=== PATIENT | male | born 1955 | race Caucasian/White ===

== ENCOUNTER 2017-03-27 16:26 | Inpatient (IN) | payer OTHER, MEDICARE ==
[~2017-03-27] VITALS: Ht 185.4 cm; Wt 112.0 kg
[~2017-03-27 16:26] MED LIST: NAPROSYN500 M1 PO
[2017-03-27 16:50] LABS: ABSOLUTE BASOPHIL COUNT 0.1 /CUMM (0.0-0.2); ABSOLUTE EOSINOPHIL COUNT 0 /CUMM (0.0-0.7); ABSOLUTE GRANULOCYTE CT 20.2 /CUMM (1.4-6.5); ABSOLUTE LYMPH COUNT 0.7 /CUMM (1.2-3.4); ABSOLUTE MONOCYTE COUNT 0.9 /CUMM (0.10-0.60); BASOPHIL % 0.6 % (0.0-2.0); EOSINOPHIL % 0 % (0-5); HEMATOCRIT 45.5 % (42-52); MEAN CORPUSCULAR HGB CONC 33.2 G/DL (33.0-37.0); MEAN CORPUSCULAR VOLUME 87.3 FL (80.0-94.0); MEAN PLATELET VOLUME 7.3 FL (7.4-10.4); PLATELET COUNT 263 /CUMM (130-400); RBC DISTRIBUTION WIDTH 12.6 % (11.5-14.5); RED BLOOD CELL CT 5.21 /CUMM (4.70-6.10)
[2017-03-27 16:53] LABS: GRANULOCYTE % 91.8 % (42.2-75.2)
--- NOTE | 2017-03-27 18:10 | ED GI/GU/ABDOMINAL COMPLAINT ---
History of Present Illness General Chief Complaint: Abdominal Pain/Flank Pain Stated Complaint: ABD PAIN +N Source: patient Exam Limitations: no limitations Vital Signs & Intake/Output Vital Signs & Intake/Output Vital Signs Date Time Temp Pulse Resp B/P B/P Pulse O2 O2 Flow FiO2 Mean Ox Delivery Rate 03/27 2027 97.0 90 16 161/77 94 Room Air 03/27 1910 100.1 100 18 135/80 95 Room Air 03/27 1852 Room Air 03/27 1635 100.3 80 22 146/87 94 Allergies Coded Allergies: risperidone (UNKNOWN 10/30/15) Triage Note: PER PT RLQ PAIN ALL DAY GETTING WORSE VOMITTED X 1 NO DIARRHEA NO FEVER LAST BM YESTERDAY Triage Nurses Notes Reviewed? yes Onset: Abrupt Duration: day(s): (1), constant, getting worse Timing: recent history Location: right lower quadrant Radiation: no radiation Activities at Onset: none No Modifying Factors: none HPI: 61-year-old male comes into emergency room with complaints of right lower abdominal pain that's been getting progressively worse throughout the day. Some associated nausea vomiting and decreased appetite. History of hernia surgery when he was a child denies any other surgeries. Nothing seems to make the symptoms better. Comes in for further evaluation. (Eliezer Andrea) Reconcile Medications Benztropine Mesylate 0.5 MG TABLET 1 TAB PO BID ANTICHOLINERGIC (Reported) Bupropion HCl (Bupropion HCl Sr) 150 MG TABLET.ER 1 TAB PO BID MOOD (Reported ) Buspirone HCl 30 MG TABLET 1 TAB PO BID ANXIETY (Reported) Gabapentin (Neurontin) 600 MG TABLET 1 TAB PO 4 TIMES/DAY NERVES (Reported) Hydrochlorothiazide 25 MG TABLET 1 TAB PO DAILY HIGH BLOOD PRESSURE (Reported ) Hydroxyzine Pamoate (Vistaril) 50 MG CAPSULE 1 CAP PO TIDPRN ANXIETY ( Reported) Levothyroxine Sodium 50 MCG TABLET 1 TAB PO DAILY THYROID PROBLEMS (Reported) Lisinopril 30 MG TABLET 1 TAB PO DAILY HIGH BLOOD PRESSURE (Reported) Metoprolol Tartrate 100 MG TABLET 1 TAB PO BID HIGH BLOOD PRESSURE (Reported) Morphine Sulfate (Morphine Sulfate ER) 60 MG TABLET.ER 1 TAB PO BID PAIN CONTROL (Reported) Naproxen (Naprosyn) 500 MG TABLET 1 TAB PO BID PRN PAIN AND INFLAMMATION Olanzapine (Zyprexa) 15 MG TABLET 1 TAB PO QPM MOOD STABILITY (Reported) Oxcarbazepine 150 MG TABLET 1 TAB PO BID SEIZURES (Reported) Oxycodone HCl 15 MG TABLET 1 TAB PO 4 TIMES/DAY PAIN CONTROL (Reported) (Amalia PLAZA,Cuco Mckee) Past History Travel History Traveled to [place] past 21 day No Medical History Any Pertinent Medical History? see below for history Neurological: NONE EENT: NONE Cardiovascular: hypertension Respiratory: NONE Gastrointestinal: NONE Hepatic: NONE Renal: NONE Musculoskeletal: NONE Psychiatric: depression Endocrine: THYROID Surgical History Surgical History: hernia Psychosocial History Who do you live with Other (see notes) What is your primary language Turkmen Tobacco Use: Never used Family History Hx Contributory? No (Eliezer Andrea) Review of Systems Review of Systems Constitutional: Reports: no symptoms. EENTM: Reports: no symptoms. Respiratory: Reports: no symptoms. Cardiovascular: Reports: no symptoms. GI: Reports: see HPI. Genitourinary: Reports: no symptoms. Musculoskeletal: Reports: no symptoms. Skin: Reports: no symptoms. Neurological/Psychological: Reports: no symptoms. Hematologic/Endocrine: Reports: no symptoms. Immunologic/Allergic: Reports: no symptoms. All Other Systems: Reviewed and Negative (Eliezer Andrea) Physical Exam Physical Exam General Appearance: well developed/nourished, mild distress Head: atraumatic, normal appearance Eyes: Bilateral: normal appearance. Ears, Nose, Throat, Mouth: hearing grossly normal, moist mucous membrane Neck: normal inspection Respiratory: normal breath sounds, no respiratory distress Cardiovascular: regular rate/rhythm Gastrointestinal: soft, tenderness (rlq) Back: normal inspection Extremities: normal range of motion Neurologic/Psych: awake, alert, oriented x 3, normal gait Core Measures ACS in differential dx? No Sepsis Present: No Sepsis Focused Exam Completed? No (Eliezer Andrea) Progress Differential Diagnosis: appendicitis, biliary colic, bowel obstruction, diverticulitis, gastritis, ischemic bowel, inflamm bowel dis, pancreatitis, perforated viscous, SBO Plan of Care: Orders Procedure Date/time Status TRANSFER ORDERS 03/27 2025 Active Patient Data 03/27 2008 Active Code Status 03/27 2008 Active Add-on Test (ER Only) 03/27 1951 Active EKG 03/27 1951 Active TYPE & SCREEN (NOT X-MATCH) 01/[address] in observation 01/12 1946 Active PARTIAL THROMBOPLASTIN TIME 03/27 1640 Complete PROTHROMBIN TIME 03/27 1640 Complete C-REACTIVE PROTEIN 03/27 1640 Complete URINALYSIS 03/27 1636 Complete LIPASE 03/27 1636 Complete HIGH SENSITIVITY CRP 03/27 1636 Complete COMPREHENSIVE METABOLIC PANEL 03/27 1636 Complete CBC WITHOUT DIFFERENTIAL 03/27 1636 Complete AMYLASE 03/27 1636 Complete Current Medications Sig/Nirmal Start time Last Medication Dose Stop Time Status Admin Olanzapine 15 MG QPM 03/28 2200 UNVr (Zyprexa) Benztropine Mesylate 0.5 MG BID 03/28 1000 UNVr (Cogentin 0.5 MG Tab) Bupropion HCl 150 MG BID 03/28 1000 UNVr (Wellbutrin SR) Buspirone HCl 30 MG BID 03/28 1000 UNVr (Buspar) Gabapentin 600 MG 4 TIMES/DAY 03/28 1000 UNVr (Neurontin) Hydrochlorothiazide 25 MG DAILY 03/28 1000 UNVr (Hydrodiuril) Levothyroxine Sodium 0.05 MG DAILY 03/28 1000 UNVr (Synthroid) Lisinopril 30 MG DAILY 03/28 1000 UNVr (Prinivil) Metoprolol Tartrate 100 MG BID 03/28 1000 UNVr (Lopressor) Oxcarbazepine 150 MG BID 03/28 1000 UNVr (Trileptal 150MG Tab) Laboratory Tests 03/27/17 1700: Urine Color YEL, Urine Clarity CLEAR, Urine pH 6.0, Ur Specific [place] 1.020, Urine Protein NEG, Urine Ketones 15 H, Urine Nitrite NEG, Urine Bilirubin NEG, Urine Urobilinogen 0.2, Ur Leukocyte Esterase NEG, Ur Microscopic EXAM NOT REQUIRED, Urine Hemoglobin NEG, Urine Glucose NEG 03/27/17 1640: Anion Gap 17 H, Estimated GFR > 60, BUN/Creatinine Ratio 22.5, Glucose 149 H, Calcium 9.5, Total Bilirubin 1.2, AST 23, ALT 35, Alkaline Phosphatase 75, C- Reactive Prot, Quant 8.7 H, C-React Prot High Sens > 15.0 H, Total Protein 7.3 , Albumin 4.4, Globulin 2.9, Albumin/Globulin Ratio 1.5, Amylase 52, Lipase 39, PT 12.4, INR 1.18 H, APTT 28, CBC w Diff MAN DIFF ORDERED, RBC 5.21, MCV 87.3, MCH 29.0, RDW 12.6, MPV 7.3 L, Gran % 91.8 H, Lymphocytes % 3.3 L, Monocytes % 4.3, Eosinophils % 0, Basophils % 0.6, Absolute Granulocytes 20.2 H, Segmented Neutrophils 88 H, Band Neutrophils 2, Absolute Lymphocytes 0.7 L, Lymphocytes 2 L, Monocytes 8, Absolute Monocytes 0.9 H, Absolute Eosinophils 0 , Absolute Basophils 0.1, Platelet Estimate ADEQUATE, Poikilocytosis 1+, Stomatocytes 1+, PUBS MCHC 33.2 Diagnostic Imaging: Viewed by Me: CT Scan. Discussed w/RAD: CT Scan. Initial ED EKG: normal sinus rhythm, rate (86) (Eliezer Andrea) Departure Departure Disposition: STILL A PATIENT Condition: Stable Clinical Impression Primary Impression: Acute appendicitis Referrals: Valentino Chun MD (PCP/Family) Departure Forms: Customer Survey General Discharge Information OR/GI Note Spoke With: Tommie Sow DO ED Treatment Decision: KALI THRASHER requires urgent operative management or an emergent procedure that cannot be performed in the Emergency Room setting. Transport To: [facility] (Eliezer Andrea) PA/FARMWORKER BULBS Co-Sign Statement Statement: ED Attending supervision documentation- [X] I saw and evaluated the patient. I have also reviewed all the pertinent lab results and diagnostic results. I agree with the findings and the plan of care as documented in the PA's/FARMWORKER BULBS's documentation. 03/27/17, 20:05... Pt with ruptured appendicitis.... pt to the OR. [] I have reviewed the ED Record and agree with the PA's/FARMWORKER BULBS's documentation. [] Additions or exceptions (if any) to the PAs/FARMWORKER BULBS's note and plan are summarized below: [] (Amalia PLAZA,Cuco Mckee) Critical Care Note Critical Care Note Critical Care Time: 30-74 min (40) (Eliezer Andrea) (Amalia PLAZA,Cuco Mckee) Critical Care Note Critical Care Note Critical Care Time: 30-74 min (40) (Eliezer Andrea)
[2017-03-27] MEDS ORDERED: BUPROPION HCL150 M4 PO (19:15)
[2017-03-27] MEDS ORDERED: BUSPIRONE HCL30 M1 PO (19:15)
[2017-03-27] MEDS ORDERED: BENZTROPINE ME0.5 M1 PO (19:18)
[2017-03-27] MEDS ORDERED: HYDROCHLOROTHIA25 M1 PO (19:19)
[2017-03-27] MEDS ORDERED: LEVOTHYROXINE50 MCG PO (19:20)
[2017-03-27] MEDS ORDERED: VISTARIL50 M1 PO (19:20)
[2017-03-27] MEDS ORDERED: LISINOPRIL30 M1 PO (19:21)
[2017-03-27] MEDS ORDERED: METOPROLOL TAR100 M1 PO (19:22)
[2017-03-27] MEDS ORDERED: MORPHINE SULFAT60 M4 PO (19:23)
[2017-03-27] MEDS ORDERED: NEURONTIN600 M1 PO (19:24)
[2017-03-27] MEDS ORDERED: OXCARBAZEPINE150 M1 PO (19:25)
[2017-03-27] MEDS ORDERED: ZYPREXA15 M1 PO (19:26)
[2017-03-27] MEDS ORDERED: OXYCODONE HCL15 M1 PO (19:26)
--- NOTE | 2017-03-27 19:43 | CT SCAN REPORT ---
EXAMINATION: CT ABDOMEN AND PELVIS WITH CONTRAST CLINICAL INFORMATION: Right lower quadrant abdominal pain. Evaluate for acute appendicitis. COMPARISON: No relevant prior imaging. TECHNIQUE: Multidetector volumetric imaging was performed of the abdomen and pelvis following IV administration of 95 mL of Optiray 320 intravenous contrast. Sagittal and coronal reformatted images were obtained on the technologist's workstation. DLP: 1367.49 mGy-cm FINDINGS: LUNG BASES: There is minimal bibasilar subsegmental atelectasis. No pleural or pericardial effusion. Old healed fractures of the multiple lower right-sided ribs near their costochondral articulation are noted. LIVER, GALLBLADDER, AND BILIARY TREE: The liver is normal in size, shape, and attenuation. No focal hepatic lesion or biliary ductal dilatation is present. The gallbladder is unremarkable with no evidence of radiopaque gallstones, gallbladder wall thickening, or obvious pericholecystic inflammatory changes. PANCREAS: Unremarkable. SPLEEN: Unremarkable. ADRENAL GLANDS: Unremarkable. KIDNEYS AND URETERS: Kidneys demonstrate symmetric nephrographic enhancement. There is no abnormal perinephric inflation or collection. No hydronephrosis. No worrisome mass or calcification is visualized along the expected course of the right or left ureters. BLADDER: Unremarkable. GASTROINTESTINAL TRACT: There is circumferential enhancement associated with a distended and inflamed appendix measuring 1.6 cm and maximal diameter. A few small foci of gas are visualized outside the bowel lumen and there is extensive inflammatory stranding within the adjoining mesenteric fat indicating likelihood of perforation. Mild reactive inflammatory thickening of the terminal ileum and base of the cecum is also noted. ABDOMINAL WALL: Small bilateral fat-containing inguinal hernias and a fat-containing umbilical hernia. LYMPH NODES: No pathologically enlarged mesenteric or retroperitoneal lymph nodes. VASCULAR: A few vascular calcifications are visualized within the abdominal aorta and iliac vessels. The inferior vena cava is unremarkable. PELVIC VISCERA: Unremarkable. OSSEOUS STRUCTURES: There is no acute osseous finding. No worrisome lytic or blastic osseous lesion. IMPRESSION: Findings consistent with a perforated acute appendicitis.
[2017-03-27 20:19] LABS: PT 12.4 SEC (9.4-12.5); PTT 28 SEC (25-37)
--- NOTE | 2017-03-27 20:43 | History & Physical ---
Cuco Domínguez 03/27/172039: General Information and HPI History of Present Illness: This is a 61 y/o M w/ PMHx of TBI?, HTN, Hypothyroidism, hypothyroidism, siezures, left shoulder surgery, inguinal hernia repair that presents to [facility] ED with 1 day hx of abdominal pain and vomiting. Of note, pt is occumpanied by home appliance tech. He reportedly he has a hx of TBI and has 16hr a day assistance at home. Pt states he was in his usual state of good health until early this morning he had a sudden on set of abdominal pain that was followed by vomiting. He denies any alleviating factors to his pain and reports it became constant and worsened throughout the day. He denies having a appetite and was note able to eat much today, last trying to eat around lunch time. Over the last couple of days he has been in his usual state of health and denies any recent fever/chills. Last BM was yesterday. The pain continued and worsened. Therefore he was brought to the ED by home engineering assistant. Currently denies CP, SOB, N/V/D, fever/chills, headaches. Allergies/Medications Allergies: Coded Allergies: risperidone (UNKNOWN 10/30/15) Home Med list Benztropine Mesylate 0.5 MG TABLET 1 TAB PO BID ANTICHOLINERGIC (Reported) Bupropion HCl (Bupropion HCl Sr) 150 MG TABLET.ER 1 TAB PO BID MOOD (Reported ) Buspirone HCl 30 MG TABLET 1 TAB PO BID ANXIETY (Reported) Gabapentin (Neurontin) 600 MG TABLET 1 TAB PO 4 TIMES/DAY NERVES (Reported) Hydrochlorothiazide 25 MG TABLET 1 TAB PO DAILY HIGH BLOOD PRESSURE (Reported ) Hydroxyzine Pamoate (Vistaril) 50 MG CAPSULE 1 CAP PO TIDPRN ANXIETY ( Reported) Levothyroxine Sodium 50 MCG TABLET 1 TAB PO DAILY THYROID PROBLEMS (Reported) Lisinopril 30 MG TABLET 1 TAB PO DAILY HIGH BLOOD PRESSURE (Reported) Metoprolol Tartrate 100 MG TABLET 1 TAB PO BID HIGH BLOOD PRESSURE (Reported) Morphine Sulfate (Morphine Sulfate ER) 60 MG TABLET.ER 1 TAB PO BID PAIN CONTROL (Reported) Naproxen (Naprosyn) 500 MG TABLET 1 TAB PO BID PRN PAIN AND INFLAMMATION Olanzapine (Zyprexa) 15 MG TABLET 1 TAB PO QPM MOOD STABILITY (Reported) Oxcarbazepine 150 MG TABLET 1 TAB PO BID SEIZURES (Reported) Oxycodone HCl 15 MG TABLET 1 TAB PO 4 TIMES/DAY PAIN CONTROL (Reported) Past History Travel History Traveled to [place] past 21 day No Medical History Neurological: TBI EENT: NONE Cardiovascular: hypertension Respiratory: NONE Gastrointestinal: NONE Hepatic: NONE Renal: NONE Musculoskeletal: NONE Psychiatric: depression Endocrine: THYROID Surgical History Surgical History: hernia Review of Systems Review of Systems Constitutional: Reports: see HPI. Exam & Diagnostic Data Last 24 Hrs of Vital Signs/I&O Vital Signs Date Time Temp Pulse Resp B/P B/P Pulse O2 O2 Flow FiO2 Mean Ox Delivery Rate 03/27 2027 97.0 90 16 161/77 94 Room Air 03/27 1910 100.1 100 18 135/80 95 Room Air 03/27 1852 Room Air 03/27 1635 100.3 80 22 146/87 94 Physical Exam General Appearance Alert, Oriented X3, Cooperative, No Acute Distress HEENT Atraumatic Neck Supple Cardiovascular Regular Rate, Normal S1, Normal S2, No Murmurs Lungs Clear to Auscultation Abdomen Obese abdomen, tender to palpation in RLQ, bowel sounds hypoactive, no guarding/ridgitity Neurological Cranial Nerves 3-12 NL Last 24 Hrs of Labs/Fabiano: Laboratory Tests 03/27/17 1700: Urine Color YEL, Urine Clarity CLEAR, Urine pH 6.0, Ur Specific [place] 1.020, Urine Protein NEG, Urine Ketones 15 H, Urine Nitrite NEG, Urine Bilirubin NEG, Urine Urobilinogen 0.2, Ur Leukocyte Esterase NEG, Ur Microscopic EXAM NOT REQUIRED, Urine Hemoglobin NEG, Urine Glucose NEG 03/27/17 1640: Anion Gap 17 H, Estimated GFR > 60, BUN/Creatinine Ratio 22.5, Glucose 149 H, Calcium 9.5, Total Bilirubin 1.2, AST 23, ALT 35, Alkaline Phosphatase 75, C- Reactive Prot, Quant 8.7 H, C-React Prot High Sens > 15.0 H, Total Protein 7.3 , Albumin 4.4, Globulin 2.9, Albumin/Globulin Ratio 1.5, Amylase 52, Lipase 39, PT 12.4, INR 1.18 H, APTT 28, CBC w Diff MAN DIFF ORDERED, RBC 5.21, MCV 87.3, MCH 29.0, RDW 12.6, MPV 7.3 L, Gran % 91.8 H, Lymphocytes % 3.3 L, Monocytes % 4.3, Eosinophils % 0, Basophils % 0.6, Absolute Granulocytes 20.2 H, Segmented Neutrophils 88 H, Band Neutrophils 2, Absolute Lymphocytes 0.7 L, Lymphocytes 2 L, Monocytes 8, Absolute Monocytes 0.9 H, Absolute Eosinophils 0 , Absolute Basophils 0.1, Platelet Estimate ADEQUATE, Poikilocytosis 1+, Stomatocytes 1+, PUBS MCHC 33.2 Assessment/Plan Assessment: This is a 61 y/o M w/ PMHx of TBI?, HTN, Hypothyroidism, hypothyroidism, siezures, left shoulder surgery, inguinal hernia repair that presents to [facility] ED with 1 day hx of abdominal pain and vomiting. CT of abdomen shows acute appendicitis. Plan discussed with Dr. Sow -admit to surgery for observation -OR tonight for Lap Appy -Ceftriaxone + flagyl -Keep NPO overnight -IVFs -Continue PO home meds -Pain regimen As Ranked By This Provider Problem List: 1. Acute appendicitis Core Measures/Misc (11/30) Acute Coronary Syndrome ACS Diagnosis: No Congestive Heart Failure Congestive Heart Failure Diagnosis No Cerebrovascular Accident CVA/TIA Diagnosis: No VTE (View Protocol) VTE Risk Factors Surgery No Mechanical VTE Prophylaxis d/t N/A MechProphylax Ordered No VTE Pharm Prophylaxis d/t NA PharmProphylax ordered Sepsis (View protocol) Sepsis Present: No Juanjose Tommie SHAVER 03/27/17 2300: Attending MD Review Statement Attending Statement Attending MD Statement: examined this patient, discuss w/resident/PA/FISH FARM LABORER, agreed w/resident/PA/FISH FARM LABORER, discussed with family, reviewed images Attending Assessment/Plan: Patient seen and examined, agree with above. As per patient pain only since this morning, +Nausea. Low grade temp in ED VSS. Abd-soft, obese, +RLQ tenderness with guarding. WBC 22. CT scan likely perforated appendicitis. Will admit, NPO/ IVF/IV Abx, plan for Lap Appy tonight. D/W patient and ED staff.
--- NOTE | 2017-03-27 20:54 | RADIOLOGY REPORT ---
EXAMINATION: XR PORTABLE CHEST CLINICAL INFORMATION: Preop. COMPARISON: Chest x-ray 06/27/2008 TECHNIQUE: Portable frontal view of the chest was obtained. 8:09 PM FINDINGS: No significant abnormality is noted involving the heart, lungs, mediastinum, bony thorax or soft tissues. IMPRESSION: Unremarkable examination.
--- NOTE | 2017-03-27 23:14 | Operative Report ---
Operative/Inv Procedure Report Surgery Date: 03/27/17 Name of Procedure: Laparoscopic appendectomy Pre-Operative Diagnosis: Acute appendicitis Post-Operative Diagnosis: Perforated acute appendicitis with feculent peritonitis Estimated Blood Loss: 50ml to 100ml Surgeon/Certified Scrum Master: Tommie Nicholson Anesthesia: general endotracheal tube IV Fluids: 1800 cc Drains: 10 Fr LLQ LENNY Specimens: Appendix Complications: None Condition: Stable Operative Indication: This is a 61-year-old male who presented to the emergency room with a one-day history of abdominal pain. After appropriate workup was completed the patient was diagnosed with acute appendicitis with possible perforation. Given the history of only 1 day pain a laparoscopic possible open appendectomy was discussed in detail. All risks including but not limited to bleeding, infection , and injury to surrounding bowel were discussed in detail. I also explained that given the appearance on the CT scan there is a chance that there be too much inflammatory reaction and in which case I would be unable to perform a safe appendectomy which would lead me to just draining the area and leaving on IV antibiotics without performing an appendectomy. The patient understood everything and decided to proceed. Operative/Procedure Note Note: The patient was brought to the operating room and placed on the table in supine position. Venodyne stockings were placed and adequate general endotracheal anesthesia was obtained. The patient was prepped and draped in standard surgical fashion. Began the procedure by making a 2 cm transverse incision in the infraumbilical crease. Incision was carried down to the fascia. Once the fascia was clearly visualized it was picked up between 2 Diana clamps and divided in the midline. Once we entered the peritoneum 2 stay 0 Vicryl sutures were placed on each side and a 12 mm blunt port was inserted. The abdominal cavity was insufflated to 15 mmHg. And a 10 mm 30 laparoscope was introduced. Upon initial examination no obvious gross pathology was seen, some hyperemia and inflammatory reaction was noted in the right lower quadrant. Accessory trocars were placed, both 5 mm, one in the left lower quadrant and one suprapubic. Ascending colon was identified and traced proximally, terminal ileum was identified, and we did note the appendix coursing into the pelvis under the terminal ileum. The base of the appendix was not identified. Distal appendix was markedly inflamed and thickened and adhered to the sidewall and to the terminal ileum. Using blunt dissection and harmonic scalpel the terminal ileum was carefully dissected away from the appendix. Of note, the dissection took some time due to the very dense adhesions indicating the processes going on for a long time. An asbcess cavity was encountered with purulent and feculent drainage. The appendix was adhered to the side wall and there appeared to be a large perforation right near the base. Extensive dissection was performed using blunt dissection and harmonic scalpel to dissect the appendix away from the surrounding structures. The area of perforation was just distal to the base and appeared to be completely necrotic and falling off. The base was carefully dissected so that we had healthy tissue proximal to the large area of perforation and necrosis. The cecum was noted to be thick as well. Once the base was adequately isolated we switched to a 5 mm laparoscope and a 45 mm purple Endo SHEEBA load was inserted and the base was transected. The appendix was placed in an Endobag and removed through the umbilical trocar site. The abdominal cavity was reinsufflated and we switched back to a 10 mm laparoscope. Staple line was examined and no bleeding was noted, the staple line appeared to be on good tissue with no breakdown. A piece of omentum was then brought down to the right lower quadrant and using a 2-0 Vicryl omentopexy was performed to the base of the cecum. No other abnormalities were noted. The pelvis and the right lower quadrant were copiously irrigated until clear. A 10 [place] LENNY drain was placed through the left lower quadrant incision into the pelvis and coming up the right gutter. All ports were removed under direct visualization, no obvious bleeding was noted. The umbilical trocar site was closed using 0 Vicryl suture. The skin was closed using 4-0 Monocryl. Steri-Strips and dressings were placed. The patient was successfully extubated and transferred to the recovery room in stable condition. The patient tolerated procedure well with no complications. Findings: Perforated appendix just distal to the base, + abscess, + feculent material in RLQ, necrotic appendix CC: Lay PLAZA,Valentino
[2017-03-28 03:11] VITALS: BP 112/60
[2017-03-28 05:05] VITALS: BP 108/60
--- NOTE | 2017-03-28 05:27 | PN- General Surgery ---
See Addendum Subjective Subjective: Pt seen and evaluated for post op check. No acute events since the OR. Patient is resting comfortably in bed. Continues to have moderate RLQ pain with palpation/movement. JOANNE draining sa fluid. Has not eaten or been oob. Denies cp, sob, n/v/d, f/c. Objective Vital Signs and I&Os Vital Signs Date Time Temp Pulse Resp B/P B/P Pulse O2 O2 Flow FiO2 Mean Ox Delivery Rate 03/28 0311 97.8 69 20 112/60 93 Room Air 03/27 2027 97.0 90 16 161/77 94 Room Air 03/27 1910 100.1 100 18 135/80 95 Room Air 03/27 1852 Room Air 03/27 1635 100.3 80 22 146/87 94 Intake & Output 03/28 0800 03/28 0000 03/27 1600 03/27 0800 03/27 0000 03/26 1600 Intake Total 1000 Output Total Balance 1000 Intake, IV 1000 Patient 250 lb Weight Physical Exam: General Appearance sleeping comfortably in bed upon arrival, answering questions without problems, NAD HEENT Atraumatic Neck Supple Cardiovascular Regular Rate, Normal S1, Normal S2, No Murmurs Lungs Clear to Auscultation Abdomen Obese abdomen, tender to palpation in RLQ, dressings c/d/i, joanne in place, bowel sounds hypoactive, no guarding/ridgitity Neurological Cranial Nerves 3-12 NL Current Medications: Current Medications Sig/Nirmal Start time Last Medication Dose Route Stop Time Status Admin Acetaminophen 650 MG Q6PRN PRN 03/28 0015 AC PO Ampicillin Sodium/ 3,000 MG ONCE ONE 03/27 1999 DC 03/27 Sulbactam Sodium IV 03/27 Sodium Chloride 100 ML Ampicillin Sodium/ 0 .STK-MED ONE 03/27 1954 DC Sulbactam Sodium .ROUTE Benztropine Mesylate 0.5 MG BID 03/28 1000 DC PO Benztropine Mesylate 0.5 MG BID 03/28 1000 AC PO Bupropion HCl 150 MG BID 03/28 1000 DC PO Bupropion HCl 150 MG BID 03/28 1000 AC PO Buspirone HCl 30 MG BID 03/28 1000 DC PO Buspirone HCl 30 MG BID 03/28 1000 AC PO Ceftriaxone Sodium 1,000 MG DAILY 03/28 1000 AC IV Dextrose/Sodium 1,000 ML Q10H 03/28 0015 AC 03/28 Chloride IV 0020 Gabapentin 600 MG 4 TIMES/DAY 03/28 1000 DC PO Gabapentin 600 MG 4 TIMES/DAY 03/28 1000 AC PO Hydrochlorothiazide 25 MG DAILY 03/28 1000 DC PO Hydrochlorothiazide 25 MG DAILY 03/28 1000 AC PO Influenza Virus 0.5 ML ONCE ONE 03/28 0415 DC Vaccine IM 03/28 0416 Levothyroxine Sodium 0.05 MG DAILY 03/28 1000 DC PO Levothyroxine Sodium 0.05 MG DAILY 03/28 1000 AC PO Lisinopril 30 MG DAILY 03/28 1000 DC PO Lisinopril 30 MG DAILY 03/28 1000 AC PO Metoprolol Tartrate 100 MG BID 03/28 1000 DC PO Metoprolol Tartrate 100 MG BID 03/28 1000 AC PO Metronidazole 500 MG IQ8 03/28 0800 AC N/A 1 UNIT IV Morphine Sulfate 2 MG Q3P PRN 03/28 0030 AC IV Morphine Sulfate 4 MG Q3P PRN 03/28 0030 AC 03/28 IV 0431 Morphine Sulfate 0 .STK-MED ONE 03/27 1905 DC .ROUTE Morphine Sulfate 4 MG ONCE ONE 03/27 1899 DC 03/27 IV 03/27 Olanzapine 15 MG QPM 03/28 220 DC PO Olanzapine 15 MG QPM 03/28 2200 AC PO Ondansetron HCl 4 MG Q8P PRN 03/28 0015 AC 03/28 IV 0451 Ondansetron HCl 0 .STK-MED ONE 03/27 1904 DC .ROUTE Ondansetron HCl 4 MG ONCE ONE 03/27 1899 DC 03/27 IV 03/27 Oxcarbazepine 150 MG BID 03/28 1000 DC PO Oxcarbazepine 150 MG BID 03/28 1000 AC PO Sodium Chloride 1,000 ML BOLUS ONE 03/27 190 DC 03/27 IV 03/27 Results Last 48 Hours of Labs: Laboratory Tests 03/27 03/27 1700 1640 Chemistry Sodium (137 - 145 mmol/L) 136 L Potassium (3.5 - 5.1 mmol/L) 4.2 Chloride (98 - 107 mmol/L) 88 L Carbon Dioxide (22 - 30 mmol/L) 30 Anion Gap (5 - 16) 17 H BUN (9 - 20 mg/dL) 18 Creatinine (0.7 - 1.2 mg/dL) 0.8 Estimated GFR (>60 ml/min) > 60 BUN/Creatinine Ratio (7 - 25 %) 22.5 Glucose (65 - 99 mg/dL) 149 H Calcium (8.4 - 10.2 mg/dL) 9.5 Total Bilirubin (0.2 - 1.3 mg/dL) 1.2 AST (17 - 59 U/L) 23 ALT (21 - 72 U/L) 35 Alkaline Phosphatase (< 127 U/L) 75 C-Reactive Prot, Quant (<1.0 mg/dL) 8.7 H C-React Prot High Sens (1.0 - 3.0 mg/L) > 15.0 H Total Protein (6.3 - 8.2 g/dL) 7.3 Albumin (3.5 - 5.0 g/dL) 4.4 Globulin (1.9 - 4.2 gm/dL) 2.9 Albumin/Globulin Ratio (1.1 - 2.2 %) 1.5 Amylase (30 - 110 U/L) 52 Lipase (23 - 300 U/L) 39 Coagulation PT (9.4 - 12.5 SEC) 12.4 INR (0.90 - 1.17) 1.18 H APTT (25 - 37 SEC) 28 Hematology CBC w Diff MAN DIFF ORDERED WBC (4.8 - 10.8 /CUMM) 22.0 H RBC (4.70 - 6.10 /CUMM) 5.21 Hgb (14.0 - 18.0 G/DL) 15.1 Hct (42 - 52 %) 45.5 MCV (80.0 - 94.0 FL) 87.3 MCH (27.0 - 31.0 PG) 29.0 RDW (11.5 - 14.5 %) 12.6 Plt Count (130 - 400 /CUMM) 263 MPV (7.4 - 10.4 FL) 7.3 L Gran % (42.2 - 75.2 %) 91.8 H Lymphocytes % (20.5 - 51.1 %) 3.3 L Monocytes % (1.7 - 9.3 %) 4.3 Eosinophils % (0 - 5 %) 0 Basophils % (0.0 - 2.0 %) 0.6 Absolute Granulocytes (1.4 - 6.5 /CUMM) 20.2 H Segmented Neutrophils (42.2 - 75.2 %) 88 H Band Neutrophils (0.0 - 5.0 %) 2 Absolute Lymphocytes (1.2 - 3.4 /CUMM) 0.7 L Lymphocytes (20.5 - 51.1 %) 2 L Monocytes (1.7 - 9.3 %) 8 Absolute Monocytes (0.10 - 0.60 /CUMM) 0.9 H Absolute Eosinophils (0.0 - 0.7 /CUMM) 0 Absolute Basophils (0.0 - 0.2 /CUMM) 0.1 Platelet Estimate (ADEQUATE) ADEQUATE Poikilocytosis 1+ Stomatocytes 1+ PUBS MCHC (33.0 - 37.0 G/DL) 33.2 Urines Urine Color (YEL,AMB,STR) YEL Urine Clarity (CLEAR) CLEAR Urine pH (5.0 - 8.0) 6.0 Ur Specific [place] (1.001 - 1.035) 1.020 Urine Protein (NEG,<30 MG/DL) NEG Urine Ketones (NEG) 15 H Urine Nitrite (NEG) NEG Urine Bilirubin (NEG) NEG Urine Urobilinogen (0.1 - 1.0 EU/dl) 0.2 Ur Leukocyte Esterase (NEG) NEG Ur Microscopic EXAM NOT REQUIRED Urine Hemoglobin (NEG) NEG Urine Glucose (N MG/DL) NEG Assessment/Plan Assessment/Plan This is a 61 y/o M w/ PMHx of TBI?, HTN, Hypothyroidism, hypothyroidism, siezures, left shoulder surgery, inguinal hernia repair that presents to [place] ED with 1 day hx of abdominal pain and vomiting found to have acute appendicitis. Now POD#1 s/p Laparoscopic appendectomy. Remains HD stable, pain controlled, NPO. -Ceftriaxone + flagyl for perforated appendix -Keep NPO today, possible advancement tonight per Dr. oSw -IVFs -continue PO home psych meds and htn meds -continue current pain regimen -f/u morning labs -monitor JOANNE output Core Measures Venous Thromboembolism VTE Risk Factors Surgery No Mechanical VTE Prophylaxis d/t N/A MechProphylax Ordered No VTE Pharm Prophylaxis d/t NA PharmProphylax ordered
[2017-03-28 09:54] LABS: ABSOLUTE BASOPHIL COUNT 0 /CUMM (0.0-0.2); ABSOLUTE EOSINOPHIL COUNT 0 /CUMM (0.0-0.7); ABSOLUTE GRANULOCYTE CT 19.5 /CUMM (1.4-6.5); ABSOLUTE LYMPH COUNT 0.7 /CUMM (1.2-3.4); ABSOLUTE MONOCYTE COUNT 0.8 /CUMM (0.10-0.60); BASOPHIL % 0 % (0.0-2.0); EOSINOPHIL % 0 % (0-5); GRANULOCYTE % 92.9 % (42.2-75.2); MEAN CORPUSCULAR HGB 29.7 PG (27.0-31.0); MEAN CORPUSCULAR HGB CONC 33.7 G/DL (33.0-37.0); MEAN CORPUSCULAR VOLUME 87.9 FL (80.0-94.0); MEAN PLATELET VOLUME 7.9 FL (7.4-10.4); PLATELET COUNT 195 /CUMM (130-400); RBC DISTRIBUTION WIDTH 12.8 % (11.5-14.5); RED BLOOD CELL CT 4.43 /CUMM (4.70-6.10)
[2017-03-28 14:47] VITALS: BP 100/60
[2017-03-28 22:39] VITALS: BP 110/60
[2017-03-29 06:49] VITALS: BP 146/90
[2017-03-29 09:33] LABS: ABSOLUTE BASOPHIL COUNT 0 /CUMM (0.0-0.2); ABSOLUTE EOSINOPHIL COUNT 0 /CUMM (0.0-0.7); ABSOLUTE GRANULOCYTE CT 16.4 /CUMM (1.4-6.5); ABSOLUTE LYMPH COUNT 1.1 /CUMM (1.2-3.4); ABSOLUTE MONOCYTE COUNT 1.4 /CUMM (0.10-0.60); BASOPHIL % 0 % (0.0-2.0); EOSINOPHIL % 0 % (0-5); GRANULOCYTE % 86.9 % (42.2-75.2); HEMATOCRIT 35.9 % (42-52); MEAN CORPUSCULAR HGB 29.8 PG (27.0-31.0); MEAN CORPUSCULAR HGB CONC 34.5 G/DL (33.0-37.0); MEAN CORPUSCULAR VOLUME 86.3 FL (80.0-94.0); PLATELET COUNT 195 /CUMM (130-400); RBC DISTRIBUTION WIDTH 12.6 % (11.5-14.5); RED BLOOD CELL CT 4.16 /CUMM (4.70-6.10)
[2017-03-29 10:15] LABS: WHITE BLOOD CELL COUNT 18.9 /CUMM (4.8-10.8)
--- NOTE | 2017-03-29 11:23 | PN- General Surgery ---
Subjective Subjective: No acute overnight events reported. Still c/o deep abdominal pain. Has some nausea, no emesis. Denies chest pain, shortness of breath and difficulty breathing. Has been voiding. Has passed flatus, no bm. Objective Vital Signs and I&Os Vital Signs Date Time Temp Pulse Resp B/P B/P Pulse O2 O2 Flow FiO2 Mean Ox Delivery Rate 03/29 0948 72 146/90 03/29 0948 72 146/90 03/29 0649 98.9 72 20 146/90 93 Room Air 03/29 0000 91 Room Air 03/28 2239 98.4 71 20 110/60 91 Room Air 03/28 2100 98.4 71 20 110/60 03/28 1447 98.8 69 20 100/60 93 Intake & Output 03/29 1600 03/29 0800 03/29 0000 03/28 1600 03/28 0800 03/28 0000 Intake Total 800 546 781 2906 Output Total 520 700 420 Balance 280 60 800 -420 1000 Intake, IV 800 155 098 1279 Intake, Oral 0 60 Number 0 Bowel Movements Output, 20 20 Drainage Output, Urine 500 700 400 Patient 250 lb 250 lb Weight Physical Exam: General: Alert and oriented x3, no acute distress Cardiac: RRR, s1s2 Pulm: C T A bialterally Abd: Softly distended, diffulsely mildly tender to palpation, more tender RLQ. LENNY drain holding suction, serosanguinous output. Extremities: Moves all extremities, distal sensation intact. Skin warm and well perfused. DP pulses palpable bialterally. Bilateral calves soft and non- tender. Assessment/Plan Assessment/Plan This is a 61 year old male, POD 1, s/p laparoscopic appendectomy. Admitted for IV abx and monitoring due to perforation and continued leukocytosis. PMH significant for htn, hypothyroid, tbi and psych. -Continue IV fluids, will d/c 1/2 NS and change to NS with 40 mEQ K due to Na of 133 and K of 3.5 -Add offirmev for pain as option other than morphine due to nausea -Continue prn anti-emetics -Continue IV abx -Continue LENNY drain to self suction, monitor output -Will advance diet pending resolution of nausea, monitoring for postop ileus -OOB encouraged -Incentive spriometry encouraged -Continue sub q heparin for dvt ppx Will d/w Dr. Sow Core Measures Venous Thromboembolism VTE Risk Factors Surgery No Mechanical VTE Prophylaxis d/t N/A MechProphylax Ordered No VTE Pharm Prophylaxis d/t NA PharmProphylax ordered
[2017-03-29 15:51] VITALS: BP 140/70
--- NOTE | 2017-03-29 20:45 | Patient Discharge Instructions ---
Discharge Instructions General Discharge Information You were seen/treated for: Acute appendicitis and perforated gastroduodenal ulcer You had these procedures: Laparoscopic appendectomy 03/27/17 Laparoscopic repair of gastroduodenal ulcer with omental patch 04/03/17 Paracentesis 04/09/17 Watch for these problems: Increasing pain despite the use of pain medications Increasing redness, warmth or discharge around incisions Increasing nasuea and vomitting. Inability to urinate, pass gas, or move bowels Relentless nausea and vomitting Fever greater than 101 Do not soak the wound: Yes No bath, but you may shower: Yes Other wound care: Pack umbilical wound daily with iodiform and cover with clean, dry dressing. Keep wounds clean and dry Special Instructions: Advance diet slowly as tolerated Avoid heavy lifting Do not drive while under the influence of narcotic pain medication Diet Continue normal diet: Yes Recommended Diet: Heart Healthy Additional DIET Information: Advance as tolerated Activity Full Activity/No Limits: No Activity Self Limited: Yes Pounds, do NOT lift more than: 10 Acute Coronary Syndrome Inclusion Criteria At DC or during hospital stay patient has or had the following: ACS DIAGNOSIS No Discharge Core Measures Meds if any: Prescribed or Continued at Discharge Meds if any: NOT Prescribed or Continued at Discharge Congestive Heart Failure Inclusion Criteria At DC or during hospital stay patient has or had the following: CHF DIAGNOSIS No Discharge Core Measures Meds if any: Prescribed or Continued at Discharge Meds if any: NOT Prescribed or Continued at Discharge Cerebrovascular accident Inclusion Criteria At DC or during hospital stay patient has or had the following: CVA/TIA Diagnosis No Discharge Core Measures Meds if any: Prescribed or Continued at Discharge Meds if any: NOT Prescribed or Continued at Discharge Venous thromboembolism Inclusion Criteria VTE Diagnosis No VTE Type NONE VTE Confirmed by (Test) NONE Discharge Core Measures - Per Current guidelines, there needs to be overlap - treatment for the first 5 days of Warfarin therapy. - If discharged on Warfarin prior to 5 days of - overlap therapy, the patient will need to be - assessed for post discharge needs including - *Post discharge parental anticoagulation - *Warfarin and/or parental anticoagulation education - *Follow up date to check INR post discharge At least 5 days overlap therapy as Inpatient No Meds if any: Prescribed or Continued at Discharge Note: Overlap Therapy is Warfarin and Anticoagulant Meds if any: NOT Prescribed or Continued at Discharge
--- NOTE | 2017-03-29 20:50 | Surgical Discharge Summary ---
Visit Information Visit Dates Admission Date: 03/29/17 Discharge Date: 04/17/2017 History of Present Illness Chief Complaint: Abdominal pain related to acute appendicitis Medical History Blood Transfusion Hx: No Neurological: TBI EENT: NONE Cardiovascular: hypertension Respiratory: NONE Gastrointestinal: NONE Hepatic: NONE Renal: NONE Musculoskeletal: NONE Psychiatric: depression Endocrine: THYROID Cancer(s): NONE STUDIO DIRECTOR/Reproductive: NONE History of MRSA: No History of VRE: No History of CDIFF: No Isolation History: Standard Influenza Vaccine: 11/29/15 Surgical History Pertinent Surgical History: hernia Psychosocial History Who Do You Live With? Other (see notes) What is Your Primary Language? Surinamese Review of Systems: See H&P Hospital Course Course Attending Physician: Tommie Sow DO Primary Care Physician: Lay PLAZA,[facility] Course: Patient was admitted to the hospital with acute appendicitis on 03/27/2017. He underwent a laparoscopic appendectomy. His post op course was significant for nausea and vomitting. His diet was slowly advanced. On 04/01/17 due to persistent leukocytosis along with nausea, a CT of his abdomen was ordered. No collections were seen, no evidence of perforation appreciated, and under the instructions of Dr. Sow, the joanne drain was discontinued without incident. Approximately 24 hours post joanne drain pull, the patient began to complain of worsening abdominal pain. His WBC count was increasing and on clinical exam, his abdomen appeared acute. Imaging was obtained in the form of a multiview abdominal xray as well as a dry abdominal ct scan which showed evidence of free intra-abdominal air, a change from one day prior. He was emergently taken to the operating room by Dr. Sow and underwent an exploratory laparotomy with repair of duodenal ulcer via ted patch on 04/03/2017. He was admitted to the intensive care unit for postoperative monitoring and critical care. He was evaluated by medical service as well as cardiology, pulmonology and infectious disease. Patient was monitored in the intensive care unit for several days , picc line was placed and TPN was provided for several days, he improved and then downgraded to the floor. He had a persistently elevated white count postoperatively repeat CT scan does not show anything acute with his surgical sites or repair although he did have a small amount of peritoneal fluid and a paracentesis was performed which showed fungal growth and he was placed on Diflucan and his antibiotics were stopped. His white count subsequently improved in the next coming days and his clinical status improved. He had 3 drains placed at the time of his second surgery and the drains were subsequently removed as his clinical symptoms improved. His diet was advanced and currently tolerating a regular diet for 2 days, he has had slow return of bowel function but had bowel movements intermittently throughout his stay here. His pain is controlled on oral medication. His charissa were removed at his umbilicus which revealed a small amount of purulent discharge and the wound was packed with a little from gauze and change daily, this is improving without any signs of worsening infection or need for further antibiotics. Patient was deemed appropriate to be discharged to short term rehab having normalizing labs tolerating diet and pain adequately controlled. Complications: See above Allergies: Coded Allergies: risperidone (UNKNOWN 10/30/15) Disposition Summary Disposition Principal Diagnosis: Acute appendicitis, perforated Gross bacterial peritonitis Additional Diagnosis: Perforated gastro-duodenal ulcer status post left, appendectomy with subsequent laparoscopic repair and gram patch, placement of PICC line for antibiotics and TPN. Septic shock Fungal peritonitis Discharge Disposition: home or self care Discharge Instructions General Discharge Information Code Status: Full Code Patient's Diet: Heart healthy, advance as tolerated Patient's Activity: As tolerated, no heavy lifting, no driving while under the influence of narcotic pain medication Follow-Up Instructions/Appts: Follow up with Dr. Sow in two weeks from date of surgery Medications at Discharge Discharge Medications: Stop taking the following medications: Naproxen (Naprosyn) 500 MG TABLET ORAL TWICE DAILY as needed for PAIN AND INFLAMMATION Qty = 20 Morphine Sulfate (Morphine Sulfate ER) 60 MG TABLET.ER ORAL TWICE DAILY Oxycodone HCl (Oxycodone HCl) 15 MG TABLET ORAL 4 TIMES A DAY Continue taking these medications: Bupropion HCl (Bupropion HCl Sr) 150 MG TABLET.ER 1 Tablet ORAL TWICE DAILY Comments: Last Taken: 04/17/17 Time: 0900 Buspirone HCl (Buspirone HCl) 30 MG TABLET 1 Tablet ORAL TWICE DAILY Comments: Last Taken: 04/17/17 Time: 0900 Benztropine Mesylate (Benztropine Mesylate) 0.5 MG TABLET 1 Tablet ORAL TWICE DAILY Comments: Last Taken: 04/17/17 Time: 0900 Hydrochlorothiazide (Hydrochlorothiazide) 25 MG TABLET 1 Tablet ORAL DAILY Comments: Last Taken: 04/17/17 Time: 0900 Hydroxyzine Pamoate (Vistaril) 50 MG CAPSULE 1 Capsule ORAL THREE TIMES A DAY NEEDED Comments: NOT GIVEN Levothyroxine Sodium (Levothyroxine Sodium) 50 MCG TABLET 1 Tablet ORAL DAILY Comments: Last Taken: 04/17/17 Time: 0600 Lisinopril (Lisinopril) 30 MG TABLET 1 Tablet ORAL DAILY Comments: Last Taken: 04/17/17 Time: 0900 Metoprolol Tartrate (Metoprolol Tartrate) 100 MG TABLET 1 Tablet ORAL TWICE DAILY Comments: Last Taken: 04/17/17 Time: 0900 Gabapentin (Neurontin) 600 MG TABLET 1 Tablet ORAL 4 TIMES A DAY Comments: NOT GIVEN Oxcarbazepine (Oxcarbazepine) 150 MG TABLET 1 Tablet ORAL TWICE DAILY Comments: Last Taken: 04/17/17 Time: 0900 Olanzapine (Zyprexa) 15 MG TABLET 1 Tablet ORAL Every night Comments: Last Taken: 04/16/17 Time: 2200 Start taking the following new medications: Oxycodone HCl (Oxycodone HCl) 5 MG TABLET 1-2 Tablet ORAL Q4-6H as needed for PAIN Qty = 36 No Refills Omeprazole Magnesium (Prilosec Otc) 20 MG TABLET.DR 1 Tablet ORAL TWICE DAILY Qty = 60 No Refills Fluconazole (Diflucan) 200 MG TABLET 600 Milligram ORAL DAILY Qty = 14 No Refills
[2017-03-29 22:46] VITALS: BP 160/94
--- NOTE | 2017-03-29 22:52 | RADIOLOGY REPORT ---
EXAMINATION: XR PORTABLE ABDOMEN CLINICAL INFORMATION: Persistent nausea and vomiting status post appendectomy COMPARISON: CT abdomen and pelvis 03/27/2017 TECHNIQUE: AP view of the abdomen, 2 images. FINDINGS: Central lucency projecting over the upper mid abdomen could represent intradermal free air in the setting of recent surgery. A small amount of free air is also noted along the right lateral inferior aspect of liver. The abdomen is relatively gasless. A surgical drain terminates in the right lower quadrant. Dense stool is noted throughout the colon. Gas is noted within the rectum. Scattered phleboliths are within the pelvis. The visualized osseous structures appear grossly unremarkable. IMPRESSION: Postoperative changes including intra-abdominal free air. Relatively nonspecific bowel gas pattern. Dense stool throughout the colon.
[2017-03-30 06:30] VITALS: BP 140/80
--- NOTE | 2017-03-30 07:40 | PN- General Surgery ---
See Addendum Subjective Subjective: still nauseous, last emesis this am. +flatus, no bm. +oob yesterday. +voids. denies cp/sob. pain well controlled Objective Vital Signs and I&Os Vital Signs Date Time Temp Pulse Resp B/P B/P Pulse O2 O2 Flow FiO2 Mean Ox Delivery Rate 03/30 0630 99.4 64 18 140/80 95 Room Air 03/29 2246 99.1 74 20 160/94 94 Room Air 03/29 2224 74 160/94 03/29 1551 98.4 70 20 140/70 94 03/29 0948 72 146/90 03/29 0948 72 146/90 Intake & Output 03/30 0800 03/30 0000 03/29 1600 03/29 0803/29 0000 03/28 1600 Intake Total 1380 700 800 760 800 Output Total 800 715 520 520 700 Balance -800 665 180 280 60 800 Intake, IV 900 700 800 700 800 Intake, Oral 480 0 60 Number 0 Bowel Movements Output, 15 20 20 Drainage Output, Urine 800 700 500 500 700 Patient 250 lb Weight Physical Exam: gen- nad card- s1s2 rrr pulm- ctab abd- ttp, distended, incisions cdi, joanne w minimal serosang in bulb, quiet bs throughout ext- calves soft nt bl Current Medications: Current Medications Sig/Nirmal Start time Last Medication Dose Route Stop Time Status Admin Acetaminophen 1,000 MG Q6P PRN 03/29 1030 AC 03/29 N/A 1 UNIT IV 2100 Acetaminophen 650 MG Q6PRN PRN 03/28 0015 DC PO Benztropine Mesylate 0.5 MG BID 03/28 1000 AC 03/29 PO 0948 Bupropion HCl 150 MG BID 03/28 1000 AC 03/29 PO 0947 Buspirone HCl 30 MG BID 03/28 1000 AC 03/29 PO 0949 Ceftriaxone Sodium 1,000 MG DAILY 03/28 1000 AC 03/29 IV 0949 Dextrose/Sodium 1,000 ML Q10H 03/28 0015 DC 03/28 Chloride IV 2321 Gabapentin 600 MG 4 TIMES/DAY 03/28 1000 AC 03/29 PO 1749 Heparin Sodium 5,000 UNIT Q8 03/28 1400 AC 03/30 (Porcine) SC 0644 Hydrochlorothiazide 25 MG DAILY 03/28 1000 AC 03/29 PO 0948 Levothyroxine Sodium 0.05 MG DAILY 03/28 1000 AC 03/29 PO 0600 Lisinopril 30 MG DAILY 03/28 1000 AC 03/29 PO 0948 Magnesium Sulfate 1 GM ONCE ONE 03/29 2200 DC 03/29 Dextrose/Water 100 ML IV 03/30 0159 2230 Metoclopramide HCl 5 MG Q6 03/29 2359 CAN IV Metoprolol Tartrate 100 MG BID 03/28 1000 AC 03/29 PO 2224 Metronidazole 500 MG IQ8 03/28 0800 AC 03/30 N/A 1 UNIT IV 0027 Morphine Sulfate 2 MG Q3P PRN 03/28 0030 AC 03/30 IV 0436 Morphine Sulfate 4 MG Q3P PRN 03/28 0030 AC 03/30 IV 0200 Olanzapine 15 MG QPM 03/28 2200 AC 03/28 PO 205 Ondansetron HCl 4 MG .STK-MED ONE 03/29 0851 DC IM 03/29 0852 Ondansetron HCl 4 MG Q8P PRN 03/28 0015 AC 03/30 IV 0425 Oxcarbazepine 150 MG BID 03/28 1000 AC 03/29 PO 0947 Potassium Chloride 40 MEQ Q10H 03/29 1130 AC 03/29 Sodium Chloride 1,000 ML IV 1251 Prochlorperazine 10 MG Q6-PRN PRN 03/29 1945 AC 03/30 IV 0202 Promethazine HCl 12.5 MG Q4P PRN 03/29 1600 DC 03/29 IV 04/05 1559 1659 Results Last 48 Hours of Labs: Laboratory Tests 03/29 0815 Chemistry Sodium (137 - 145 mmol/L) 133 L Potassium (3.5 - 5.1 mmol/L) 3.5 Chloride (98 - 107 mmol/L) 91 L Carbon Dioxide (22 - 30 mmol/L) 29 Anion Gap (5 - 16) 12 BUN (9 - 20 mg/dL) 12 Creatinine (0.7 - 1.2 mg/dL) 0.7 Estimated GFR (>60 ml/min) > 60 BUN/Creatinine Ratio (7 - 25 %) 17.1 Magnesium (1.6 - 2.3 mg/dL) 1.7 Hematology CBC w Diff NO MAN DIFF REQ WBC (4.8 - 10.8 /CUMM) 18.9 H RBC (4.70 - 6.10 /CUMM) 4.16 L Hgb (14.0 - 18.0 G/DL) 12.4 L Hct (42 - 52 %) 35.9 L MCV (80.0 - 94.0 FL) 86.3 MCH (27.0 - 31.0 PG) 29.8 RDW (11.5 - 14.5 %) 12.6 Plt Count (130 - 400 /CUMM) 195 MPV (7.4 - 10.4 FL) 8.0 Gran % (42.2 - 75.2 %) 86.9 H Lymphocytes % (20.5 - 51.1 %) 5.8 L Monocytes % (1.7 - 9.3 %) 7.3 Eosinophils % (0 - 5 %) 0 Basophils % (0.0 - 2.0 %) 0 Absolute Granulocytes (1.4 - 6.5 /CUMM) 16.4 H Absolute Lymphocytes (1.2 - 3.4 /CUMM) 1.1 L Absolute Monocytes (0.10 - 0.60 /CUMM) 1.4 H Absolute Eosinophils (0.0 - 0.7 /CUMM) 0 Absolute Basophils (0.0 - 0.2 /CUMM) 0 PUBS MCHC (33.0 - 37.0 G/DL) 34.5 Assessment/Plan Assessment/Plan A- POD3 sp lap appy for perf'ed appendicitis, w continued postop n/v likely due to postop ileus, awating return of bowel fxn P- NPO, sips water/ice chips for comfort, advance if feeling better later today IVF@100 I&Os labs pending abx- continue prn antiemetics prn pain meds home meds OOB, ambulate will dw attending Core Measures Venous Thromboembolism VTE Risk Factors Surgery No Mechanical VTE Prophylaxis d/t N/A MechProphylax Ordered No VTE Pharm Prophylaxis d/t NA PharmProphylax ordered
[2017-03-30 09:17] LABS: ABSOLUTE BASOPHIL COUNT 0 /CUMM (0.0-0.2); ABSOLUTE EOSINOPHIL COUNT 0 /CUMM (0.0-0.7); ABSOLUTE MONOCYTE COUNT 0.9 /CUMM (0.10-0.60); BASOPHIL % 0 % (0.0-2.0); EOSINOPHIL % 0 % (0-5); GRANULOCYTE % 87.8 % (42.2-75.2); MEAN CORPUSCULAR HGB 29.6 PG (27.0-31.0); MEAN CORPUSCULAR VOLUME 86.9 FL (80.0-94.0); MEAN PLATELET VOLUME 7.8 FL (7.4-10.4); PLATELET COUNT 224 /CUMM (130-400); RBC DISTRIBUTION WIDTH 12.3 % (11.5-14.5); RED BLOOD CELL CT 4.36 /CUMM (4.70-6.10); WHITE BLOOD CELL COUNT 15.9 /CUMM (4.8-10.8)
[2017-03-30 14:04] VITALS: BP 142/60
--- NOTE | 2017-03-30 19:02 | RADIOLOGY REPORT ---
EXAMINATION: ABDOMEN 2 VIEWS CLINICAL INFORMATION: Ileus. Follow-up. COMPARISON: 03/29/2017. TECHNIQUE: Supine and upright views of the abdomen are provided. FINDINGS: There are no dilated loops of small bowel. There are no air-fluid levels. Contrast material is present within the stomach and small bowel. There is streaky opacification in the retrocardiac region. The osseous structures are unremarkable. IMPRESSION: No dilated loops of bowel present. Contrast material is present within nondilated small bowel. Likely retrocardiac atelectasis.
[2017-03-31 06:14] VITALS: BP 150/94
[2017-03-31 08:31] LABS: ABSOLUTE BASOPHIL COUNT 0 /CUMM (0.0-0.2); ABSOLUTE EOSINOPHIL COUNT 0 /CUMM (0.0-0.7); ABSOLUTE GRANULOCYTE CT 15.4 /CUMM (1.4-6.5); ABSOLUTE LYMPH COUNT 0.9 /CUMM (1.2-3.4); ABSOLUTE MONOCYTE COUNT 1.1 /CUMM (0.10-0.60); BASOPHIL % 0 % (0.0-2.0); EOSINOPHIL % 0 % (0-5); HEMATOCRIT 38.6 % (42-52); MEAN CORPUSCULAR HGB 29.9 PG (27.0-31.0); MEAN CORPUSCULAR VOLUME 87.7 FL (80.0-94.0); MEAN PLATELET VOLUME 7.7 FL (7.4-10.4); PLATELET COUNT 252 /CUMM (130-400); RBC DISTRIBUTION WIDTH 12.4 % (11.5-14.5); RED BLOOD CELL CT 4.41 /CUMM (4.70-6.10); WHITE BLOOD CELL COUNT 17.3 /CUMM (4.8-10.8)
--- NOTE | 2017-03-31 08:34 | PN- General Surgery ---
See Addendum Surgical Brief Attending Note Brief Attending Note: Still C/O nausea and vomiting, pain improving, + BM. AVSS UO ok LENNY serosanguinous. Abd-soft, decreased tenderness. Labs pending. AXR - contrast in small bowel/colon. Will start clear liquid diet, OOB/ambulate, F/U Labs, possible LENNY D/C today, nausea could be related to Flagyl (will reeval).
[2017-03-31 08:55] LABS: GRANULOCYTE % 88.8 % (42.2-75.2)
[2017-03-31 13:59] VITALS: BP 150/80
[2017-03-31 22:29] VITALS: BP 126/60
[2017-04-01 06:26] VITALS: BP 140/78
--- NOTE | 2017-04-01 07:48 | PN- General Surgery ---
See Addendum Subjective Subjective: Continues to c/o nausea and vomitting. Symptoms improve with compazine. Had loose bm this am. Has been voiding. Denies chest pain, shortness of breath and difficulty breathing. Had pain overnight, responded to iv toradol. Objective Vital Signs and I&Os Vital Signs Date Time Temp Pulse Resp B/P B/P Pulse O2 O2 Flow FiO2 Mean Ox Delivery Rate 04/01 0626 99.3 62 20 140/78 96 Room Air 03/31 2229 99.2 63 18 126/60 95 Room Air 03/31 2138 63 126/60 03/31 1359 99.9 58 20 150/80 97 Room Air Intake & Output 04/01 0800 04/01 0000 03/31 1600 03/31 0800 03/31 0000 03/30 1600 Intake Total 600 1260 920 640 920 Output Total 800 200 11 700 Balance 600 460 720 629 220 Intake, IV 400 800 800 400 800 Intake, Oral 200 460 120 240 120 Number 1 2 Bowel Movements Output, 10 Drainage Output, Stool 1 Output, Urine 800 200 700 Physical Exam: General: Alert and oriented x3, no acute distress Cardiac: RRR, s1s2 Pulm: CTA bilaterally ABD: Obese, softly distended. LENNY holding suction, minimal amounts of serosanguinous output. +BS Extremities: Moves all extremities, distal sensation intact. Skin warm and well perfused. DP pulses palpable bilaterally. Bilateral calves soft and non- tender. Assessment/Plan Assessment/Plan This is a 61 year old male, POD 5, s/p lap appy with perf. Has had prolonged hospital stay due to persistent nausea and vomitting as well as leukocytosis -Continue anti-emetics (no reglan) and iv fluids, continue clear liquid diet as tolerated -Follow up cbc this am, if leukocytosis continues, will consider ct scan of abdomen -Continue current abx regimen of rocephin/flagyl -Continue current pain regimen -Continue sub q hep/alps for dvt ppx Will d/w Dr. Sow Core Measures Venous Thromboembolism VTE Risk Factors Surgery No Mechanical VTE Prophylaxis d/t N/A MechProphylax Ordered No VTE Pharm Prophylaxis d/t NA PharmProphylax ordered
[2017-04-01 08:49] LABS: ABSOLUTE BASOPHIL COUNT 0 /CUMM (0.0-0.2); ABSOLUTE EOSINOPHIL COUNT 0 /CUMM (0.0-0.7); ABSOLUTE GRANULOCYTE CT 14.1 /CUMM (1.4-6.5); ABSOLUTE LYMPH COUNT 1.5 /CUMM (1.2-3.4); ABSOLUTE MONOCYTE COUNT 1.2 /CUMM (0.10-0.60); BASOPHIL % 0.1 % (0.0-2.0); EOSINOPHIL % 0.3 % (0-5); MEAN CORPUSCULAR HGB 29.6 PG (27.0-31.0); MEAN CORPUSCULAR HGB CONC 33.9 G/DL (33.0-37.0); MEAN CORPUSCULAR VOLUME 87.5 FL (80.0-94.0); MEAN PLATELET VOLUME 7.6 FL (7.4-10.4); PLATELET COUNT 257 /CUMM (130-400); RBC DISTRIBUTION WIDTH 12.4 % (11.5-14.5); RED BLOOD CELL CT 4.46 /CUMM (4.70-6.10); WHITE BLOOD CELL COUNT 16.9 /CUMM (4.8-10.8)
[2017-04-01 10:07] LABS: GRANULOCYTE % 83.6 % (42.2-75.2)
--- NOTE | 2017-04-01 14:31 | CT SCAN REPORT ---
EXAMINATION: CT ABDOMEN AND PELVIS WITH CONTRAST CLINICAL INFORMATION: Nausea and vomiting. Leukocytosis status post laparoscopic appendectomy following perforation. COMPARISON: 03/27/2017. TECHNIQUE: Contiguous axial thin section helical images of the abdomen and pelvis were performed following the administration of oral and 95 mL of intravenous Optiray 320. The data set was reformatted in the coronal and sagittal planes and reviewed on an independent workstation. DLP: 1097 mGy-cm. FINDINGS: There is mild atelectasis at the right lung base. The visualized lung bases are otherwise clear. The visualized portions of the heart are unremarkable. The liver is of normal size and attenuation without focal lesions nor intrahepatic biliary ductal dilation. A normal gallbladder is identified. There is no wall thickening or discernible pericholecystic fluid. The spleen, pancreas, adrenal glands are unremarkable. Both kidneys are of normal size and attenuation without hydronephrosis or nephrolithiasis. Following the administration of IV contrast, prompt symmetric nephrograms are displayed. There is no abdominal free fluid. There is neither mesenteric nor retroperitoneal lymphadenopathy. A drain is present within the right lower quadrant. There is no surrounding free fluid identified. There is mild mesenteric fat stranding. Otherwise, unremarkable opacified loops of small and large bowel are identified. There is no pelvic free fluid. The urinary bladder is unremarkable. There is neither pelvic nor inguinal lymphadenopathy. There are bilateral fat-containing inguinal hernias. Bone windows: Neither sclerotic nor lytic bone lesions are identified. IMPRESSION: Drain present within the right lower quadrant with mild adjacent mesenteric fat stranding. No residual fluid collections demonstrable.
[2017-04-01 15:23] VITALS: BP 170/100
[2017-04-01 21:30] VITALS: BP 174/100
[2017-04-01 22:45] VITALS: BP 170/92
[2017-04-02 01:54] VITALS: BP 174/102
[2017-04-02 03:10] VITALS: BP 172/108
--- NOTE | 2017-04-02 04:48 | RADIOLOGY REPORT ---
EXAMINATION: XR PORTABLE ABDOMEN CLINICAL INFORMATION: Rule out free air. Perforated appendicitis. COMPARISON: CT 04/01/2017. TECHNIQUE: 1 view, 2 portable images of the abdomen. FINDINGS: Contrast noted in the colon. Gas within the stomach. No gross evidence of free intraperitoneal air on this supine view. Nonobstructive bowel gas pattern. Contrast noted in the bladder. Mild degenerative changes of the spine. IMPRESSION: No gross evidence of free air on this supine view. Nonobstructive bowel gas pattern.
[2017-04-02 06:20] VITALS: BP 152/98
--- NOTE | 2017-04-02 07:36 | PN- General Surgery ---
See Addendum Subjective Subjective: Worsening pain overnight, required IV Dilaudid and is requesting more. Mild intermittent nausea, no vomiting, does not feel like eating or drinking much. When asked if he's got out of bed he states "a little bit". Objective Vital Signs and I&Os Vital Signs Date Time Temp Pulse Resp B/P B/P Pulse O2 O2 Flow FiO2 Mean Ox Delivery Rate 04/02 0620 98.1 63 18 152/98 98 Room Air 04/02 0310 98.1 72 18 172/108 98 Room Air 04/02 0154 98.3 68 20 174/102 96 Room Air 04/01 2245 65 170/92 04/01 2130 98.3 60 20 174/100 96 Room Air 04/01 2110 60 174/100 04/01 1523 98.4 61 18 170/100 97 04/01 0946 62 140/78 04/01 0945 62 140/78 Intake & Output 04/02 0800 04/02 0000 04/01 1600 04/01 0800 04/01 0000 03/31 1600 Intake Total 500 1200 127 527 5233 Output Total 400 1000 555 800 Balance -400 -500 1200 -255 600 460 Intake, IV 400 400 800 Intake, Oral 100 1200 300 200 460 Number 1 Bowel Movements Output, 5 Drainage Output, Urine 400 1000 550 800 Physical Exam: Well-developed well-nourished Appears uncomfortable, lying flat in bed, holding abdomen HEENT: Atraumatic, extraocular motion intact Neck: Supple, no lymphadenopathy Respiratory: No respiratory distress Abdomen: Mild distention, generalized lower abdominal tenderness, mostly right lower quadrant. Left lower quadrant drain site is clean dry and intact. No bowel sounds. Abdomen is not tympanic Extremities: No edema, no calf pain Neuro: Alert and oriented x3 Psych: Mood affect normal, normal memory normal judgment. Skin: Warm and dry, no rash on exposed skin Results Last 48 Hours of Labs: Laboratory Tests 04/01 03/31 0800 0736 Chemistry Sodium (137 - 145 mmol/L) 135 L 137 Potassium (3.5 - 5.1 mmol/L) 3.3 L 3.4 L Chloride (98 - 107 mmol/L) 99 100 Carbon Dioxide (22 - 30 mmol/L) 24 24 Anion Gap (5 - 16) 11 14 BUN (9 - 20 mg/dL) 11 16 Creatinine (0.7 - 1.2 mg/dL) 0.7 0.6 L Estimated GFR (>60 ml/min) > 60 > 60 BUN/Creatinine Ratio (7 - 25 %) 15.7 26.7 H Magnesium (1.6 - 2.3 mg/dL) 1.6 1.8 Hematology CBC w Diff NO MAN DIFF REQ NO MAN DIFF REQ WBC (4.8 - 10.8 /CUMM) 16.9 H 17.3 H RBC (4.70 - 6.10 /CUMM) 4.46 L 4.41 L Hgb (14.0 - 18.0 G/DL) 13.2 L 13.1 L Hct (42 - 52 %) 39.0 L 38.6 L MCV (80.0 - 94.0 FL) 87.5 87.7 MCH (27.0 - 31.0 PG) 29.6 29.9 RDW (11.5 - 14.5 %) 12.4 12.4 Plt Count (130 - 400 /CUMM) 257 252 MPV (7.4 - 10.4 FL) 7.6 7.7 Gran % (42.2 - 75.2 %) 83.6 H 88.8 H Lymphocytes % (20.5 - 51.1 %) 8.7 L 5.1 L Monocytes % (1.7 - 9.3 %) 7.3 6.1 Eosinophils % (0 - 5 %) 0.3 0 Basophils % (0.0 - 2.0 %) 0.1 0 Absolute Granulocytes (1.4 - 6.5 /CUMM) 14.1 H 15.4 H Absolute Lymphocytes (1.2 - 3.4 /CUMM) 1.5 0.9 L Absolute Monocytes (0.10 - 0.60 /CUMM) 1.2 H 1.1 H Absolute Eosinophils (0.0 - 0.7 /CUMM) 0 0 Absolute Basophils (0.0 - 0.2 /CUMM) 0 0 PUBS MCHC (33.0 - 37.0 G/DL) 33.9 34.0 Assessment/Plan Assessment/Plan This is a 61 year old male, POD 6, s/p lap appy with perf. Has had prolonged hospital stay due to persistent nausea and vomitting as well as leukocytosis -CT yesterday and x-ray overnight is unremarkable however patient is clinically showing signs of ileus -Continue anti-emetics (no reglan) and iv fluids, continue clear liquid diet as tolerated -Follow up cbc this am, if persistently elevated, will consult infectious disease -Continue current abx regimen of rocephin/flagyl -Try to avoid narcotics, 0.6 of Dilaudid IV for breakthrough pain only, IV Tylenol ordered, scheduled Toradol IV every 6 hours and Dilaudid by mouth for severe pain -PT consult for deconditioning and to get pt OOB, discussed with patient that getting out of bed is imperative to help resolve symptoms -Continue sub q hep/alps for dvt ppx Will d/w Dr. Sow Core Measures Venous Thromboembolism VTE Risk Factors Surgery No Mechanical VTE Prophylaxis d/t N/A MechProphylax Ordered No VTE Pharm Prophylaxis d/t NA PharmProphylax ordered
[2017-04-02 08:49] LABS: ABSOLUTE BASOPHIL COUNT 0 /CUMM (0.0-0.2); ABSOLUTE EOSINOPHIL COUNT 0 /CUMM (0.0-0.7); ABSOLUTE GRANULOCYTE CT 18.9 /CUMM (1.4-6.5); ABSOLUTE LYMPH COUNT 0.5 /CUMM (1.2-3.4); BASOPHIL % 0.1 % (0.0-2.0); EOSINOPHIL % 0 % (0-5); GRANULOCYTE % 92.6 % (42.2-75.2); MEAN CORPUSCULAR HGB 29.4 PG (27.0-31.0); MEAN CORPUSCULAR HGB CONC 33.5 G/DL (33.0-37.0); MEAN CORPUSCULAR VOLUME 87.8 FL (80.0-94.0); MEAN PLATELET VOLUME 7.8 FL (7.4-10.4); PLATELET COUNT 314 /CUMM (130-400); RBC DISTRIBUTION WIDTH 12.9 % (11.5-14.5); RED BLOOD CELL CT 5.51 /CUMM (4.70-6.10); WHITE BLOOD CELL COUNT 20.4 /CUMM (4.8-10.8)
[2017-04-02 09:44] LABS: HEMATOCRIT 48.3 % (42-52)
[2017-04-02 13:53] VITALS: BP 112/60
--- NOTE | 2017-04-02 16:22 | Cons- Infect Disease ---
General Information and HPI Consulting Request Date of Consult: 04/02/17 Requested By: Tommie Sow DO Reason for Consult: Persistent leukocytosis Source of Information: patient History of Present Illness: This is a 61-year-old man, status post TBI, hypothyroidism and seizures admitted on March 27 with the acute onset of vomiting and right lower quadrant pain. On admission he was febrile to 100.3. Laboratory data revealed a white blood cell count of 22,000, BUN/creatinine 18 and 0.8, with normal liver enzymes. Urinalysis negative. CT of the abdomen and pelvis revealed findings consistent with a perforated acute appendicitis. Chest x-ray was negative. He was given a dose of Unasyn and then taken to the OR for a laparoscopic appendectomy for a perforated appendix. Postop he was placed on Ceftriaxone and Flagyl. His postop course has been notable for persistent nausea, occasional vomiting and abdominal pain. He has remained afebrile but his white blood cell count has remained elevated. A CT of the abdomen and pelvis on April 01 revealed mild mesenteric fat stranding in the right lower quadrant but was negative for any fluid collection, and his LENNY drain was subsequently removed. He has had several bowel movements, described as soft. He continues to complain of nausea and abdominal discomfort. He also complains of bilateral shoulder pain. He denies any chest pain, shortness of breath or cough and he has no urinary symptoms. Allergies/Medications Allergies: Coded Allergies: risperidone (UNKNOWN 10/30/15) Home Med List: Benztropine Mesylate 0.5 MG TABLET 1 TAB PO BID ANTICHOLINERGIC (Reported) Bupropion HCl (Bupropion HCl Sr) 150 MG TABLET.ER 1 TAB PO BID MOOD (Reported ) Buspirone HCl 30 MG TABLET 1 TAB PO BID ANXIETY (Reported) Gabapentin (Neurontin) 600 MG TABLET 1 TAB PO 4 TIMES/DAY NERVES (Reported) Hydrochlorothiazide 25 MG TABLET 1 TAB PO DAILY HIGH BLOOD PRESSURE (Reported ) Hydroxyzine Pamoate (Vistaril) 50 MG CAPSULE 1 CAP PO TIDPRN ANXIETY ( Reported) Levothyroxine Sodium 50 MCG TABLET 1 TAB PO DAILY THYROID PROBLEMS (Reported) Lisinopril 30 MG TABLET 1 TAB PO DAILY HIGH BLOOD PRESSURE (Reported) Metoprolol Tartrate 100 MG TABLET 1 TAB PO BID HIGH BLOOD PRESSURE (Reported) Morphine Sulfate (Morphine Sulfate ER) 60 MG TABLET.ER 1 TAB PO BID PAIN CONTROL (Reported) Naproxen (Naprosyn) 500 MG TABLET 1 TAB PO BID PRN PAIN AND INFLAMMATION Olanzapine (Zyprexa) 15 MG TABLET 1 TAB PO QPM MOOD STABILITY (Reported) Oxcarbazepine 150 MG TABLET 1 TAB PO BID SEIZURES (Reported) Oxycodone HCl 15 MG TABLET 1 TAB PO 4 TIMES/DAY PAIN CONTROL (Reported) Past History Travel History Traveled to [place] past 21 day No Medical History Blood Transfusion Hx: No Neurological: seizure, TBI EENT: NONE Cardiovascular: hypertension Respiratory: NONE Gastrointestinal: NONE Hepatic: NONE Renal: NONE Musculoskeletal: osteoarthritis Psychiatric: depression Endocrine: THYROID Cancer(s): NONE DIRECTOR OF CODING/Reproductive: NONE History of MRSA: No History of VRE: No History of CDIFF: No Isolation History: Standard Surgical History Surgical History: hernia repair-inguinal, left shoulder surgery Psychosocial History Where Do You Live? Home Services at Home: Home Health Aide, Nursing Smoking Status: Never Smoked Review of Systems Review of Systems All Other Systems: Reviewed and Negative Exam & Diagnostic Data Last 24 Hrs of Vital Signs/I&O Vital Signs Date Time Temp Pulse Resp B/P B/P Pulse O2 O2 Flow FiO2 Mean Ox Delivery Rate 04/02 1353 97.4 60 18 112/60 96 Room Air 04/02 0921 160/100 04/02 0919 160/100 04/02 0620 98.1 63 18 152/98 98 Room Air 04/02 0310 98.1 72 18 172/108 98 Room Air 04/02 0154 98.3 68 20 174/102 96 Room Air 04/01 2245 65 170/92 04/01 2130 98.3 60 20 174/100 96 Room Air 04/01 2110 60 174/100 Intake & Output 04/02 1600 04/02 0800 04/02 0000 Intake Total 1100 900 500 Output Total 624 942 9066 Balance 700 500 -500 Intake, IV 800 800 400 Intake, Oral 300 100 100 Output, Urine 371 360 2670 Physical Exam Other Physical Findings: Afebrile. He is awake and alert in mild distress. Skin reveals no rash. HEENT negative. Neck is supple with no adenopathy. Lungs decreased breath sounds at both bases. Heart regular rhythm with no murmur. Abdomen is distended, tender on palpation diffusely, with no guarding or rebound; left abdominal incision clean with no surrounding inflammation, with positive bowel sounds. Back no CVA tenderness. Extremities trace bilateral lower extremity edema. Neuro is without focality. Last 24 Hours of Lab Results: Laboratory Tests 04/02 0755 Chemistry Sodium (137 - 145 mmol/L) 133 L Potassium (3.5 - 5.1 mmol/L) 4.4 Chloride (98 - 107 mmol/L) 100 Carbon Dioxide (22 - 30 mmol/L) 20 L Anion Gap (5 - 16) 13 BUN (9 - 20 mg/dL) 11 Creatinine (0.7 - 1.2 mg/dL) 0.6 L Estimated GFR (>60 ml/min) > 60 BUN/Creatinine Ratio (7 - 25 %) 18.3 Magnesium (1.6 - 2.3 mg/dL) 1.3 L Hematology CBC w Diff MAN DIFF ORDERED WBC (4.8 - 10.8 /CUMM) 20.4 H RBC (4.70 - 6.10 /CUMM) 5.51 Hgb (14.0 - 18.0 G/DL) 16.2 Hct (42 - 52 %) 48.3 MCV (80.0 - 94.0 FL) 87.8 MCH (27.0 - 31.0 PG) 29.4 RDW (11.5 - 14.5 %) 12.9 Plt Count (130 - 400 /CUMM) 314 MPV (7.4 - 10.4 FL) 7.8 Gran % (42.2 - 75.2 %) 92.6 H Lymphocytes % (20.5 - 51.1 %) 2.5 L Monocytes % (1.7 - 9.3 %) 4.8 Eosinophils % (0 - 5 %) 0 Basophils % (0.0 - 2.0 %) 0.1 Absolute Granulocytes (1.4 - 6.5 /CUMM) 18.9 H Segmented Neutrophils (42.2 - 75.2 %) 85 H Band Neutrophils (0.0 - 5.0 %) 6 H Absolute Lymphocytes (1.2 - 3.4 /CUMM) 0.5 L Lymphocytes (20.5 - 51.1 %) 5 L Monocytes (1.7 - 9.3 %) 4 Absolute Monocytes (0.10 - 0.60 /CUMM) 1.0 H Absolute Eosinophils (0.0 - 0.7 /CUMM) 0 Absolute Basophils (0.0 - 0.2 /CUMM) 0 Platelet Estimate (ADEQUATE) VERIFIED BY SMEAR Normocytic RBCs VERIFIED Normochromic RBCs VERIFIED PUBS MCHC (33.0 - 37.0 G/DL) 33.5 Last 24 Hours of Fabiano Results: No cultures Diagnostic Data Recent Imaging Findings: Abdominal x-ray April 02 no evidence of free air, with a nonobstructive bowel gas pattern CT of the abdomen and pelvis with IV contrast April 01 reveals mild mesenteric fat stranding in the right lower quadrant, with no residual fluid collections Chest x-ray March 27 negative Assessment/Plan Assessment/Plan Impression: This is a 61-year-old man, status post TBI, hypothyroidism and seizures admitted on March 27 with the acute onset of vomiting and right lower quadrant pain, found to be febrile with a leukocytosis and with a CT of the abdomen and pelvis revealing findings consistent with a perforated acute appendicitis, taken to the OR on the evening of admission for laparoscopic appendectomy, with persistent nausea, abdominal pain and leukocytosis despite antibiotics. The primary concern is of a residual infection within the abdomen, but the recent CT scan was negative for any collections and his abdominal x-ray does not suggest an ileus. The CBC from today reveals a markedly elevated H&H, suggesting a spurious draw and this should be repeated; nevertheless his white count was still elevated yesterday, suggesting an ongoing inflammatory or infectious process. His shoulder pain might suggest diaphragmatic irritation, perhaps from a biliary process, or pulmonary emboli, though he is not hypoxic and he has no respiratory complaints. Suggestion: 1. Repeat CBC today 2. Add liver enzymes, amylase and lipase to this morning's labs 3. Stool for C. difficile if he has diarrhea 4. Blood cultures 2 5. UA and urine culture 6. Repeat chest x-ray 7. Check a d-dimer and ABG 8. Consider Dopplers of both lower extremities 9. Continue Ceftriaxone and Flagyl pending above Consult Acknowledgment - Thank you for your consult request.
[2017-04-02 18:55] LABS: ABSOLUTE BASOPHIL COUNT 0 /CUMM (0.0-0.2); ABSOLUTE EOSINOPHIL COUNT 0 /CUMM (0.0-0.7); ABSOLUTE GRANULOCYTE CT 20.8 /CUMM (1.4-6.5); ABSOLUTE LYMPH COUNT 1.6 /CUMM (1.2-3.4); ABSOLUTE MONOCYTE COUNT 0.7 /CUMM (0.10-0.60); BASOPHIL % 0 % (0.0-2.0); EOSINOPHIL % 0.1 % (0-5); MEAN CORPUSCULAR HGB CONC 32.9 G/DL (33.0-37.0); MEAN CORPUSCULAR VOLUME 88.1 FL (80.0-94.0); MEAN PLATELET VOLUME 8.6 FL (7.4-10.4); PLATELET COUNT 217 /CUMM (130-400); RBC DISTRIBUTION WIDTH 13.1 % (11.5-14.5); RED BLOOD CELL CT 6.63 /CUMM (4.70-6.10)
[2017-04-02 19:04] LABS: GRANULOCYTE % 90.1 % (42.2-75.2)
[2017-04-02 19:05] LABS: HEMATOCRIT 58.4 % (42-52)
--- NOTE | 2017-04-02 20:01 | ULTRASOUND REPORT ---
EXAMINATION: US TRIPLEX OF LOWER EXTREMITIES, BILATERAL CLINICAL INFORMATION: Edema. Swelling. COMPARISON: None TECHNIQUE: Color-flow triplex imaging with spectral analysis and compression Doppler were performed on the lower extremities. FINDINGS: Exam limited by body habitus. Respiratory variation, normal compression and augmented flow are noted throughout the lower extremities. The visualized common femoral vein, superficial femoral vein, profunda femoral vein, popliteal vein and midcalf peroneal and posterior tibial venous segments show no evidence of deep venous thrombosis. There is a popliteal cyst in the right knee measuring 2 x 0.8 x 0.8 cm. IMPRESSION: Normal triplex scan without evidence of deep venous thrombosis involving the lower extremities.
--- NOTE | 2017-04-02 20:43 | RADIOLOGY REPORT ---
EXAMINATION: 1. Abdomen. 2. Chest. CLINICAL INDICATION: Status post laparoscopic appendectomy. COMPARISON: Abdomen 03/30/2017., 04/02/2017, 4:[address] scan abdomen pelvis 04/01/2017. Chest. June 27 2008 TECHNIQUE: Abdomen. 2 views of the abdomen. 7:58 PM Chest. 2 views. 7:58 PM FINDINGS: ABDOMEN: Radiolucency over the right upper quadrant under the right diaphragm from free air. Oral contrast remains in the large bowel. The previously seen opacified bladder from the IV contrast from the CAT scan appears to have cleared. No dilated bowel loops. Nonobstructive bowel pattern. CHEST: There is free air under the right diaphragm. Lung volume low with linear atelectasis at both lung bases. No pulmonary vascular congestion or focal consolidation. No large pleural effusion. IMPRESSION: 1.ABDOMEN: Free air 2. Chest: No acute abnormality. This critical result was discussed with Dr. Ingram on 04/02/2017, 8:38 PM and it was ascertained that the content and urgency of the report was understood at the time of direct communication.
--- NOTE | 2017-04-02 21:04 | Event Note ---
See Addendum Event Note Event Note: Patient reevaluated this evening with worsening abdominal pain, distention and diffuse tenderness all examination. Afebrile, VSS. Evening labs reviewed revealing an increased wbc from 20 to 23. Due to abdominal findings, stat mv AXR ordered, which revealed free air over the right upper quadrant under the right diaphragm. Dr. Sow updated and patient informed of x-ray findings. LR fluid bolus and stat dry CT scan A/P was ordered. OR notified. Patient will proceed to OR tonight for diagnostic laparoscopy possible laparotomy.
--- NOTE | 2017-04-02 21:46 | CT SCAN REPORT ---
EXAMINATION: CT ABDOMEN AND PELVIS WITHOUT CONTRAST CLINICAL INFORMATION: Follow-up abnormal exam. Concern for pneumoperitoneum. COMPARISON: 04/01/2016. TECHNIQUE: Contiguous axial thin section helical images of the abdomen and pelvis were performed without oral or IV contrast. The data set was reformatted in the coronal and sagittal planes and reviewed on an independent workstation. DLP: 1548 mGy-cm. FINDINGS: There are small bilateral pleural effusions with associated bibasilar airspace disease. The visualized portions of the heart are unremarkable. The liver is of normal size and attenuation without focal lesions nor intrahepatic biliary ductal dilation. A normal gallbladder is identified. There is no wall thickening or discernible pericholecystic fluid. The spleen, pancreas, adrenal glands are unremarkable. Both kidneys are of normal size and attenuation without hydronephrosis or nephrolithiasis. Residual contrast material is present within the collecting system of each kidney. Their is a moderate to large amount of pneumoperitoneum, new from the prior exam. There is a moderate to large amount of free fluid within the upper abdomen. There is residual contrast material present within the bowel. Otherwise, unremarkable loops of partially opacified small and large bowel are identified. There is a small amount of pelvic free fluid. Residual contrast material is present within the urinary bladder which is partially filled. There is neither pelvic nor inguinal lymphadenopathy. There are bilateral fat-containing inguinal hernias. Bone windows: Neither sclerotic nor lytic bone lesions are identified. IMPRESSION: Moderate to large amount of pneumoperitoneum along with a moderate to large amount of free fluid within the upper abdomen, new from prior exam. While the patient is postop status post laparoscopic appendectomy, the appearance is field representative of recent perforation since the prior CT exam. Small bilateral pleural effusions with associated airspace disease.
--- NOTE | 2017-04-03 00:47 | Operative Report ---
Operative/Inv Procedure Report Surgery Date: 04/03/17 Name of Procedure: Diagnostic Laparoscopy, Abdominal washout, Laparoscopic repair of a perforated gastroduodenal ulcer with omental patch. Pre-Operative Diagnosis: Perforated viscous Post-Operative Diagnosis: Large perforated ulcer at the gastroduodenal junction, biliary peritonitis Estimated Blood Loss: less than 50ml Surgeon/Tool Engine Lathe Set Up Operator: Tommie Sow DO Anesthesia: general endotracheal tube IV Fluids: 3500 cc IVF, 100 cc 25% albumin Drains: 10 Fr LENNY x 3: Pelvis, LUQ, RUQ. Specimens: None Complications: None Condition: Critical Operative Indication: This is a 61-year-old male who is 6 days status post laparoscopic appendectomy for perforated appendicitis. Patient started complaining of worsening abdominal pain overnight that progressed through the day. Patient's white blood cell count continued to rise. On exam patient had diffuse tenderness and a lot of tympany. Abdominal x-ray and a CT scan were performed that showed free intraperitoneal air. Given the above findings a diagnostic laparoscopy possible laparotomy was discussed with the patient in detail. All risks including but not limited to bleeding, infection, injury to surrounding bowel, potential need for further surgery, and the need to stay intubated in the intensive care unit were all discussed in detail. The patient understood everything and decided to proceed. Operative/Procedure Note Note: The patient was brought to the operating room and placed on the table in supine position. Venodyne stockings were placed and adequate general tracheal anesthesia was obtained. An arterial line was placed by anesthesia. The patient was prepped and draped in standard surgical fashion. I began the procedure with making a 2 cm midline incision just above the umbilicus. Incision was carried through the subcutaneous tissue to the fascia. Once the fascia was clearly visualized was picked up between 2 Diana clamps and divided in the midline. Once the peritoneum was entered right away we noted a gush of air and bile spillage. Copious amount of bile was suctioned out. A 12 mm blunt port was inserted and the abdominal cavity was insufflated to 15 mmHg. Prior to putting in the port, 2 stay 0 Vicryl sutures were placed on each side. A 10 mm 30 laparoscope was introduced and right away we noted copious amount of bilious fluid throughout the abdomen. Approximately 3 L of bile were suctioned out after putting in a 5 mm port in the right upper quadrant. Another 5 mm port was placed in left upper quadrant. Bile was suctioned out of all 4 quadrants. Area of appendectomy was inspected and no abnormality was noted. At that point the stomach was evaluated and upon examination of the stomach were noted bubbles and bile leaking from the gastroduodenal junction. It was hard to tell whether or not this was prepyloric or postpyloric. The perforation was identified and appeared quite large greater than 1 cm in size. At that point the large perforation was closed using 2-0 Vicryl suture in a running fashion double layer. Following this an omental pedicle was isolated and secured over the repair using 2-0 Vicryl sutures as well. At the completion we examined our repair and no obvious bile leak was noted. At that point the abdominal cavity was irrigated with approximately 5 L of normal saline. No other abnormalities were noted. 3 x 10 [place] LENNY drains were placed, one in the right upper quadrant above the liver, second under the liver going up towards the spleen, and the third in the pelvis. Once again examined the area of dissection no obvious bile leak was noted, no obvious bleeding was noted. At that point the abdomen was desufflated. The periumbilical port was closed using 0 Vicryl suture. Skin was closed using charissa. Sterile dressings were placed. A central line was placed by anesthesia at the completion. The patient was transferred to the intensive care unit in critical condition on pressor support. Findings: Large perforated ulcer at the gastroduodenal junction, ~3000 cc of bile suctioned upon entry, no evidence of leak at the appendiceal stump. CC: Lay PLAZA,Valentino
--- NOTE | 2017-04-03 01:10 | Cons- CRCU ---
Mykel PLAZA,[facility] 04/03/17 0110: General Information and HPI Consulting Request Date of Consult: 04/03/17 Requested By: Dr. Sow Reason for Consult: Medical management of critically ill pt Source of Information: old records Exam Limitations: unable to give history History of Present Illness: This is a 61-year-old gentleman with past medical history significant for TBI, hypertension, hypothyroidism, depression, seizure disorder, who initially came in on March 27 for a 1 day history of nausea vomiting and abdominal pain. He was found to have acute perforated appendicitis with feculent peritonitis and was taken to OR for laparoscopic appendectomy with one drain placed. Postoperatively he continued to have nausea and abdominal pain. He was gradually advanced to clear liquids and his drain removed. Notably, pt got unasyn on and then switched to Ceftriaxone and Flagyll starting the . Though he remained afebrile his white count which initially trended down to a brian of 15.9 on 03/30/2017, started climbing back up to 23 on 04/02/2017. Patient continued to complain of worsening nausea and abdominal pain. His CAT scan on April 01 was negative for any new acute intra-abdominal process but on the an abd xry showed free air and a repeat CAT scan showed moderate to large amount of pneumoperitoneum along with moderate to large amount of free fluid in the upper abdomen. Patient was taken back to the OR on 04/03/2017 for a diagnostic laparoscopy, abdominal washout, and placement of Niko patch for a 1 cm perforated gastroduodenal ulcer at the GEJ. Intra-operatively after induction, patient's blood pressure was noted to drop into the 60s systolic and he was given phenylephrine and ephedrine. Estimated blood loss was around 50 mL; however, about 3 L of bile was suctioned out due to perforation. Subsequently, 3 drains were placed and post-op a right IJ TLC was placed under ultrasound guidance. Given hypotension, decision was made to leave patient intubated overnight. He was continued on phenylephrine for pressure support. A medicine consult was placed for ICU management of this critically ill patient. Pt is currently intubated so no history is obtained from him. No ROS. Allergies/Medications Allergies: Coded Allergies: risperidone (UNKNOWN 10/30/15) Home Med List: Benztropine Mesylate 0.5 MG TABLET 1 TAB PO BID ANTICHOLINERGIC (Reported) Bupropion HCl (Bupropion HCl Sr) 150 MG TABLET.ER 1 TAB PO BID MOOD (Reported ) Buspirone HCl 30 MG TABLET 1 TAB PO BID ANXIETY (Reported) Gabapentin (Neurontin) 600 MG TABLET 1 TAB PO 4 TIMES/DAY NERVES (Reported) Hydrochlorothiazide 25 MG TABLET 1 TAB PO DAILY HIGH BLOOD PRESSURE (Reported ) Hydroxyzine Pamoate (Vistaril) 50 MG CAPSULE 1 CAP PO TIDPRN ANXIETY ( Reported) Levothyroxine Sodium 50 MCG TABLET 1 TAB PO DAILY THYROID PROBLEMS (Reported) Lisinopril 30 MG TABLET 1 TAB PO DAILY HIGH BLOOD PRESSURE (Reported) Metoprolol Tartrate 100 MG TABLET 1 TAB PO BID HIGH BLOOD PRESSURE (Reported) Morphine Sulfate (Morphine Sulfate ER) 60 MG TABLET.ER 1 TAB PO BID PAIN CONTROL (Reported) Naproxen (Naprosyn) 500 MG TABLET 1 TAB PO BID PRN PAIN AND INFLAMMATION Olanzapine (Zyprexa) 15 MG TABLET 1 TAB PO QPM MOOD STABILITY (Reported) Oxcarbazepine 150 MG TABLET 1 TAB PO BID SEIZURES (Reported) Oxycodone HCl 15 MG TABLET 1 TAB PO 4 TIMES/DAY PAIN CONTROL (Reported) Review of Systems Review of Systems Constitutional: Reports: see HPI. Past History Travel History Traveled to [place] past 21 day No Medical History Blood Transfusion Hx: No Neurological: seizure, TBI EENT: NONE Cardiovascular: hypertension Respiratory: NONE Gastrointestinal: NONE Hepatic: NONE Renal: NONE Musculoskeletal: osteoarthritis Psychiatric: depression Endocrine: THYROID Cancer(s): NONE STEEPLE JACK/Reproductive: NONE Surgical History Surgical History: hernia repair-inguinal, left shoulder surgery Psychosocial History Where Do You Live? Home Services at Home: Home Health Aide, Nursing Smoking Status: Never Smoked Exam & Diagnostic Data Last 24 Hrs of Vital Signs/I&O Vital Signs Date Time Temp Pulse Resp B/P B/P Pulse O2 O2 Flow FiO2 Mean Ox Delivery Rate 04/03 0233 70 04/03 0227 100 04/03 0124 100 04/02 1353 97.4 60 18 112/60 96 Room Air 04/02 0921 160/100 04/02 0919 160/100 04/02 0620 98.1 63 18 152/98 98 Room Air 04/02 0310 98.1 72 18 172/108 98 Room Air Intake & Output 04/03 0800 04/03 0000 01/18 1600 Intake Total 1100 Output Total 400 Balance 700 Intake, IV 800 Intake, Oral 300 Output, Urine 400 Physical Exam General Appearance: well developed/nourished, no apparent distress, intubated Head: atraumatic Eyes: Bilateral: normal appearance. Neck: RIJ in place; bandage clean. L. EJ in place. Respiratory: quiet respiration, crackles Cardiovascular: regular rate/rhythm Gastrointestinal: has three drains in place. BS neg. abd not rigid. Back: normal inspection Extremities: normal inspection, no edema, HAS ART LINE IN PLACE Last 48 Hrs of Labs/Fabiano: Laboratory Tests 04/03/17 0215: pH 7.37, pCO2 31 L, pO2 169 H, HCO3 18 L, ABG O2 Sat (Measured) 98.0, P-50 ( Temp Corrected) Y, Carboxyhemoglobin 0.7 L, O2 Concentration % 100%, Temperature 97.1, Respiration Rate 12, O2 Delivery Method ESPRIT, Vent Mode AC, Expiratory Pressure 5, Tidal Volume 600, Phlebotomy Draw Site [id number] 04/03/17 0145: Anion Gap 13, Estimated GFR 36 L, Glucose 80, Lactic Acid 2.9 H, Calcium 7.7 L, Phosphorus 4.5, Magnesium 1.1 L, Total Bilirubin 0.6, AST 79 H, ALT 89 H, Troponin I Pending, Albumin 2.0 L, CBC w Diff MAN DIFF ORDERED, RBC 5.10, MCV 87.9, MCH 29.4, RDW 13.1, MPV 7.9, Gran % 90.8 H, Lymphocytes % 5.5 L, Monocytes % 3.5, Eosinophils % 0.1, Basophils % 0.1, Absolute Granulocytes 21.6 H, Segmented Neutrophils 74, Band Neutrophils 13 H, Absolute Lymphocytes 1.3, Lymphocytes 10 L, Monocytes 3, Absolute Monocytes 0.8 H, Absolute Eosinophils 0, Absolute Basophils 0, Platelet Estimate ADEQUATE, Polychromasia 1+, Poikilocytosis 2+, Ovalocytes 1+, Stomatocytes FEW, Blayne Cells 1+, PUBS MCHC 33.5, Fld Total RBCs Counted 100 04/02/17 1810: Total Bilirubin 0.9, Direct Bilirubin 0.5 H, AST 86 H, ALT 108 H, Alkaline Phosphatase 53, Total Protein 5.5 L, Albumin 3.0 L, CBC w Diff NO MAN DIFF REQ , RBC 6.63 H, MCV 88.1, MCH 29.0, RDW 13.1, MPV 8.6, Gran % 90.1 H, Lymphocytes % 6.9 L, Monocytes % 2.9, Eosinophils % 0.1, Basophils % 0, Absolute Granulocytes 20.8 H, Absolute Lymphocytes 1.6, Absolute Monocytes 0.7 H, Absolute Eosinophils 0, Absolute Basophils 0, PUBS MCHC 32.9 L 04/02/17 0755: Anion Gap 13, Estimated GFR > 60, BUN/Creatinine Ratio 18.3, Magnesium 1.3 L, CBC w Diff MAN DIFF ORDERED, RBC 5.51, MCV 87.8, MCH 29.4, RDW 12.9, MPV 7.8, Gran % 92.6 H, Lymphocytes % 2.5 L, Monocytes % 4.8, Eosinophils % 0, Basophils % 0.1, Absolute Granulocytes 18.9 H, Segmented Neutrophils 85 H, Band Neutrophils 6 H, Absolute Lymphocytes 0.5 L, Lymphocytes 5 L, Monocytes 4, Absolute Monocytes 1.0 H, Absolute Eosinophils 0, Absolute Basophils 0, Platelet Estimate VERIFIED BY SMEAR, Normocytic RBCs VERIFIED, Normochromic RBCs VERIFIED, PUBS MCHC 33.5 04/01/17 0800: Anion Gap 11, Estimated GFR > 60, BUN/Creatinine Ratio 15.7, Magnesium 1.6, CBC w Diff NO MAN DIFF REQ, RBC 4.46 L, MCV 87.5, MCH 29.6, RDW 12.4, MPV 7.6, Gran % 83.6 H, Lymphocytes % 8.7 L, Monocytes % 7.3, Eosinophils % 0.3, Basophils % 0.1, Absolute Granulocytes 14.1 H, Absolute Lymphocytes 1.5, Absolute Monocytes 1.2 H, Absolute Eosinophils 0, Absolute Basophils 0, PUBS MCHC 33.9 Assessment/Plan Impression/Plan: ASSESSMENT:This is a 61-year-old gentleman with past medical history significant for hypertension, hypothyroidism, seizure disorder, TBI, who comes in for chief complaint of nausea vomiting, abdominal pain on March 27 and found to have perforated appendicitis. His postop course was complicated by worsening nausea, vomiting and leukocytosis, he was found to have free air again on x-ray but this time in upper abdomen. On April 03 he was taken back to the OR for an exploratory laparoscopy and found to have a perforated gastroduodenal ulcer which was then laparoscopically repaired with a Niko patch. His intraoperative course was complicated by hypotension likely secondary to septic shock and peritonitis. As such he has remained intubated and on pressors subsequently transferred to ICU with an ICU medicine consult for additional medical management. PLAN: Respiratory: * Inutbated: Mode AC with Rate 12, TV 600, PEEP 5, 02 100%. - Obtain ABG and re-assess vent settings. Will plan to decrease FiO2 as pt tolerates. - If he hemodynamically stable and no further OR interventions planned will plan to trial him in AM. ID * Perforated Appendix and gastro-duodenal ulcer: Post-op lekocytosis noted at 23.8 and 13 bands. Pt was given one dose of Unasy on . Subsequently started on Ceftraixone and Flagyll since 03/28/2016. - ID on board - BCX, UCX drawn on 04/02 NGTD - C. diff not sent. If pt has diarrhea will send stool sample - Con't abx Cardio * Elevated Troponin: Post-op labs show troponin of .22. First troponin elevation noted during admission. EKG showing low voltage, NSR rate 76 and QTc 455. Additionally note that pt has PRIYA which may contribute to lack of clearance of troponin. - Repeat Trop and EKG at 8 am - Consider cardiology consult * Hypotension: Pt came up on Neosynephrine from OR. Will plan to gradually wean him off pressure support. However, if continues to be necessary will transition him to Levophed. - Monitor BP - Pt has art line in place - IJ cleared for access w/ CXR Heme-onc * Leukocytosis of 23.8 with 13 bands. see ID Metabolic * Hypo-ma.1 post op. - Repleted - Con't monitor * Lactic acidosis: Post op LA 2.9. No previous measurements available. Likely 2/ 2 to septic shock from peritonitis in combination with anesthesia. - Con't trend - IVF 150cc/hr - Pt weaned off phenylephrine about an hour after he came up from PACU. - Monitor BP * Hypothyroid: Pt on Levothyroxine at home - Con't IV levothyroxine in hospital Alimentary * Transamanitis: Noted to be trending down. Now AST 79 and ALT 89. - Con't monitor in AM * S/P perforated appendix and duodenal ulcer perforation: - [address] (managed by surgical service) - NPO - Nutritional Consult in AM - Plan to start TPN - IV protonix 40mg BID - NGT in place to wall suction Nephro * PRIYA: Baseline .7, after surgery went up to 1.9. Pt was hypotensive in OR so concern for pre-renal etiology with possible ATN. - UA - FeNa - If no improvement consider US - Garza in place - Strict I/O Neuro: * Hx of seizures: Pt is on Trileptal BID for mgmt of seizures. At this time no further info available re seizures. There is no IV equivalent. He got last dose on 18th AM. There is no IV equivalent of medication. - Neuro consult in AM - If evidence of seizure activity will administer ativan * Hx Anxiety and Depression: Home meds include Benztropine, Bupropion, Neurontin , Vistaril, and Olanzapine. - ALL meds on hold at this time - Re-evaluate in AM - Consider psych input DVT- SQ Heparin per surgery Recommendations: SEE ABOVE Problem List: 1. Acute appendicitis Consult Acknowledgment - Thank you for your consult request. Nico PLAZA, [facility] 04/03/17 0158: Assessment/Plan Consult Acknowledgment - Thank you for your consult request. Attending Review Statement Attending Statement Attending MD Statement: examined this patient, discuss w/resident/PA/ASSIGNER, agreed w/resident/PA/ASSIGNER, reviewed images, amended to note Attending Assessment/Plan: 61 yo M with h/o hypothyroidism, TBI, seizures, HTN, OA, depression, was admitted on Mar 27 for abdominal pain due to perforated appendicitis for which he underwent laparoscopic appendectomy. His post-op course was complicated by persistent nausea, vomiting and abdominal pain, with clinical signs of peritonitis, repeat CT showed pneumoperitoneum with free fluid within upper abdomen. He was taken to the OR this evening for diagnostic laparoscopy, was found to have a perforated gastroduodenal ulcer which was repaired with an omental patch. While in the OR, soon after induction, patient became hypotensive to SBP 50-60's, he was given fluid bolus, ephedrine and started on neosynephrine drip. Post laparoscopy, a right IJ line was placed. Patient was then transferred to the ICU intubated and on pressor support. Vitals as above. Exam: Intubated, sedated. NG tube in place, Right IJ, left EJ in place. Arterial line+, 3 LENNY drains and a garza in place. Oral mucosa dry, Chest b/l clear anteriorly with basilar rhonchi+, Heart S1S2 regular, Abd: soft, distended, drains noted, LE: no edema. Labs done prior to surgery showed WBC 23, H/H 19.2/58.4, bicarb 20, Mag 1.3 and transaminitis. EKG (admission): SR with PVC's. Assessment and plan: 1. Septic shock requiring pressor support 2. Perforated gastroduodenal ulcer s/p repair 3. Respiratory failure, remains intubated 4. Recent perforated appendicities s/p appendectomy 5. h/o TBI and seizures 6. h/o hypothyroidism - Monitor in ICU - Strict I/O's, garza placement - Monitor output from LENNY drain - Serial abdominal exams - Repeat stat labs CBC, ICU bundle, lactic acid, troponin, PT/INR. - Replete electrolytes to keep K > 4.0 and Mag > 2.0 - Obtain CXR to assess placement of right IJ - Obtain EKG and ABG. Adjust vent settings based on ABG. Discuss with Dr. Hyatt. - Current vent settings: AC, TV 600, PEEP 5, RR 12, FiO2 100%. - Maintenance fluids at 150/hour - Slowly taper off neosynephrine, maintain a MAP of ~ 65 mmHG - If needed, can initiate levophed for pressor support - Propofol for sedation - NPO, NG tube to low wall suction - IV pantoprazole BID - Continue ceftriaxone and flagyl - Follow ID recs in AM - Resume levothyroxine IV - Hold off oral meds. - Consider switching oxcarbazepine to ?keppra discuss with Neuro? DVT ppx Hep SC. Full code. Please inform Dr. Chun in AM he is the PCP for this patient. Labs reveal PRIYA, persistent leukocytosis with bandemia, elevated lactic acid and troponin of 0.22. This is likely Type 2 CT. - Trend troponin and repeat EKG. - Obtain Echo and Cardio consult. - Continue maintenance fluids and antibiotics, monitor I/Os, repeat labs in AM. TTS > 55 mins
[2017-04-03 02:07] LABS: ABSOLUTE BASOPHIL COUNT 0 /CUMM (0.0-0.2); ABSOLUTE EOSINOPHIL COUNT 0 /CUMM (0.0-0.7); ABSOLUTE GRANULOCYTE CT 21.6 /CUMM (1.4-6.5); ABSOLUTE LYMPH COUNT 1.3 /CUMM (1.2-3.4); ABSOLUTE MONOCYTE COUNT 0.8 /CUMM (0.10-0.60); BASOPHIL % 0.1 % (0.0-2.0); EOSINOPHIL % 0.1 % (0-5); GRANULOCYTE % 90.8 % (42.2-75.2); MEAN CORPUSCULAR HGB 29.4 PG (27.0-31.0); MEAN CORPUSCULAR HGB CONC 33.5 G/DL (33.0-37.0); MEAN CORPUSCULAR VOLUME 87.9 FL (80.0-94.0); MEAN PLATELET VOLUME 7.9 FL (7.4-10.4); PLATELET COUNT 234 /CUMM (130-400); RBC DISTRIBUTION WIDTH 13.1 % (11.5-14.5); WHITE BLOOD CELL COUNT 23.8 /CUMM (4.8-10.8)
--- NOTE | 2017-04-03 02:10 | RADIOLOGY REPORT ---
EXAMINATION: XR PORTABLE CHEST CLINICAL INFORMATION: Triple lumen catheter placement COMPARISON: 04/02/2017 TECHNIQUE: Portable frontal view of the chest was obtained. FINDINGS: The endotracheal tube terminates 6 cm above the shaina. Enteric tube in place. Right internal jugular central venous catheter terminates near the cavoatrial junction. Cardiac leads overlie the chest. Low lung volumes. Small bilateral pleural effusions with airspace opacity. No pneumothorax. The cardiac mediastinal silhouette is unchanged. Chronic changes at the left shoulder. IMPRESSION: 1. Endotracheal tube terminating 6 cm above the shaina. 2. Right internal jugular central venous catheter terminating near the cavoatrial junction. No pneumothorax. 3. Small bilateral pleural effusions with airspace opacity.
[2017-04-03 02:11] LABS: HEMATOCRIT 44.8 % (42-52)
[2017-04-03 02:45] VITALS: BP 93/58
--- NOTE | 2017-04-03 05:47 | PN- General Surgery ---
See Addendum Subjective Subjective: POSTOP CHECK Patient intubated in ICU, responsive to verbal stimuli, indicates he is ok with a hand gesture. Denies chest pain, nausea, vomiting or passing flatus. Per medicine, he has been weaned off pressors and will be undergoing a breathing trial this morning Objective Vital Signs and I&Os Vital Signs Date Time Temp Pulse Resp B/P B/P Pulse O2 O2 Flow FiO2 Mean Ox Delivery Rate 04/03 0445 40 04/03 0344 60 04/03 0342 70 04/03 0233 70 04/03 0227 100 04/03 0124 100 04/02 1353 97.4 60 18 112/60 96 Room Air 04/02 0921 160/100 04/02 0919 160/100 04/02 0620 98.1 63 18 152/98 98 Room Air Intake & Output 04/03 0800 04/03 0000 04/02 1600 04/02 0800 04/02 0000 04/01 1600 Intake Total 1100 673 945 4964 Output Total 774 478 6609 Balance 700 500 -500 1200 Intake, IV 800 800 400 Intake, Oral 300 686 125 6095 Number 1 Bowel Movements Output, Urine 721 049 2990 Physical Exam: Gen - Intubated in icu resting comfortably awake an responsive to verbal stimuli in NAD Skin - R IJ TLC in place HEENT: NGT in place, draining bilious material Cardiac - S1S2 noted, RRR Lungs - CTAB anteriorly Abd - Obese and nondistended with small midline dressing with JOANNE x3 in RUQ, LUQ and suprapubic region draining serous drainage without any purulent/bilious material noted, absent bowel sounds, appropriately tender in RUQ and LLQ without rebound or guarding noted - Garza in place draining concentrated urine Ext - Alps in place, no edema or calf tenderness B/L Current Medications: Current Medications Sig/Nirmal Start time Last Medication Dose Route Stop Time Status Admin Acetaminophen 1,000 MG Q6P PRN 04/02 0730 AC 04/03 N/A 1 UNIT IV 0430 Acetaminophen 1,000 MG Q6P PRN 03/29 1030 DC 04/02 N/A 1 UNIT IV 0131 Benztropine Mesylate 0.5 MG BID 03/28 1000 DC 04/02 PO 917 Bupropion HCl 150 MG BID 03/28 1000 DC 04/02 PO 917 Buspirone HCl 30 MG BID 03/28 1000 DC 04/02 PO 0922 Ceftriaxone Sodium 1,000 MG DAILY 04/02 1000 AC 04/02 IV 0919 Fentanyl Citrate 250 MCG .STK-MED ONE 04/02 2117 DC IM 04/02 2118 Gabapentin 600 MG 4 TIMES/DAY 03/28 1000 DC 04/02 PO 1813 Heparin Sodium 5,000 UNIT Q8 03/28 1400 AC 04/02 (Porcine) SC 1540 Hydrochlorothiazide 25 MG DAILY 03/28 1000 DC 04/02 PO 0921 Hydromorphone HCl 0.6 MG Q3 PRN 04/03 0042 DC IV Hydromorphone HCl 0.6 MG Q4P PRN 04/02 0730 DC 04/02 IV 1042 Hydromorphone HCl 2 MG Q4P PRN 04/02 0730 DC 04/02 PO 1546 Ketorolac 30 MG Q6 04/02 0725 DC 04/02 Tromethamine IV 1814 Lactated Ringer's 500 ML 04/02 2100 CAN IV Lactated Ringer's 1,000 ML ONCE ONE 04/02 2100 DC 04/02 IV 04/02 2159 2100 Levothyroxine Sodium 25 MCG DAILY 04/03 1000 AC IV Levothyroxine Sodium 0.05 MG DAILY 03/28 1000 DC 04/02 PO 0918 Lisinopril 30 MG DAILY 03/28 1000 DC 04/02 PO 0919 Magnesium Oxide 400 MG BID 04/02 1645 DC PO Magnesium Sulfate 1 GM ONCE ONE 04/03 0330 AC 04/03 Dextrose/Water 100 ML IV 04/03 0729 0400 Metoprolol Tartrate 100 MG BID 03/28 1000 DC 04/02 PO 0921 Metronidazole 500 MG Q8H 04/02 0200 AC 04/03 N/A 1 UNIT IV 0259 Midazolam HCl 2 MG .STK-MED ONE 04/02 2118 DC IM 04/02 212 Morphine Sulfate 2 MG Q3P PRN 03/28 0030 DC 03/30 IV 0436 Morphine Sulfate 4 MG Q3P PRN 03/28 0030 DC 04/02 IV 0613 Olanzapine 15 MG QPM 03/28 2200 DC 04/01 PO 2102 Ondansetron HCl 4 MG .STK-MED ONE 04/02 0708 DC IM 04/02 0709 Ondansetron HCl 4 MG Q6-PRN PRN 03/30 0800 AC 04/02 IV 0710 Oxcarbazepine 150 MG BID 03/28 1000 DC 04/02 PO 0922 Pantoprazole Sodium 40 MG BID 04/03 1000 AC IV Phenylephrine HCl 40 MG Q24H 04/03 0200 DC Sodium Chloride 250 ML IV Potassium Chloride 40 MEQ Q10H 04/03 0215 DC Dextrose/Sodium 1,000 ML IV Chloride Potassium Chloride 20 MEQ BID 03/31 1045 DC 04/02 PO 0921 Potassium Chloride 40 MEQ Q10H 03/29 1130 DC 04/02 Sodium Chloride 1,000 ML IV 0912 Prochlorperazine 10 MG Q6-PRN PRN 03/29 1945 AC 04/01 IV 2256 Sodium Chloride 1,000 ML Q6H 04/03 0130 AC 04/03 IV 0414 Results Last 48 Hours of Labs: Laboratory Tests 04/03 04/03 04/03 0500 0215 0145 Blood Gas pH (7.35 - 7.45 PH) 7.37 pCO2 (35 - 45 TORR) 31 L pO2 (80 - 100 TORR) 169 H HCO3 (21 - 28 MEQ/L) 18 L ABG O2 Sat (Measured) (>96.0 %) 98.0 P-50 (Temp Corrected) Y Carboxyhemoglobin (1.5 - 5.0 %) 0.7 L O2 Concentration % 100% Temperature (97.0 - 100.0 FARH) 97.1 Respiration Rate (BPM) 12 O2 Delivery Method ESPRIT Vent Mode AC Expiratory Pressure (CMH2O/P) 5 Tidal Volume (CC) 600 Chemistry Sodium (137 - 145 mmol/L) 136 L Potassium (3.5 - 5.1 mmol/L) 4.5 Chloride (98 - 107 mmol/L) 103 Carbon Dioxide (22 - 30 mmol/L) 20 L Anion Gap (5 - 16) 13 BUN (9 - 20 mg/dL) 20 Creatinine (0.7 - 1.2 mg/dL) 1.9 H Estimated GFR (>60 ml/min) 36 L Glucose (65 - 99 mg/dL) 80 Lactic Acid (0.7 - 2.1 mmol/L) Pending 2.9 H Calcium (8.4 - 10.2 mg/dL) 7.7 L Phosphorus (2.5 - 4.5 mg/dL) 4.5 Magnesium (1.6 - 2.3 mg/dL) 1.1 L Total Bilirubin (0.2 - 1.3 mg/dL) 0.6 AST (17 - 59 U/L) 79 H ALT (21 - 72 U/L) 89 H Troponin I (<0.11 ng/ml) 0.22 *H Albumin (3.5 - 5.0 g/dL) 2.0 L Hematology CBC w Diff Pending MAN DIFF ORDERED WBC (4.8 - 10.8 /CUMM) Pending 23.8 H RBC (4.70 - 6.10 /CUMM) Pending 5.10 Hgb (14.0 - 18.0 G/DL) Pending 15.0 Hct (42 - 52 %) Pending 44.8 MCV (80.0 - 94.0 FL) Pending 87.9 MCH (27.0 - 31.0 PG) Pending 29.4 RDW (11.5 - 14.5 %) Pending 13.1 Plt Count (130 - 400 /CUMM) Pending 234 MPV (7.4 - 10.4 FL) Pending 7.9 Gran % (42.2 - 75.2 %) 90.8 H Lymphocytes % (20.5 - 51.1 %) 5.5 L Monocytes % (1.7 - 9.3 %) 3.5 Eosinophils % (0 - 5 %) 0.1 Basophils % (0.0 - 2.0 %) 0.1 Absolute Granulocytes (1.4 - 6.5 /CUMM) 21.6 H Segmented Neutrophils (42.2 - 75.2 %) 74 Band Neutrophils (0.0 - 5.0 %) 13 H Absolute Lymphocytes (1.2 - 3.4 /CUMM) 1.3 Lymphocytes (20.5 - 51.1 %) 10 L Monocytes (1.7 - 9.3 %) 3 Absolute Monocytes (0.10 - 0.60 /CUMM) 0.8 H Absolute Eosinophils (0.0 - 0.7 /CUMM) 0 Absolute Basophils (0.0 - 0.2 /CUMM) 0 Platelet Estimate (ADEQUATE) ADEQUATE Polychromasia 1+ Poikilocytosis 2+ Ovalocytes 1+ Stomatocytes FEW [place] Cells 1+ PUBS MCHC (33.0 - 37.0 G/DL) Pending 33.5 Miscellaneous Phlebotomy Draw Site [facility] Other Body Source Fld Total RBCs Counted (%) 100 04/02 04/02 1810 4475 Chemistry Sodium (137 - 145 mmol/L) 133 L Potassium (3.5 - 5.1 mmol/L) 4.4 Chloride (98 - 107 mmol/L) 100 Carbon Dioxide (22 - 30 mmol/L) 20 L Anion Gap (5 - 16) 13 BUN (9 - 20 mg/dL) 11 Creatinine (0.7 - 1.2 mg/dL) 0.6 L Estimated GFR (>60 ml/min) > 60 BUN/Creatinine Ratio (7 - 25 %) 18.3 Magnesium (1.6 - 2.3 mg/dL) 1.3 L Total Bilirubin (0.2 - 1.3 mg/dL) 0.9 Direct Bilirubin (< 0.4 mg/dL) 0.5 H AST (17 - 59 U/L) 86 H ALT (21 - 72 U/L) 108 H Alkaline Phosphatase (< 127 U/L) 53 Total Protein (6.3 - 8.2 g/dL) 5.5 L Albumin (3.5 - 5.0 g/dL) 3.0 L Hematology CBC w Diff NO MAN DIFF REQ MAN DIFF ORDERED WBC (4.8 - 10.8 /CUMM) 23.0 H 20.4 H RBC (4.70 - 6.10 /CUMM) 6.63 H 5.51 Hgb (14.0 - 18.0 G/DL) 19.2 H 16.2 Hct (42 - 52 %) 58.4 H 48.3 MCV (80.0 - 94.0 FL) 88.1 87.8 MCH (27.0 - 31.0 PG) 29.0 29.4 RDW (11.5 - 14.5 %) 13.1 12.9 Plt Count (130 - 400 /CUMM) 217 314 MPV (7.4 - 10.4 FL) 8.6 7.8 Gran % (42.2 - 75.2 %) 90.1 H 92.6 H Lymphocytes % (20.5 - 51.1 %) 6.9 L 2.5 L Monocytes % (1.7 - 9.3 %) 2.9 4.8 Eosinophils % (0 - 5 %) 0.1 0 Basophils % (0.0 - 2.0 %) 0 0.1 Absolute Granulocytes (1.4 - 6.5 /CUMM) 20.8 H 18.9 H Segmented Neutrophils (42.2 - 75.2 %) 85 H Band Neutrophils (0.0 - 5.0 %) 6 H Absolute Lymphocytes (1.2 - 3.4 /CUMM) 1.6 0.5 L Lymphocytes (20.5 - 51.1 %) 5 L Monocytes (1.7 - 9.3 %) 4 Absolute Monocytes (0.10 - 0.60 /CUMM) 0.7 H 1.0 H Absolute Eosinophils (0.0 - 0.7 /CUMM) 0 0 Absolute Basophils (0.0 - 0.2 /CUMM) 0 0 Platelet Estimate (ADEQUATE) VERIFIED BY SMEAR Normocytic RBCs VERIFIED Normochromic RBCs VERIFIED PUBS MCHC (33.0 - 37.0 G/DL) 32.9 L 33.5 04/01 0800 Chemistry Sodium (137 - 145 mmol/L) 135 L Potassium (3.5 - 5.1 mmol/L) 3.3 L Chloride (98 - 107 mmol/L) 99 Carbon Dioxide (22 - 30 mmol/L) 24 Anion Gap (5 - 16) 11 BUN (9 - 20 mg/dL) 11 Creatinine (0.7 - 1.2 mg/dL) 0.7 Estimated GFR (>60 ml/min) > 60 BUN/Creatinine Ratio (7 - 25 %) 15.7 Magnesium (1.6 - 2.3 mg/dL) 1.6 Hematology CBC w Diff NO MAN DIFF REQ WBC (4.8 - 10.8 /CUMM) 16.9 H RBC (4.70 - 6.10 /CUMM) 4.46 L Hgb (14.0 - 18.0 G/DL) 13.2 L Hct (42 - 52 %) 39.0 L MCV (80.0 - 94.0 FL) 87.5 MCH (27.0 - 31.0 PG) 29.6 RDW (11.5 - 14.5 %) 12.4 Plt Count (130 - 400 /CUMM) 257 MPV (7.4 - 10.4 FL) 7.6 Gran % (42.2 - 75.2 %) 83.6 H Lymphocytes % (20.5 - 51.1 %) 8.7 L Monocytes % (1.7 - 9.3 %) 7.3 Eosinophils % (0 - 5 %) 0.3 Basophils % (0.0 - 2.0 %) 0.1 Absolute Granulocytes (1.4 - 6.5 /CUMM) 14.1 H Absolute Lymphocytes (1.2 - 3.4 /CUMM) 1.5 Absolute Monocytes (0.10 - 0.60 /CUMM) 1.2 H Absolute Eosinophils (0.0 - 0.7 /CUMM) 0 Absolute Basophils (0.0 - 0.2 /CUMM) 0 PUBS MCHC (33.0 - 37.0 G/DL) 33.9 Recent Imaging Studies: SERVICE DATE: 04/03/17 EXAM TYPE: RAD - XRY-PORTABLE CHEST XRAY EXAMINATION: XR PORTABLE CHEST CLINICAL INFORMATION: Triple lumen catheter placement COMPARISON: 04/02/2017 TECHNIQUE: Portable frontal view of the chest was obtained. FINDINGS: The endotracheal tube terminates 6 cm above the shaina. Enteric tube in place. Right internal jugular central venous catheter terminates near the cavoatrial junction. Cardiac leads overlie the chest. Low lung volumes. Small bilateral pleural effusions with airspace opacity. No pneumothorax. The cardiac mediastinal silhouette is unchanged. Chronic changes at the left shoulder. IMPRESSION: 1. Endotracheal tube terminating 6 cm above the shaina. 2. Right internal jugular central venous catheter terminating near the cavoatrial junction. No pneumothorax. 3. Small bilateral pleural effusions with airspace opacity. Assessment/Plan Assessment/Plan This is a 61 year-old male s/p lap appy due to perforated appendicitis one week ago who is now POD 0 s/p diagnostic laparoscopy and repair of a perforated gastroduodenal ulcer with omental patch and abdominal washout with joanne drain x3 due to a large gastroduodenal perforated ulcer and biliary peritonitis. Remained intubated postop for airway protection and on pressors, which have been weaned off. Now with PRIYA and elevated trop likely related to septic shock/dehydration Strict npo on IVF Protonix IV bid Keep NGT to LCWS Cont pain regimen Cont abx - rocephin/flagyl per ID Nutrition c/s for TPN recommendations Start TPN tonight via TLC Monitor with serial abdominal exams Strict I&Os JOANNE x3 to bulb suction Keep garza in place DVT ppx - alps, resume hsq F/u am labs - monitor trops/renal Cardiology consult if trop cont to rise Psych po meds on hold due to strict npo Likely UGI on thursday to assess for leak postop All other medical manamgement per medicine Defer extubation to pulm, hopefully today Appreciate medicine, ID, pulm involvement Will d/w Dr. Sow Core Measures Venous Thromboembolism VTE Risk Factors Surgery No Mechanical VTE Prophylaxis d/t N/A MechProphylax Ordered No VTE Pharm Prophylaxis d/t NA PharmProphylax ordered
[2017-04-03 05:53] LABS: ABSOLUTE BASOPHIL COUNT 0 /CUMM (0.0-0.2); ABSOLUTE EOSINOPHIL COUNT 0 /CUMM (0.0-0.7); ABSOLUTE GRANULOCYTE CT 20.3 /CUMM (1.4-6.5); ABSOLUTE LYMPH COUNT 1.6 /CUMM (1.2-3.4); ABSOLUTE MONOCYTE COUNT 0.3 /CUMM (0.10-0.60); BASOPHIL % 0 % (0.0-2.0); EOSINOPHIL % 0 % (0-5); GRANULOCYTE % 91.4 % (42.2-75.2); MEAN CORPUSCULAR HGB 29.3 PG (27.0-31.0); MEAN CORPUSCULAR HGB CONC 33.4 G/DL (33.0-37.0); MEAN CORPUSCULAR VOLUME 87.7 FL (80.0-94.0); PLATELET COUNT 252 /CUMM (130-400); RBC DISTRIBUTION WIDTH 13.3 % (11.5-14.5); RED BLOOD CELL CT 5.02 /CUMM (4.70-6.10); WHITE BLOOD CELL COUNT 22.2 /CUMM (4.8-10.8)
--- NOTE | 2017-04-03 07:22 | PN- Resident [facility] ---
Objective Current Medications: Current Medications Sig/Nirmal Start time Last Medication Dose Route Stop Time Status Admin Acetaminophen 1,000 MG Q6P PRN 04/02 0730 AC 04/03 N/A 1 UNIT IV 0430 Acetaminophen 1,000 MG Q6P PRN 03/29 1030 DC 04/02 N/A 1 UNIT IV 0131 Benztropine Mesylate 0.5 MG BID 03/28 1000 DC 04/02 PO 0918 Bupropion HCl 150 MG BID 03/28 1000 DC 04/02 PO 0918 Buspirone HCl 30 MG BID 03/28 1000 DC 04/02 PO 0922 Ceftriaxone Sodium 1,000 MG DAILY 04/02 1000 AC 04/02 IV 0919 Fentanyl Citrate 250 MCG .STK-MED ONE 04/02 2117 DC IM 04/02 2118 Gabapentin 600 MG 4 TIMES/DAY 03/28 1000 DC 04/02 PO 1813 Heparin Sodium 5,000 UNIT Q8 03/28 1400 AC 04/03 (Porcine) SC 0714 Hydrochlorothiazide 25 MG DAILY 03/28 1000 DC 04/02 PO 0921 Hydromorphone HCl 0.6 MG Q3 PRN 04/03 0042 DC IV Hydromorphone HCl 0.6 MG Q4P PRN 04/02 0730 DC 04/02 IV 1042 Hydromorphone HCl 2 MG Q4P PRN 04/02 0730 DC 04/02 PO 1546 Ketorolac 30 MG Q6 04/02 0725 DC 04/02 Tromethamine IV 1814 Lactated Ringer's 500 ML 04/02 2100 CAN IV Lactated Ringer's 1,000 ML ONCE ONE 04/02 2100 DC 04/02 IV 04/02 2159 2100 Levothyroxine Sodium 25 MCG DAILY 04/03 1000 AC IV Levothyroxine Sodium 0.05 MG DAILY 03/28 1000 DC 04/02 PO 0918 Lisinopril 30 MG DAILY 03/28 1000 DC 04/02 PO 0919 Magnesium Oxide 400 MG BID 04/02 1645 DC PO Magnesium Sulfate 1 GM ONCE ONE 04/03 0330 AC 04/03 Dextrose/Water 100 ML IV 04/03 0729 0400 Metoprolol Tartrate 100 MG BID 03/28 1000 DC 04/02 PO 0921 Metronidazole 500 MG Q8H 04/02 0200 AC 04/03 N/A 1 UNIT IV 0259 Midazolam HCl 2 MG .STK-MED ONE 04/02 2118 DC IM 04/02 2120 Morphine Sulfate 2 MG Q3P PRN 03/28 0030 DC 03/30 IV 0436 Morphine Sulfate 4 MG Q3P PRN 03/28 0030 DC 04/02 IV 0613 Olanzapine 15 MG QPM 03/28 2200 DC 04/01 PO 2102 Ondansetron HCl 4 MG Q6-PRN PRN 03/30 0800 AC 04/02 IV 0710 Oxcarbazepine 150 MG BID 03/28 1000 DC 04/02 PO 0922 Pantoprazole Sodium 40 MG BID 04/03 1000 AC IV Phenylephrine HCl 40 MG Q24H 04/03 0200 DC Sodium Chloride 250 ML IV Potassium Chloride 40 MEQ Q10H 04/03 0215 DC Dextrose/Sodium 1,000 ML IV Chloride Potassium Chloride 20 MEQ BID 03/31 1045 DC 04/02 PO 0921 Potassium Chloride 40 MEQ Q10H 03/29 1130 DC 04/02 Sodium Chloride 1,000 ML IV 0912 Prochlorperazine 10 MG Q6-PRN PRN 03/29 1945 AC 04/01 IV 2256 Sodium Chloride 1,000 ML Q6H 04/03 0130 AC 04/03 IV 0414 Impression/Plan Plan Code Status: Full Code
[2017-04-03 08:00] VITALS: BP 110/64
--- NOTE | 2017-04-03 08:08 | Cons- CRCU ---
Claire Lu 04/03/17 0724: General Information and HPI Consulting Request Date of Consult: 04/03/17 Requested By: Dr. Sow Reason for Consult: CRCU consult for hypotesnion perioperatively Source of Information: old records Exam Limitations: unable to give history, clinical condition History of Present Illness: 61-year-old gentleman with past medical history significant for TBI, hypertension, hypothyroidism, depression, seizure disorder, who initially came in on March 27 for a 1 day history of nausea vomiting and abdominal pain. He was found to have acute perforated appendicitis with feculent peritonitis and was taken to OR for laparoscopic appendectomy with one drain placed. Postoperatively he continued to have nausea and abdominal pain. He was gradually advanced to clear liquids and his drain removed. Notably, pt got unasyn on and then switched to Ceftriaxone and Flagyll starting the . Though he remained afebrile his white count which initially trended down to a brian of 15.9 on 03/30/2017, started climbing back up to 23 on 04/02/2017. Patient continued to complain of worsening nausea and abdominal pain. His CAT scan on April 01 was negative for any new acute intra-abdominal process but on the an abd xry showed free air and a repeat CAT scan showed moderate to large amount of pneumoperitoneum along with moderate to large amount of free fluid in the upper abdomen. Patient was taken back to the OR on 04/03/2017 for a diagnostic laparoscopy, abdominal washout, and placement of Niko patch for a 1 cm perforated gastroduodenal ulcer at the GEJ. Intra-operatively after induction, patient's blood pressure was noted to drop into the 60s systolic and he was given phenylephrine and ephedrine. Estimated blood loss was around 50 mL; however, about 3 L of bile was suctioned out due to perforation. Subsequently, 3 drains were placed and post-op a right IJ TLC was placed under ultrasound guidance. Given hypotension, decision was made to leave patient intubated overnight. He was continued on phenylephrine for pressure support, and was taken off of it. Currently, the patient remains intubated, is awake and alert. He endorses abdominal discomfort. ROS is limited as patient is intubated Allergies/Medications Allergies: Coded Allergies: risperidone (UNKNOWN 10/30/15) Home Med List: Benztropine Mesylate 0.5 MG TABLET 1 TAB PO BID ANTICHOLINERGIC (Reported) Bupropion HCl (Bupropion HCl Sr) 150 MG TABLET.ER 1 TAB PO BID MOOD (Reported ) Buspirone HCl 30 MG TABLET 1 TAB PO BID ANXIETY (Reported) Gabapentin (Neurontin) 600 MG TABLET 1 TAB PO 4 TIMES/DAY NERVES (Reported) Hydrochlorothiazide 25 MG TABLET 1 TAB PO DAILY HIGH BLOOD PRESSURE (Reported ) Hydroxyzine Pamoate (Vistaril) 50 MG CAPSULE 1 CAP PO TIDPRN ANXIETY ( Reported) Levothyroxine Sodium 50 MCG TABLET 1 TAB PO DAILY THYROID PROBLEMS (Reported) Lisinopril 30 MG TABLET 1 TAB PO DAILY HIGH BLOOD PRESSURE (Reported) Metoprolol Tartrate 100 MG TABLET 1 TAB PO BID HIGH BLOOD PRESSURE (Reported) Morphine Sulfate (Morphine Sulfate ER) 60 MG TABLET.ER 1 TAB PO BID PAIN CONTROL (Reported) Naproxen (Naprosyn) 500 MG TABLET 1 TAB PO BID PRN PAIN AND INFLAMMATION Olanzapine (Zyprexa) 15 MG TABLET 1 TAB PO QPM MOOD STABILITY (Reported) Oxcarbazepine 150 MG TABLET 1 TAB PO BID SEIZURES (Reported) Oxycodone HCl 15 MG TABLET 1 TAB PO 4 TIMES/DAY PAIN CONTROL (Reported) Current Medications: Current Medications Sig/Nirmal Start time Last Medication Dose Route Stop Time Status Admin Acetaminophen 1,000 MG Q6P PRN 04/02 0730 AC 04/03 N/A 1 UNIT IV 0430 Acetaminophen 1,000 MG Q6P PRN 03/29 1030 DC 04/02 N/A 1 UNIT IV 0131 Benztropine Mesylate 0.5 MG BID 03/28 1000 DC 04/02 PO 0918 Bupropion HCl 150 MG BID 03/28 1000 DC 04/02 PO 0918 Buspirone HCl 30 MG BID 03/28 1000 DC 04/02 PO 0922 Ceftriaxone Sodium 1,000 MG DAILY 04/02 1000 AC 04/02 IV 0919 Fentanyl Citrate 250 MCG .STK-MED ONE 04/02 2117 DC IM 04/02 2118 Gabapentin 600 MG 4 TIMES/DAY 03/28 1000 DC 04/02 PO 181 Heparin Sodium 5,000 UNIT Q8 03/28 1400 AC 04/03 (Porcine) SC 0714 Hydrochlorothiazide 25 MG DAILY 03/28 1000 DC 04/02 PO 0921 Hydromorphone HCl 0.6 MG Q3 PRN 04/03 0042 DC IV Hydromorphone HCl 0.6 MG Q4P PRN 04/02 0730 DC 04/02 IV 1042 Hydromorphone HCl 2 MG Q4P PRN 04/02 0730 DC 04/02 PO 1546 Ketorolac 30 MG Q6 04/02 0725 DC 04/02 Tromethamine IV 1814 Lactated Ringer's 500 ML 04/02 2100 CAN IV Lactated Ringer's 1,000 ML ONCE ONE 04/02 2100 DC 04/02 IV 04/02 2159 2100 Levothyroxine Sodium 25 MCG DAILY 04/03 1000 AC IV Levothyroxine Sodium 0.05 MG DAILY 03/28 1000 DC 04/02 PO 0918 Lisinopril 30 MG DAILY 03/28 1000 DC 04/02 PO 0919 Magnesium Oxide 400 MG BID 04/02 1645 DC PO Magnesium Sulfate 1 GM Q2H 04/03 0745 AC Dextrose/Water 100 ML IV 04/03 1144 Magnesium Sulfate 1 GM ONCE ONE 04/03 0330 DC 04/03 Dextrose/Water 100 ML IV 04/03 0729 0400 Metoprolol Tartrate 100 MG BID 03/28 1000 DC 04/02 PO 0921 Metronidazole 500 MG Q8H 04/02 0200 AC 04/03 N/A 1 UNIT IV 0259 Midazolam HCl 2 MG .STK-MED ONE 04/02 2119 DC IM 04/02 2120 Olanzapine 15 MG QPM 03/28 2200 DC 04/01 PO 2102 Ondansetron HCl 4 MG Q6-PRN PRN 03/30 0800 AC 04/02 IV 0710 Oxcarbazepine 150 MG BID 03/28 1000 DC 04/02 PO 0922 Pantoprazole Sodium 40 MG BID 04/03 1000 AC IV Phenylephrine HCl 40 MG Q24H 04/03 0200 DC Sodium Chloride 250 ML IV Potassium Chloride 40 MEQ Q10H 04/03 0215 DC Dextrose/Sodium 1,000 ML IV Chloride Potassium Chloride 20 MEQ BID 03/31 1045 DC 04/02 PO 0921 Potassium Chloride 40 MEQ Q10H 03/29 1130 DC 04/02 Sodium Chloride 1,000 ML IV 0912 Prochlorperazine 10 MG Q6-PRN PRN 03/29 1945 AC 04/01 IV 2256 Sodium Chloride 1,000 ML Q6H 04/03 0130 AC 04/03 IV 0414 Review of Systems Review of Systems Constitutional: Reports: see HPI. Past History Travel History Traveled to [place] past 21 day No Medical History Blood Transfusion Hx: No Neurological: seizure, TBI EENT: NONE Cardiovascular: hypertension Respiratory: NONE Gastrointestinal: NONE Hepatic: NONE Renal: NONE Musculoskeletal: osteoarthritis Psychiatric: depression Endocrine: THYROID Cancer(s): NONE [employer] DIRECTOR/Reproductive: NONE Surgical History Surgical History: hernia repair-inguinal, left shoulder surgery Psychosocial History Where Do You Live? Home Services at Home: Home Health Aide, Nursing Smoking Status: Never Smoked Exam & Diagnostic Data Last 24 Hrs of Vital Signs/I&O Vital Signs Date Time Temp Pulse Resp B/P B/P Pulse O2 O2 Flow FiO2 Mean Ox Delivery Rate 04/03 0630 40 04/03 0445 40 04/03 0344 60 04/03 0342 70 04/03 0233 70 04/03 0227 100 04/03 0124 100 04/02 1353 97.4 60 18 112/60 96 Room Air 04/02 0921 160/100 04/02 0919 160/100 Intake & Output 04/03 0800 04/03 0000 04/02 1600 Intake Total 1100 Output Total 400 Balance 700 Intake, IV 800 Intake, Oral 300 Output, Urine 400 Physical Exam General Appearance: no apparent distress, alert, awake, intubated Head: atraumatic, normal appearance Eyes: Bilateral: normal appearance, PERRL, EOMI. Ears, Nose, Throat: intubated Respiratory: b/l transmitted breath sounds Cardiovascular: regular rate/rhythm Gastrointestinal: soft, hypoactive bowel sounds Extremities: no edema Neurologic/Psych: awake, alert, oriented x 3, intubated; following commands Cranial Nerves: normal hearing, normal speech, PERRL Last 48 Hrs of Labs/Fabiano: Laboratory Tests 04/03/17 0600: Magnesium Cancelled 04/03/17 0525: pH 7.41, pCO2 29 L, pO2 74 L, HCO3 18 L, ABG O2 Sat (Measured) 95.0 L, P-50 (Temp Corrected) Y, Carboxyhemoglobin 0.5 L, O2 Concentration % 40%, Temperature 97.3, Respiration Rate 12, O2 Delivery Method ESPRIT, Vent Mode AC, Expiratory Pressure 5, Tidal Volume 500, Phlebotomy Draw Site LUTTRELL 04/03/17 0500: Lactic Acid 1.6, CBC w Diff MAN DIFF ORDERED, RBC 5.02, MCV 87.7, MCH 29.3, RDW 13.3, MPV 8.0, Gran % 91.4 H, Lymphocytes % 7.1 L, Monocytes % 1.5 L, Eosinophils % 0, Basophils % 0, Absolute Granulocytes 20.3 H, Segmented Neutrophils 67, Band Neutrophils 22 H, Absolute Lymphocytes 1.6, Lymphocytes 9 L, Monocytes 2, Absolute Monocytes 0.3, Absolute Eosinophils 0, Absolute Basophils 0, Platelet Estimate ADEQUATE, Polychromasia 1+, Poikilocytosis 1+, Ovalocytes 1+, [place] Cells FEW, PUBS MCHC 33.4, Fld Total RBCs Counted 100, Urinalysis HEAVY H, Urine Color ORANG H, Urine Clarity CLDY H, Urine pH 5.5, Ur Specific [place] 1.025, Urine Protein 100 H, Urine Ketones NEG, Urine Nitrite NEG, Urine Bilirubin NEG@ICTO, Urine Urobilinogen 0.2, Ur Leukocyte Esterase NEG, Ur Microscopic SEDIMENT EXAMINED, Urine RBC 25-50 H, Urine WBC 5- 10 H, Ur Epithelial Cells MOD H, Urine Bacteria FEW H, Granular Casts 5-10 H , Urine Mucus FEW, Urine Hemoglobin LARGE H, Urine Glucose NEG 04/03/17 0215: pH 7.37, pCO2 31 L, pO2 169 H, HCO3 18 L, ABG O2 Sat (Measured) 98.0, P-50 ( Temp Corrected) Y, Carboxyhemoglobin 0.7 L, O2 Concentration % 100%, Temperature 97.1, Respiration Rate 12, O2 Delivery Method ESPRIT, Vent Mode AC, Expiratory Pressure 5, Tidal Volume 600, Phlebotomy Draw Site LUTTRELL 04/03/17 0145: Anion Gap 13, Estimated GFR 36 L, Glucose 80, Lactic Acid 2.9 H, Calcium 7.7 L, Phosphorus 4.5, Magnesium 1.1 L, Total Bilirubin 0.6, AST 79 H, ALT 89 H, Troponin I 0.22 *H, Albumin 2.0 L, CBC w Diff MAN DIFF ORDERED, RBC 5.10, MCV 87.9, MCH 29.4, RDW 13.1, MPV 7.9, Gran % 90.8 H, Lymphocytes % 5.5 L, Monocytes % 3.5, Eosinophils % 0.1, Basophils % 0.1, Absolute Granulocytes 21.6 H, Segmented Neutrophils 74, Band Neutrophils 13 H, Absolute Lymphocytes 1.3, Lymphocytes 10 L, Monocytes 3, Absolute Monocytes 0.8 H, Absolute Eosinophils 0, Absolute Basophils 0, Platelet Estimate ADEQUATE, Polychromasia 1+, Poikilocytosis 2+, Ovalocytes 1+, Stomatocytes FEW, [place] Cells 1+, [facility] MCHC 33.5, Fld Total RBCs Counted 100 04/02/17 1810: Total Bilirubin 0.9, Direct Bilirubin 0.5 H, AST 86 H, ALT 108 H, Alkaline Phosphatase 53, Total Protein 5.5 L, Albumin 3.0 L, CBC w Diff NO MAN DIFF REQ , RBC 6.63 H, MCV 88.1, MCH 29.0, RDW 13.1, MPV 8.6, Gran % 90.1 H, Lymphocytes % 6.9 L, Monocytes % 2.9, Eosinophils % 0.1, Basophils % 0, Absolute Granulocytes 20.8 H, Absolute Lymphocytes 1.6, Absolute Monocytes 0.7 H, Absolute Eosinophils 0, Absolute Basophils 0, [facility] MCHC 32.9 L 04/02/17 0755: Anion Gap 13, Estimated GFR > 60, BUN/Creatinine Ratio 18.3, Magnesium 1.3 L, CBC w Diff MAN DIFF ORDERED, RBC 5.51, MCV 87.8, MCH 29.4, RDW 12.9, MPV 7.8, Gran % 92.6 H, Lymphocytes % 2.5 L, Monocytes % 4.8, Eosinophils % 0, Basophils % 0.1, Absolute Granulocytes 18.9 H, Segmented Neutrophils 85 H, Band Neutrophils 6 H, Absolute Lymphocytes 0.5 L, Lymphocytes 5 L, Monocytes 4, Absolute Monocytes 1.0 H, Absolute Eosinophils 0, Absolute Basophils 0, Platelet Estimate VERIFIED BY SMEAR, Normocytic RBCs VERIFIED, Normochromic RBCs VERIFIED, [facility] MCHC 33.5 04/01/17 0800: Anion Gap 11, Estimated GFR > 60, BUN/Creatinine Ratio 15.7, Magnesium 1.6, CBC w Diff NO MAN DIFF REQ, RBC 4.46 L, MCV 87.5, MCH 29.6, RDW 12.4, MPV 7.6, Gran % 83.6 H, Lymphocytes % 8.7 L, Monocytes % 7.3, Eosinophils % 0.3, Basophils % 0.1, Absolute Granulocytes 14.1 H, Absolute Lymphocytes 1.5, Absolute Monocytes 1.2 H, Absolute Eosinophils 0, Absolute Basophils 0, PUBS MCHC 33.9 Diagnostic Data EKG Results NSR, low voltage, HR: 60; non-specific ST-T chnages in v2-v3 CXR Results FINDINGS: The endotracheal tube terminates 6 cm above the shaina. Enteric tube in place. Right internal jugular central venous catheter terminates near the cavoatrial junction. Cardiac leads overlie the chest. Low lung volumes. Small bilateral pleural effusions with airspace opacity. No pneumothorax. The cardiac mediastinal silhouette is unchanged. Chronic changes at the left shoulder. IMPRESSION: 1. Endotracheal tube terminating 6 cm above the shaina. 2. Right internal jugular central venous catheter terminating near the cavoatrial junction. No pneumothorax. 3. Small bilateral pleural effusions with airspace opacity. Assessment/Plan Impression/Plan: In summary this is a 61 yo M with h/o hypothyroidism, TBI, seizures, HTN, OA, depression, was admitted on Mar 27 for abdominal pain due to perforated appendicitis for which he underwent laparoscopic appendectomy with post-op course c/b perforated gastroduodenal ulcer which was repaired with an omental patch on 04/03. While in the OR, patient became hypotensive to SBP 50-60's soon after induction,and was resuscitated with IVfs and started on pressors for BP support, which he required trasniently. He was subsequently to the ICU postoperatively and remains intubated for airway maintainece. 1. Septic shock 2/2 peritonitis 2. Perforated gastroduodenal ulcer s/p repair 3. Respiratory failure, on ventilator 4. Recent perforated appendicitis s/p appendectomy 5. h/o TBI and seizures 6. h/o hypothyroidism Plan: - #Acute Respiratory failure - Presently mechanically ventilated for airway protection. Current vent settings : AC, TV 600, PEEP 5, RR 12, FiO2 100%. - he is alert and oriented ans so will plan to extubate him this morning. - Place on supplemental oxygen to maintain O 2 to maitain sats > 92% post- extubation #Hypotension - 2/2 septic shock and anesthesia - Patient has been weaned off pressors. - Will continue hydration with D5-NS for now @ 125mls/hr - Goal MAP >65mmHg - Cosnider levophed for pressor support if needed - Continue to hold all antihypertensive medications # Elevated troponins - Most likely 2/2 sepsis versus Type II ID - Trend EKG and troponin until they peak. - Appreciate Cardio recs. - Echo did not show any RWMA and EF 55% - OP stress test. # Perforated duodenal ulcer s/p repair an perforated appendicitis - NPO, NG tube to low wall suction - IV pantoprazole BID - Continue ceftriaxone and flagyl - F/U BC x2 - Of note no cultures were sent form OR - ID on board. F/U recs - Meanhwile willl initiate TPN as per nutrition recs. - Please place the order in before noon. # Hypothyroidism - Continue levothyroxine IV 0.025mcg daily while he is on TPN #Hypomagnesemia - Repelete and F/U Mag @14:00 #Hx of seizures - Neuro consult placed for management with antiseizure medicatioons/ - Meanwhile will start Keppra 500mg BID IV - DVT ppx - Hep SC. - Code Status - Full code. Consult Acknowledgment - Thank you for your consult request. Arnel Hyatt MD 04/03/17 1330: Assessment/Plan Other Findings/Comments: Arnel Hoffamn M.D. have examined this patient, reviewed available EMR data, personally reviewed images, discussed with resident/PA/TUNNEL KILN FIRER, discussed management plan with housestaff and nursing staff, discussed managment plan all of healthcare providers, discussed management plan with patient and/or family, agreed with resident/PA/TUNNEL KILN FIRER. The past history and parts of the chart have been autopopulated. Impression 61 year old man, s/p laparascopy, peritonitis, acute respiraotry failure post operatively improving Plan -ID/Surgical follow up -abx per ID -SBT/CPAP trial this am with a plan for extubation -once extubated can be downgraded 24 hrs afterwards -incentive spirometry DVT prophylaxis at all times Consult Acknowledgment - Thank you for your consult request.
--- NOTE | 2017-04-03 09:50 | Cons- Cardiology ---
General Information and HPI Consulting Request Date of Consult: 04/03/17 Requested By: Tommie Sow DO Reason for Consult: Elevated troponin isoenzyme, hypotension Source of Information: patient, old records Exam Limitations: pt intubated History of Present Illness: The patient is a 61-year-old gentleman with a past medical history of traumatic brain injury, hypertension, hypothyroidism and seizure disorder. He was initially admitted to our hospital on March 27 following a perforated appendicitis with subsequent peritonitis and had an urgent appendectomy performed. He required a reoperation on April 03 secondary to a perforated gastroduodenal ulcer with subsequent sepsis. Following this procedure, troponin isoenzyme elevations were noted. The patient was noted to have severe abdominal pain and nausea proximally 6 days following his appendectomy. A subsequent CAT scan demonstrated pneumoperitoneum and fluid. He underwent a diagnostic laparoscopy with abdominal washout and a patch for a perforated gastroduodenal ulcer. He was noted to be septic with an elevated white blood cell count, as well as lactic acidosis and hypotension with systolic blood pressures of 60s. He required pressor treatment intraoperatively. Following his second procedure, troponin isoenzyme levels were checked and elevated at 0.22, albeit in a flat, plateau fashion and in the setting of acute kidney injury. Currently, the patient remains intubated in the intensive care unit; however, is awake and alert. He complains of epigastric/abdominal discomfort; however, has no chest pain symptoms. A bedside echocardiogram was performed in the intensive care unit which demonstrated an LVEF of 60% and no focal wall motion abnormalities. Valvular structure and function are normal. Allergies/Medications Allergies: Coded Allergies: risperidone (UNKNOWN 10/30/15) Home Med List: Benztropine Mesylate 0.5 MG TABLET 1 TAB PO BID ANTICHOLINERGIC (Reported) Bupropion HCl (Bupropion HCl Sr) 150 MG TABLET.ER 1 TAB PO BID MOOD (Reported ) Buspirone HCl 30 MG TABLET 1 TAB PO BID ANXIETY (Reported) Gabapentin (Neurontin) 600 MG TABLET 1 TAB PO 4 TIMES/DAY NERVES (Reported) Hydrochlorothiazide 25 MG TABLET 1 TAB PO DAILY HIGH BLOOD PRESSURE (Reported ) Hydroxyzine Pamoate (Vistaril) 50 MG CAPSULE 1 CAP PO TIDPRN ANXIETY ( Reported) Levothyroxine Sodium 50 MCG TABLET 1 TAB PO DAILY THYROID PROBLEMS (Reported) Lisinopril 30 MG TABLET 1 TAB PO DAILY HIGH BLOOD PRESSURE (Reported) Metoprolol Tartrate 100 MG TABLET 1 TAB PO BID HIGH BLOOD PRESSURE (Reported) Morphine Sulfate (Morphine Sulfate ER) 60 MG TABLET.ER 1 TAB PO BID PAIN CONTROL (Reported) Naproxen (Naprosyn) 500 MG TABLET 1 TAB PO BID PRN PAIN AND INFLAMMATION Olanzapine (Zyprexa) 15 MG TABLET 1 TAB PO QPM MOOD STABILITY (Reported) Oxcarbazepine 150 MG TABLET 1 TAB PO BID SEIZURES (Reported) Oxycodone HCl 15 MG TABLET 1 TAB PO 4 TIMES/DAY PAIN CONTROL (Reported) Current Medications: Current Medications Sig/Nirmal Start time Last Medication Dose Route Stop Time Status Admin Acetaminophen 1,000 MG Q6P PRN 04/02 0730 AC 04/03 N/A 1 UNIT IV 0430 Acetaminophen 1,000 MG Q6P PRN 03/29 1030 DC 04/02 N/A 1 UNIT IV 0131 Benztropine Mesylate 0.5 MG BID 03/28 1000 DC 04/02 PO 0918 Bupropion HCl 150 MG BID 03/28 1000 DC 04/02 PO 0918 Buspirone HCl 30 MG BID 03/28 1000 DC 04/02 PO 0922 Ceftriaxone Sodium 1,000 MG DAILY 04/02 1000 AC 04/03 IV 0918 Fentanyl Citrate 250 MCG .STK-MED ONE 04/028 DC IM 04/02 211 Gabapentin 600 MG 4 TIMES/DAY 03/28 1000 DC 04/02 PO 1813 Heparin Sodium 5,000 UNIT Q8 03/28 1400 AC 04/03 (Porcine) SC 0714 Hydrochlorothiazide 25 MG DAILY 03/28 1000 DC 04/02 PO 0921 Hydromorphone HCl 0.6 MG Q3 PRN 04/03 0042 DC IV Hydromorphone HCl 0.6 MG Q4P PRN 04/02 0730 DC 04/02 IV 1042 Hydromorphone HCl 2 MG Q4P PRN 04/02 0730 DC 04/02 PO 1546 Ketorolac 30 MG Q6 04/02 0725 DC 04/02 Tromethamine IV 1814 Lactated Ringer's 500 ML 04/02 2100 CAN IV Lactated Ringer's 1,000 ML ONCE ONE 04/02 2100 DC 04/02 IV 04/02 2159 2100 Levothyroxine Sodium 25 MCG DAILY 04/03 1000 AC IV Levothyroxine Sodium 0.05 MG DAILY 03/28 1000 DC 04/02 PO 0918 Lisinopril 30 MG DAILY 03/28 1000 DC 04/02 PO 0919 Magnesium Oxide 400 MG BID 04/02 1645 DC PO Magnesium Sulfate 1 GM Q2H 04/03 0745 AC 04/03 Dextrose/Water 100 ML IV 04/03 1144 0918 Magnesium Sulfate 1 GM ONCE ONE 04/03 0330 DC 04/03 Dextrose/Water 100 ML IV 04/03 0729 0400 Metoprolol Tartrate 100 MG BID 03/28 1000 DC 04/02 PO 0921 Metronidazole 500 MG Q8H 04/02 0200 AC 04/03 N/A 1 UNIT IV 0259 Midazolam HCl 2 MG .STK-MED ONE 04/02 2119 DC IM 04/02 2120 Olanzapine 15 MG QPM 03/28 2200 DC 04/01 PO 2102 Ondansetron HCl 4 MG Q6-PRN PRN 03/30 0800 AC 04/02 IV 0710 Oxcarbazepine 150 MG BID 03/28 1000 DC 04/02 PO 0922 Pantoprazole Sodium 40 MG BID 04/03 1000 AC 04/03 IV 0918 Phenylephrine HCl 40 MG Q24H 04/03 0200 DC Sodium Chloride 250 ML IV Potassium Chloride 40 MEQ Q10H 04/03 0215 DC Dextrose/Sodium 1,000 ML IV Chloride Potassium Chloride 20 MEQ BID 03/31 1045 DC 04/02 PO 0921 Potassium Chloride 40 MEQ Q10H 03/29 1130 DC 04/02 Sodium Chloride 1,000 ML IV 0912 Prochlorperazine 10 MG Q6-PRN PRN 03/29 1945 AC 04/01 IV 2256 Sodium Chloride 1,000 ML Q6H 04/03 0130 AC 04/03 IV 0414 Review of Systems Review of Systems: A full review of systems was unable to be obtained from the patient due to his intubated state Past History Travel History Traveled to [place] past 21 day No Medical History Blood Transfusion Hx: No Neurological: seizure, TBI EENT: NONE Cardiovascular: hypertension Respiratory: NONE Gastrointestinal: NONE Hepatic: NONE Renal: NONE Musculoskeletal: osteoarthritis Psychiatric: depression Endocrine: THYROID Cancer(s): NONE 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 Home Services at Home: Home Health Aide, Nursing Smoking Status: Never Smoked Exam & Diagnostic Data Vital Signs and I&O Vital Signs Date Time Temp Pulse Resp B/P B/P Pulse O2 O2 Flow FiO2 Mean Ox Delivery Rate 04/03 0906 40 04/03 0630 40 04/03 0445 40 04/03 0400 99 Ventilator 40% 04/03 0344 60 04/03 0342 70 04/03 0245 96.9 74 18 93/58 98 Ventilator 70% 04/03 0233 70 04/03 0227 100 04/03 0124 100 04/02 1353 97.4 60 18 112/60 96 Room Air Intake & Output 04/03 1600 04/03 0800 04/03 0000 04/02 1600 04/02 0800 04/02 0000 Intake Total 820 1100 900 500 Output Total 265 280 756 4392 Balance 555 700 500 -500 Intake, IV 820 800 800 400 Intake, Oral 300 100 100 Number 0 Bowel Movements Output, 115 Drainage Output, Urine 150 431 728 0935 Patient 91 lb 249 lb Weight Physical Exam: General: Nontoxic, no apparent distress, intubated. HEENT: Sclera and conjunctiva within normal limits, without xanthelasmas. Neck: Carotids 2+ without bruits. Respiratory: Scattered rhonchi, air movement is good, without accessory respiratory muscle use. Heart: Regular rate and rhythm, without murmurs, without JVD. Abdomen: Soft, tender, no masses, normoactive bowel sounds. Extremities: Without clubbing, cyanosis, without edema. Neuro: Nonfocal exam, strength, 5 out of 5 Skin: Within normal limits without lesions. Psych: Mood and affect: Normal Labs/Fabiano Results: Laboratory Tests 04/03 04/03 04/03 04/03 0800 0800 0600 0525 Blood Gas pH (7.35 - 7.45 PH) 7.41 pCO2 (35 - 45 TORR) 29 L pO2 (80 - 100 TORR) 74 L HCO3 (21 - 28 MEQ/L) 18 L ABG O2 Sat (Measured) (>96.0 %) 95.0 L P-50 (Temp Corrected) Y Carboxyhemoglobin (1.5 - 5.0 %) 0.5 L O2 Concentration % 40% Temperature (97.0 - 100.0 FARH) 97.3 Respiration Rate (BPM) 12 O2 Delivery Method ESPRIT Vent Mode AC Expiratory Pressure (CMH2O/P) 5 Tidal Volume (CC) 500 Chemistry Sodium (137 - 145 mmol/L) Cancelled 134 L Potassium (3.5 - 5.1 mmol/L) Cancelled 4.3 Chloride (98 - 107 mmol/L) Cancelled 101 Carbon Dioxide (22 - 30 mmol/L) Cancelled 21 L Anion Gap (5 - 16) Cancelled 12 BUN (9 - 20 mg/dL) Cancelled 24 H Creatinine (0.7 - 1.2 mg/dL) Cancelled 2.1 H Estimated GFR (>60 ml/min) 32 L Glucose (65 - 99 mg/dL) Cancelled 89 Calcium (8.4 - 10.2 mg/dL) Cancelled 7.3 L Phosphorus (2.5 - 4.5 mg/dL) Cancelled 4.9 H Magnesium (1.6 - 2.3 mg/dL) Cancelled 1.5 L Cancelled Total Bilirubin (0.2 - 1.3 mg/dL) Cancelled 0.6 AST (17 - 59 U/L) Cancelled 64 H ALT (21 - 72 U/L) Cancelled 76 H Troponin I (<0.11 ng/ml) 0.22 *H Albumin (3.5 - 5.0 g/dL) Cancelled 1.9 L Miscellaneous Phlebotomy Draw Site [place] 04/03 04/03 0500 0215 Blood Gas pH (7.35 - 7.45 PH) 7.37 pCO2 (35 - 45 TORR) 31 L pO2 (80 - 100 TORR) 169 H HCO3 (21 - 28 MEQ/L) 18 L ABG O2 Sat (Measured) (>96.0 %) 98.0 P-50 (Temp Corrected) Y Carboxyhemoglobin (1.5 - 5.0 %) 0.7 L O2 Concentration % 100% Temperature (97.0 - 100.0 FARH) 97.1 Respiration Rate (BPM) 12 O2 Delivery Method ESPRIT Vent Mode AC Expiratory Pressure (CMH2O/P) 5 Tidal Volume (CC) 600 Chemistry Lactic Acid (0.7 - 2.1 mmol/L) 1.6 Hematology CBC w Diff MAN DIFF ORDERED WBC (4.8 - 10.8 /CUMM) 22.2 H RBC (4.70 - 6.10 /CUMM) 5.02 Hgb (14.0 - 18.0 G/DL) 14.7 Hct (42 - 52 %) 44.0 MCV (80.0 - 94.0 FL) 87.7 MCH (27.0 - 31.0 PG) 29.3 RDW (11.5 - 14.5 %) 13.3 Plt Count (130 - 400 /CUMM) 252 MPV (7.4 - 10.4 FL) 8.0 Gran % (42.2 - 75.2 %) 91.4 H Lymphocytes % (20.5 - 51.1 %) 7.1 L Monocytes % (1.7 - 9.3 %) 1.5 L Eosinophils % (0 - 5 %) 0 Basophils % (0.0 - 2.0 %) 0 Absolute Granulocytes (1.4 - 6.5 /CUMM) 20.3 H Segmented Neutrophils (42.2 - 75.2 %) 67 Band Neutrophils (0.0 - 5.0 %) 22 H Absolute Lymphocytes (1.2 - 3.4 /CUMM) 1.6 Lymphocytes (20.5 - 51.1 %) 9 L Monocytes (1.7 - 9.3 %) 2 Absolute Monocytes (0.10 - 0.60 /CUMM) 0.3 Absolute Eosinophils (0.0 - 0.7 /CUMM) 0 Absolute Basophils (0.0 - 0.2 /CUMM) 0 Platelet Estimate (ADEQUATE) ADEQUATE Polychromasia 1+ Poikilocytosis 1+ Ovalocytes 1+ [place] Cells FEW PUBS MCHC (33.0 - 37.0 G/DL) 33.4 Miscellaneous Phlebotomy Draw Site [facility] Other Body Source Fld Total RBCs Counted (%) 100 Urines Urinalysis HEAVY H Urine Color (YEL,AMB,STR) ORANG H Urine Clarity (CLEAR) CLDY H Urine pH (5.0 - 8.0) 5.5 Ur Specific [place] (1.001 - 1.035) 1.025 Urine Protein (NEG,<30 MG/DL) 100 H Urine Ketones (NEG) NEG Urine Nitrite (NEG) NEG Urine Bilirubin (NEG) NEG@ICTO Urine Urobilinogen (0.1 - 1.0 EU/dl) 0.2 Ur Leukocyte Esterase (NEG) NEG Ur Microscopic SEDIMENT EXAMINED Urine RBC (0 - 5 /HPF) 25-50 H Urine WBC (0 - 2 /HPF) 5-10 H Ur Epithelial Cells (NONE,FEW) MOD H Urine Bacteria (NEG/NONE) FEW H Granular Casts (NONE /LPF) 5-10 H Urine Mucus (FEW,NONE) FEW Urine Hemoglobin (NEG) LARGE H Urine Glucose (N MG/DL) NEG 04/03 04/02 0145 1810 Chemistry Sodium (137 - 145 mmol/L) 136 L Potassium (3.5 - 5.1 mmol/L) 4.5 Chloride (98 - 107 mmol/L) 103 Carbon Dioxide (22 - 30 mmol/L) 20 L Anion Gap (5 - 16) 13 BUN (9 - 20 mg/dL) 20 Creatinine (0.7 - 1.2 mg/dL) 1.9 H Estimated GFR (>60 ml/min) 36 L Glucose (65 - 99 mg/dL) 80 Lactic Acid (0.7 - 2.1 mmol/L) 2.9 H Calcium (8.4 - 10.2 mg/dL) 7.7 L Phosphorus (2.5 - 4.5 mg/dL) 4.5 Magnesium (1.6 - 2.3 mg/dL) 1.1 L Total Bilirubin (0.2 - 1.3 mg/dL) 0.6 0.9 Direct Bilirubin (< 0.4 mg/dL) 0.5 H AST (17 - 59 U/L) 79 H 86 H ALT (21 - 72 U/L) 89 H 108 H Alkaline Phosphatase (< 127 U/L) 53 Troponin I (<0.11 ng/ml) 0.22 *H Total Protein (6.3 - 8.2 g/dL) 5.5 L Albumin (3.5 - 5.0 g/dL) 2.0 L 3.0 L Hematology CBC w Diff MAN DIFF ORDERED NO MAN DIFF REQ WBC (4.8 - 10.8 /CUMM) 23.8 H 23.0 H RBC (4.70 - 6.10 /CUMM) 5.10 6.63 H Hgb (14.0 - 18.0 G/DL) 15.0 19.2 H Hct (42 - 52 %) 44.8 58.4 H MCV (80.0 - 94.0 FL) 87.9 88.1 MCH (27.0 - 31.0 PG) 29.4 29.0 RDW (11.5 - 14.5 %) 13.1 13.1 Plt Count (130 - 400 /CUMM) 234 217 MPV (7.4 - 10.4 FL) 7.9 8.6 Gran % (42.2 - 75.2 %) 90.8 H 90.1 H Lymphocytes % (20.5 - 51.1 %) 5.5 L 6.9 L Monocytes % (1.7 - 9.3 %) 3.5 2.9 Eosinophils % (0 - 5 %) 0.1 0.1 Basophils % (0.0 - 2.0 %) 0.1 0 Absolute Granulocytes (1.4 - 6.5 /CUMM) 21.6 H 20.8 H Segmented Neutrophils (42.2 - 75.2 %) 74 Band Neutrophils (0.0 - 5.0 %) 13 H Absolute Lymphocytes (1.2 - 3.4 /CUMM) 1.3 1.6 Lymphocytes (20.5 - 51.1 %) 10 L Monocytes (1.7 - 9.3 %) 3 Absolute Monocytes (0.10 - 0.60 /CUMM) 0.8 H 0.7 H Absolute Eosinophils (0.0 - 0.7 /CUMM) 0 0 Absolute Basophils (0.0 - 0.2 /CUMM) 0 0 Platelet Estimate (ADEQUATE) ADEQUATE Polychromasia 1+ Poikilocytosis 2+ Ovalocytes 1+ Stomatocytes FEW [place] Cells 1+ PUBS MCHC (33.0 - 37.0 G/DL) 33.5 32.9 L Other Body Source Fld Total RBCs Counted (%) 100 04/02 0755 Chemistry Sodium (137 - 145 mmol/L) 133 L Potassium (3.5 - 5.1 mmol/L) 4.4 Chloride (98 - 107 mmol/L) 100 Carbon Dioxide (22 - 30 mmol/L) 20 L Anion Gap (5 - 16) 13 BUN (9 - 20 mg/dL) 11 Creatinine (0.7 - 1.2 mg/dL) 0.6 L Estimated GFR (>60 ml/min) > 60 BUN/Creatinine Ratio (7 - 25 %) 18.3 Magnesium (1.6 - 2.3 mg/dL) 1.3 L Hematology CBC w Diff MAN DIFF ORDERED WBC (4.8 - 10.8 /CUMM) 20.4 H RBC (4.70 - 6.10 /CUMM) 5.51 Hgb (14.0 - 18.0 G/DL) 16.2 Hct (42 - 52 %) 48.3 MCV (80.0 - 94.0 FL) 87.8 MCH (27.0 - 31.0 PG) 29.4 RDW (11.5 - 14.5 %) 12.9 Plt Count (130 - 400 /CUMM) 314 MPV (7.4 - 10.4 FL) 7.8 Gran % (42.2 - 75.2 %) 92.6 H Lymphocytes % (20.5 - 51.1 %) 2.5 L Monocytes % (1.7 - 9.3 %) 4.8 Eosinophils % (0 - 5 %) 0 Basophils % (0.0 - 2.0 %) 0.1 Absolute Granulocytes (1.4 - 6.5 /CUMM) 18.9 H Segmented Neutrophils (42.2 - 75.2 %) 85 H Band Neutrophils (0.0 - 5.0 %) 6 H Absolute Lymphocytes (1.2 - 3.4 /CUMM) 0.5 L Lymphocytes (20.5 - 51.1 %) 5 L Monocytes (1.7 - 9.3 %) 4 Absolute Monocytes (0.10 - 0.60 /CUMM) 1.0 H Absolute Eosinophils (0.0 - 0.7 /CUMM) 0 Absolute Basophils (0.0 - 0.2 /CUMM) 0 Platelet Estimate (ADEQUATE) VERIFIED BY SMEAR Normocytic RBCs VERIFIED Normochromic RBCs VERIFIED PUBS MCHC (33.0 - 37.0 G/DL) 33.5 Assessment/Plan Assessment/Plan 61-year-old gentleman with a past medical history of traumatic brain injury, hypertension, hypothyroidism and seizure disorder. He was initially admitted to our hospital on March 27 following a perforated appendicitis with subsequent peritonitis and had an urgent appendectomy performed. He required a reoperation on April 03 secondary to a perforated gastroduodenal ulcer with subsequent sepsis. Following this procedure, troponin isoenzyme elevations were noted. Troponin isoenzyme elevation: The troponin isoenzyme elevation is mild (0.22 2), and is in a plateau fashion in the setting of sepsis, hypotension and acute kidney injury. This does not represent an acute coronary syndrome, especially as his echocardiogram demonstrates normal LV function. The etiology of the troponin elevation is likely secondary to sepsis (not a type II non-ST segment elevation myocardial infarction). As he remains hypotensive and is immediately postoperative, we will not initiate a regimen of metoprolol nor aspirin. When stable, and possibly as an outpatient , further workup which would include stress testing to exclude an underlying burden of ischemia will be made. Sepsis: Continue treatment as per ICU team. Thank you for allowing us to participate in the care of your patient. Please do not hesitate to contact us further with any questions. Sincerely, Rk Robertson MD [facility] Consult Acknowledgment - Thank you for your consult request.
--- NOTE | 2017-04-03 10:20 | PN- Infect Dx ---
Subjective Subjective: Afebrile. Recent events noted with abdominal x-ray last evening revealing free air, prompting a repeat CT of the abdomen, which revealed a moderate to large amount of pneumoperitoneum, for which he was taken to the OR, where he was found to have a large perforated ulcer at the gastroduodenal junction and biliary peritonitis. He has remained intubated overnight. At present he does not offer any specific complaints. Objective Last 24 Hrs of Vital Signs/I&O Vital Signs Date Time Temp Pulse Resp B/P B/P Pulse O2 O2 Flow FiO2 Mean Ox Delivery Rate 04/03 0906 40 04/03 0800 97.5 75 22 110/64 97 Ventilator 40% 04/03 0800 97 Ventilator 40% 04/03 0630 40 04/03 0445 40 04/03 0400 99 Ventilator 40% 04/03 0344 60 04/03 0342 70 04/03 0245 96.9 74 18 93/58 98 Ventilator 70% 04/03 0233 70 04/03 0227 100 04/03 0124 100 04/02 1353 97.4 60 18 112/60 96 Room Air Intake & Output 04/03 1600 04/03 0800 04/03 0000 Intake Total 820 Output Total 265 Balance 555 Intake, IV 820 Number 0 Bowel Movements Output, 115 Drainage Output, Urine 150 Patient 91 lb 249 lb Weight Physical Exam Other Physical Findings: He appears comfortable on the ventilator in no acute distress Neck right IJ triple-lumen catheter with no inflammation at the site Lungs are clear Heart regular rhythm with no murmur Abdomen is distended, tender on palpation, with no bowel sounds appreciated Extremities no cyanosis, clubbing or edema; left upper extremity A-line in place Aleman catheter is in place Results Last 24 Hours of Lab Results: Laboratory Tests 04/03 04/03 04/03 04/03 0800 0800 0600 0525 Blood Gas pH (7.35 - 7.45 PH) 7.41 pCO2 (35 - 45 TORR) 29 L pO2 (80 - 100 TORR) 74 L HCO3 (21 - 28 MEQ/L) 18 L ABG O2 Sat (Measured) (>96.0 %) 95.0 L P-50 (Temp Corrected) Y Carboxyhemoglobin (1.5 - 5.0 %) 0.5 L O2 Concentration % 40% Temperature (97.0 - 100.0 FARH) 97.3 Respiration Rate (BPM) 12 O2 Delivery Method ESPRIT Vent Mode AC Expiratory Pressure (CMH2O/P) 5 Tidal Volume (CC) 500 Chemistry Sodium (137 - 145 mmol/L) Cancelled 134 L Potassium (3.5 - 5.1 mmol/L) Cancelled 4.3 Chloride (98 - 107 mmol/L) Cancelled 101 Carbon Dioxide (22 - 30 mmol/L) Cancelled 21 L Anion Gap (5 - 16) Cancelled 12 BUN (9 - 20 mg/dL) Cancelled 24 H Creatinine (0.7 - 1.2 mg/dL) Cancelled 2.1 H Estimated GFR (>60 ml/min) 32 L Glucose (65 - 99 mg/dL) Cancelled 89 Calcium (8.4 - 10.2 mg/dL) Cancelled 7.3 L Phosphorus (2.5 - 4.5 mg/dL) Cancelled 4.9 H Magnesium (1.6 - 2.3 mg/dL) Cancelled 1.5 L Cancelled Total Bilirubin (0.2 - 1.3 mg/dL) Cancelled 0.6 AST (17 - 59 U/L) Cancelled 64 H ALT (21 - 72 U/L) Cancelled 76 H Troponin I (<0.11 ng/ml) 0.22 *H Albumin (3.5 - 5.0 g/dL) Cancelled 1.9 L Miscellaneous Phlebotomy Draw Site [facility] 04/03 04/03 0500 0215 Blood Gas pH (7.35 - 7.45 PH) 7.37 pCO2 (35 - 45 TORR) 31 L pO2 (80 - 100 TORR) 169 H HCO3 (21 - 28 MEQ/L) 18 L ABG O2 Sat (Measured) (>96.0 %) 98.0 P-50 (Temp Corrected) Y Carboxyhemoglobin (1.5 - 5.0 %) 0.7 L O2 Concentration % 100% Temperature (97.0 - 100.0 FARH) 97.1 Respiration Rate (BPM) 12 O2 Delivery Method ESPRIT Vent Mode AC Expiratory Pressure (CMH2O/P) 5 Tidal Volume (CC) 600 Chemistry Lactic Acid (0.7 - 2.1 mmol/L) 1.6 Hematology CBC w Diff MAN DIFF ORDERED WBC (4.8 - 10.8 /CUMM) 22.2 H RBC (4.70 - 6.10 /CUMM) 5.02 Hgb (14.0 - 18.0 G/DL) 14.7 Hct (42 - 52 %) 44.0 MCV (80.0 - 94.0 FL) 87.7 MCH (27.0 - 31.0 PG) 29.3 RDW (11.5 - 14.5 %) 13.3 Plt Count (130 - 400 /CUMM) 252 MPV (7.4 - 10.4 FL) 8.0 Gran % (42.2 - 75.2 %) 91.4 H Lymphocytes % (20.5 - 51.1 %) 7.1 L Monocytes % (1.7 - 9.3 %) 1.5 L Eosinophils % (0 - 5 %) 0 Basophils % (0.0 - 2.0 %) 0 Absolute Granulocytes (1.4 - 6.5 /CUMM) 20.3 H Segmented Neutrophils (42.2 - 75.2 %) 67 Band Neutrophils (0.0 - 5.0 %) 22 H Absolute Lymphocytes (1.2 - 3.4 /CUMM) 1.6 Lymphocytes (20.5 - 51.1 %) 9 L Monocytes (1.7 - 9.3 %) 2 Absolute Monocytes (0.10 - 0.60 /CUMM) 0.3 Absolute Eosinophils (0.0 - 0.7 /CUMM) 0 Absolute Basophils (0.0 - 0.2 /CUMM) 0 Platelet Estimate (ADEQUATE) ADEQUATE Polychromasia 1+ Poikilocytosis 1+ Ovalocytes 1+ [place] Cells FEW PUBS MCHC (33.0 - 37.0 G/DL) 33.4 Miscellaneous Phlebotomy Draw Site [facility] Other Body Source Fld Total RBCs Counted (%) 100 Urines Urinalysis HEAVY H Urine Color (YEL,AMB,STR) ORANG H Urine Clarity (CLEAR) CLDY H Urine pH (5.0 - 8.0) 5.5 Ur Specific [place] (1.001 - 1.035) 1.025 Urine Protein (NEG,<30 MG/DL) 100 H Urine Ketones (NEG) NEG Urine Nitrite (NEG) NEG Urine Bilirubin (NEG) NEG@ICTO Urine Urobilinogen (0.1 - 1.0 EU/dl) 0.2 Ur Leukocyte Esterase (NEG) NEG Ur Microscopic SEDIMENT EXAMINED Urine RBC (0 - 5 /HPF) 25-50 H Urine WBC (0 - 2 /HPF) 5-10 H Ur Epithelial Cells (NONE,FEW) MOD H Urine Bacteria (NEG/NONE) FEW H Granular Casts (NONE /LPF) 5-10 H Urine Mucus (FEW,NONE) FEW Urine Hemoglobin (NEG) LARGE H Urine Glucose (N MG/DL) NEG 04/03 04/02 0145 1810 Chemistry Sodium (137 - 145 mmol/L) 136 L Potassium (3.5 - 5.1 mmol/L) 4.5 Chloride (98 - 107 mmol/L) 103 Carbon Dioxide (22 - 30 mmol/L) 20 L Anion Gap (5 - 16) 13 BUN (9 - 20 mg/dL) 20 Creatinine (0.7 - 1.2 mg/dL) 1.9 H Estimated GFR (>60 ml/min) 36 L Glucose (65 - 99 mg/dL) 80 Lactic Acid (0.7 - 2.1 mmol/L) 2.9 H Calcium (8.4 - 10.2 mg/dL) 7.7 L Phosphorus (2.5 - 4.5 mg/dL) 4.5 Magnesium (1.6 - 2.3 mg/dL) 1.1 L Total Bilirubin (0.2 - 1.3 mg/dL) 0.6 0.9 Direct Bilirubin (< 0.4 mg/dL) 0.5 H AST (17 - 59 U/L) 79 H 86 H ALT (21 - 72 U/L) 89 H 108 H Alkaline Phosphatase (< 127 U/L) 53 Troponin I (<0.11 ng/ml) 0.22 *H Total Protein (6.3 - 8.2 g/dL) 5.5 L Albumin (3.5 - 5.0 g/dL) 2.0 L 3.0 L Hematology CBC w Diff MAN DIFF ORDERED NO MAN DIFF REQ WBC (4.8 - 10.8 /CUMM) 23.8 H 23.0 H RBC (4.70 - 6.10 /CUMM) 5.10 6.63 H Hgb (14.0 - 18.0 G/DL) 15.0 19.2 H Hct (42 - 52 %) 44.8 58.4 H MCV (80.0 - 94.0 FL) 87.9 88.1 MCH (27.0 - 31.0 PG) 29.4 29.0 RDW (11.5 - 14.5 %) 13.1 13.1 Plt Count (130 - 400 /CUMM) 234 217 MPV (7.4 - 10.4 FL) 7.9 8.6 Gran % (42.2 - 75.2 %) 90.8 H 90.1 H Lymphocytes % (20.5 - 51.1 %) 5.5 L 6.9 L Monocytes % (1.7 - 9.3 %) 3.5 2.9 Eosinophils % (0 - 5 %) 0.1 0.1 Basophils % (0.0 - 2.0 %) 0.1 0 Absolute Granulocytes (1.4 - 6.5 /CUMM) 21.6 H 20.8 H Segmented Neutrophils (42.2 - 75.2 %) 74 Band Neutrophils (0.0 - 5.0 %) 13 H Absolute Lymphocytes (1.2 - 3.4 /CUMM) 1.3 1.6 Lymphocytes (20.5 - 51.1 %) 10 L Monocytes (1.7 - 9.3 %) 3 Absolute Monocytes (0.10 - 0.60 /CUMM) 0.8 H 0.7 H Absolute Eosinophils (0.0 - 0.7 /CUMM) 0 0 Absolute Basophils (0.0 - 0.2 /CUMM) 0 0 Platelet Estimate (ADEQUATE) ADEQUATE Polychromasia 1+ Poikilocytosis 2+ Ovalocytes 1+ Stomatocytes FEW [place] Cells 1+ PUBS MCHC (33.0 - 37.0 G/DL) 33.5 32.9 L Other Body Source Fld Total RBCs Counted (%) 100 Last 24 Hours of Fabiano Results: Blood cultures 2 April 02 negative Urine culture April 02 pending Recent Imaging Studies: Chest x-ray April 03 reveals small bilateral pleural effusions with bibasilar densities CT of the abdomen and pelvis April 02 reveals a moderate to large amount of pneumoperitoneum with a moderate to large amount of free fluid within the upper abdomen Dopplers of both lower extremities April 02 negative Abdominal x-ray April 02 revealed free air under the right diaphragm Assessment/Plan Impression: Stable, status post return to the OR last evening for a laparoscopic repair of a perforated gastroduodenal ulcer, with an omental patch, with temperatures remaining normal but with a persistent leukocytosis. He remains on Ceftriaxone and Flagyl since his surgery for a perforated appendix 1 week ago and, unfortunately, no OR cultures were sent from either the initial surgery or from his recent surgery. Suggestion: 1. Follow-up recent blood cultures 2. Continue Ceftriaxone and Flagyl
[2017-04-03 12:00] VITALS: BP 90/60
--- NOTE | 2017-04-03 12:18 | ECHOCARDIOGRAM REPORT ---
KALI THRASHER Age: 61 : 1955 Gender: M Exam Date: 04/03/2017 08:27 Exam Location: [facility] Ht (in): 73 Wt (lb): 249 BSA: 2.44 BP: 85 / 44 Ordering Physician: Heaven Hogue MD Referring Physician: Heaven Hogue MD Technologist: Jae Parikh [facility] Room Number: 111 Indications: HYPOTENSION Rhythm: Technical Quality: suboptimal FINDINGS Left Ventricle LV chamber size, with mild concentric LVH. There is normal systolic function. Estimated LVEF is 55%. There are no focal wall motion abnormalities. Right Ventricle Grossly normal appearing right ventricle size and function Right Atrium Grossly normal right atrial size Left Atrium Grossly normal left atrial size Mitral Valve Mildly thickened mitral valve leaflets with normal leaflet opening. There is mild mitral regurgitation. Aortic Valve Obviously thickened and calcified aortic valve leaflets with normal leaflet opening. The valve appears tricuspid. Tricuspid Valve Grossly normal appearing tricuspid valve leaflet structure and function Pulmonic Valve The pulmonic valve is suboptimally visualized Pericardium Normal-appearing pericardium. It is a trace pericardial effusion. An epicardial fat pad is seen. Great Vessels Normal great vessels CONCLUSIONS LV chamber size, with mild concentric LVH. There is normal systolic function. Estimated LVEF is 55%. There are no focal wall motion abnormalities. Mildly thickened mitral valve leaflets with normal leaflet opening. There is mild mitral regurgitation. Normal-appearing pericardium. It is a trace pericardial effusion. An epicardial fat pad is seen. Rk Robertson M.D. (Electronically Signed) Final Date: 03 April 2017 12:17 MEASUREMENTS (Male / Female) Normal Values 2D ECHO LV Diastolic Diameter PLAX 4.3 cm 4.2 - 5.9 / 3.9 - 5.3 cm LV Systolic Diameter PLAX 1.9 cm 2.1 - 4.0 cm LV Fractional Shortening PLAX 55.8 % 25 - 46 % LV Ejection Fraction 2D Teich 86.6 % IVS Diastolic Thickness 1.4 cm LVPW Diastolic Thickness 1.3 cm LV Relative Wall Thickness 0.6 RV Internal Dim ED PLAX 2.9 cm 1.9 - 3.8 cm LVOT Diameter 1.9 cm Aortic Root Diameter 2.9 cm LA Systolic Diameter LX 3.2 cm 3.0 - 4.0 / 2.7 - 3.8 cm Ascending Aorta Diameter 3.4 cm DOPPLER AV Peak Velocity 120.0 cm/s AV Peak Gradient 5.8 mmHg AV Mean Velocity 72.8 cm/s AV Mean Gradient 3.0 mmHg AV Velocity Time Integral 21.9 cm LVOT Peak Velocity 79.0 cm/s LVOT Peak Gradient 2.5 mmHg LVOT Mean Velocity 54.1 cm/s LVOT Mean Gradient 1.0 mmHg LVOT Velocity Time Integral 19.8 cm LVOT Stroke Volume 56.1 cm AV Area Cont Eq vti 2.6 cm AV Area Cont Eq pk 1.9 cm MV Peak Velocity 71.7 cm/s MV Peak Gradient 2.1 mmHg MV Mean Velocity 41.4 cm/s MV Mean Gradient 1.0 mmHg Mitral E Point Velocity 57.3 cm/s Mitral A Point Velocity 66.1 cm/s Mitral E to A Ratio 0.9 MV PHT Velocity 74.7 cm/s MV Deceleration Benzie 353.0 cm/s MV Pressure Half Time 63.5 ms MV Area PHT 3.5 cm MV Deceleration Time 317.0 ms PV Peak Velocity 92.4 cm/s PV Peak Gradient 3.4 mmHg PV Mean Velocity 57.4 cm/s PV Mean Gradient 2.0 mmHg PV Velocity Time Integral 16.5 cm LV E' Lateral Velocity 4.6 cm/s Mitral E to LV E' Lateral Ratio 12.5 LV E' Septal Velocity 6.8 cm/s Mitral E to LV E' Septal Ratio 8.4
--- NOTE | 2017-04-03 15:51 | Cons- Neurology ---
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 13 years later he started suffering seizures and it was presumed the two were relaed. He was placed on a tiny dose of Trileptal and has been seizure free ever since. He is currently in the hospital after suffering a ruptured appendice coming in with significan GI symptoms. He underwent surgery last night, was extubated and is now back to baseline mentation. No seizures reported. He is strictly NPO and so we were called to assess what to do about his Trileptal as there is no IV form. Allergies/Medications Allergies: Coded Allergies: risperidone (UNKNOWN 10/30/15) Home Med List: Benztropine Mesylate 0.5 MG TABLET 1 TAB PO BID ANTICHOLINERGIC (Reported) Bupropion HCl (Bupropion HCl Sr) 150 MG TABLET.ER 1 TAB PO BID MOOD (Reported ) Buspirone HCl 30 MG TABLET 1 TAB PO BID ANXIETY (Reported) Gabapentin (Neurontin) 600 MG TABLET 1 TAB PO 4 TIMES/DAY NERVES (Reported) Hydrochlorothiazide 25 MG TABLET 1 TAB PO DAILY HIGH BLOOD PRESSURE (Reported ) Hydroxyzine Pamoate (Vistaril) 50 MG CAPSULE 1 CAP PO TIDPRN ANXIETY ( Reported) Levothyroxine Sodium 50 MCG TABLET 1 TAB PO DAILY THYROID PROBLEMS (Reported) Lisinopril 30 MG TABLET 1 TAB PO DAILY HIGH BLOOD PRESSURE (Reported) Metoprolol Tartrate 100 MG TABLET 1 TAB PO BID HIGH BLOOD PRESSURE (Reported) Morphine Sulfate (Morphine Sulfate ER) 60 MG TABLET.ER 1 TAB PO BID PAIN CONTROL (Reported) Naproxen (Naprosyn) 500 MG TABLET 1 TAB PO BID PRN PAIN AND INFLAMMATION Olanzapine (Zyprexa) 15 MG TABLET 1 TAB PO QPM MOOD STABILITY (Reported) Oxcarbazepine 150 MG TABLET 1 TAB PO BID SEIZURES (Reported) Oxycodone HCl 15 MG TABLET 1 TAB PO 4 TIMES/DAY PAIN CONTROL (Reported) Current Medications: Current Medications Sig/Nirmal Start time Last Medication Dose Route Stop Time Status Admin Acetaminophen 1,000 MG .STK-MED ONE 04/03 0428 DC IV 04/03 0429 Acetaminophen 1,000 MG Q6P PRN 04/02 0730 AC 04/03 N/A 1 UNIT IV 1232 Acetaminophen 1,000 MG Q6P PRN 03/29 1030 DC 04/02 N/A 1 UNIT IV 0131 Benztropine Mesylate 0.5 MG BID 03/28 1000 DC 04/02 PO 0918 Bupropion HCl 150 MG BID 03/28 1000 DC 04/02 PO 0918 Buspirone HCl 30 MG BID 03/28 1000 DC 04/02 PO 0922 Ceftriaxone Sodium 1,000 MG DAILY 04/02 1000 AC 04/03 IV 0918 Dextrose/Sodium 1,000 ML Q8H 04/03 0945 AC 04/03 Chloride IV 04/04 0824 0958 Fat Emulsion 500 ML Q24H 04/03 1900 AC Intravenous IV 04/04 1859 Fentanyl Citrate 250 MCG .STK-MED ONE 04/02 2118 DC IM 04/02 2119 Gabapentin 600 MG 4 TIMES/DAY 03/28 1000 DC 04/02 PO 1813 Heparin Sodium 5,000 UNIT Q8 03/28 1400 AC 04/03 (Porcine) SC 1457 Hydrochlorothiazide 25 MG DAILY 03/28 1000 DC 04/02 PO 0921 Hydromorphone HCl 0.6 MG Q3 PRN 04/03 0042 DC IV Hydromorphone HCl 0.6 MG Q4P PRN 04/02 0730 DC 04/02 IV 1042 Hydromorphone HCl 2 MG Q4P PRN 04/02 0730 DC 04/02 PO 1546 Ketorolac 30 MG Q6 04/02 0725 DC 04/02 Tromethamine IV 1814 Lactated Ringer's 500 ML 04/02 2100 CAN IV Lactated Ringer's 1,000 ML ONCE ONE 04/02 2100 DC 04/02 IV 04/02 2159 2100 Levetiracetam 500 MG Q12 04/03 2200 CAN N/A 1 UNIT IV Levothyroxine Sodium 25 MCG DAILY 04/03 1000 AC 04/03 IV 1224 Levothyroxine Sodium 0.05 MG DAILY 03/28 1000 DC 04/02 PO 0918 Lisinopril 30 MG DAILY 03/28 1000 DC 04/02 PO 0919 Magnesium Oxide 400 MG BID 01/18 1645 DC PO Magnesium Sulfate 1 GM Q2H 04/03 0745 DC 04/03 Dextrose/Water 100 ML IV 04/03 1144 0918 Magnesium Sulfate 1 GM ONCE ONE 04/03 0330 DC 04/03 Dextrose/Water 100 ML IV 04/03 0729 0400 Metoprolol Tartrate 100 MG BID 03/28 1000 DC 04/02 PO 0921 Metronidazole 500 MG Q8H 04/02 0200 AC 04/03 N/A 1 UNIT IV 1052 Midazolam HCl 2 MG .STK-MED ONE 04/02 2118 DC IM 04/02 2119 Non-Formulary 0 SEE ADMIN CRITERIA 04/03 1545 UNVr Medication ANY Norepinephrine 4 MG Q24H 04/03 1530 AC 04/03 Sodium Chloride 250 ML IV 1531 Olanzapine 15 MG QPM 03/28 2200 DC 04/01 PO 2102 Ondansetron HCl 4 MG Q6-PRN PRN 03/30 0800 AC 04/02 IV 0710 Oxcarbazepine 150 MG BID 03/28 1000 DC 04/02 PO 0922 Pantoprazole Sodium 40 MG BID 04/03 1000 AC 04/03 IV 0918 Phenylephrine HCl 40 MG Q24H 04/03 0200 DC Sodium Chloride 250 ML IV Potassium Chloride 40 MEQ Q10H 04/03 0215 DC Dextrose/Sodium 1,000 ML IV Chloride Potassium Chloride 20 MEQ BID 03/31 1045 DC 04/02 PO 0921 Potassium Chloride 40 MEQ Q10H 03/29 1130 DC 04/02 Sodium Chloride 1,000 ML IV 0912 Prochlorperazine 10 MG Q6-PRN PRN 03/29 1945 AC 04/01 IV 2256 Sodium Chloride 500 ML BOLUS ONE 04/03 1215 DC 04/03 IV 04/03 1314 1224 Sodium Chloride 1,000 ML Q6H 04/03 0130 DC 04/03 IV 0414 Total Parenteral 1 UNIT Q24H 04/03 1900 AC Nutrition IV 04/04 1859 Review of Systems Review of Systems: As per HPI. 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 Home Services at Home: Home Health Aide, Nursing Smoking Status: Never Smoked Exam & Diagnostic Data Vital Signs and I&O Vital Signs Date Time Temp Pulse Resp B/P B/P Pulse O2 O2 Flow FiO2 Mean Ox Delivery Rate 04/03 1531 82 82/47 04/03 1200 Nasal 2.0L Cannula 04/03 1200 97.5 84 18 90/60 95 Nasal 2.0L Cannula 04/03 0906 40 04/03 0800 97.5 75 22 110/64 97 Ventilator 40% 04/03 0800 97 Ventilator 40% 04/03 0630 40 04/03 0445 40 04/03 0400 99 Ventilator 40% 04/03 0344 60 04/03 0342 70 04/03 0245 96.9 74 18 93/58 98 Ventilator 70% 04/03 0233 70 04/03 0227 100 04/03 0124 100 Intake & Output 04/03 1600 04/03 0800 04/03 0000 Intake Total 1672 820 Output Total 750 265 Balance 922 555 Intake, IV 1672 820 Number 0 0 Bowel Movements Output, 100 115 Drainage Output, 350 Gastric Drainage Output, Urine 300 150 Patient 91 lb 249 lb Weight Physical Exam: Alert and oriented x 3. Knows president. Fluent and comprehends everything. S1 and S2 are normal. RRR. EOMI, CHILO, no nystagmus, face symmetric, tongue midline, uvula raises equally in midline. V1-V3 normal sensation. VF intact. Strength is 5/5 throughout though he cannot supinate L arm due to previous arm injury. No sensory findings. FNF normal. Gait not tested. Reflexes symmetric. Last 48 Hours of Lab Results: Laboratory Tests 04/03 04/03 04/03 04/03 04/03 1447 0800 0800 0600 0525 Blood Gas pH (7.35 - 7.45 PH) 7.41 pCO2 (35 - 45 TORR) 29 L pO2 (80 - 100 TORR) 74 L HCO3 (21 - 28 MEQ/L) 18 L ABG O2 Sat (Measured) (>96.0 %) 95.0 L P-50 (Temp Corrected) Y Carboxyhemoglobin (1.5 - 5.0 %) 0.5 L O2 Concentration % 40% Temperature (97.0 - 100.0 FARH) 97.3 Respiration Rate (BPM) 12 O2 Delivery Method ESPRIT Vent Mode AC Expiratory Pressure (CMH2O/P) 5 Tidal Volume (CC) 500 Chemistry Sodium (137 - 145 mmol/L) Pending Cancelled 134 L Potassium (3.5 - 5.1 mmol/L) Pending Cancelled 4.3 Chloride (98 - 107 mmol/L) Pending Cancelled 101 Carbon Dioxide (22 - 30 mmol/L) Pending Cancelled 21 L Anion Gap (5 - 16) Pending Cancelled 12 BUN (9 - 20 mg/dL) Pending Cancelled 24 H Creatinine (0.7 - 1.2 mg/dL) Pending Cancelled 2.1 H Estimated GFR (>60 ml/min) 32 L Glucose (65 - 99 mg/dL) Pending Cancelled 89 Calcium (8.4 - 10.2 mg/dL) Pending Cancelled 7.3 L Phosphorus (2.5 - 4.5 mg/dL) Pending Cancelled 4.9 H Magnesium (1.6 - 2.3 mg/dL) Pending Cancelled 1.5 L Cancelled Total Bilirubin (0.2 - 1.3 mg/dL) Pending Cancelled 0.6 AST (17 - 59 U/L) Pending Cancelled 64 H ALT (21 - 72 U/L) Pending Cancelled 76 H Troponin I (<0.11 ng/ml) Pending 0.22 *H Albumin (3.5 - 5.0 g/dL) Pending Cancelled 1.9 L Miscellaneous Phlebotomy Draw Site [place] 04/03 04/03 0500 0215 Blood Gas pH (7.35 - 7.45 PH) 7.37 pCO2 (35 - 45 TORR) 31 L pO2 (80 - 100 TORR) 169 H HCO3 (21 - 28 MEQ/L) 18 L ABG O2 Sat (Measured) (>96.0 %) 98.0 P-50 (Temp Corrected) Y Carboxyhemoglobin (1.5 - 5.0 %) 0.7 L O2 Concentration % 100% Temperature (97.0 - 100.0 FARH) 97.1 Respiration Rate (BPM) 12 O2 Delivery Method ESPRIT Vent Mode AC Expiratory Pressure (CMH2O/P) 5 Tidal Volume (CC) 600 Chemistry Lactic Acid (0.7 - 2.1 mmol/L) 1.6 Hematology CBC w Diff MAN DIFF ORDERED WBC (4.8 - 10.8 /CUMM) 22.2 H RBC (4.70 - 6.10 /CUMM) 5.02 Hgb (14.0 - 18.0 G/DL) 14.7 Hct (42 - 52 %) 44.0 MCV (80.0 - 94.0 FL) 87.7 MCH (27.0 - 31.0 PG) 29.3 RDW (11.5 - 14.5 %) 13.3 Plt Count (130 - 400 /CUMM) 252 MPV (7.4 - 10.4 FL) 8.0 Gran % (42.2 - 75.2 %) 91.4 H Lymphocytes % (20.5 - 51.1 %) 7.1 L Monocytes % (1.7 - 9.3 %) 1.5 L Eosinophils % (0 - 5 %) 0 Basophils % (0.0 - 2.0 %) 0 Absolute Granulocytes (1.4 - 6.5 /CUMM) 20.3 H Segmented Neutrophils (42.2 - 75.2 %) 67 Band Neutrophils (0.0 - 5.0 %) 22 H Absolute Lymphocytes (1.2 - 3.4 /CUMM) 1.6 Lymphocytes (20.5 - 51.1 %) 9 L Monocytes (1.7 - 9.3 %) 2 Absolute Monocytes (0.10 - 0.60 /CUMM) 0.3 Absolute Eosinophils (0.0 - 0.7 /CUMM) 0 Absolute Basophils (0.0 - 0.2 /CUMM) 0 Platelet Estimate (ADEQUATE) ADEQUATE Polychromasia 1+ Poikilocytosis 1+ Ovalocytes 1+ [place] Cells FEW PUBS MCHC (33.0 - 37.0 G/DL) 33.4 Miscellaneous Phlebotomy Draw Site [facility] Other Body Source Fld Total RBCs Counted (%) 100 Urines Urinalysis HEAVY H Urine Color (YEL,AMB,STR) ORANG H Urine Clarity (CLEAR) CLDY H Urine pH (5.0 - 8.0) 5.5 Ur Specific [place] (1.001 - 1.035) 1.025 Urine Protein (NEG,<30 MG/DL) 100 H Urine Ketones (NEG) NEG Urine Nitrite (NEG) NEG Urine Bilirubin (NEG) NEG@ICTO Urine Urobilinogen (0.1 - 1.0 EU/dl) 0.2 Ur Leukocyte Esterase (NEG) NEG Ur Microscopic SEDIMENT EXAMINED Urine RBC (0 - 5 /HPF) 25-50 H Urine WBC (0 - 2 /HPF) 5-10 H Ur Epithelial Cells (NONE,FEW) MOD H Urine Bacteria (NEG/NONE) FEW H Granular Casts (NONE /LPF) 5-10 H Urine Mucus (FEW,NONE) FEW Urine Hemoglobin (NEG) LARGE H Urine Glucose (N MG/DL) NEG 04/03 04/02 0145 1810 Chemistry Sodium (137 - 145 mmol/L) 136 L Potassium (3.5 - 5.1 mmol/L) 4.5 Chloride (98 - 107 mmol/L) 103 Carbon Dioxide (22 - 30 mmol/L) 20 L Anion Gap (5 - 16) 13 BUN (9 - 20 mg/dL) 20 Creatinine (0.7 - 1.2 mg/dL) 1.9 H Estimated GFR (>60 ml/min) 36 L Glucose (65 - 99 mg/dL) 80 Lactic Acid (0.7 - 2.1 mmol/L) 2.9 H Calcium (8.4 - 10.2 mg/dL) 7.7 L Phosphorus (2.5 - 4.5 mg/dL) 4.5 Magnesium (1.6 - 2.3 mg/dL) 1.1 L Total Bilirubin (0.2 - 1.3 mg/dL) 0.6 0.9 Direct Bilirubin (< 0.4 mg/dL) 0.5 H AST (17 - 59 U/L) 79 H 86 H ALT (21 - 72 U/L) 89 H 108 H Alkaline Phosphatase (< 127 U/L) 53 Troponin I (<0.11 ng/ml) 0.22 *H Total Protein (6.3 - 8.2 g/dL) 5.5 L Albumin (3.5 - 5.0 g/dL) 2.0 L 3.0 L Hematology CBC w Diff MAN DIFF ORDERED NO MAN DIFF REQ WBC (4.8 - 10.8 /CUMM) 23.8 H 23.0 H RBC (4.70 - 6.10 /CUMM) 5.10 6.63 H Hgb (14.0 - 18.0 G/DL) 15.0 19.2 H Hct (42 - 52 %) 44.8 58.4 H MCV (80.0 - 94.0 FL) 87.9 88.1 MCH (27.0 - 31.0 PG) 29.4 29.0 RDW (11.5 - 14.5 %) 13.1 13.1 Plt Count (130 - 400 /CUMM) 234 217 MPV (7.4 - 10.4 FL) 7.9 8.6 Gran % (42.2 - 75.2 %) 90.8 H 90.1 H Lymphocytes % (20.5 - 51.1 %) 5.5 L 6.9 L Monocytes % (1.7 - 9.3 %) 3.5 2.9 Eosinophils % (0 - 5 %) 0.1 0.1 Basophils % (0.0 - 2.0 %) 0.1 0 Absolute Granulocytes (1.4 - 6.5 /CUMM) 21.6 H 20.8 H Segmented Neutrophils (42.2 - 75.2 %) 74 Band Neutrophils (0.0 - 5.0 %) 13 H Absolute Lymphocytes (1.2 - 3.4 /CUMM) 1.3 1.6 Lymphocytes (20.5 - 51.1 %) 10 L Monocytes (1.7 - 9.3 %) 3 Absolute Monocytes (0.10 - 0.60 /CUMM) 0.8 H 0.7 H Absolute Eosinophils (0.0 - 0.7 /CUMM) 0 0 Absolute Basophils (0.0 - 0.2 /CUMM) 0 0 Platelet Estimate (ADEQUATE) ADEQUATE Polychromasia 1+ Poikilocytosis 2+ Ovalocytes 1+ Stomatocytes FEW [place] Cells 1+ PUBS MCHC (33.0 - 37.0 G/DL) 33.5 32.9 L Other Body Source Fld Total RBCs Counted (%) 100 04/02 04/02 1642 0755 Chemistry Sodium (137 - 145 mmol/L) 133 L Potassium (3.5 - 5.1 mmol/L) 4.4 Chloride (98 - 107 mmol/L) 100 Carbon Dioxide (22 - 30 mmol/L) 20 L Anion Gap (5 - 16) 13 BUN (9 - 20 mg/dL) 11 Creatinine (0.7 - 1.2 mg/dL) 0.6 L Estimated GFR (>60 ml/min) > 60 BUN/Creatinine Ratio (7 - 25 %) 18.3 Magnesium (1.6 - 2.3 mg/dL) 1.3 L Hematology CBC w Diff MAN DIFF ORDERED WBC (4.8 - 10.8 /CUMM) 20.4 H RBC (4.70 - 6.10 /CUMM) 5.51 Hgb (14.0 - 18.0 G/DL) 16.2 Hct (42 - 52 %) 48.3 MCV (80.0 - 94.0 FL) 87.8 MCH (27.0 - 31.0 PG) 29.4 RDW (11.5 - 14.5 %) 12.9 Plt Count (130 - 400 /CUMM) 314 MPV (7.4 - 10.4 FL) 7.8 Gran % (42.2 - 75.2 %) 92.6 H Lymphocytes % (20.5 - 51.1 %) 2.5 L Monocytes % (1.7 - 9.3 %) 4.8 Eosinophils % (0 - 5 %) 0 Basophils % (0.0 - 2.0 %) 0.1 Absolute Granulocytes (1.4 - 6.5 /CUMM) 18.9 H Segmented Neutrophils (42.2 - 75.2 %) 85 H Band Neutrophils (0.0 - 5.0 %) 6 H Absolute Lymphocytes (1.2 - 3.4 /CUMM) 0.5 L Lymphocytes (20.5 - 51.1 %) 5 L Monocytes (1.7 - 9.3 %) 4 Absolute Monocytes (0.10 - 0.60 /CUMM) 1.0 H Absolute Eosinophils (0.0 - 0.7 /CUMM) 0 Absolute Basophils (0.0 - 0.2 /CUMM) 0 Platelet Estimate (ADEQUATE) VERIFIED BY SMEAR Normocytic RBCs VERIFIED Normochromic RBCs VERIFIED PUBS MCHC (33.0 - 37.0 G/DL) 33.5 Urines Urine Color Cancelled Urine Clarity Cancelled Urine pH Cancelled Ur Specific [place] Cancelled Urine Protein Cancelled Urine Ketones Cancelled Urine Nitrite Cancelled Urine Bilirubin Cancelled Urine Urobilinogen Cancelled Ur Leukocyte Esterase Cancelled Ur Microscopic Cancelled Urine Hemoglobin Cancelled Urine Glucose Cancelled Assessment/Plan Assessment: 61 year old Epileptic that is seizure free on a "homeopathic dose" of Trileptal now s/p appendix rupture and repair. Doing well. No seizures. Recommendations: 1. Recommend utilizing Vimpat 100mg PO q12h until able to swallow then can place back on Trileptal. 2. Should stop Buproprion indefinitely as it reduces seizure threshold and is not appropriate for this patient. Consult Acknowledgment - Thank you for your consult request.
[2017-04-03 16:00] VITALS: BP 86/46
[2017-04-04] VITALS: BP 100/60
[2017-04-04 05:56] LABS: ABSOLUTE BASOPHIL COUNT 0 /CUMM (0.0-0.2); ABSOLUTE EOSINOPHIL COUNT 0.1 /CUMM (0.0-0.7); ABSOLUTE GRANULOCYTE CT 22.1 /CUMM (1.4-6.5); ABSOLUTE LYMPH COUNT 0.7 /CUMM (1.2-3.4); ABSOLUTE MONOCYTE COUNT 0.8 /CUMM (0.10-0.60); BASOPHIL % 0 % (0.0-2.0); EOSINOPHIL % 0.2 % (0-5); GRANULOCYTE % 93.6 % (42.2-75.2); MEAN CORPUSCULAR HGB 29.8 PG (27.0-31.0); MEAN CORPUSCULAR HGB CONC 33.7 G/DL (33.0-37.0); MEAN CORPUSCULAR VOLUME 88.5 FL (80.0-94.0); MEAN PLATELET VOLUME 7.8 FL (7.4-10.4); PLATELET COUNT 256 /CUMM (130-400); RBC DISTRIBUTION WIDTH 13.2 % (11.5-14.5); RED BLOOD CELL CT 4.13 /CUMM (4.70-6.10); WHITE BLOOD CELL COUNT 23.6 /CUMM (4.8-10.8)
--- NOTE | 2017-04-04 06:00 | PN- General Surgery ---
Subjective Subjective: Extubated yesterday. Still requiring a small amount of levophed this morning, as his blood pressure drops after iv dilaudid for pain. He reports feeling "much better" in general. Denies shortness of breath. No chest pains. No dizziness. Not yet out of bed. Objective Vital Signs and I&Os Vital Signs Date Time Temp Pulse Resp B/P B/P Pulse O2 O2 Flow FiO2 Mean Ox Delivery Rate 04/04 0400 98 Nasal 2.0L Cannula 04/04 0047 97.9 85 20 100/60 04/04 0000 95 Nasal 2.0L Cannula 04/04 0000 97.9 80 20 100/60 95 Nasal 2.0L Cannula 04/03 203 Nasal 2.0L Cannula 04/03 203 96 Nasal 2.0L Cannula 04/03 1600 95 Nasal 2.0L Cannula 04/03 1600 97.8 78 20 86/46 95 Nasal 2.0L Cannula 04/03 1531 82 82/47 04/03 1200 Nasal 2.0L Cannula 04/03 1200 97.5 84 18 90/60 95 Nasal 2.0L Cannula 04/03 0906 40 04/03 0800 97.5 75 22 110/64 97 Ventilator 40% 04/03 0800 97 Ventilator 40% 04/03 0630 40 Intake & Output 04/04 0800 04/04 0000 04/03 1600 04/03 0800 04/03 0000 04/02 1600 Intake Total 2771 9686 926 2387 Output Total 1325 750 265 400 Balance 1446 922 555 700 Intake, IV 2590 1672 820 800 Intake, Oral 300 Intake, Tube 150 Feeding Intake, Tube 31 Irrigant Number 0 0 Bowel Movements Output, 200 100 115 Drainage Output, 350 350 Gastric Drainage Output, Urine 775 300 150 400 Patient 248 lb 91 lb 249 lb Weight Weight Bed scale Measurement Method Physical Exam: General - alert & oriented. comfortable. no acute distress. Lungs - clear bilaterally. decreased breath sound b/l bases. Cardiac - s1s2. reg. Abdomen - soft. dressings c/d/i. 3 JOANNE drains to bulb suction (JOANEN#1 and #2 are serous and clear, 40 mls each, JOANNE#3 is left lower - drained 70 mls slightly cloudy) ng tube in place, drained 250 mls overnight. - garza draining clear, yellow urine (drained 1855 mls overnight) Extremities - warm bilaterally. no c/c/e. calves soft and nontender b/l. athrombics active. Current Medications: Current Medications Sig/Nirmal Start time Last Medication Dose Route Stop Time Status Admin Acetaminophen 1,000 MG .STK-MED ONE 04/03 1214 DC IV 04/03 1215 Acetaminophen 1,000 MG Q6P PRN 04/02 0730 04/03 N/A 1 UNIT IV 1232 Ceftriaxone Sodium 1,000 MG DAILY 04/02 1000 AC 04/03 IV 0918 Dextrose/Sodium 1,000 ML Q8H 04/03 0945 04/04 Chloride IV 04/04 0824 0443 Fat Emulsion 500 ML Q24H 04/03 1900 04/03 Intravenous IV 04/04 1859 2000 Heparin Sodium 5,000 UNIT Q8 03/28 1400 AC 04/03 (Porcine) SC 2105 Hydromorphone HCl 0.6 MG Q4P PRN 04/03 1730 04/04 IV 0500 Lacosamide 100 MG Q12 04/03 2200 DC Sodium Chloride 100 ML IV Lacosamide 100 MG Q12 04/03 1630 DC Sodium Chloride 100 ML IV Lacosamide 100 MG Q12H 04/03 1630 AC 04/04 Sodium Chloride 100 ML IV 0443 Levetiracetam 500 MG Q12 04/03 2200 CAN N/A 1 UNIT IV Levothyroxine Sodium 25 MCG DAILY 04/03 1000 04/03 IV 1224 Magnesium Sulfate 1 GM Q2H 04/03 0745 LA 04/03 Dextrose/Water 100 ML IV 04/03 1144 0918 Magnesium Sulfate 1 GM ONCE ONE 04/03 0330 LA 04/03 Dextrose/Water 100 ML IV 04/03 0729 0400 Metronidazole 500 MG Q8H 04/02 0200 04/04 N/A 1 UNIT IV 0158 Non-Formulary 0 SEE ADMIN CRITERIA 04/03 1545 CAN Medication ANY Norepinephrine 4 MG Q24H 04/03 1530 04/04 Sodium Chloride 250 ML IV 0047 Norepinephrine 4 MG .STK-MED ONE 04/03 1517 DC IV 04/03 1518 Ondansetron HCl 4 MG Q6-PRN PRN 03/30 0800 04/02 IV 0710 Pantoprazole Sodium 40 MG BID 04/03 1000 AC 04/03 IV 2104 Prochlorperazine 10 MG Q6-PRN PRN 03/29 1945 AC 04/01 IV 2256 Sodium Chloride 1,000 ML BOLUS ONE 04/03 1615 DC 04/03 IV 04/03 1714 1643 Sodium Chloride 500 ML BOLUS ONE 04/03 1215 DC 04/03 IV 04/03 1314 1224 Sodium Chloride 1,000 ML Q6H 04/03 0130 DC 04/03 IV 0414 Total Parenteral 1 UNIT Q24H 04/03 1900 AC 04/03 Nutrition IV 04/04 1859 1957 Results Last 48 Hours of Labs: Laboratory Tests 04/04 04/03 04/03 04/03 04/03 0455 1447 0800 0800 0600 Chemistry Sodium (137 - 145 mmol/L) Pending 135 L Cancelled 134 L Potassium (3.5 - 5.1 mmol/L) Pending 4.0 Cancelled 4.3 Chloride (98 - 107 mmol/L) Pending 102 Cancelled 101 Carbon Dioxide (22 - 30 mmol/L) Pending 22 Cancelled 21 L Anion Gap (5 - 16) Pending 12 Cancelled 12 BUN (9 - 20 mg/dL) Pending 26 H Cancelled 24 H Creatinine (0.7 - 1.2 mg/dL) Pending 2.2 H Cancelled 2.1 H Estimated GFR (>60 ml/min) 31 L 32 L Glucose (65 - 99 mg/dL) Pending 116 H Cancelled 89 Calcium (8.4 - 10.2 mg/dL) Pending 7.2 L Cancelled 7.3 L Phosphorus (2.5 - 4.5 mg/dL) Pending 4.5 Cancelled 4.9 H Magnesium (1.6 - 2.3 mg/dL) Pending 2.0 Cancelled 1.5 L Cancelled Total Bilirubin (0.2 - 1.3 mg/dL) Pending 0.2 Cancelled 0.6 AST (17 - 59 U/L) Pending 45 Cancelled 64 H ALT (21 - 72 U/L) Pending 71 Cancelled 76 H Troponin I (<0.11 ng/ml) 0.18 *H 0.22 *H Albumin (3.5 - 5.0 g/dL) Pending 1.8 L Cancelled 1.9 L Prealbumin Pending Triglycerides Pending Hematology CBC w Diff Pending WBC Pending RBC Pending Hgb Pending Hct Pending MCV Pending MCH Pending RDW Pending Plt Count Pending MPV Pending PUBS MCHC Pending 04/03 04/03 04/03 6408 1721 0212 Blood Gas pH (7.35 - 7.45 PH) 7.41 7.37 pCO2 (35 - 45 TORR) 29 L 31 L pO2 (80 - 100 TORR) 74 L 169 H HCO3 (21 - 28 MEQ/L) 18 L 18 L ABG O2 Sat (Measured) (>96.0 %) 95.0 L 98.0 P-50 (Temp Corrected) Y Y Carboxyhemoglobin (1.5 - 5.0 %) 0.5 L 0.7 L O2 Concentration % 40% 100% Temperature (97.0 - 100.0 FARH) 97.3 97.1 Respiration Rate (BPM) 12 12 O2 Delivery Method ESPRIT ESPRIT Vent Mode AC AC Expiratory Pressure (CMH2O/P) 5 5 Tidal Volume (CC) 500 600 Chemistry Lactic Acid (0.7 - 2.1 mmol/L) 1.6 Hematology CBC w Diff MAN DIFF ORDERED WBC (4.8 - 10.8 /CUMM) 22.2 H RBC (4.70 - 6.10 /CUMM) 5.02 Hgb (14.0 - 18.0 G/DL) 14.7 Hct (42 - 52 %) 44.0 MCV (80.0 - 94.0 FL) 87.7 MCH (27.0 - 31.0 PG) 29.3 RDW (11.5 - 14.5 %) 13.3 Plt Count (130 - 400 /CUMM) 252 MPV (7.4 - 10.4 FL) 8.0 Gran % (42.2 - 75.2 %) 91.4 H Lymphocytes % (20.5 - 51.1 %) 7.1 L Monocytes % (1.7 - 9.3 %) 1.5 L Eosinophils % (0 - 5 %) 0 Basophils % (0.0 - 2.0 %) 0 Absolute Granulocytes (1.4 - 6.5 /CUMM) 20.3 H Segmented Neutrophils (42.2 - 75.2 %) 67 Band Neutrophils (0.0 - 5.0 %) 22 H Absolute Lymphocytes (1.2 - 3.4 /CUMM) 1.6 Lymphocytes (20.5 - 51.1 %) 9 L Monocytes (1.7 - 9.3 %) 2 Absolute Monocytes (0.10 - 0.60 /CUMM) 0.3 Absolute Eosinophils (0.0 - 0.7 /CUMM) 0 Absolute Basophils (0.0 - 0.2 /CUMM) 0 Platelet Estimate (ADEQUATE) ADEQUATE Polychromasia 1+ Poikilocytosis 1+ Ovalocytes 1+ [place] Cells FEW PUBS MCHC (33.0 - 37.0 G/DL) 33.4 Miscellaneous Phlebotomy Draw Site [facility] RAWLS Other Body Source Fld Total RBCs Counted (%) 100 Urines Urinalysis HEAVY H Urine Color (YEL,AMB,STR) ORANG H Urine Clarity (CLEAR) CLDY H Urine pH (5.0 - 8.0) 5.5 Ur Specific [place] (1.001 - 1.035) 1.025 Urine Protein (NEG,<30 MG/DL) 100 H Urine Ketones (NEG) NEG Urine Nitrite (NEG) NEG Urine Bilirubin (NEG) NEG@ICTO Urine Urobilinogen (0.1 - 1.0 EU/dl) 0.2 Ur Leukocyte Esterase (NEG) NEG Ur Microscopic SEDIMENT EXAMINED Urine RBC (0 - 5 /HPF) 25-50 H Urine WBC (0 - 2 /HPF) 5-10 H Ur Epithelial Cells (NONE,FEW) MOD H Urine Bacteria (NEG/NONE) FEW H Granular Casts (NONE /LPF) 5-10 H Urine Mucus (FEW,NONE) FEW Urine Hemoglobin (NEG) LARGE H Urine Glucose (N MG/DL) NEG 04/03 04/02 0145 1810 Chemistry Sodium (137 - 145 mmol/L) 136 L Potassium (3.5 - 5.1 mmol/L) 4.5 Chloride (98 - 107 mmol/L) 103 Carbon Dioxide (22 - 30 mmol/L) 20 L Anion Gap (5 - 16) 13 BUN (9 - 20 mg/dL) 20 Creatinine (0.7 - 1.2 mg/dL) 1.9 H Estimated GFR (>60 ml/min) 36 L Glucose (65 - 99 mg/dL) 80 Lactic Acid (0.7 - 2.1 mmol/L) 2.9 H Calcium (8.4 - 10.2 mg/dL) 7.7 L Phosphorus (2.5 - 4.5 mg/dL) 4.5 Magnesium (1.6 - 2.3 mg/dL) 1.1 L Total Bilirubin (0.2 - 1.3 mg/dL) 0.6 0.9 Direct Bilirubin (< 0.4 mg/dL) 0.5 H AST (17 - 59 U/L) 79 H 86 H ALT (21 - 72 U/L) 89 H 108 H Alkaline Phosphatase (< 127 U/L) 53 Troponin I (<0.11 ng/ml) 0.22 *H Total Protein (6.3 - 8.2 g/dL) 5.5 L Albumin (3.5 - 5.0 g/dL) 2.0 L 3.0 L Hematology CBC w Diff MAN DIFF ORDERED NO MAN DIFF REQ WBC (4.8 - 10.8 /CUMM) 23.8 H 23.0 H RBC (4.70 - 6.10 /CUMM) 5.10 6.63 H Hgb (14.0 - 18.0 G/DL) 15.0 19.2 H Hct (42 - 52 %) 44.8 58.4 H MCV (80.0 - 94.0 FL) 87.9 88.1 MCH (27.0 - 31.0 PG) 29.4 29.0 RDW (11.5 - 14.5 %) 13.1 13.1 Plt Count (130 - 400 /CUMM) 234 217 MPV (7.4 - 10.4 FL) 7.9 8.6 Gran % (42.2 - 75.2 %) 90.8 H 90.1 H Lymphocytes % (20.5 - 51.1 %) 5.5 L 6.9 L Monocytes % (1.7 - 9.3 %) 3.5 2.9 Eosinophils % (0 - 5 %) 0.1 0.1 Basophils % (0.0 - 2.0 %) 0.1 0 Absolute Granulocytes (1.4 - 6.5 /CUMM) 21.6 H 20.8 H Segmented Neutrophils (42.2 - 75.2 %) 74 Band Neutrophils (0.0 - 5.0 %) 13 H Absolute Lymphocytes (1.2 - 3.4 /CUMM) 1.3 1.6 Lymphocytes (20.5 - 51.1 %) 10 L Monocytes (1.7 - 9.3 %) 3 Absolute Monocytes (0.10 - 0.60 /CUMM) 0.8 H 0.7 H Absolute Eosinophils (0.0 - 0.7 /CUMM) 0 0 Absolute Basophils (0.0 - 0.2 /CUMM) 0 0 Platelet Estimate (ADEQUATE) ADEQUATE Polychromasia 1+ Poikilocytosis 2+ Ovalocytes 1+ Stomatocytes FEW [place] Cells 1+ PUBS MCHC (33.0 - 37.0 G/DL) 33.5 32.9 L Other Body Source Fld Total RBCs Counted (%) 100 04/02 04/02 1642 0755 Chemistry Sodium (137 - 145 mmol/L) 133 L Potassium (3.5 - 5.1 mmol/L) 4.4 Chloride (98 - 107 mmol/L) 100 Carbon Dioxide (22 - 30 mmol/L) 20 L Anion Gap (5 - 16) 13 BUN (9 - 20 mg/dL) 11 Creatinine (0.7 - 1.2 mg/dL) 0.6 L Estimated GFR (>60 ml/min) > 60 BUN/Creatinine Ratio (7 - 25 %) 18.3 Magnesium (1.6 - 2.3 mg/dL) 1.3 L Hematology CBC w Diff MAN DIFF ORDERED WBC (4.8 - 10.8 /CUMM) 20.4 H RBC (4.70 - 6.10 /CUMM) 5.51 Hgb (14.0 - 18.0 G/DL) 16.2 Hct (42 - 52 %) 48.3 MCV (80.0 - 94.0 FL) 87.8 MCH (27.0 - 31.0 PG) 29.4 RDW (11.5 - 14.5 %) 12.9 Plt Count (130 - 400 /CUMM) 314 MPV (7.4 - 10.4 FL) 7.8 Gran % (42.2 - 75.2 %) 92.6 H Lymphocytes % (20.5 - 51.1 %) 2.5 L Monocytes % (1.7 - 9.3 %) 4.8 Eosinophils % (0 - 5 %) 0 Basophils % (0.0 - 2.0 %) 0.1 Absolute Granulocytes (1.4 - 6.5 /CUMM) 18.9 H Segmented Neutrophils (42.2 - 75.2 %) 85 H Band Neutrophils (0.0 - 5.0 %) 6 H Absolute Lymphocytes (1.2 - 3.4 /CUMM) 0.5 L Lymphocytes (20.5 - 51.1 %) 5 L Monocytes (1.7 - 9.3 %) 4 Absolute Monocytes (0.10 - 0.60 /CUMM) 1.0 H Absolute Eosinophils (0.0 - 0.7 /CUMM) 0 Absolute Basophils (0.0 - 0.2 /CUMM) 0 Platelet Estimate (ADEQUATE) VERIFIED BY SMEAR Normocytic RBCs VERIFIED Normochromic RBCs VERIFIED PUBS MCHC (33.0 - 37.0 G/DL) 33.5 Urines Urine Color Cancelled Urine Clarity Cancelled Urine pH Cancelled Ur Specific [place] Cancelled Urine Protein Cancelled Urine Ketones Cancelled Urine Nitrite Cancelled Urine Bilirubin Cancelled Urine Urobilinogen Cancelled Ur Leukocyte Esterase Cancelled Ur Microscopic Cancelled Urine Hemoglobin Cancelled Urine Glucose Cancelled Assessment/Plan Assessment/Plan This is a 61 year-old male s/p lap appy due to perforated appendicitis one week ago who is now POD#1 s/p diagnostic laparoscopy and repair of a perforated gastroduodenal ulcer with omental patch and abdominal washout with joanne drain x3 due to a large gastroduodenal perforated ulcer and biliary peritonitis, improving PRIYA, extubated yesterday but still requiring small amount of levophed Strict npo / ngt / ivf Protonix IV bid Cont pain regimen wean off levophed as able Cont rocephin/flagyl f/u am labs f/u TPN recommendations for next step garza in place for strict I&Os monitor JOANNE drains (3) DVT ppx - alps, resume hsq f/u cards consult and critical care recommendations psych po meds on hold due to strict npo likely UGI on thursday to assess for leak postop Will d/w Dr. Sow Core Measures Venous Thromboembolism VTE Risk Factors Surgery No Mechanical VTE Prophylaxis d/t N/A MechProphylax Ordered No VTE Pharm Prophylaxis d/t NA PharmProphylax ordered
[2017-04-04 06:33] LABS: HEMATOCRIT 36.5 % (42-52)
[2017-04-04 08:00] VITALS: BP 122/60
--- NOTE | 2017-04-04 08:20 | PN- Resident CRCU ---
See Addendum Subjective HPI/CRCU Issues: acute perforated appendicitis 24 Hour Events: No overnight events. Rested comfortably overnight. States having abdominal pain 7/10 which responds to pain medications. Denies any nausea, vomiting, SOB or chest pain. Objective Vital Signs & I&O Last 8 Hrs of Vitals and I&O: . Exam General Appearance: no apparent distress, alert, awake, comfortable Head: atraumatic, normal appearance Respiratory: normal breath sounds, chest non-tender, lungs clear Cardiovascular: regular rate/rhythm Gastrointestinal: diffuse tenderness more prominent in RLQ Extremities: no edema Cranial Nerves: normal hearing, normal speech Skin: normal color Skin Temp/Moisture Exam: Warm/Dry Sepsis Skin Exam (color): Normal for Ethnicity Weaning Parameters NIF: 30 Minute Volume: 12.7 Resp rate: 579 Vt: 22 Heart Rate: 75 Weaning Schedule Start Time: 0922 Minute Volume: 13.9 Resp Rate: 23 Vt: 606 Heart Rate: 77 End Time: 1006 Minute Volume: 13.7 Resp Rate: 24 Vt: 574 Heart Rate: 78 Current Medications: Current Medications Sig/Nirmal Start time Last Medication Dose Route Stop Time Status Admin Acetaminophen 1,000 MG .STK-MED ONE 04/03 1214 DC IV 04/03 1215 Acetaminophen 1,000 MG Q6P PRN 04/02 0730 04/03 N/A 1 UNIT IV 1232 Ceftriaxone Sodium 1,000 MG DAILY 04/02 1000 AC 04/04 IV 0836 Dextrose/Sodium 1,000 ML Q8H 04/03 0945 DC 04/04 Chloride IV 04/04 0824 0443 Fat Emulsion 300 ML 1900 04/04 1900 AC Intravenous IV 04/05 1859 Fat Emulsion 500 ML Q24H 04/03 1900 AC 04/03 Intravenous IV 04/04 1859 2000 Heparin Sodium 5,000 UNIT Q8 03/28 1400 AC 04/04 (Porcine) SC 0602 Hydromorphone HCl 0.6 MG Q4P PRN 04/03 1730 AC 04/04 IV 0842 Lacosamide 100 MG Q12 04/03 2200 DC Sodium Chloride 100 ML IV Lacosamide 100 MG Q12 04/03 1630 DC Sodium Chloride 100 ML IV Lacosamide 100 MG Q12H 04/03 1630 AC 04/04 Sodium Chloride 100 ML IV 0443 Levetiracetam 500 MG Q12 04/03 2200 CAN N/A 1 UNIT IV Levothyroxine Sodium 25 MCG DAILY 04/03 1000 04/04 IV 0907 Metronidazole 500 MG Q8H 04/02 0200 04/04 N/A 1 UNIT IV 1030 Non-Formulary 0 SEE ADMIN CRITERIA 04/03 1545 CAN Medication ANY Norepinephrine 4 MG Q24H 04/03 1530 04/04 Sodium Chloride 250 ML IV 0047 Norepinephrine 4 MG .STK-MED ONE 04/03 1517 DC IV 04/03 1518 Ondansetron HCl 4 MG Q6-PRN PRN 03/30 0800 04/02 IV 0710 Pantoprazole Sodium 40 MG BID 04/03 1000 04/04 IV 0836 Phenol 2 SPRAY Q2P PRN 04/04 0800 04/04 EXT 0818 Potassium Chloride 20 MEQ Q1H 04/04 0645 DC 04/04 IV 04/04 0746 0836 Prochlorperazine 10 MG Q6-PRN PRN 03/29 1945 04/01 IV 2256 Sodium Chloride 1,000 ML BOLUS ONE 04/03 1615 DC 04/03 IV 04/03 1714 1643 Sodium Chloride 500 ML BOLUS ONE 04/03 1215 DC 04/03 IV 04/03 1314 1224 Total Parenteral 1 UNIT 1900 04/04 1900 Nutrition IV 04/05 1859 Total Parenteral 1 UNIT Q24H 04/03 1900 04/03 Nutrition IV 04/04 1859 1957 Impression/Plan Impression/Problem List Impression: 61 yo M with h/o hypothyroidism, TBI, seizures, HTN, OA, depression, was admitted on Mar 27 for abdominal pain due to perforated appendicitis for which he underwent laparoscopic appendectomy with post-op course c/b perforated gastroduodenal ulcer which was repaired with an omental patch on 04/03. While in the OR, patient became hypotensive to SBP 50-60's soon after induction,and was resuscitated with IVFs and started on pressors for BP support, which he required trasniently. He was subsequently to the ICU postoperatively and remains intubated for airway maintainece. Assessment: 1. Septic shock 2/2 peritonitis 2. Perforated gastroduodenal ulcer s/p repair 3. Respiratory failure, on ventilator 4. Recent perforated appendicitis s/p appendectomy 5. h/o TBI and seizures 6. h/o hypothyroidism Plan: #Acute Respiratory failure: - resolved - Extubated successfully yesterday. On room air now. #Hypotension - likely secondary to septic shock and anesthesia - Patient still requires pressors to maintain blood pressure. - Will wean off as tolerated. - Goal MAP >65mmHg - Continue to hold all antihypertensive medications # Elevated troponins - Most likely Type II TX - Troponins have been trended down. - Appreciate Cardio recs. - Echo did not show any RWMA and EF 55% - OP stress test. # Perforated duodenal ulcer s/p repair an perforated appendicitis - Continue NPO and NG tube to low wall suction. - IV pantoprazole BID - Continue ceftriaxone and flagyl - F/U BC x2 - Of note no cultures were sent form OR - Continue TPN. Today is Day 2. Recs for Day 3 can be found in nutritional notes. # Hypothyroidism - Continue levothyroxine IV 0.025mcg daily while he is on TPN #Hypomagnesemia - Repelete as necessary. #Hx of seizures - Neuro recs appreciated. - Vimpat 100mg PO q12h until able to swallow then can start back on Trileptal. - DVT ppx - Hep SC and ALPS - Code Status - Full code. Problem List: 1. Acute appendicitis Pain Ratin Tomorrow's Labs & Rationales: CBC, ICU bundle, TPN order set Plan DVT/Prophylaxis: mechanical, pharmacological Code Status: Full Code
[2017-04-04 12:00] VITALS: BP 98/50
[2017-04-04 16:00] VITALS: BP 108/50
--- NOTE | 2017-04-04 19:08 | PN- Cardiology ---
Subjective Subjective: Admits to some mild abdominal discomfort. Had 2 BMs earlier. Objective Vital Signs and I&Os Vital Signs Date Time Temp Pulse Resp B/P B/P Pulse O2 O2 Flow FiO2 Mean Ox Delivery Rate 04/04 1600 98.8 104 26 108/50 97 Room Air 04/04 1600 97 Room Air 04/04 1200 98.3 96 20 98/50 95 Room Air 04/04 0800 Nasal 2.0L Cannula 04/04 0800 97.7 95 20 122/60 94 Nasal 2.0L Cannula 04/04 0400 98 Nasal 2.0L Cannula 04/04 0047 97.9 85 20 100/60 04/04 0000 95 Nasal 2.0L Cannula 04/04 0000 97.9 80 20 100/60 95 Nasal 2.0L Cannula 04/03 2033 Nasal 2.0L Cannula 04/03 2032 96 Nasal 2.0L Cannula Intake & Output 04/04 1600 04/04 0800 04/04 0000 04/03 1600 04/03 0800 04/03 0000 Intake Total 1630.0 1691 2771 1672 820 Output Total 1880 2255 1325 750 265 Balance -250.0 -564 1446 922 555 Intake, IV 1147 1691 2590 1672 820 Intake, Lipid 83.0 Intake, 400 TPN/PPN Intake, Tube 150 Feeding Intake, Tube 31 Irrigant Number 0 0 0 Bowel Movements Output, 80 150 200 100 115 Drainage Output, 500 250 350 350 Gastric Drainage Output, Urine 1300 1855 775 300 150 Patient 248 lb 91 lb 249 lb Weight Weight Bed scale Measurement Method Physical Exam: Well developed, obese middle-aged male in no acute distress. Vital signs: See above. Neck: No JVD, no bruits. Lungs: Bilateral rhonchi. Heart: S1, S2 (regular) with no murmur, gallop, or rub. Abdomen: Soft, nontender, positive bowel sounds. Extremities: No cyanosis, clubbing, or edema. Assessment/Plan Assessment/Plan [id number] w/ hx TBI, HTN, hypothyroidism, and seizure disorder admitted 2017 with a perforated appendicitis with subsequent peritonitis requiring an urgent appendectomy followed by a reoperation on 04/03/2017 for a perforated gastroduodenal ulcer with subsequent sepsis and a modest bump in his troponin I felt to be 2/2 sepsis and not an ACS with essentially normal LV function by echocardiography. Hemodynamically improved and progressing well. Continue present regimen. DVT prophylaxis. Continue telemetry? Not applicable (In ICU.)
[2017-04-05] VITALS: BP 134/78
[2017-04-05 05:00] LABS: ABSOLUTE BASOPHIL COUNT 0 /CUMM (0.0-0.2); ABSOLUTE EOSINOPHIL COUNT 0.1 /CUMM (0.0-0.7); ABSOLUTE GRANULOCYTE CT 25.1 /CUMM (1.4-6.5); ABSOLUTE LYMPH COUNT 0.5 /CUMM (1.2-3.4); ABSOLUTE MONOCYTE COUNT 1.1 /CUMM (0.10-0.60); BASOPHIL % 0 % (0.0-2.0); EOSINOPHIL % 0.2 % (0-5); GRANULOCYTE % 93.6 % (42.2-75.2); HEMATOCRIT 33.8 % (42-52); MEAN CORPUSCULAR HGB 29.9 PG (27.0-31.0); MEAN CORPUSCULAR HGB CONC 33.9 G/DL (33.0-37.0); MEAN PLATELET VOLUME 7.4 FL (7.4-10.4); PLATELET COUNT 267 /CUMM (130-400); RBC DISTRIBUTION WIDTH 13.6 % (11.5-14.5); RED BLOOD CELL CT 3.84 /CUMM (4.70-6.10); WHITE BLOOD CELL COUNT 26.8 /CUMM (4.8-10.8)
--- NOTE | 2017-04-05 05:51 | PN- General Surgery ---
Subjective Subjective: some abd pain. "when can I eat again?" off supplemental o2 when awake, denies sob/cp. no oob since or. denies n/v. off pressors, now hypertension Objective Vital Signs and I&Os Vital Signs Date Time Temp Pulse Resp B/P B/P Pulse O2 O2 Flow FiO2 Mean Ox Delivery Rate 04/05 0400 95 Nasal 2.0L Cannula 04/05 0000 Room Air 04/05 0000 99.1 104 27 134/78 93 Room Air 04/04 1600 98.8 104 26 108/50 97 Room Air 04/04 1600 97 Room Air 04/04 1200 98.3 96 20 98/50 95 Room Air 04/04 0800 Nasal 2.0L Cannula 04/04 0800 97.7 95 20 122/60 94 Nasal 2.0L Cannula Intake & Output 04/05 0800 04/05 0000 04/04 1600 04/04 0800 04/04 0000 04/03 1600 Intake Total 1571 1630.0 1691 2771 1672 Output Total 1750 1880 2255 1325 750 Balance -179 -250.0 -564 1446 922 Intake, IV 1571 1147 1691 2590 1672 Intake, Lipid 83.0 Intake, 400 TPN/PPN Intake, Tube 150 Feeding Intake, Tube 31 Irrigant Number 0 0 Bowel Movements Output, 50 80 150 200 100 Drainage Output, 700 500 250 350 350 Gastric Drainage Output, Urine 1000 1300 1855 775 300 Patient 248 lb 91 lb Weight Weight Bed scale Measurement Method Physical Exam: Gen - nad, a&o Pulm- decreased basilar bs bl Card - s1s2 rrr Abd- soft, ttp throughout. dressings cdi, charissa intact. BS JPx3 to self suction, ng tube in place to lcws Ext - calves soft nt bl, alps on last 8hr shifts: JP1: , murky JP2: 12/24/19, serous LENNY: 12/24/19, serous NGT: 700/700/500, green bilious Garza: 1000/1000/1300, clr yellow Current Medications: Current Medications Sig/Nirmal Start time Last Medication Dose Route Stop Time Status Admin Acetaminophen 1,000 MG Q6P PRN 04/02 0730 AC 04/03 N/A 1 UNIT IV 1232 Ceftriaxone Sodium 1,000 MG DAILY 04/02 1000 AC 04/04 IV 0836 Dextrose/Sodium 1,000 ML Q8H 04/04 2330 AC 04/05 Chloride IV 04/05 2329 0127 Dextrose/Sodium 1,000 ML Q8H 04/03 0945 DC 04/04 Chloride IV 04/04 0824 1524 Fat Emulsion 300 ML 1900 04/04 1900 AC 04/04 Intravenous IV 04/05 1859 1805 Fat Emulsion 500 ML Q24H 04/03 1900 DC 04/03 Intravenous IV 04/04 1859 2001 Glycerin 2 SPRAY Q2P PRN 04/04 2315 AC 04/05 PO 0029 Heparin Sodium 5,000 UNIT Q8 03/28 1400 AC 04/05 (Porcine) SC 0530 Hydromorphone HCl 0.6 MG Q4P PRN 04/03 1730 04/05 IV 0430 Lacosamide 100 MG Q12H 04/03 1630 04/05 Sodium Chloride 100 ML IV 0442 Levothyroxine Sodium 25 MCG DAILY 04/03 1000 04/04 IV 0907 Metronidazole 500 MG Q8H 04/02 0200 04/05 N/A 1 UNIT IV 0158 Norepinephrine 4 MG Q24H 04/03 1530 DC 04/04 Sodium Chloride 250 ML IV 0047 Ondansetron HCl 4 MG Q6-PRN PRN 03/30 0800 04/02 IV 0710 Pantoprazole Sodium 40 MG BID 04/03 1000 AC 04/04 IV 2208 Phenol 2 SPRAY Q2P PRN 04/04 0800 AC 04/04 EXT 0818 Potassium Chloride 20 MEQ Q1H 04/04 2330 CAN IV 04/05 0031 Potassium Chloride 20 MEQ Q1H 04/04 0645 DC 04/04 IV 04/04 0746 0836 Prochlorperazine 10 MG Q6-PRN PRN 03/29 1945 AC 04/01 IV 2256 Total Parenteral 1 UNIT 1900 04/04 190 AC 04/04 Nutrition IV 04/05 1859 1805 Total Parenteral 1 UNIT Q24H 04/03 1900 DC 04/03 Nutrition IV 04/04 1851956 Results Last 48 Hours of Labs: Laboratory Tests 04/05 04/04 0430 0455 Chemistry Sodium (137 - 145 mmol/L) Pending 137 Potassium (3.5 - 5.1 mmol/L) Pending 3.1 L Chloride (98 - 107 mmol/L) Pending 104 Carbon Dioxide (22 - 30 mmol/L) Pending 23 Anion Gap (5 - 16) Pending 10 BUN (9 - 20 mg/dL) Pending 22 H Creatinine (0.7 - 1.2 mg/dL) Pending 1.6 H Estimated GFR (>60 ml/min) 44 L Glucose (65 - 99 mg/dL) Pending 132 H Calcium (8.4 - 10.2 mg/dL) Pending 7.1 L Phosphorus (2.5 - 4.5 mg/dL) Pending 2.8 Magnesium (1.6 - 2.3 mg/dL) Pending 1.9 Total Bilirubin (0.2 - 1.3 mg/dL) Pending 0.1 L AST (17 - 59 U/L) Pending 28 ALT (21 - 72 U/L) Pending 61 Alkaline Phosphatase Pending Albumin (3.5 - 5.0 g/dL) Pending 1.8 L Prealbumin (17.6 - 36.0 mg/dL) 7.4 L Triglycerides (<150 mg/dL) 121 Hematology CBC w Diff MAN DIFF ORDERED MAN DIFF ORDERED WBC (4.8 - 10.8 /CUMM) 26.8 H 23.6 H RBC (4.70 - 6.10 /CUMM) 3.84 L 4.13 L Hgb (14.0 - 18.0 G/DL) 11.5 L 12.3 L Hct (42 - 52 %) 33.8 L 36.5 L MCV (80.0 - 94.0 FL) 88.0 88.5 MCH (27.0 - 31.0 PG) 29.9 29.8 RDW (11.5 - 14.5 %) 13.6 13.2 Plt Count (130 - 400 /CUMM) 267 256 MPV (7.4 - 10.4 FL) 7.4 7.8 Gran % (42.2 - 75.2 %) 93.6 H 93.6 H Lymphocytes % (20.5 - 51.1 %) 2.0 L 3.0 L Monocytes % (1.7 - 9.3 %) 4.2 3.2 Eosinophils % (0 - 5 %) 0.2 0.2 Basophils % (0.0 - 2.0 %) 0 0 Absolute Granulocytes (1.4 - 6.5 /CUMM) 25.1 H 22.1 H Segmented Neutrophils (42.2 - 75.2 %) 93 H 84 H Band Neutrophils (0.0 - 5.0 %) 3 10 H Absolute Lymphocytes (1.2 - 3.4 /CUMM) 0.5 L 0.7 L Lymphocytes (20.5 - 51.1 %) 2 L 4 L Monocytes (1.7 - 9.3 %) 1 L 2 Absolute Monocytes (0.10 - 0.60 /CUMM) 1.1 H 0.8 H Absolute Eosinophils (0.0 - 0.7 /CUMM) 0.1 0.1 Absolute Basophils (0.0 - 0.2 /CUMM) 0 0 Metamyelocytes (0.0 - 1.0 %) 1 Platelet Estimate (ADEQUATE) ADEQUATE ADEQUATE Normocytic RBCs VERIFIED VERIFIED Normochromic RBCs VERIFIED VERIFIED PUBS MCHC (33.0 - 37.0 G/DL) 33.9 33.7 Other Body Source Fld Total RBCs Counted (%) 100 100 04/03 04/03 04/03 04/03 1447 0800 0800 0600 Chemistry Sodium (137 - 145 mmol/L) 135 L Cancelled 134 L Potassium (3.5 - 5.1 mmol/L) 4.0 Cancelled 4.3 Chloride (98 - 107 mmol/L) 102 Cancelled 101 Carbon Dioxide (22 - 30 mmol/L) 22 Cancelled 21 L Anion Gap (5 - 16) 12 Cancelled 12 BUN (9 - 20 mg/dL) 26 H Cancelled 24 H Creatinine (0.7 - 1.2 mg/dL) 2.2 H Cancelled 2.1 H Estimated GFR (>60 ml/min) 31 L 32 L Glucose (65 - 99 mg/dL) 116 H Cancelled 89 Calcium (8.4 - 10.2 mg/dL) 7.2 L Cancelled 7.3 L Phosphorus (2.5 - 4.5 mg/dL) 4.5 Cancelled 4.9 H Magnesium (1.6 - 2.3 mg/dL) 2.0 Cancelled 1.5 L Cancelled Total Bilirubin (0.2 - 1.3 mg/dL) 0.2 Cancelled 0.6 AST (17 - 59 U/L) 45 Cancelled 64 H ALT (21 - 72 U/L) 71 Cancelled 76 H Troponin I (<0.11 ng/ml) 0.18 *H 0.22 *H Albumin (3.5 - 5.0 g/dL) 1.8 L Cancelled 1.9 L Assessment/Plan Assessment/Plan A- 61M POD2 sp washout and lap omental patch repair of large perforated gastroduodenal ulcer with gross biliary perotonitis, POD9 sp lap appy for perf' ed appendicitis, remains in ICU, though improving P- NPO, NGT, IVF, IV meds TPN day 3 neuro/psych meds per neuro, nothing po prn pain meds ppi bid iv cont abx labs pdg alps, hep sq, oob keep garza, JPx3 in place- strict I&Os wean o2 probable UGI on thursday will dw Dr. Sow Core Measures Venous Thromboembolism VTE Risk Factors Surgery No Mechanical VTE Prophylaxis d/t N/A MechProphylax Ordered No VTE Pharm Prophylaxis d/t NA PharmProphylax ordered
--- NOTE | 2017-04-05 07:48 | PN- CRCU ---
Subjective HPI/Critical Care Issues: The patient is awake and alert. He has significant OG tube drainage over the past few hours. He has loose stools. He continues to have abdominal pain. He has a right IJ with TPN - will need to be changed to PICC this week. Objective Current Medications: Current Medications Sig/Nirmal Start time Last Medication Dose Route Stop Time Status Admin Acetaminophen 1,000 MG Q6P PRN 04/02 0730 AC 04/03 N/A 1 UNIT IV 1232 Ceftriaxone Sodium 1,000 MG DAILY 04/02 1000 AC 04/04 IV 0836 Dextrose/Sodium 1,000 ML Q8H 04/04 2330 AC 04/05 Chloride IV 04/05 2329 0127 Dextrose/Sodium 1,000 ML Q8H 04/03 0945 DC 04/04 Chloride IV 04/04 0824 1524 Fat Emulsion 300 ML 1900 04/04 1900 AC 04/04 Intravenous IV 04/05 1859 1805 Fat Emulsion 500 ML Q24H 04/03 1900 DC 04/03 Intravenous IV 04/04 1859 2001 Glycerin 2 SPRAY Q2P PRN 04/04 2315 AC 04/05 PO 0029 Heparin Sodium 5,000 UNIT Q8 03/28 1400 AC 04/05 (Porcine) SC 0530 Hydromorphone HCl 0.6 MG Q4P PRN 04/03 1730 AC 04/05 IV 0430 Lacosamide 100 MG Q12H 04/03 1630 AC 04/05 Sodium Chloride 100 ML IV 0442 Levothyroxine Sodium 25 MCG DAILY 04/03 1000 AC 04/04 IV 0907 Metronidazole 500 MG Q8H 04/02 0200 AC 04/05 N/A 1 UNIT IV 0158 Norepinephrine 4 MG Q24H 04/03 1530 DC 04/04 Sodium Chloride 250 ML IV 0047 Ondansetron HCl 4 MG Q6-PRN PRN 03/30 0800 AC 04/02 IV 0710 Pantoprazole Sodium 40 MG BID 04/03 1000 AC 04/04 IV 2208 Phenol 2 SPRAY Q2P PRN 04/04 0800 AC 04/04 EXT 0818 Potassium Chloride 20 MEQ Q1H 04/04 2330 CAN IV 04/05 0031 Prochlorperazine 10 MG Q6-PRN PRN 03/29 1945 AC 04/01 IV 2256 Total Parenteral 1 UNIT 1900 04/04 1900 AC 04/04 Nutrition IV 04/05 1858 180 Total Parenteral 1 UNIT Q24H 04/03 1899 DC 04/03 Nutrition IV 04/04 Vital Signs & I&O Last 24 Hrs of Vitals and I&O: Vital Signs Date Time Temp Pulse Resp B/P B/P Pulse O2 O2 Flow FiO2 Mean Ox Delivery Rate 04/05 0400 95 Nasal 2.0L Cannula 04/05 0000 Room Air 04/05 0000 99.1 104 27 134/78 93 Room Air 04/04 1600 98.8 104 26 108/50 97 Room Air 04/04 1600 97 Room Air 04/04 1200 98.3 96 20 98/50 95 Room Air 04/04 0800 Nasal 2.0L Cannula 04/04 0800 97.7 95 20 122/60 94 Nasal 2.0L Cannula Intake & Output 04/05 0800 04/05 0000 04/04 1600 Intake Total 1381 1571 1630.0 Output Total 1845 1750 1880 Balance -464 -179 -250.0 Intake, IV 1381 1571 1147 Intake, Lipid 83.0 Intake, 400 TPN/PPN Number 5 Bowel Movements Output, 45 50 80 Drainage Output, 700 700 500 Gastric Drainage Output, Urine 1100 1000 1300 Exam General Appearance: no apparent distress, alert, awake Head: atraumatic, normal appearance Neck: supple Respiratory: decreased breath sounds, faint bibasilar crackles Cardiovascular: regular rate/rhythm, S1 and S2 heard Abdomen: soft, dressings and charissa intact, LENNY drains [address] Extremities: no edema, no calf tenderness, Alps in place Skin: intact, normal color, warm/dry Results Last 24 Hrs of Lab Results: Laboratory Tests 04/05/17 0430: Anion Gap 11, Estimated GFR > 60, Glucose 144 H, Calcium 7.3 L, Phosphorus 2.0 L, Magnesium 1.6, Total Bilirubin 0.3, AST 19, ALT 58, Alkaline Phosphatase 60, Albumin 2.0 L, CBC w Diff MAN DIFF ORDERED, RBC 3.84 L, MCV 88.0, MCH 29.9, RDW 13.6, MPV 7.4, Gran % 93.6 H, Lymphocytes % 2.0 L, Monocytes % 4.2, Eosinophils % 0.2, Basophils % 0, Absolute Granulocytes 25.1 H, Segmented Neutrophils 93 H, Band Neutrophils 3, Absolute Lymphocytes 0.5 L, Lymphocytes 2 L, Monocytes 1 L, Absolute Monocytes 1.1 H, Absolute Eosinophils 0.1, Absolute Basophils 0, Metamyelocytes 1, Platelet Estimate ADEQUATE, Normocytic RBCs VERIFIED, Normochromic RBCs VERIFIED, PUBS MCHC 33.9, Fld Total RBCs Counted 100 Impression/Plan Impression/Plan Impression/Plan: 1. Perforated appendicitis, status post laparoscopic appendectomy with postoperative course complicated by perforated gastroduodenal ulcer and omental patch on 119. Surgery was also complicated by hypotension requiring IV fluid resuscitation and pressors for blood pressure support, noting his blood pressure has significantly improved. 2. Septic shock secondary to peritonitis. 3. Increasing leukocytosis, rule out underlying infection. All cultures are negative so far. 4. Respiratory failure, status post extubation with stable respiratory status. 5. History of significant traumatic brain injury with seizures. 6. History of hypothyroidism. 7. Malnutrition, on TPN and lipids. 8. Hypokalemia. Recommendations: * Check a follow up CXR today. * Continue with weaning trials as tolerated. * Continue nebs/TRC. * Will need to follow up general surgery's recommendations as well. * PT consult, out of bed to chair. * Continue ceftriaxone and Flagyl as per id for now. * Please discuss increasing leukocytosis with id this morning. We need to consider possible repeat cultures and abdominal imaging. * Continue TPN and lipids. * Replete electrolytes and continue to monitor closely. * DVT prophylaxis at all times. * Continue to monitor in the critical care unit. Code Status: Full Code
[2017-04-05 08:00] VITALS: BP 148/84
--- NOTE | 2017-04-05 08:52 | PN- Resident CRCU ---
Subjective HPI/CRCU Issues: 1. Perforated appendicitis, status post laparoscopic appendectomy with postoperative course complicated by perforated gastroduodenal ulcer status post omental patch 2. Septic shock secondary to peritonitis 3. Increasing leukocytosis, rule out underlying infection 4. Respiratory failure, status post extubation with stable respiratory status. 5. History of significant traumatic brain injury with seizures. 6. History of hypothyroidism. 7. Malnutrition, on TPN and lipids. 8. Hypokalemia. 24 Hour Events: Patient had multiple loose stools overnight were guaiac positive. He also complains of some abdominal pain but denies nausea or vomiting. He has a cough productive of whitish sputum and also complains of throat pain. Objective Vital Signs & I&O Last 8 Hrs of Vitals and I&O: Vital Signs Date Time Temp Pulse Resp B/P B/P Pulse O2 O2 Flow FiO2 Mean Ox Delivery Rate 04/05 1237 82 170/90 04/05 0800 97.9 94 24 148/84 93 Room Air 04/05 0400 95 Nasal 2.0L Cannula 04/05 0000 Room Air 04/05 0000 99.1 104 27 134/78 93 Room Air 04/04 1600 98.8 104 26 108/50 97 Room Air 04/04 1600 97 Room Air Intake & Output 04/05 1600 04/05 0800 04/05 0000 Intake Total 1381 1571 Output Total 1845 1750 Balance -464 -179 Intake, IV 1381 1571 Number 5 Bowel Movements Output, 45 50 Drainage Output, 700 700 Gastric Drainage Output, Urine 1100 1000 Exam General Appearance: no apparent distress, alert, awake, obese Head: atraumatic, normal appearance Ears, Nose, Throat: normal pharynx, normal ENT inspection Neck: normal inspection, supple Respiratory: normal breath sounds, chest non-tender, no respiratory distress, lungs clear Cardiovascular: regular rate/rhythm, normal peripheral pulses Gastrointestinal: normal bowel sounds, soft, tenderness (generalized), hypoactive bowel sounds Extremities: normal inspection, no edema Cranial Nerves: normal hearing, normal speech, PERRL Skin: intact, normal color, warm/dry Skin Temp/Moisture Exam: Warm/Dry Sepsis Skin Exam (color): Normal for Ethnicity Sepsis Peripheral Pulse Location: Posterior Tibialis Sepsis Peripheral Pulse Exam: Normal Weaning Parameters NIF: 30 Minute Volume: 12.7 Resp rate: 579 Vt: 22 Heart Rate: 75 Weaning Schedule Start Time: 921 Minute Volume: 13.9 Resp Rate: 23 Vt: 606 Heart Rate: 77 End Time: 1006 Minute Volume: 13.7 Resp Rate: 24 Vt: 574 Heart Rate: 78 Current Medications: Current Medications Sig/Nirmal Start time Last Medication Dose Route Stop Time Status Admin Acetaminophen 1,000 MG Q6P PRN 04/02 0730 04/03 N/A 1 UNIT IV 1232 Ceftriaxone Sodium 1,000 MG DAILY 04/02 1000 04/05 IV 1012 Dextrose/Sodium 1,000 ML Q8H 04/04 2330 AC 04/05 Chloride IV 04/05 2329 0825 Fat Emulsion 450 ML 1900 04/05 1900 AC Intravenous IV 04/06 1859 Fat Emulsion 300 ML 1900 04/04 1900 04/04 Intravenous IV 04/05 1859 1805 Fat Emulsion 500 ML Q24H 04/03 1900 WV 04/03 Intravenous IV 04/04 1859 2001 Glycerin 2 SPRAY Q2P PRN 04/04 2315 04/05 PO 0825 Heparin Sodium 5,000 UNIT Q8 03/28 1400 AC 04/05 (Porcine) SC 0530 Hydromorphone HCl 0.6 MG Q4P PRN 04/03 1730 04/05 IV 1237 Lacosamide 100 MG Q12H 04/03 1630 04/05 Sodium Chloride 100 ML IV 0442 Levothyroxine Sodium 25 MCG DAILY 04/03 1000 04/05 IV 1012 Magnesium Sulfate 1 GM Q2H 04/05 1030 04/05 Dextrose/Water 100 ML IV 04/05 1429 1142 Metoprolol Tartrate 2.5 MG Q6 04/05 1200 04/05 IV 1237 Metronidazole 500 MG Q8H 04/02 0200 04/05 N/A 1 UNIT IV 1012 Norepinephrine 4 MG Q24H 04/03 1530 WV 04/04 Sodium Chloride 250 ML IV 0047 Ondansetron HCl 4 MG Q6-PRN PRN 03/30 0800 04/02 IV 0710 Pantoprazole Sodium 40 MG BID 04/03 1000 04/05 IV 1012 Phenol 2 SPRAY Q2P PRN 04/04 0800 04/04 EXT 0818 Potassium Chloride 20 MEQ Q1H 04/05 1045 DC 04/05 IV 04/05 1146 1245 Potassium Chloride 20 MEQ Q1H 04/04 2330 CAN IV 04/05 0031 Potassium Phosphate 15 mMol ONE ONE 04/05 1600 AC Dextrose/Water 250 ML IV 04/05 2004 Potassium Phosphate 15 mMol ONE TIME ONE 04/05 1015 AC Dextrose/Water 250 ML IV 04/05 1419 Prochlorperazine 10 MG Q6-PRN PRN 03/29 194 AC 04/01 IV 2256 Total Parenteral 1 UNIT 1900 04/05 1900 AC Nutrition IV 04/06 185 Total Parenteral 1 UNIT 1900 04/04 1900 AC 04/04 Nutrition IV 04/05 185 1805 Total Parenteral 1 UNIT Q24H 04/03 1900 DC 04/03 Nutrition IV 04/04 Impression/Plan Impression/Problem List Impression: 61 yo M with h/o hypothyroidism, TBI, seizures, HTN, OA, depression, was admitted on Mar 27 for abdominal pain due to perforated appendicitis for which he underwent laparoscopic appendectomy with post-op course c/b perforated gastroduodenal ulcer which was repaired with an omental patch on 04/03. While in the OR, patient became hypotensive to SBP 50-60's soon after induction,and was resuscitated with IVFs and started on pressors for BP support, which he required trasniently. He was subsequently to the ICU postoperatively and remains intubated for airway maintainece. Assessment/Plan: 1. Perforated appendicitis, status post laparoscopic appendectomy with postoperative course complicated by perforated gastroduodenal ulcer status post omental patch * His abdominal LENNY drain output 45 mL in 24 hours * He continues to have vague generalized abdominal pain, hyperactive bowel sounds and has frequent diarrhea * We'll send stool for C. difficile * Continue NPO and NG tube to low wall suction * IV pantoprazole BID * Continue ceftriaxone and flagyl * F/U BC x2 * Of note no cultures were sent form OR * Continue TPN. Today is Day 3. Recs for Day 3 can be found in nutritional notes. 2. Septic shock secondary to peritonitis, resolved * Patient has increasing leukocytosis which is concerning for residual infection underlying infection * He has vague generalized abdominal pain * Will check CT abdomen and pelvis CT of his abdomen and pelvis for any residual infection or ascites 3. Respiratory failure, status post extubation with stable respiratory status * His respiratory status improved and he is currently satting 94% on room air * Complains of some mild cough and whitish sputum * We will do a chest x-ray to assess lung status and interval improvement 4. Hypotension * Currently resolved * He is now actually having elevated blood pressures from his known hypertension to 180/70 mmHg * He is on by mouth Lopressor 100 mg twice a day and by mouth lisinopril 30 mg daily at home * We'll start IV Lopressor 5 mg every 6 hours for elevated blood pressure and Hydralazine 10 mg IV push PRN for systolic blood pressure >160 mmhg 5. History of significant traumatic brain injury with seizures * Continue Vimpat 100mg PO q12h until able to swallow then can start back on Trileptal 6. History of hypothyroidism * Continue levothyroxine IV 0.025mcg daily while he is on TPN 7. Malnutrition on TPN and lipids * Continue TPN. Today is Day 3. Recs for Day 3 can be found in nutritional notes. 8. Hypokalemia * Replete as needed - DVT ppx - Hep SC and ALPS - Code Status - Full code. Problem List: 1. Acute appendicitis Pain Ratin Pain Location: Abdomen Tomorrow's Labs & Rationales: ICU lab bundle, CBC for criticaly ill patient Plan DVT/Prophylaxis: mechanical, pharmacological Code Status: Full Code
--- NOTE | 2017-04-05 09:55 | PN- Infect Dx ---
Subjective Subjective: Afebrile. He complains of a dry mouth and abdominal pain. His blood pressure is stable now off pressors. He had 5 loose, guaiac positive stools reported yesterday. Objective Last 24 Hrs of Vital Signs/I&O Vital Signs Date Time Temp Pulse Resp B/P B/P Pulse O2 O2 Flow FiO2 Mean Ox Delivery Rate 04/05 08 97.9 94 24 148/84 93 Room Air 04/05 0400 95 Nasal 2.0L Cannula 04/05 0000 Room Air 04/05 0000 99.1 104 27 134/78 93 Room Air 04/04 1600 98.8 104 26 108/50 97 Room Air 04/04 1600 97 Room Air 04/04 1200 98.3 96 20 98/50 95 Room Air Intake & Output 04/05 1600 04/05 0800 04/05 0000 Intake Total 1381 1571 Output Total 1845 1750 Balance -464 -179 Intake, IV 1381 1571 Number 5 Bowel Movements Output, 45 50 Drainage Output, 700 700 Gastric Drainage Output, Urine 1100 1000 Physical Exam Other Physical Findings: He is awake and alert in no acute distress HEENT NG tube in place Neck right IJ triple-lumen catheter with no inflammation at the site Lungs are clear Heart regular rhythm with no murmur Abdomen is distended, tender on minimal palpation diffusely, with positive bowel sounds; LENNY drains remain in place Extremities no cyanosis, clubbing or edema Aleman catheter remains in place Results Last 24 Hours of Lab Results: Laboratory Tests 04/05 0430 Chemistry Sodium (137 - 145 mmol/L) 140 Potassium (3.5 - 5.1 mmol/L) 3.0 L Chloride (98 - 107 mmol/L) 105 Carbon Dioxide (22 - 30 mmol/L) 24 Anion Gap (5 - 16) 11 BUN (9 - 20 mg/dL) 13 Creatinine (0.7 - 1.2 mg/dL) 0.8 Estimated GFR (>60 ml/min) > 60 Glucose (65 - 99 mg/dL) 144 H Calcium (8.4 - 10.2 mg/dL) 7.3 L Phosphorus (2.5 - 4.5 mg/dL) 2.0 L Magnesium (1.6 - 2.3 mg/dL) 1.6 Total Bilirubin (0.2 - 1.3 mg/dL) 0.3 AST (17 - 59 U/L) 19 ALT (21 - 72 U/L) 58 Alkaline Phosphatase (< 127 U/L) 60 Albumin (3.5 - 5.0 g/dL) 2.0 L Hematology CBC w Diff MAN DIFF ORDERED WBC (4.8 - 10.8 /CUMM) 26.8 H RBC (4.70 - 6.10 /CUMM) 3.84 L Hgb (14.0 - 18.0 G/DL) 11.5 L Hct (42 - 52 %) 33.8 L MCV (80.0 - 94.0 FL) 88.0 MCH (27.0 - 31.0 PG) 29.9 RDW (11.5 - 14.5 %) 13.6 Plt Count (130 - 400 /CUMM) 267 MPV (7.4 - 10.4 FL) 7.4 Gran % (42.2 - 75.2 %) 93.6 H Lymphocytes % (20.5 - 51.1 %) 2.0 L Monocytes % (1.7 - 9.3 %) 4.2 Eosinophils % (0 - 5 %) 0.2 Basophils % (0.0 - 2.0 %) 0 Absolute Granulocytes (1.4 - 6.5 /CUMM) 25.1 H Segmented Neutrophils (42.2 - 75.2 %) 93 H Band Neutrophils (0.0 - 5.0 %) 3 Absolute Lymphocytes (1.2 - 3.4 /CUMM) 0.5 L Lymphocytes (20.5 - 51.1 %) 2 L Monocytes (1.7 - 9.3 %) 1 L Absolute Monocytes (0.10 - 0.60 /CUMM) 1.1 H Absolute Eosinophils (0.0 - 0.7 /CUMM) 0.1 Absolute Basophils (0.0 - 0.2 /CUMM) 0 Metamyelocytes (0.0 - 1.0 %) 1 Platelet Estimate (ADEQUATE) ADEQUATE Normocytic RBCs VERIFIED Normochromic RBCs VERIFIED PUBS MCHC (33.0 - 37.0 G/DL) 33.9 Other Body Source Fld Total RBCs Counted (%) 100 Last 24 Hours of Fabiano Results: Blood cultures April 02 negative Urine culture April 02 negative Assessment/Plan Impression: Worsening leukocytosis, though temperatures remain normal, now 3 days status post return to the OR for a laparoscopic repair of a perforated gastroduodenal ulcer, with bile peritonitis. The leukocytosis raises concern for ongoing peritonitis, perhaps due to a resistant organism, or the development of an abscess or another intra-abdominal process, such as C. difficile with recent diarrhea. He remains on Ceftriaxone and Flagyl since his surgery for a perforated appendix 9 days ago, with no OR cultures sent from either the initial surgery or from his recent surgery. Suggestion: 1. Stool for C. difficile 2. Repeat CT of the abdomen and pelvis 3. Would pursue a paracentesis if the CT scan reveals ascitic fluid 4. Continue Ceftriaxone and Flagyl pending above
--- NOTE | 2017-04-05 11:51 | CT SCAN REPORT ---
EXAMINATION: CT ABDOMEN AND PELVIS WITHOUT CONTRAST CLINICAL INFORMATION: Status post perforation. Evaluate for ascites or residual intra-abdominal abscess. COMPARISON: None TECHNIQUE: Multidetector volumetric imaging was performed from the superior aspect of the liver through the pubic symphysis. Sagittal and coronal reformatted images were obtained on the technologist's workstation. DLP: 1402 mGy-cm FINDINGS: LUNG BASES: There is bilateral lower lobe airspace consolidation and small pleural effusions. Heart size is normal. LIVER, GALLBLADDER, AND BILIARY TREE: The liver is normal in size, shape, and attenuation. No focal hepatic lesion or biliary ductal dilatation is present. The gallbladder is unremarkable with no evidence of radiopaque gallstones, gallbladder wall thickening, or obvious pericholecystic inflammatory changes. PANCREAS: Unremarkable. SPLEEN: The spleen appears unremarkable. There is left perisplenic fluid collection slightly decreased since the previous study. ADRENAL GLANDS: Unremarkable. KIDNEYS AND URETERS: The 2 mm nonobstructive radiopaque calculi lower pole left kidney, midpole right kidney. No hydronephrosis. Both kidneys are normal size, shape and position except for lobulation along both kidneys. BLADDER: A Aleman's catheter lies within an empty bladder. GASTROINTESTINAL TRACT: There are 3 intra-abdominal catheters seen. A right upper quadrant, a left upper quadrant and a left lower quadrant. There is significant improvement in the retroperitoneum and free fluid. There is an enteric tube with its tip in the body of the stomach. The stomach is nondilated. The small bowel loops are normal caliber. There is oral contrast seen in the descending and sigmoid colon. Rest of colon is unremarkable. Some pericolic haziness is seen throughout the descending colon up to the splenic flexure. The pneumoperitoneum has improved with few residual air bubble seen in the upper and lower abdomen. Cardiac There is nonspecific mild mural thickening of distal sigmoid colon and the rectum. ABDOMINAL WALL: Postsurgical changes are seen along the supraumbilical anterior wall. LYMPH NODES: Normal. VASCULAR: Unremarkable. PELVIC VISCERA: Unremarkable. OSSEOUS STRUCTURES: No free fluid seen. IMPRESSION: There is interval insertion of 3 abdominal catheters or drainage tubes as described above with complete resolution of ascites except for some fluid in the left perisplenic region. Pneumothorax has significantly improved with some remaining or residual air bubble seen in the abdomen. There is nonspecific new mural thickening involving the rectum and distal sigmoid colon. Some pericolic haziness is seen in descending colon.. Nonspecific inflammation or iatrogenic. No bowel obstruction seen. The endotracheal tube lies within the mid stomach. Bilateral lower lobe small consolidations with pleural effusions are unchanged.
[2017-04-05 16:00] VITALS: BP 180/80
--- NOTE | 2017-04-05 18:18 | PN- Cardiology ---
Subjective Subjective: Feels improved, still has some abdominal discomfort. Objective Vital Signs and I&Os Vital Signs Date Time Temp Pulse Resp B/P B/P Pulse O2 O2 Flow FiO2 Mean Ox Delivery Rate 04/05 1702 86 174/82 04/05 1600 98.1 90 22 180/80 93 Room Air 04/05 1534 79 180/90 04/05 1237 82 170/90 04/05 0800 97.9 94 24 148/84 93 Room Air 04/05 0400 95 Nasal 2.0L Cannula 04/05 0000 Room Air 04/05 0000 99.1 104 27 134/78 93 Room Air Intake & Output 04/05 1600 04/05 0800 04/05 0000 04/04 1600 04/04 0800 04/04 0000 Intake Total 1812.0 1381 1571 1630.0 1691 2771 Output Total 1845 1845 1750 1880 2255 1325 Balance -33.0 -464 -179 -250.0 -564 1446 Intake, IV 1155 1381 1571 1147 1691 2590 Intake, Lipid 103.0 83.0 Intake, Oral 0 Intake, 554 400 TPN/PPN Intake, Tube 150 Feeding Intake, Tube 31 Irrigant Number 2 5 0 Bowel Movements Output, 45 45 50 80 150 200 Drainage Output, 700 700 700 500 250 350 Gastric Drainage Output, Urine 1100 1100 1000 1300 1855 775 Patient 248 lb Weight Weight Bed scale Measurement Method Physical Exam: Well developed, obese middle-aged male in no acute distress. Vital signs: See above. Neck: No JVD, no bruits. Lungs: Bilateral rhonchi. Heart: S1, S2 (regular) with no murmur, gallop, or rub. Abdomen: Soft, nontender, positive bowel sounds. Extremities: No cyanosis, clubbing, or edema. Current Medications: Current Medications Sig/Nirmal Start time Last Medication Dose Route Stop Time Status Admin Acetaminophen 1,000 MG Q6P PRN 04/02 0730 AC 04/03 N/A 1 UNIT IV 1232 Ceftriaxone Sodium 1,000 MG DAILY 04/02 1000 AC 04/05 IV 1012 Dextrose/Sodium 1,000 ML Q8H 04/04 2330 AC 04/05 Chloride IV 04/05 2329 1534 Fat Emulsion 450 ML 04/05 1900 AC Intravenous IV 04/06 1859 Fat Emulsion 300 ML 1900 04/04 1900 04/04 Intravenous IV 04/05 1859 1805 Fat Emulsion 500 ML Q24H 04/03 1900 CA 04/03 Intravenous IV 04/04 1859 2001 Glycerin 2 SPRAY Q2P PRN 04/04 2315 AC 04/05 PO 0825 Heparin Sodium 5,000 UNIT Q8 03/28 1400 AC 04/05 (Porcine) SC 1400 Hydralazine HCl 10 MG ONCE ONE 04/05 1530 DC 04/05 IV 04/05 1531 1534 Hydromorphone HCl 0.6 MG Q4P PRN 04/03 1730 04/05 IV 1612 Lacosamide 100 MG Q12H 04/03 1630 04/05 Sodium Chloride 100 ML IV 1612 Levothyroxine Sodium 25 MCG DAILY 04/03 1000 04/05 IV 1012 Magnesium Sulfate 1 GM Q2H 04/05 1030 CA 04/05 Dextrose/Water 100 ML IV 04/05 1429 1400 Metoprolol Tartrate 5 MG Q6 04/05 1800 04/05 IV 1702 Metoprolol Tartrate 2.5 MG Q6 04/05 1200 CA 04/05 IV 1237 Metronidazole 500 MG Q8H 04/02 0200 04/05 N/A 1 UNIT IV 1718 Norepinephrine 4 MG Q24H 04/03 1530 CA 04/04 Sodium Chloride 250 ML IV 0047 Ondansetron HCl 4 MG Q6-PRN PRN 03/30 0800 04/02 IV 0710 Pantoprazole Sodium 40 MG BID 04/03 1000 04/05 IV 1012 Phenol 2 SPRAY Q2P PRN 04/04 0800 04/04 EXT 0818 Potassium Chloride 20 MEQ Q1H 04/05 1045 CA 04/05 IV 04/05 1146 1245 Potassium Chloride 20 MEQ Q1H 04/04 2330 CAN IV 04/05 0031 Potassium Phosphate 15 mMol ONE ONE 04/05 1600 AC 04/05 Dextrose/Water 250 ML IV 04/05 2004 1702 Potassium Phosphate 15 mMol ONE TIME ONE 04/05 1015 CA 04/05 Dextrose/Water 250 ML IV 04/05 1419 1400 Prochlorperazine 10 MG Q6-PRN PRN 03/29 1945 AC 04/01 IV 2256 Total Parenteral 1 UNIT 1900 04/05 1900 AC Nutrition IV 01/22 1859 Total Parenteral 1 UNIT 190 01/20 1900 AC 04/04 Nutrition IV 04/05 1858 180 Total Parenteral 1 UNIT Q24H 04/03 1899 DC 04/03 Nutrition IV 04/04 Results Last 48 Hrs of Labs/Mics: Laboratory Tests 04/05/17 0430: Anion Gap 11, Estimated GFR > 60, Glucose 144 H, Calcium 7.3 L, Phosphorus 2.0 L, Magnesium 1.6, Total Bilirubin 0.3, AST 19, ALT 58, Alkaline Phosphatase 60, Albumin 2.0 L, CBC w Diff MAN DIFF ORDERED, RBC 3.84 L, MCV 88.0, MCH 29.9, RDW 13.6, MPV 7.4, Gran % 93.6 H, Lymphocytes % 2.0 L, Monocytes % 4.2, Eosinophils % 0.2, Basophils % 0, Absolute Granulocytes 25.1 H, Segmented Neutrophils 93 H, Band Neutrophils 3, Absolute Lymphocytes 0.5 L, Lymphocytes 2 L, Monocytes 1 L, Absolute Monocytes 1.1 H, Absolute Eosinophils 0.1, Absolute Basophils 0, Metamyelocytes 1, Platelet Estimate ADEQUATE, Normocytic RBCs VERIFIED, Normochromic RBCs VERIFIED, PUBS MCHC 33.9, Fld Total RBCs Counted 100 04/04/17 0455: Anion Gap 10, Estimated GFR 44 L, Glucose 132 H, Calcium 7.1 L, Phosphorus 2.8, Magnesium 1.9, Total Bilirubin 0.1 L, AST 28, ALT 61, Albumin 1.8 L, Prealbumin 7.4 L, Triglycerides 121, CBC w Diff MAN DIFF ORDERED, RBC 4.13 L, MCV 88.5, MCH 29.8, RDW 13.2, MPV 7.8, Gran % 93.6 H, Lymphocytes % 3.0 L, Monocytes % 3.2, Eosinophils % 0.2, Basophils % 0, Absolute Granulocytes 22.1 H , Segmented Neutrophils 84 H, Band Neutrophils 10 H, Absolute Lymphocytes 0.7 L, Lymphocytes 4 L, Monocytes 2, Absolute Monocytes 0.8 H, Absolute Eosinophils 0.1, Absolute Basophils 0, Platelet Estimate ADEQUATE, Normocytic RBCs VERIFIED, Normochromic RBCs VERIFIED, PUBS MCHC 33.7, Fld Total RBCs Counted 100 Recent Imaging Studies: CT abdomen/pelvis 04/05/2017: There is interval insertion of 3 abdominal catheters or drainage tubes as described above with complete resolution of ascites except for some fluid in the left perisplenic region. Pneumothorax has significantly improved with some remaining or residual air bubble seen in the abdomen. There is nonspecific new mural thickening involving the rectum and distal sigmoid colon. Some pericolic haziness is seen in descending colon. Nonspecific inflammation or iatrogenic. No bowel obstruction seen. The endotracheal tube lies within the mid stomach. Bilateral lower lobe small consolidations with pleural effusions are unchanged. Assessment/Plan Assessment/Plan [id number] w/ hx TBI, HTN, hypothyroidism, and seizure disorder admitted 2017 with a perforated appendicitis with subsequent peritonitis requiring an urgent appendectomy followed by a reoperation on 04/03/2017 for a perforated gastroduodenal ulcer with subsequent sepsis and a modest bump in his troponin I felt to be 2/2 sepsis and not an ACS with essentially normal LV function by echocardiography. Hemodynamically improved and progressing well from CV standpoint. Continue present regimen. DVT prophylaxis. Continue telemetry? Not applicable (In ICU.)
--- NOTE | 2017-04-05 18:41 | RADIOLOGY REPORT ---
EXAMINATION: XR PORTABLE CHEST CLINICAL INFORMATION: Assess for interval change. Respiratory failure status post extubation. COMPARISON: Chest radiograph 04/03/2017. TECHNIQUE: Portable frontal view of the chest was obtained. FINDINGS: Previously noted small bilateral pleural effusions with minimal bibasilar atelectasis appear similar or slightly improved from prior examination. The lungs are otherwise clear. Cardiomediastinal silhouette and pulmonary vasculature are within normal limits. Right IJ central venous catheter remains in stable position in the distal SVC. There is been interval removal of the endotracheal tube. The enteric tube is not well-visualized and this examination but appears to terminate below the diaphragm in the expected region of the stomach. IMPRESSION: Stable appearance of the lungs with tiny basilar pleural effusions and minimal bibasilar atelectasis.
[2017-04-05 23:00] VITALS: BP 212/102
[2017-04-06 05:22] LABS: ABSOLUTE BASOPHIL COUNT 0 /CUMM (0.0-0.2); ABSOLUTE EOSINOPHIL COUNT 0.1 /CUMM (0.0-0.7); ABSOLUTE GRANULOCYTE CT 22.2 /CUMM (1.4-6.5); ABSOLUTE LYMPH COUNT 0.6 /CUMM (1.2-3.4); ABSOLUTE MONOCYTE COUNT 1.8 /CUMM (0.10-0.60); BASOPHIL % 0 % (0.0-2.0); EOSINOPHIL % 0.4 % (0-5); GRANULOCYTE % 89.8 % (42.2-75.2); HEMATOCRIT 35.8 % (42-52); MEAN CORPUSCULAR HGB 29.5 PG (27.0-31.0); MEAN CORPUSCULAR HGB CONC 33.5 G/DL (33.0-37.0); MEAN CORPUSCULAR VOLUME 88.1 FL (80.0-94.0); MEAN PLATELET VOLUME 7.5 FL (7.4-10.4); PLATELET COUNT 303 /CUMM (130-400); RBC DISTRIBUTION WIDTH 13.4 % (11.5-14.5); RED BLOOD CELL CT 4.07 /CUMM (4.70-6.10); WHITE BLOOD CELL COUNT 24.8 /CUMM (4.8-10.8)
[2017-04-06 07:00] VITALS: BP 182/80
--- NOTE | 2017-04-06 07:52 | PN- Resident CRCU ---
Alondra Ibrahim 04/06/17 0752: Subjective HPI/CRCU Issues: 1. Perforated appendicitis, status post laparoscopic appendectomy with postoperative course complicated by perforated gastroduodenal ulcer status post omental patch 2. Septic shock secondary to peritonitis 3. Increasing leukocytosis, rule out underlying infection 4. Respiratory failure, status post extubation with stable respiratory status. 5. History of significant traumatic brain injury with seizures. 6. History of hypothyroidism. 7. Malnutrition, on TPN and lipids. 8. Hypokalemia. 24 Hour Events: HR 76-91 BP 170-189/60-98 NSR Tm 99.8 He was comfortable this morning. Did not have any new complaints. Vitals remained stable overnight. He had 10-11 episodes of diarrhea, but did not have any abdominal pain but reported abdominal discomfort. He reported nausea. Objective Vital Signs & I&O Last 8 Hrs of Vitals and I&O: Intake & Output 04/06 1600 Intake Total 3558.0 Output Total 2190 Balance 1368.0 Intake, IV 807 Intake, Lipid 420.0 Intake, Oral 320 Intake, 2010 TPN/PPN Number 1 Bowel Movements Output, 40 Drainage Output, 600 Gastric Drainage Output, Urine 1550 Exam Other Physical Findings: General Exam: AAOx3, No acute distress, NJ tube in place. Skin: No rashes, HEENT: PERRLA, EOMI Neck: Supple, No JVD No cervical lymphadenopathy CVS: Reg Rate, Normal S1,S2, No MGR Resp: Normal air entry, no ronchi/rales Abdomen: Soft, tenderness +, Normal Bowel Sounds, charissa in place, LENNY drain in place. Neuro: Normal Speech, Strength 5/5 b/l x 4 extremities, Sensation intact, CN III -XII NL, Reflexes 2+ Extremities: No cyanosis, pedal edema. Weaning Parameters NIF: 30 Minute Volume: 12.7 Resp rate: 579 Vt: 22 Heart Rate: 75 Weaning Schedule Start Time: 0922 Minute Volume: 13.9 Resp Rate: 23 Vt: 606 Heart Rate: 77 End Time: 1006 Minute Volume: 13.7 Resp Rate: 24 Vt: 574 Heart Rate: 78 Impression/Plan Impression/Problem List Impression: Mr Cosby is a 61 year old gentleman with a PMHx of hypothyroidism, TBI w/ h/o seizures, HTN, OA, depression, was admitted on 03/27/16 for abdominal pain due to perforated appendicitis for which he underwent laparoscopic appendectomy with post-op course c/b perforated gastroduodenal ulcer; which was repaired with an omental patch on 04/03. While in the OR, patient became hypotensive to SBP 50-60's soon after induction of anesthesia, and was resuscitated with IVFs and required brief pressor support for maintaining the adequate BP. He was subsequently to the ICU postoperatively for closer monitoring of respiratory status, as he was briefly intubated post- op. Assessment/Plan: 1. Perforated appendicitis, status post laparoscopic appendectomy with postoperative course complicated by perforated gastroduodenal ulcer status post omental patch * His abdominal LENNY drain output has been minimal. * He continues to have vague generalized abdominal pain, hyperactive bowel sounds and has 10-11 diarrhea, likely secondary to C diff or has other bacterial enteritis. C diff toxin was negative. * Send c diff PCR to r/o any colitis sec to c diff. * For now, he is continued on ceftriaxone and flagyl. There is however a concern of fungal or other bacterial infections for which he could require broader coverage w/ meropenem. * IV pantoprazole BID * Continue ceftriaxone and flagyl * Unfortunately, no cultures were sent form OR to guide tx. * Continue TPN, pending upper GI series. * If the upper GI series reveals no leak from the ulcer, would discuss w/ the surgery to advance the diet. 2. Septic shock secondary to peritonitis, resolved * Patient has increasing leukocytosis which is concerning for residual infection underlying infection * He has vague generalized abdominal pain * Monitor closely for an acute drop in BP. 3. Respiratory failure, status post extubation with stable respiratory status * Respiratory status improved. * Off ventilator. 4. Hypotension * Currently resolved * Continues to have elevated BP. * Would tx w/ iv lopressor pushes. 5. History of significant traumatic brain injury with seizures * Continue Vimpat 100mg PO q12h until able to swallow then can start back on Trileptal 6. History of hypothyroidism * Continue levothyroxine IV 0.025mcg daily while he is on TPN 7. Malnutrition on TPN and lipids * Continue TPN. Today is Day 4. 8. Hypokalemia * Replete as needed - DVT ppx - Hep SC and ALPS - Code Status - Full code. Problem List: 1. Acute appendicitis 2. Rib fracture Pain Ratin Tomorrow's Labs & Rationales: ICU bundle. CBC Plan DVT/Prophylaxis: mechanical, pharmacological Code Status: Full Code Edmar PLAZA,Arnel 04/06/1759: Objective Exam General Appearance: alert, awake Current Medications: Current Medications Sig/Nirmal Start time Last Medication Dose Route Stop Time Status Admin Acetaminophen 1,000 MG .STK-MED ONE 04/07 0019 DC IV 04/07 0020 Acetaminophen 1,000 MG Q6P PRN 04/02 0730 04/07 N/A 1 UNIT IV 0805 Albuterol Sulfate 3 ML Q4P PRN 04/06 1330 AC 04/06 INH 1340 Ceftriaxone Sodium 1,000 MG DAILY 04/02 1000 DC 04/07 IV 0918 Fat Emulsion 500 ML Q24H 04/07 1900 AC Intravenous IV 04/08 1859 Fat Emulsion 500 ML Q24H 04/06 1900 AC 04/06 Intravenous IV 04/07 1859 1930 Fat Emulsion 450 ML 1900 04/05 1900 DC 04/05 Intravenous IV 04/06 1859 1842 Glycerin 2 SPRAY Q2P PRN 04/04 2315 AC 04/05 PO 0825 Heparin Sodium 5,000 UNIT Q8 03/28 1400 AC 04/07 (Porcine) SC 0556 Hydralazine HCl 5 MG ONCE ONE 04/06 2300 DC 04/06 IV 04/06 2301 2255 Hydrochlorothiazide 25 MG DAILY 04/07 1000 AC 04/07 PO 0918 Hydromorphone HCl 0.4 MG ONCE ONE 04/07 1015 DC 04/07 IV 04/07 1016 1011 Hydromorphone HCl 0.6 MG Q4P PRN 04/03 1730 04/07 IV 0642 Lacosamide 100 MG Q12H 04/03 1630 AC 04/07 Sodium Chloride 100 ML IV 04/07 2300 0557 Levothyroxine Sodium 0.05 MG DAILY AC 04/08 0700 AC PO Levothyroxine Sodium 25 MCG DAILY 04/03 1000 DC 04/07 IV 1107 Lisinopril 30 MG DAILY 04/07 1000 AC 04/07 PO 0918 Magnesium Sulfate 1 GM Q2H 04/07 0800 AC 04/07 Dextrose/Water 100 ML IV 04/07 1159 0917 Magnesium Sulfate 1 GM Q2H 04/06 0900 DC 04/06 Dextrose/Water 100 ML IV 04/06 1259 1432 Metoprolol Tartrate 100 MG BID 04/07 2200 AC PO Metoprolol Tartrate 10 MG Q6 04/05 2359 DC 04/07 IV 0607 Metronidazole 500 MG Q8H 04/02 0200 DC 04/07 N/A 1 UNIT IV 0917 Nystatin 1 AGUEDA BID PRN 04/07 1100 AC TOP Ondansetron HCl 4 MG Q6-PRN PRN 03/30 0800 AC 04/02 IV 0710 Oxcarbazepine 150 MG BID 04/08 1000 AC PO Pantoprazole Sodium 40 MG BID 04/03 1000 AC 04/07 IV 0918 Phenol 2 SPRAY Q2P PRN 04/04 0800 AC 04/04 EXT 0818 Potassium Chloride 40 MEQ 0900 04/07 0900 DC 04/07 PO 04/07 0901 0917 Potassium Chloride 20 MEQ ONCE ONE 04/07 0815 DC 04/07 IV 04/07 0816 0805 Potassium Chloride 40 MEQ ONCE ONE 04/07 0800 DC 04/07 PO 04/07 0801 0804 Potassium Phosphate 15 mMol ONE ONE 04/07 1045 AC Sodium Chloride 250 ML IV 04/07 1449 Prochlorperazine 10 MG Q6-PRN PRN 03/29 1945 AC 04/01 IV 2256 Total Parenteral 1 UNIT Q24H 04/07 1900 AC Nutrition IV 04/08 1859 Total Parenteral 1 UNIT Q24H 04/06 1900 AC 04/06 Nutrition IV 04/07 1859 1930 Total Parenteral 1 UNIT 1900 04/05 1900 DC 04/05 Nutrition IV 04/06 1859 1843 Attending MD Review Statement Attending Sign Off Attending Cosign Statement: I have: examined this patient, reviewed [facility] EMR data, personally reviewd images, discussd w/resident/PA/SOIL EXPERT, discussed mgmt plan w/[place], discussed mgmt plan w/CM, discussed mgmt plan w/pt, agreed w/resident/PA/SOIL EXPERT, amended to note. Other Findings: Impression 61 year old man * s/p lap appy, perforated gastroduodenal ulcer, omental patch * hypotension resolved - now hypertensive * respiratory failure resolved - extubated * malnutrition Plan -surgical plan - alimentary status per surgery -monitor and replete electrolytes as needed -trc -abx per ID -tpn, nutrition follow up -GI plans for endoscopy DVT prophylaxis at all times remain in ICU until procedures are completed TTS 35 min
--- NOTE | 2017-04-06 08:42 | PN- General Surgery ---
See Addendum Subjective Subjective: feeling ok, eagerly awating chance to eat. no oob postop. off all supplemental o2. hypertensive to 200s, denies cp/sob/palps. +bm, +uo via garza. some abd pain, helped w meds Objective Vital Signs and I&Os Vital Signs Date Time Temp Pulse Resp B/P B/P Pulse O2 O2 Flow FiO2 Mean Ox Delivery Rate 04/06 0600 72 187/86 04/05 2322 78 212/102 04/05 2300 97.8 81 22 212/102 94 Room Air 04/05 2000 94 04/05 1849 179/80 04/05 1702 86 174/82 04/05 1600 98.1 90 22 180/80 93 Room Air 04/05 1534 79 180/90 04/05 1237 82 170/90 Intake & Output 04/06 1600 04/06 0800 04/06 0000 04/05 1600 04/05 0800 04/05 0000 Intake Total 1549.6 1908.0 1812.0 1381 1571 Output Total 1780 4330 1845 1845 1750 Balance -230.4 -2422.0 -33.0 -464 -179 Intake, IV 700 1140 1155 1381 1571 Intake, Lipid 149.6 131.0 103.0 Intake, Oral 0 Intake, 700 637 554 TPN/PPN Number 1 4 2 5 Bowel Movements Output, 30 20 45 45 50 Drainage Output, 2165 Emesis Output, 600 600 700 700 700 Gastric Drainage Output, Urine 1150 1545 1100 1100 1000 Physical Exam: gen- nad card- s1s2 rrr pulm- +bs thoughout, decreased at bases abd- soft, distended, no bs, jpx3 to self suction, dressings cdi, ttp thoughout ext- calves soft nt, alps not on jp1: serous,03/01/20 jp2: serous, 07/18/14 jp3: seropurulent, 07/18/09 garza: 1150/1545/1100 NGT: green bilious: 600/600/700 Current Medications: Current Medications Sig/Nirmal Start time Last Medication Dose Route Stop Time Status Admin Acetaminophen 1,000 MG Q6P PRN 04/02 0730 AC 04/03 N/A 1 UNIT IV 1232 Ceftriaxone Sodium 1,000 MG DAILY 04/02 1000 04/05 IV 1012 Dextrose/Sodium 1,000 ML Q8H 04/04 2330 MN 04/05 Chloride IV 04/05 2329 1534 Fat Emulsion 450 ML 1900 04/05 1900 04/05 Intravenous IV 04/06 1859 1842 Fat Emulsion 300 ML 1900 04/04 1900 MN 04/04 Intravenous IV 04/05 1859 1805 Glycerin 2 SPRAY Q2P PRN 04/04 2315 04/05 PO 0825 Heparin Sodium 5,000 UNIT Q8 03/28 1400 AC 04/06 (Porcine) SC 0600 Hydralazine HCl 10 MG ONCE ONE 04/05 1900 MN 04/05 IV 04/05 1901 1849 Hydralazine HCl 10 MG ONCE ONE 04/05 1530 MN 04/05 IV 04/05 1531 1534 Hydromorphone HCl 0.6 MG Q4P PRN 04/03 1730 04/06 IV 0825 Lacosamide 100 MG Q12H 04/03 1630 04/06 Sodium Chloride 100 ML IV 0513 Levothyroxine Sodium 25 MCG DAILY 04/03 1000 04/05 IV 1012 Magnesium Sulfate 1 GM Q2H 04/05 1030 MN 04/05 Dextrose/Water 100 ML IV 04/05 1429 1400 Metoprolol Tartrate 10 MG Q6 04/05 2359 04/06 IV 0600 Metoprolol Tartrate 5 MG Q6 04/05 1800 MN 04/05 IV 1702 Metoprolol Tartrate 2.5 MG Q6 04/05 1200 MN 04/05 IV 1237 Metronidazole 500 MG Q8H 04/02 0200 04/06 N/A 1 UNIT IV 0158 Ondansetron HCl 4 MG Q6-PRN PRN 03/30 0800 04/02 IV 0710 Pantoprazole Sodium 40 MG BID 04/03 1000 04/05 IV 2214 Phenol 2 SPRAY Q2P PRN 04/04 0800 04/04 EXT 0818 Potassium Chloride 20 MEQ Q1H 04/05 1045 MN 04/05 IV 04/05 1146 1245 Potassium Phosphate 15 mMol ONE ONE 04/05 1600 MN 04/05 Dextrose/Water 250 ML IV 04/05 2004 1702 Potassium Phosphate 15 mMol ONE TIME ONE 04/05 1015 MN 04/05 Dextrose/Water 250 ML IV 04/05 1419 1400 Prochlorperazine 10 MG Q6-PRN PRN 03/29 194 AC 04/01 IV 2256 Total Parenteral 1 UNIT 04/05 AC 04/05 Nutrition IV 04/06 185 1843 Total Parenteral 1 UNIT 04/04 DC 04/04 Nutrition IV 04/05 185 1805 Results Last 48 Hours of Labs: Laboratory Tests 04/06 04/05 0445 0430 Chemistry Sodium (137 - 145 mmol/L) 141 140 Potassium (3.5 - 5.1 mmol/L) 3.0 L 3.0 L Chloride (98 - 107 mmol/L) 103 105 Carbon Dioxide (22 - 30 mmol/L) 27 24 Anion Gap (5 - 16) 11 11 BUN (9 - 20 mg/dL) 11 13 Creatinine (0.7 - 1.2 mg/dL) 0.6 L 0.8 Estimated GFR (>60 ml/min) > 60 > 60 Glucose (65 - 99 mg/dL) 135 H 144 H Calcium (8.4 - 10.2 mg/dL) 7.5 L 7.3 L Phosphorus (2.5 - 4.5 mg/dL) 2.7 2.0 L Magnesium (1.6 - 2.3 mg/dL) 1.5 L 1.6 Total Bilirubin (0.2 - 1.3 mg/dL) 0.3 0.3 AST (17 - 59 U/L) 19 19 ALT (21 - 72 U/L) 48 58 Alkaline Phosphatase (< 127 U/L) 60 Albumin (3.5 - 5.0 g/dL) 2.1 L 2.0 L Hematology CBC w Diff MAN DIFF ORDERED MAN DIFF ORDERED WBC (4.8 - 10.8 /CUMM) 24.8 H 26.8 H RBC (4.70 - 6.10 /CUMM) 4.07 L 3.84 L Hgb (14.0 - 18.0 G/DL) 12.0 L 11.5 L Hct (42 - 52 %) 35.8 L 33.8 L MCV (80.0 - 94.0 FL) 88.1 88.0 MCH (27.0 - 31.0 PG) 29.5 29.9 RDW (11.5 - 14.5 %) 13.4 13.6 Plt Count (130 - 400 /CUMM) 303 267 MPV (7.4 - 10.4 FL) 7.5 7.4 Gran % (42.2 - 75.2 %) 89.8 H 93.6 H Lymphocytes % (20.5 - 51.1 %) 2.5 L 2.0 L Monocytes % (1.7 - 9.3 %) 7.3 4.2 Eosinophils % (0 - 5 %) 0.4 0.2 Basophils % (0.0 - 2.0 %) 0 0 Absolute Granulocytes (1.4 - 6.5 /CUMM) 22.2 H 25.1 H Segmented Neutrophils (42.2 - 75.2 %) 85 H 93 H Band Neutrophils (0.0 - 5.0 %) 1 3 Absolute Lymphocytes (1.2 - 3.4 /CUMM) 0.6 L 0.5 L Lymphocytes (20.5 - 51.1 %) 2 L 2 L Monocytes (1.7 - 9.3 %) 6 1 L Absolute Monocytes (0.10 - 0.60 /CUMM) 1.8 H 1.1 H Eosinophils (0 - 5.0 %) 1 Absolute Eosinophils (0.0 - 0.7 /CUMM) 0.1 0.1 Absolute Basophils (0.0 - 0.2 /CUMM) 0 0 Metamyelocytes (0.0 - 1.0 %) 3 H 1 Myelocytes (0 - 0 %) 2 H Platelet Estimate (ADEQUATE) ADEQUATE ADEQUATE Normocytic RBCs VERIFIED VERIFIED Normochromic RBCs VERIFIED VERIFIED PUBS MCHC (33.0 - 37.0 G/DL) 33.5 33.9 Other Body Source Fld Total RBCs Counted (%) 100 Assessment/Plan Assessment/Plan A: POD3 sp lap repair perf gastroduodenal ulcer w omental patch, POD10 sp lap appy for perf'ed appendicitis, currently in ICU though extubated off all o2, with hypertension up to >200/100, on TPN with electrolyte imbalances. P- htn- per icu team, cardiology following. on iv bb now, recently increased dose. cont closely monitor. -needs oob -cont ngt, iv meds, strict npo -?ugi today- will dw Dr. Sow. -keep jpx3 to self suction- ?when to dc -cont abx per id -tpn per icu team- replete acosta grayson attending Core Measures Venous Thromboembolism VTE Risk Factors Surgery No Mechanical VTE Prophylaxis d/t N/A MechProphylax Ordered No VTE Pharm Prophylaxis d/t NA PharmProphylax ordered
--- NOTE | 2017-04-06 11:04 | PN- Infect Dx ---
Subjective Subjective: Afebrile. He complains of significant thirst and abdominal discomfort. He has 11 bowel movements reported yesterday, described as liquid and mucoid, some of which were guaiac positive Objective Last 24 Hrs of Vital Signs/I&O Vital Signs Date Time Temp Pulse Resp B/P B/P Pulse O2 O2 Flow FiO2 Mean Ox Delivery Rate 04/06 0600 72 187/86 04/05 2322 78 212/102 04/05 2300 97.8 81 22 212/102 94 Room Air 04/05 2000 94 04/05 1849 179/80 04/05 1702 86 174/82 04/05 1600 98.1 90 22 180/80 93 Room Air 04/05 1534 79 180/90 04/05 1237 82 170/90 Intake & Output 04/06 1600 04/06 0800 04/06 0000 Intake Total 1549.6 1908.0 Output Total 1780 4330 Balance -230.4 -2422.0 Intake, IV 700 1140 Intake, Lipid 149.6 131.0 Intake, 700 637 TPN/PPN Number 1 4 Bowel Movements Output, 30 20 Drainage Output, 2165 Emesis Output, 600 600 Gastric Drainage Output, Urine 1150 1545 Physical Exam Other Physical Findings: He appears in no acute distress Neck right IJ triple-lumen catheter in place, with dressing displaced Lungs are clear Heart regular rhythm with no murmur Abdomen is distended, with decreased bowel sounds, tender to palpation diffusely ; [address] with decreased output Extremities no cyanosis, clubbing or edema Aleman catheter remains in place Results Last 24 Hours of Lab Results: Laboratory Tests 04/06 0445 Chemistry Sodium (137 - 145 mmol/L) 141 Potassium (3.5 - 5.1 mmol/L) 3.0 L Chloride (98 - 107 mmol/L) 103 Carbon Dioxide (22 - 30 mmol/L) 27 Anion Gap (5 - 16) 11 BUN (9 - 20 mg/dL) 11 Creatinine (0.7 - 1.2 mg/dL) 0.6 L Estimated GFR (>60 ml/min) > 60 Glucose (65 - 99 mg/dL) 135 H Calcium (8.4 - 10.2 mg/dL) 7.5 L Phosphorus (2.5 - 4.5 mg/dL) 2.7 Magnesium (1.6 - 2.3 mg/dL) 1.5 L Total Bilirubin (0.2 - 1.3 mg/dL) 0.3 AST (17 - 59 U/L) 19 ALT (21 - 72 U/L) 48 Albumin (3.5 - 5.0 g/dL) 2.1 L Hematology CBC w Diff MAN DIFF ORDERED WBC (4.8 - 10.8 /CUMM) 24.8 H RBC (4.70 - 6.10 /CUMM) 4.07 L Hgb (14.0 - 18.0 G/DL) 12.0 L Hct (42 - 52 %) 35.8 L MCV (80.0 - 94.0 FL) 88.1 MCH (27.0 - 31.0 PG) 29.5 RDW (11.5 - 14.5 %) 13.4 Plt Count (130 - 400 /CUMM) 303 MPV (7.4 - 10.4 FL) 7.5 Gran % (42.2 - 75.2 %) 89.8 H Lymphocytes % (20.5 - 51.1 %) 2.5 L Monocytes % (1.7 - 9.3 %) 7.3 Eosinophils % (0 - 5 %) 0.4 Basophils % (0.0 - 2.0 %) 0 Absolute Granulocytes (1.4 - 6.5 /CUMM) 22.2 H Segmented Neutrophils (42.2 - 75.2 %) 85 H Band Neutrophils (0.0 - 5.0 %) 1 Absolute Lymphocytes (1.2 - 3.4 /CUMM) 0.6 L Lymphocytes (20.5 - 51.1 %) 2 L Monocytes (1.7 - 9.3 %) 6 Absolute Monocytes (0.10 - 0.60 /CUMM) 1.8 H Eosinophils (0 - 5.0 %) 1 Absolute Eosinophils (0.0 - 0.7 /CUMM) 0.1 Absolute Basophils (0.0 - 0.2 /CUMM) 0 Metamyelocytes (0.0 - 1.0 %) 3 H Myelocytes (0 - 0 %) 2 H Platelet Estimate (ADEQUATE) ADEQUATE Normocytic RBCs VERIFIED Normochromic RBCs VERIFIED PUBS MCHC (33.0 - 37.0 G/DL) 33.5 Last 24 Hours of Fabiano Results: Stool C. difficile April 05 pending Recent Imaging Studies: CT of the abdomen and pelvis without contrast April 05 reveals bilateral lower lobe airspace consolidation and small pleural effusions; significant improvement in the retroperitoneum, with complete resolution of the ascites except for some fluid in the left paraspinal region; nonspecific new mural thickening involving the rectum and distal sigmoid colon, with some pericolic haziness in the descending colon Assessment/Plan Impression: Persistent leukocytosis, though with decreased bands and with temperatures remaining normal, on empiric treatment with Ceftriaxone and Flagyl (which was continued since his perforated appendix 10 days ago, with no OR cultures submitted) now 4 days status post return to the OR for a laparoscopic repair of a perforated gastroduodenal ulcer, with bile peritonitis, with no OR cultures submitted. His CT scan reveals resolution of the ascitic fluid, but, as it was without contrast, was difficult to rule out a leak. He is scheduled for an upper GI today to assess this. The CT scan did reveal some mural thickening involving the rectum and distal sigmoid colon, concerning for colitis, possibly C. difficile given his multiple liquid stools, or ischemic, given his recent hypotension. He does not appear to have any other obvious source of infection. His renal failure has resolved. Suggestion: 1. Follow-up stool for C. difficile 2. Await upper GI study 3. Would pursue placement of a PICC if TPN will need to be continued so that the right IJ can be removed 4. Continue Ceftriaxone and Flagyl pending above
[2017-04-06 12:00] VITALS: BP 160/92
--- NOTE | 2017-04-06 12:44 | RADIOLOGY REPORT ---
EXAMINATION: FLUOROSCOPY UPPER GI WITH GASTROGRAFIN WITH KUB CLINICAL INFORMATION: Postoperative abdominal pain. Patient status post repair of perforated appendicitis diagnosed 04/01/2017. Postoperative course complicated by perforated ulcer at the gastroduodenal junction, treated with omental patching. Evaluate for gastric perforation. COMPARISON: Several prior CT scans of the abdomen and pelvis dated 04/05/2017, 04/02/2017, and 04/01/2017. TECHNIQUE: A limited Gastrografin upper GI study was performed using 290 ml of Gastroview with the patient in the semisupine position. The Gastroview contrast was introduced via the indwelling nasogastric tube. Multiple spot films (15) were acquired. FINDINGS: The preliminary [employer] view of the abdomen demonstrates postsurgical drain in the epigastric region and an enteric tube with tip in the gastric body. Normal bowel gas pattern is seen without abnormal bowel distention noted. No definite free air appreciated on supine imaging. The esophagus was not evaluated. The GE junction is located below the level of the diaphragm and no GE reflux seen. The stomach is normal with no abnormal distention or contrast leak seen. There is prompt emptying of contrast into the duodenum, which is unremarkable in appearance. Evaluation is mildly limited due to motion artifact. FLUOROSCOPY TIME: 2 minutes 56 seconds. IMPRESSION: No evidence of contrast leak or gastric outlet obstruction.
[2017-04-06 16:00] VITALS: BP 102/62; BP 142/82
[2017-04-06 22:00] VITALS: BP 208/106
[2017-04-07 05:29] LABS: ABSOLUTE BASOPHIL COUNT 0.1 /CUMM (0.0-0.2); ABSOLUTE EOSINOPHIL COUNT 0.1 /CUMM (0.0-0.7); ABSOLUTE GRANULOCYTE CT 20.6 /CUMM (1.4-6.5); ABSOLUTE LYMPH COUNT 0.8 /CUMM (1.2-3.4); ABSOLUTE MONOCYTE COUNT 2.8 /CUMM (0.10-0.60); BASOPHIL % 0.3 % (0.0-2.0); EOSINOPHIL % 0.4 % (0-5); GRANULOCYTE % 84.6 % (42.2-75.2); MEAN CORPUSCULAR HGB 29.4 PG (27.0-31.0); MEAN CORPUSCULAR HGB CONC 33.6 G/DL (33.0-37.0); MEAN CORPUSCULAR VOLUME 87.6 FL (80.0-94.0); MEAN PLATELET VOLUME 7.7 FL (7.4-10.4); PLATELET COUNT 330 /CUMM (130-400); RBC DISTRIBUTION WIDTH 13.3 % (11.5-14.5); RED BLOOD CELL CT 4.34 /CUMM (4.70-6.10); WHITE BLOOD CELL COUNT 24.3 /CUMM (4.8-10.8)
--- NOTE | 2017-04-07 05:46 | PN- Resident CRCU ---
Alondra Ibrahim 04/07/17 0545: Subjective HPI/CRCU Issues: Mr Cosby was comfortable this am. No new complaints when I saw him this morning. In the next few hours during the day, he complained of pain in the right epigastrium which was relieved upon receiving dilaudid. EKG did not show any new ST changes. 24 Hour Events: Tm 99.4 HR 66-88 SBP 177-196/89-98 94 RA Objective Vital Signs & I&O Last 8 Hrs of Vitals and I&O: Intake & Output 04/07 1600 Intake Total 2530.0 Output Total 1040 Balance 1490.0 Intake, IV 1000 Intake, Lipid 150.0 Intake, Oral 680 Intake, 700 TPN/PPN Number 1 Bowel Movements Output, 40 Drainage Output, Urine 1000 Patient 269 lb Weight Weight Bed scale Measurement Method Exam General Appearance: well developed/nourished Other Physical Findings: General Exam: AAOx3, No acute distress, NJ tube in place. Skin: No rashes, HEENT: PERRLA, EOMI Neck: Supple, No JVD No cervical lymphadenopathy CVS: Reg Rate, Normal S1,S2, No MGR Resp: Normal air entry, no ronchi/rales Abdomen: Soft, tenderness +, Normal Bowel Sounds, charissa in place, LENNY drain in place. Neuro: Normal Speech, Strength 5/5 b/l x 4 extremities, Sensation intact, CN III -XII NL, Reflexes 2+ Extremities: No cyanosis, pedal edema. Weaning Parameters NIF: 30 Minute Volume: 12.7 Resp rate: 579 Vt: 22 Heart Rate: 75 Weaning Schedule Start Time: 921 Minute Volume: 13.9 Resp Rate: 23 Vt: 606 Heart Rate: 77 End Time: 1006 Minute Volume: 13.7 Resp Rate: 24 Vt: 574 Heart Rate: 78 Current Medications: Current Medications Sig/Nirmal Start time Last Medication Dose Route Stop Time Status Admin Acetaminophen 1,000 MG Q6P PRN 04/02 0730 AC 04/07 N/A 1 UNIT IV 1411 Albuterol Sulfate 3 ML Q4P PRN 04/06 1330 AC 04/08 INH 2037 Benztropine Mesylate 0.5 MG BID 04/08 2199 AC 04/08 PO 232 Bupropion HCl 150 MG BID 04/08 2199 AC 04/08 PO 2323 Buspirone HCl 30 MG BID 04/08 2200 AC 04/08 PO 2325 Fat Emulsion 500 ML Q24H 04/08 1900 AC 04/08 Intravenous IV 04/09 185 195 Fat Emulsion 500 ML Q24H 04/07 1900 DC 04/07 Intravenous IV 04/08 1852019 Furosemide 40 MG ONCE ONE 04/08 2030 DC 04/08 IV 04/08 203 2049 Glycerin 2 SPRAY Q2P PRN 04/04 2315 AC 04/05 PO 0825 Heparin Sodium 0 .STK-MED ONE 04/08 1322 DC (Porcine) IV Heparin Sodium 5,000 UNIT Q8 03/28 1400 AC 04/08 (Porcine) SC 2325 Hydrochlorothiazide 25 MG DAILY 04/07 1000 AC 04/08 PO 0937 Hydromorphone HCl 0.4 MG ONCE ONE 04/08 2100 DC 04/08 IV 04/08 2101 2114 Hydromorphone HCl 0.4 MG Q3P PRN 04/08 1815 04/09 IV 0959 Hydromorphone HCl 0.4 MG ONCE ONE 04/08 1545 DC 04/08 IV 04/08 1546 1551 Hydromorphone HCl 0.6 MG Q4P PRN 04/03 1730 DC 04/08 IV 1224 Levothyroxine Sodium 0.05 MG DAILY AC 04/08 0700 04/09 PO 0545 Lidocaine 1 ML .STK-MED ONE 04/09 1031 DC ID 04/09 1032 Lidocaine 0 .STK-MED ONE 04/08 1322 DC .ROUTE Lisinopril 30 MG DAILY 04/07 1000 AC 04/08 PO 0938 Magnesium Sulfate 1 GM ONCE ONE 04/08 0730 DC 04/08 Dextrose/Water 100 ML IV 04/08 1129 0827 Meropenem 1 GM IQ8 04/08 1700 AC 04/09 IV 1002 Methylprednisolone 40 MG ONCE ONE 04/08 2115 DC 04/08 IV 04/08 211 2118 Metoprolol Tartrate 100 MG BID 04/07 1145 AC 04/08 PO 2325 Nystatin 1 AGUEDA BID PRN 04/07 1100 AC 04/07 TOP 1300 Olanzapine 15 MG QPM 04/08 2200 AC 04/08 PO 2323 Ondansetron HCl 4 MG Q6-PRN PRN 03/30 0800 AC 04/02 IV 0710 Oxcarbazepine 150 MG BID 04/08 1000 AC 04/08 PO 2324 Pantoprazole Sodium 40 MG BID 04/03 1000 AC 04/08 IV 2323 Phenol 2 SPRAY Q2P PRN 04/04 0800 AC 04/04 EXT 0818 Prochlorperazine 10 MG Q6-PRN PRN 03/29 1945 AC 04/01 IV 2256 Total Parenteral 1 UNIT Q24H 04/08 1900 AC 04/08 Nutrition IV 04/09 Total Parenteral 1 UNIT Q24H 04/07 190 DC 04/07 Nutrition IV 04/08 Impression/Plan Impression/Problem List Impression: Mr Cosby is a 61 year old gentleman with a PMHx of hypothyroidism, TBI w/ h/o seizures, HTN, OA, depression, was admitted on 03/27/16 for abdominal pain due to perforated appendicitis for which he underwent laparoscopic appendectomy with post-op course c/b perforated gastroduodenal ulcer; which was repaired with an omental patch on 04/03. While in the OR, patient became hypotensive to SBP 50-60's soon after induction of anesthesia, and was resuscitated with IVFs and required brief pressor support for maintaining the adequate BP. He was subsequently to the ICU postoperatively for closer monitoring of respiratory status, as he was briefly intubated post- op. Assessment/Plan: 1. Perforated appendicitis, status post laparoscopic appendectomy with postoperative course complicated by perforated gastroduodenal ulcer status post omental patch * His abdominal LENNY drain output has been minimal. * He continues to have vague generalized abdominal pain, hyperactive bowel sounds and has 8 episodes of diarrhea, without clear etiology. C diff toxin and PCR negative. * Abx have been dc'ed. * IV pantoprazole BID * Unfortunately, no cultures were sent form OR to guide tx. * Continue TPN, pending advancement in his diet. After the pt is more consistent w/ his diet, TPN could be tapered. * Upper GI series negative for any ulcer. 2. Septic shock secondary to peritonitis, resolved * Patient has increasing leukocytosis which is concerning for residual infection underlying infection * He has vague generalized abdominal pain * Monitor closely for an acute drop in BP. 3. Respiratory failure, status post extubation with stable respiratory status * Respiratory status improved. * Off ventilator. 4. Hypotension * Currently resolved * Continues to have elevated BP. * Would change the iv meds to po. 5. History of significant traumatic brain injury with seizures * Change Vimpat 100mg PO q12h back toTrileptal 6. History of hypothyroidism * Change LT4 50 ug. 7. Malnutrition on TPN and lipids * Continue TPN. Today is Day 5. 8. Hypokalemia * Replete as needed aggressively. - DVT ppx - Hep SC and ALPS - Code Status - Full code. Problem List: 1. Acute appendicitis Pain Ratin Tomorrow's Labs & Rationales: cbc icu bundle Plan DVT/Prophylaxis: mechanical, pharmacological Code Status: Full Code Arnel Hyatt MD 04/07/17 1055: Attending MD Review Statement Attending Sign Off Attending Cosign Statement: I have: examined this patient, reviewed [employer] EMR data, personally reviewd images, discussd w/resident/PA/CERTIFIED PEDIATRIC NURSE PRACTITIONER, discussed mgmt plan w/[place]on, discussed mgmt plan w/CM, discussed mgmt plan w/pt, agreed w/resident/PA/CERTIFIED PEDIATRIC NURSE PRACTITIONER, amended to note. Other Findings: Impression 61 year old man * s/p lap appy, perforated gastroduodenal ulcer, omental patch * hypotension resolved - now hypertensive * respiratory failure resolved - extubated * malnutrition Plan -surgical plan - alimentary status per surgery -monitor and replete electrolytes as needed -trc -abx per ID -tpn, nutrition follow up -GI follow-up DVT prophylaxis at all times Downgraded to telemetry, follow-up cardiology TTS 35 min
[2017-04-07 06:14] VITALS: BP 174/87
--- NOTE | 2017-04-07 06:36 | PN- General Surgery ---
See Addendum Subjective Subjective: Awake, alert No specific complaints overnight tolerating liquids around the ngt - ngt clamped +loose stools yesterday still with frequent burping Pain well controlled Objective Vital Signs and I&Os Vital Signs Date Time Temp Pulse Resp B/P B/P Pulse O2 O2 Flow FiO2 Mean Ox Delivery Rate 04/07 0514 97.8 75 34 174/87 94 Room Air 04/07 0607 84 205/99 04/07 0400 94 Room Air 04/07 0049 83 162/88 04/07 0000 93 Room Air 04/06 2255 82 20/93 04/06 2200 99.0 76 22 208/106 94 Room Air 04/06 1815 71 207/85 04/06 1600 98.4 70 20 142/82 94 Room Air 04/06 1347 94 Room Air 04/06 1203 76 200/98 04/06 1200 Room Air 04/06 1200 99.0 76 18 160/92 94 Room Air 04/06 1154 Room Air 2.0L 04/06 0700 99.4 70 22 182/80 93 Room Air Intake & Output 04/07 0800 04/07 0000 04/06 1600 04/06 0800 04/06 0000 04/05 1600 Intake Total 1279.6 1122.5 3558.0 1549.6 1908.0 1812.0 Output Total 980 1565 2190 1780 4330 1845 Balance 299.6 -442.5 1368.0 -230.4 -2422.0 -33.0 Intake, IV 310 450 067 878 4538 1155 Intake, Lipid 149.6 420.0 149.6 131.0 103.0 Intake, Oral 120 60 320 0 Intake, 700 612.5 2011 700 637 554 TPN/PPN Number 0 4 1 1 4 2 Bowel Movements Output, 30 40 40 30 20 45 Drainage Output, 2165 Emesis Output, 600 600 600 700 Gastric Drainage Output, Urine 950 1525 1550 1150 1545 1100 Physical Exam: General: alert and oriented times three chest; clear anteriorly bilaterall, RRR Abd: soft, nondistended, hypoactive bs Wounds: all look good JPs 12/24/19 - all serous/serosang Assessment/Plan Assessment/Plan 61yo male s/p perf lap appy pod 11, s/p gastroduod ulcer repair with omental patch abx tpn clears ?po meds - swallowed around the ngt/or via ngt medicine/ID ICU management will discuss with Dr Sow Core Measures Venous Thromboembolism VTE Risk Factors Surgery No Mechanical VTE Prophylaxis d/t N/A MechProphylax Ordered No VTE Pharm Prophylaxis d/t NA PharmProphylax ordered
[2017-04-07 08:00] VITALS: BP 162/70
[2017-04-07 08:05] LABS: C.DIFFICILE TOXIN B QL PCR NOT DETECTED (NOT DETECTED)
--- NOTE | 2017-04-07 09:23 | RADIOLOGY REPORT ---
EXAMINATION: XR PORTABLE CHEST CLINICAL INFORMATION: Respiratory failure status post extubation evaluate for interval change in lung mcmullen. COMPARISON: Portable chest x-ray dated 04/05/2017 at 5:59 PM TECHNIQUE: Portable frontal view of the chest was obtained. FINDINGS: The lung volumes are low bilaterally, not significantly changed by comparison with the prior study. The right-sided central line in the NG tube positions are unchanged, the tip of the right-sided central line is in the mid SVC. No focal areas of airspace opacification are identified within the visualized portions of the lungs and there is no evidence of blunting of the costophrenic angles to suggest pleural effusion. The low lung volumes cause crowding of the pulmonary vasculature, however this is not significantly changed compared to the prior study. IMPRESSION: Low lung volumes, not significantly changed compared to the prior portable chest x-ray of 04/05/2017. No new focal findings.
--- NOTE | 2017-04-07 10:38 | PN- Infect Dx ---
Subjective Subjective: Afebrile. He complains of nausea and abdominal discomfort but is tolerating some clear liquids. He continues to have diarrhea, with 6 loose stools reported yesterday. Objective Last 24 Hrs of Vital Signs/I&O Vital Signs Date Time Temp Pulse Resp B/P B/P Pulse O2 O2 Flow FiO2 Mean Ox Delivery Rate 04/07 917 73 169/74 04/07 0614 97.8 75 34 174/87 94 Room Air 04/07 0607 84 205/99 04/07 0400 94 Room Air 04/07 0049 83 162/88 04/07 0000 93 Room Air 04/06 2255 82 20/93 04/06 2200 99.0 76 22 208/106 94 Room Air 04/06 1815 71 207/85 04/06 1600 98.4 70 20 142/82 94 Room Air 04/06 1347 94 Room Air 04/06 1203 76 200/98 04/06 1200 Room Air 04/06 1200 99.0 76 18 160/92 94 Room Air 04/06 1154 Room Air 2.0L Intake & Output 04/07 1600 04/07 0800 04/07 0000 Intake Total 1279.6 1122.5 Output Total 980 1565 Balance 299.6 -442.5 Intake, IV 310 450 Intake, Lipid 149.6 Intake, Oral 120 60 Intake, 700 612.5 TPN/PPN Number 0 4 Bowel Movements Output, 30 40 Drainage Output, Urine 950 1525 Physical Exam Other Physical Findings: He is awake and alert in no acute distress HEENT NG tube in place Neck right IJ triple-lumen catheter with no inflammation at the site Lungs are clear anteriorly Heart regular rhythm with no murmur Abdomen is distended, tender on palpation diffusely, with no guarding or rebound ; LENNY drains remain in place, with moderate output; decreased bowel sounds Extremities no cyanosis, clubbing or edema Aleman catheter remains in place Results Last 24 Hours of Lab Results: Laboratory Tests 04/07 04/07 04/07 0901 0453 0136 Chemistry Sodium (137 - 145 mmol/L) 139 Potassium (3.5 - 5.1 mmol/L) 2.8 *L Chloride (98 - 107 mmol/L) 98 Carbon Dioxide (22 - 30 mmol/L) 27 Anion Gap (5 - 16) 14 BUN (9 - 20 mg/dL) 13 Creatinine (0.7 - 1.2 mg/dL) 0.5 L Estimated GFR (>60 ml/min) > 60 Glucose (65 - 99 mg/dL) 140 H Calcium (8.4 - 10.2 mg/dL) 7.4 L Phosphorus (2.5 - 4.5 mg/dL) 3.3 Magnesium (1.6 - 2.3 mg/dL) 1.5 L Total Bilirubin (0.2 - 1.3 mg/dL) 0.5 AST (17 - 59 U/L) 22 ALT (21 - 72 U/L) 44 Troponin I (<0.11 ng/ml) 0.02 Cancelled Albumin (3.5 - 5.0 g/dL) 2.2 L Hematology CBC w Diff MAN DIFF ORDERED WBC (4.8 - 10.8 /CUMM) 24.3 H RBC (4.70 - 6.10 /CUMM) 4.34 L Hgb (14.0 - 18.0 G/DL) 12.8 L Hct (42 - 52 %) 38.0 L MCV (80.0 - 94.0 FL) 87.6 MCH (27.0 - 31.0 PG) 29.4 RDW (11.5 - 14.5 %) 13.3 Plt Count (130 - 400 /CUMM) 330 MPV (7.4 - 10.4 FL) 7.7 Gran % (42.2 - 75.2 %) 84.6 H Lymphocytes % (20.5 - 51.1 %) 3.4 L Monocytes % (1.7 - 9.3 %) 11.3 H Eosinophils % (0 - 5 %) 0.4 Basophils % (0.0 - 2.0 %) 0.3 Absolute Granulocytes (1.4 - 6.5 /CUMM) 20.6 H Segmented Neutrophils (42.2 - 75.2 %) 84 H Band Neutrophils (0.0 - 5.0 %) 4 Absolute Lymphocytes (1.2 - 3.4 /CUMM) 0.8 L Lymphocytes (20.5 - 51.1 %) 2 L Monocytes (1.7 - 9.3 %) 7 Absolute Monocytes (0.10 - 0.60 /CUMM) 2.8 H Absolute Eosinophils (0.0 - 0.7 /CUMM) 0.1 Absolute Basophils (0.0 - 0.2 /CUMM) 0.1 Metamyelocytes (0.0 - 1.0 %) 3 H Platelet Estimate (ADEQUATE) ADEQUATE Polychromasia 1+ Poikilocytosis 1+ PUBS MCHC (33.0 - 37.0 G/DL) 33.6 Last 24 Hours of Fabiano Results: Stool C. difficile toxin and PCR April 05 negative Recent Imaging Studies: Upper GI series April 06 no evidence of contrast leak or gastric outlet obstruction Chest x-ray April 07 reveals low lung volumes Assessment/Plan Impression: Persistent leukocytosis of unclear etiology, with temperatures remaining normal on empiric treatment with Ceftriaxone and Flagyl (which was continued since his perforated appendix 11 days ago) now 5 days status post return to the OR for a laparoscopic repair of a perforated gastroduodenal ulcer, with bile peritonitis, with no OR cultures submitted. His recent CT scan revealed resolution of the ascitic fluid, and his upper GI series did not reveal any evidence for leak. The CT scan did reveal some mural thickening involving the rectum and distal sigmoid colon, concerning for colitis, but his stool C. difficile toxin and PCR are negative, making C. difficile unlikely. He does not appear to have any other obvious source of infection. Suggestion: 1. Discontinue Ceftriaxone and Flagyl and follow off antibiotics
[2017-04-07 15:39] VITALS: BP 132/70
[2017-04-07 23:00] VITALS: BP 164/84
--- NOTE | 2017-04-08 05:37 | PN- Resident CRCU ---
Alondra Ibrahim 04/08/17 0537: Subjective HPI/CRCU Issues: He complained of abdominal discomfort. Vitals stable. During the day, a PICC line was placed but unfortunately ended in the left subclavian, which had to be removed. Discussed w/ Dr. Lee to adjust the line. Confirmed the positioning. 24 Hour Events: Tm 98.4 HR 66-70 Tele hold Objective Vital Signs & I&O Last 8 Hrs of Vitals and I&O: Intake & Output 04/08 1600 Intake Total 1819.6 Output Total 720 Balance 1099.6 Intake, IV 350 Intake, Lipid 149.6 Intake, Oral 620 Intake, 700 TPN/PPN Number 2 Bowel Movements Output, 20 Drainage Output, Urine 700 Exam General Appearance: no apparent distress Other Physical Findings: General Exam: AAOx3, No acute distress, NJ tube in place. Skin: No rashes, HEENT: PERRLA, EOMI Neck: Supple, No JVD No cervical lymphadenopathy CVS: Reg Rate, Normal S1,S2, No MGR Resp: Normal air entry, no ronchi/rales Abdomen: Soft, tenderness +, Normal Bowel Sounds, charissa in place, LENNY drain in place. Neuro: Normal Speech, Strength 5/5 b/l x 4 extremities, Sensation intact, CN III -XII NL, Reflexes 2+ Extremities: No cyanosis, pedal edema. Weaning Parameters NIF: 30 Minute Volume: 12.7 Resp rate: 579 Vt: 22 Heart Rate: 75 Weaning Schedule Start Time: 0922 Minute Volume: 13.9 Resp Rate: 23 Vt: 606 Heart Rate: 77 End Time: 1006 Minute Volume: 13.7 Resp Rate: 24 Vt: 574 Heart Rate: 78 Current Medications: Current Medications Sig/Nirmal Start time Last Medication Dose Route Stop Time Status Admin Acetaminophen 1,000 MG Q6P PRN 04/02 0730 AC 04/07 N/A 1 UNIT IV 1411 Albuterol Sulfate 3 ML Q4P PRN 04/06 1330 AC 04/08 INH 2037 Benztropine Mesylate 0.5 MG BID 04/08 220 AC 04/08 PO 232 Bupropion HCl 150 MG BID 04/08 220 AC 04/08 PO 232 Buspirone HCl 30 MG BID 04/08 220 AC 04/08 PO 2325 Fat Emulsion 500 ML Q24H 04/08 1900 AC 04/08 Intravenous IV 04/09 1859 195 Fat Emulsion 500 ML Q24H 04/07 1900 DC 04/07 Intravenous IV 04/08 1859 2019 Furosemide 40 MG ONCE ONE 04/08 2030 DC 04/08 IV 04/08 203 2049 Glycerin 2 SPRAY Q2P PRN 04/04 2315 AC 04/05 PO 0825 Heparin Sodium 0 .STK-MED ONE 04/08 1322 DC (Porcine) IV Heparin Sodium 5,000 UNIT Q8 03/28 1400 AC 04/08 (Porcine) SC 2325 Hydrochlorothiazide 25 MG DAILY 04/07 1000 AC 04/08 PO 0937 Hydromorphone HCl 0.4 MG ONCE ONE 04/08 2100 DC 04/08 IV 04/08 2101 2114 Hydromorphone HCl 0.4 MG Q3P PRN 04/08 1815 AC 04/09 IV 0959 Hydromorphone HCl 0.4 MG ONCE ONE 04/08 1545 DC 04/08 IV 04/08 1546 1551 Hydromorphone HCl 0.6 MG Q4P PRN 04/03 1730 DC 04/08 IV 1224 Levothyroxine Sodium 0.05 MG DAILY AC 04/08 0700 AC 04/09 PO 0545 Lidocaine 1 ML .STK-MED ONE 04/09 1031 DC ID 04/09 1032 Lidocaine 0 .STK-MED ONE 04/08 1322 DC .ROUTE Lisinopril 30 MG DAILY 04/07 1000 AC 04/08 PO 0938 Magnesium Sulfate 1 GM ONCE ONE 04/08 0730 DC 04/08 Dextrose/Water 100 ML IV 04/08 1129 0827 Meropenem 1 GM IQ8 04/08 1700 AC 04/09 IV 1002 Methylprednisolone 40 MG ONCE ONE 04/08 2115 DC 04/08 IV 04/08 211 2118 Metoprolol Tartrate 100 MG BID 04/07 1145 AC 04/08 PO 2325 Nystatin 1 AGUEDA BID PRN 04/07 1100 AC 04/07 TOP 1300 Olanzapine 15 MG QPM 04/08 2200 AC 04/08 PO 2323 Ondansetron HCl 4 MG Q6-PRN PRN 03/30 0800 AC 04/02 IV 0710 Oxcarbazepine 150 MG BID 04/08 1000 AC 04/08 PO 2324 Pantoprazole Sodium 40 MG BID 04/03 1000 AC 04/08 IV 2323 Phenol 2 SPRAY Q2P PRN 04/04 0800 AC 04/04 EXT 0818 Prochlorperazine 10 MG Q6-PRN PRN 03/29 1945 AC 04/01 IV 2256 Total Parenteral 1 UNIT Q24H 04/08 1900 AC 04/08 Nutrition IV 04/09 Total Parenteral 1 UNIT Q24H 04/07 190 DC 04/07 Nutrition IV 04/08 Impression/Plan Impression/Problem List Impression: Mr Cosby is a 61 year old gentleman with a PMHx of hypothyroidism, TBI w/ h/o seizures, HTN, OA, depression, was admitted on 03/27/16 for abdominal pain due to perforated appendicitis for which he underwent laparoscopic appendectomy with post-op course c/b perforated gastroduodenal ulcer; which was repaired with an omental patch on 04/03. While in the OR, patient became hypotensive to SBP 50-60's soon after induction of anesthesia, and was resuscitated with IVFs and required brief pressor support for maintaining the adequate BP. He was subsequently to the ICU postoperatively for closer monitoring of respiratory status, as he was briefly intubated post- op. Assessment/Plan: 1. Perforated appendicitis, status post laparoscopic appendectomy with postoperative course complicated by perforated gastroduodenal ulcer status post omental patch * His abdominal LENNY drain output has been minimal. * He continues to have vague generalized abdominal pain, hyperactive bowel sounds and has a few diarrheal movements, without clear etiology. C diff toxin and PCR negative. * Abx have been dc'ed. * IV pantoprazole BID * Unfortunately, no cultures were sent form OR to guide tx. * Continue TPN, pending advancement in his diet. After the pt is more consistent w/ his diet, TPN could be tapered. * Upper GI series negative for any ulcer. * Check CT abdomen, chest po and iv. 2. Septic shock secondary to peritonitis, resolved * Patient has increasing leukocytosis which is concerning for residual infection underlying infection. * He has vague generalized abdominal pain * Monitor closely for an acute drop in BP. 3. Respiratory failure, status post extubation with stable respiratory status * Respiratory status improved. * Off ventilator. 4. Hypotension * Currently resolved * Continues to have elevated BP. * Would change the iv meds to po. 5. History of significant traumatic brain injury with seizures * Changed Vimpat 100mg PO q12h back to Trileptal. 6. History of hypothyroidism * Changed to po LT4 50 ug. 7. Malnutrition on TPN and lipids * Continue TPN. Today is Day 6. * Remove the central line, after making sure that PICC line is functional. 8. Hypokalemia * Replete as needed aggressively. - DVT ppx - Hep SC and ALPS - Code Status - Full code. Problem List: 1. Acute appendicitis Pain Ratin Tomorrow's Labs & Rationales: cbc icu bundle. Plan DVT/Prophylaxis: mechanical, pharmacological Code Status: Full Code Anrel Hyatt MD 04/08/17 1326: Attending MD Review Statement Attending Sign Off Attending Cosign Statement: I have: examined this patient, reviewed [facility] EMR data, personally reviewd images, discussd w/resident/PA/PROSTHETIST, discussed mgmt plan w/leighton, discussed mgmt plan w/CM, discussed mgmt plan w/pt, agreed w/resident/PA/PROSTHETIST, amended to note. Other Findings: Impression 61 year old man * s/p lap appy, perforated gastroduodenal ulcer, omental patch * leukocytosis * respiratory failure resolved - extubated * malnutrition Plan -surgical plan - alimentary status per surgery -monitor and replete electrolytes as needed -trc -abx per ID -abd imaging, includ -tpn, nutrition follow up -GI follow-up DVT prophylaxis at all times Downgraded to telemetry, follow-up cardiology TTS 35 min
[2017-04-08 06:03] LABS: ABSOLUTE BASOPHIL COUNT 0 /CUMM (0.0-0.2); ABSOLUTE EOSINOPHIL COUNT 0.2 /CUMM (0.0-0.7); BASOPHIL % 0 % (0.0-2.0); MEAN CORPUSCULAR HGB 29.3 PG (27.0-31.0); RBC DISTRIBUTION WIDTH 13.7 % (11.5-14.5)
[2017-04-08 06:20] LABS: ABSOLUTE GRANULOCYTE CT 28.7 /CUMM (1.4-6.5); ABSOLUTE LYMPH COUNT 1.1 /CUMM (1.2-3.4); ABSOLUTE MONOCYTE COUNT 3.1 /CUMM (0.10-0.60); EOSINOPHIL % 0.6 % (0-5); GRANULOCYTE % 86.9 % (42.2-75.2); HEMATOCRIT 41.3 % (42-52); MEAN CORPUSCULAR HGB CONC 33.3 G/DL (33.0-37.0); MEAN PLATELET VOLUME 8.4 FL (7.4-10.4); PLATELET COUNT 347 /CUMM (130-400); RED BLOOD CELL CT 4.69 /CUMM (4.70-6.10)
[2017-04-08 06:43] LABS: WHITE BLOOD CELL COUNT 33.1 /CUMM (4.8-10.8)
--- NOTE | 2017-04-08 07:16 | PN- General Surgery ---
See Addendum Subjective Subjective: Tolerating clears, but not much of an appetite. Denies nausea. +flatus and several loose bms (stool sent for cdiff over weekend was negative). Denies dizziness. No shortness of breath. No chest pains. He's holding suction in hand for coughing up secretions. Not ambulating yet and not yet out of bed since 2nd surgery. One of the LENNY drains removed yesterday. Antibiotics stopped yesterday. Objective Vital Signs and I&Os Vital Signs Date Time Temp Pulse Resp B/P B/P Pulse O2 O2 Flow FiO2 Mean Ox Delivery Rate 04/08 0000 93 Room Air Room Air 04/07 2300 98.4 70 27 164/84 93 Room Air Room Air 04/07 2130 73 22 180/90 04/07 1539 98.2 66 26 132/70 96 Room Air 04/07 1300 81 169/93 04/07 1222 95 Room Air Room Air 04/07 0918 73 169/74 04/07 0800 98.4 74 28 162/70 95 Room Air Intake & Output 04/08 0800 04/08 0000 04/07 1600 04/07 0800 04/07 0000 04/06 1600 Intake Total 1167.0 2530.0 1279.6 1122.5 3558.0 Output Total 1200 5604 492 4015 2190 Balance -33.0 1490.0 299.6 -442.5 1368.0 Intake, IV 100 1000 310 450 807 Intake, Lipid 145.0 150.0 149.6 420.0 Intake, Oral 240 680 120 60 320 Intake, 682 700 700 612.5 2010 TPN/PPN Number 1 1 0 4 1 Bowel Movements Output, 40 30 40 40 Drainage Output, 600 Gastric Drainage Output, Urine 1200 8752 888 1742 1550 Patient 269 lb Weight Weight Bed scale Measurement Method Physical Exam: General - alert. comfortable. no acute distress. R IJ remains in place. Lungs - decreased breath sounds bilaterally Cardiac - s1s2. reg. Abdomen - soft. elvi-incisional tenderness. ng tube clamped. two remaining LENNY drains in place. - garza draining clear, yellow urine. Extremities - warm bilaterally. no c/c/e. athrombics active b/l. Current Medications: Current Medications Sig/Nirmal Start time Last Medication Dose Route Stop Time Status Admin Acetaminophen 1,000 MG .STK-MED ONE 04/07 1411 DC IV 04/07 1412 Acetaminophen 1,000 MG Q6P PRN 04/02 0730 AC 04/07 N/A 1 UNIT IV 1411 Albuterol Sulfate 3 ML Q4P PRN 04/06 1330 AC 04/06 INH 1340 Ceftriaxone Sodium 1,000 MG DAILY 04/02 1000 DC 04/07 IV 0918 Fat Emulsion 500 ML Q24H 04/07 1900 AC 04/07 Intravenous IV 04/08 1859 2020 Fat Emulsion 500 ML Q24H 04/06 1900 DC 04/06 Intravenous IV 04/07 1859 1930 Glycerin 2 SPRAY Q2P PRN 04/04 2315 AC 04/05 PO 0825 Heparin Sodium 5,000 UNIT Q8 03/28 1400 AC 04/08 (Porcine) SC 0635 Hydrochlorothiazide 25 MG DAILY 04/07 1000 AC 04/07 PO 0918 Hydromorphone HCl 0.4 MG ONCE ONE 04/07 1015 DC 04/07 IV 04/07 1016 1011 Hydromorphone HCl 0.6 MG Q4P PRN 04/03 1730 AC 04/08 IV 0430 Lacosamide 100 MG Q12H 04/03 1630 NC 04/07 Sodium Chloride 100 ML IV 04/07 2300 1730 Levothyroxine Sodium 0.05 MG DAILY AC 04/08 0700 AC 04/08 PO 0634 Levothyroxine Sodium 25 MCG DAILY 04/03 1000 DC 04/07 IV 1107 Lisinopril 30 MG DAILY 04/07 1000 AC 04/07 PO 0918 Magnesium Sulfate 1 GM Q2H 04/07 0800 NC 04/07 Dextrose/Water 100 ML IV 04/07 1159 1147 Metoprolol Tartrate 100 MG BID 04/07 2200 DC PO Metoprolol Tartrate 100 MG BID 04/07 1145 AC 04/07 PO 2130 Metoprolol Tartrate 10 MG Q6 04/05 2359 DC 04/07 IV 0607 Metronidazole 500 MG Q8H 04/02 0200 DC 04/07 N/A 1 UNIT IV 0917 Nystatin 1 AGUEDA BID PRN 04/07 1100 AC 04/07 TOP 1300 Ondansetron HCl 4 MG Q6-PRN PRN 03/30 0800 AC 04/02 IV 0710 Oxcarbazepine 150 MG BID 04/08 1000 AC PO Pantoprazole Sodium 40 MG BID 04/03 1000 AC 04/07 IV 2131 Phenol 2 SPRAY Q2P PRN 04/04 0800 AC 04/04 EXT 0818 Potassium Chloride 40 MEQ 0900 04/08 0900 CAN PO 04/08 0901 Potassium Chloride 40 MEQ ONCE ONE 04/07 1545 DC 04/07 PO 04/07 1546 1553 Potassium Chloride 40 MEQ 0900 04/07 0900 DC 04/07 PO 04/07 0901 0917 Potassium Chloride 20 MEQ ONCE ONE 04/07 0815 DC 04/07 IV 04/07 0816 0805 Potassium Chloride 40 MEQ ONCE ONE 04/07 0800 DC 04/07 PO 04/07 0801 0804 Potassium Phosphate 15 mMol ONE ONE 04/07 1045 DC 04/07 Sodium Chloride 250 ML IV 04/07 1449 1300 Prochlorperazine 10 MG Q6-PRN PRN 03/29 1945 AC 04/01 IV 2256 Total Parenteral 1 UNIT Q24H 04/07 1900 AC 04/07 Nutrition IV 04/08 1859 2020 Total Parenteral 1 UNIT Q24H 04/06 1900 DC 04/06 Nutrition IV 04/07 1859 1930 Results Last 48 Hours of Labs: Laboratory Tests 04/08 04/07 04/07 0430 1425 0901 Chemistry Sodium (137 - 145 mmol/L) 137 136 L Potassium (3.5 - 5.1 mmol/L) 3.3 L 3.4 L Chloride (98 - 107 mmol/L) 95 L 97 L Carbon Dioxide (22 - 30 mmol/L) 28 26 Anion Gap (5 - 16) 14 12 BUN (9 - 20 mg/dL) 15 12 Creatinine (0.7 - 1.2 mg/dL) 0.5 L 0.5 L Estimated GFR (>60 ml/min) > 60 > 60 BUN/Creatinine Ratio (7 - 25 %) 30.0 H 24.0 Magnesium (1.6 - 2.3 mg/dL) 1.5 L Troponin I (<0.11 ng/ml) 0.02 Hematology CBC w Diff MAN DIFF ORDERED WBC (4.8 - 10.8 /CUMM) 33.1 *H RBC (4.70 - 6.10 /CUMM) 4.69 L Hgb (14.0 - 18.0 G/DL) 13.7 L Hct (42 - 52 %) 41.3 L MCV (80.0 - 94.0 FL) 88.0 MCH (27.0 - 31.0 PG) 29.3 RDW (11.5 - 14.5 %) 13.7 Plt Count (130 - 400 /CUMM) 347 MPV (7.4 - 10.4 FL) 8.4 Gran % (42.2 - 75.2 %) 86.9 H Lymphocytes % (20.5 - 51.1 %) 3.3 L Monocytes % (1.7 - 9.3 %) 9.2 Eosinophils % (0 - 5 %) 0.6 Basophils % (0.0 - 2.0 %) 0 Absolute Granulocytes (1.4 - 6.5 /CUMM) 28.7 H Segmented Neutrophils (42.2 - 75.2 %) 76 H Band Neutrophils (0.0 - 5.0 %) 3 Absolute Lymphocytes (1.2 - 3.4 /CUMM) 1.1 L Lymphocytes (20.5 - 51.1 %) 11 L Monocytes (1.7 - 9.3 %) 8 Absolute Monocytes (0.10 - 0.60 /CUMM) 3.1 H Eosinophils (0 - 5.0 %) 2 Absolute Eosinophils (0.0 - 0.7 /CUMM) 0.2 Absolute Basophils (0.0 - 0.2 /CUMM) 0 Platelet Estimate (ADEQUATE) ADEQUATE Normocytic RBCs VERIFIED Normochromic RBCs VERIFIED PUBS MCHC (33.0 - 37.0 G/DL) 33.3 04/07 04/07 0453 0136 Chemistry Sodium (137 - 145 mmol/L) 139 Potassium (3.5 - 5.1 mmol/L) 2.8 *L Chloride (98 - 107 mmol/L) 98 Carbon Dioxide (22 - 30 mmol/L) 27 Anion Gap (5 - 16) 14 BUN (9 - 20 mg/dL) 13 Creatinine (0.7 - 1.2 mg/dL) 0.5 L Estimated GFR (>60 ml/min) > 60 Glucose (65 - 99 mg/dL) 140 H Calcium (8.4 - 10.2 mg/dL) 7.4 L Phosphorus (2.5 - 4.5 mg/dL) 3.3 Magnesium (1.6 - 2.3 mg/dL) 1.5 L Total Bilirubin (0.2 - 1.3 mg/dL) 0.5 AST (17 - 59 U/L) 22 ALT (21 - 72 U/L) 44 Troponin I Cancelled Albumin (3.5 - 5.0 g/dL) 2.2 L Hematology CBC w Diff MAN DIFF ORDERED WBC (4.8 - 10.8 /CUMM) 24.3 H RBC (4.70 - 6.10 /CUMM) 4.34 L Hgb (14.0 - 18.0 G/DL) 12.8 L Hct (42 - 52 %) 38.0 L MCV (80.0 - 94.0 FL) 87.6 MCH (27.0 - 31.0 PG) 29.4 RDW (11.5 - 14.5 %) 13.3 Plt Count (130 - 400 /CUMM) 330 MPV (7.4 - 10.4 FL) 7.7 Gran % (42.2 - 75.2 %) 84.6 H Lymphocytes % (20.5 - 51.1 %) 3.4 L Monocytes % (1.7 - 9.3 %) 11.3 H Eosinophils % (0 - 5 %) 0.4 Basophils % (0.0 - 2.0 %) 0.3 Absolute Granulocytes (1.4 - 6.5 /CUMM) 20.6 H Segmented Neutrophils (42.2 - 75.2 %) 84 H Band Neutrophils (0.0 - 5.0 %) 4 Absolute Lymphocytes (1.2 - 3.4 /CUMM) 0.8 L Lymphocytes (20.5 - 51.1 %) 2 L Monocytes (1.7 - 9.3 %) 7 Absolute Monocytes (0.10 - 0.60 /CUMM) 2.8 H Absolute Eosinophils (0.0 - 0.7 /CUMM) 0.1 Absolute Basophils (0.0 - 0.2 /CUMM) 0.1 Metamyelocytes (0.0 - 1.0 %) 3 H Platelet Estimate (ADEQUATE) ADEQUATE Polychromasia 1+ Poikilocytosis 1+ PUBS MCHC (33.0 - 37.0 G/DL) 33.6 Assessment/Plan Assessment/Plan This 61 year old male is POD#5 s/p lap repair perf gastroduodenal ulcer w omental patch, POD#12 s/p lap appy for perf'ed appendicitis, on tpn for prolonged npo status / malnutrition tolerating clears. ng tube removed continue tpn ?continue to monitor off antibiotics ?d/c garza soon oob today / PT eval monitor LENNY drains f/u ID and icu recommendations will d/w Core Measures Venous Thromboembolism VTE Risk Factors Surgery No Mechanical VTE Prophylaxis d/t N/A MechProphylax Ordered No VTE Pharm Prophylaxis d/t NA PharmProphylax ordered VTE Risk Factors Surgery No Mechanical VTE Prophylaxis d/t N/A MechProphylax Ordered No VTE Pharm Prophylaxis d/t NA PharmProphylax ordered
[2017-04-08 08:00] VITALS: BP 170/90
[2017-04-08 09:30] VITALS: BP 160/82
[2017-04-08 10:00] VITALS: BP 160/82
--- NOTE | 2017-04-08 10:32 | PN- Infect Dx ---
Subjective Subjective: Afebrile. He does not report any further nausea but he continues to have abdominal discomfort. Objective Last 24 Hrs of Vital Signs/I&O Vital Signs Date Time Temp Pulse Resp B/P B/P Pulse O2 O2 Flow FiO2 Mean Ox Delivery Rate 04/08 0938 82 160/82 04/08 0000 93 Room Air Room Air 04/07 2300 98.4 70 27 164/84 93 Room Air Room Air 04/07 2130 73 22 180/90 04/07 1539 98.2 66 26 132/70 96 Room Air 04/07 1300 81 169/93 04/07 1222 95 Room Air Room Air Intake & Output 04/08 1600 04/08 0800 04/08 0000 Intake Total 847.0 1167.0 Output Total 815 1200 Balance 32.0 -33.0 Intake, IV 100 Intake, Lipid 148.0 145.0 Intake, Oral 240 Intake, 699 682 TPN/PPN Number 2 1 Bowel Movements Output, 15 Drainage Output, Urine 800 1200 Patient 268 lb Weight Weight Bed scale Measurement Method Physical Exam Other Physical Findings: He appears ill but in no acute distress Neck right IJ triple-lumen catheter with no inflammation at the site Lungs decreased breath sounds at both bases Heart regular rhythm with no murmur Abdomen is distended, tender on minimal palpation diffusely, with no guarding or rebound, positive bowel sounds Extremities no cyanosis, clubbing or edema Aleman catheter remains in place Results Last 24 Hours of Lab Results: Laboratory Tests 04/08 04/07 0430 1425 Chemistry Sodium (137 - 145 mmol/L) 137 136 L Potassium (3.5 - 5.1 mmol/L) 3.3 L 3.4 L Chloride (98 - 107 mmol/L) 95 L 97 L Carbon Dioxide (22 - 30 mmol/L) 28 26 Anion Gap (5 - 16) 14 12 BUN (9 - 20 mg/dL) 15 12 Creatinine (0.7 - 1.2 mg/dL) 0.5 L 0.5 L Estimated GFR (>60 ml/min) > 60 > 60 BUN/Creatinine Ratio (7 - 25 %) 30.0 H 24.0 Magnesium (1.6 - 2.3 mg/dL) 1.5 L Hematology CBC w Diff MAN DIFF ORDERED WBC (4.8 - 10.8 /CUMM) 33.1 *H RBC (4.70 - 6.10 /CUMM) 4.69 L Hgb (14.0 - 18.0 G/DL) 13.7 L Hct (42 - 52 %) 41.3 L MCV (80.0 - 94.0 FL) 88.0 MCH (27.0 - 31.0 PG) 29.3 RDW (11.5 - 14.5 %) 13.7 Plt Count (130 - 400 /CUMM) 347 MPV (7.4 - 10.4 FL) 8.4 Gran % (42.2 - 75.2 %) 86.9 H Lymphocytes % (20.5 - 51.1 %) 3.3 L Monocytes % (1.7 - 9.3 %) 9.2 Eosinophils % (0 - 5 %) 0.6 Basophils % (0.0 - 2.0 %) 0 Absolute Granulocytes (1.4 - 6.5 /CUMM) 28.7 H Segmented Neutrophils (42.2 - 75.2 %) 76 H Band Neutrophils (0.0 - 5.0 %) 3 Absolute Lymphocytes (1.2 - 3.4 /CUMM) 1.1 L Lymphocytes (20.5 - 51.1 %) 11 L Monocytes (1.7 - 9.3 %) 8 Absolute Monocytes (0.10 - 0.60 /CUMM) 3.1 H Eosinophils (0 - 5.0 %) 2 Absolute Eosinophils (0.0 - 0.7 /CUMM) 0.2 Absolute Basophils (0.0 - 0.2 /CUMM) 0 Platelet Estimate (ADEQUATE) ADEQUATE Normocytic RBCs VERIFIED Normochromic RBCs VERIFIED PUBS MCHC (33.0 - 37.0 G/DL) 33.3 Last 24 Hours of Fabiano Results: Blood cultures April 07 negative Assessment/Plan Impression: Worsening leukocytosis, with persistent abdominal discomfort, suggesting an ongoing intra-abdominal process, though his recent CT scan revealed resolution of the ascitic fluid and the recent upper GI series was negative for any leak. He is now 6 days status post return to the OR for a laparoscopic repair of a perforated gastroduodenal ulcer, with bile peritonitis, and 12 days status post surgery for a perforated appendix, now off antibiotics with his temperatures remaining normal. The CT scan did reveal some mural thickening involving the rectum and distal sigmoid colon, concerning for colitis, but his stool C. difficile toxin and PCR were negative. Suggestion: 1. Repeat CT of the abdomen and pelvis with oral and IV contrast if possible 2. Would pursue paracentesis if ascitic fluid is present 3. Continue to follow off antibiotics pending above
--- NOTE | 2017-04-08 11:47 | RADIOLOGY REPORT ---
EXAMINATION: XR PORTABLE CHEST CLINICAL INFORMATION: PICC line placement. COMPARISON: Prior portable chest x-ray dated 04/07/2017. TECHNIQUE: Portable frontal view of the chest was obtained. FINDINGS: The PICC line is visualized in the right subclavian vein extending through the SVC and into the left subclavian vein with the tip in the proximal/mid left subclavian. Also noted is a right-sided central line with the tip in the mid SVC. The lung volumes are low bilaterally. There is poor visualization of the bilateral hemidiaphragms, with blunting of the costophrenic angles. Again noted are the severe degenerative changes in the left shoulder, stable. IMPRESSION: Tip of the PICC line in the left subclavian vein. Suboptimal imaging for evaluation of the pulmonary parenchyma and costophrenic angles. Possible bilateral pleural effusions, the left lung bases are not well visualized.
[2017-04-08 12:20] VITALS: BP 166/86
--- NOTE | 2017-04-08 15:55 | CT SCAN REPORT ---
EXAMINATION: CT CHEST ABDOMEN AND PELVIS WITH CONTRAST CLINICAL INFORMATION: Persistent leukocytosis. COMPARISON: CT scan of the abdomen and pelvis dated 04/05/2017. TECHNIQUE: Multidetector volumetric imaging was performed of the chest, abdomen and pelvis after the IV administration of 95 mL of Optiray 320 intravenous contrast. Sagittal and coronal reformatted images were obtained on the technologist's workstation. DLP: 1963.58 mGy-cm FINDINGS: LUNGS: There is a focal area of airspace opacification involving the anterior lateral aspect of the right lower lobe. Increased density is also noted in the posterior aspect of the right lower lobe extending to the right lung base suggestive of dependent atelectasis. A prominent left-sided pleural effusion is noted with central density in the left infrahilar region containing multiple air bronchograms. The density could represent compressive atelectasis versus an infiltrative process. No mediastinal lymphadenopathy is noted. No hilar lymphadenopathy is present. CARDIAC \T\ VESSELS: There is trace pericardial effusion. Coronary vascular calcifications are present. BRONCHIAL: No endobronchial findings are noted. LIVER, GALLBLADDER, AND BILIARY TREE: The liver is normal in size, shape, and attenuation. No focal hepatic lesion or biliary ductal dilatation is present. The gallbladder is unremarkable. OTHER FINDINGS: Free intraperitoneal fluid collections are present, which are not extending into the retroperitoneal space. These are tracking along both left and right lateral conal fascial regions and free fluid is present within the dependent portion of the pelvis. Peritoneal drains are present with the tip in the region of the splenic hilum in the left upper quadrant and in the right upper quadrant at the anterior margin of the liver, stable compared to the prior study of 04/05/2017. There is interval removal of the drain which was present in the left pelvic region, a residual small wound is identified. No residual intraperitoneal gas collections are noted. PANCREAS: Unremarkable. SPLEEN: Unremarkable. ADRENAL GLANDS: Unremarkable. KIDNEYS AND URETERS: The kidneys are normal in size, shape, and attenuation. No hydronephrosis, hydroureter, or calculi seen. No perinephric stranding. BLADDER: A Aleman catheter is present within the bladder lumen, the bladder is nondistended. GASTROINTESTINAL TRACT: A few mildly dilated small bowel loops are present in the central anterior abdomen, the largest measures approximately 3.5 cm in diameter. The loops are comparable in size and location to the previous study of 04/05/2017. The appendix is unremarkable. Again noted is the circumferential bowel wall thickening in the distal sigmoid colon, the overall appearance is stable compared to the previous study of 04/05/2017, nonspecific however suggestive of an inflammatory process. ABDOMINAL WALL: Small bilateral inguinal hernias are present which contain only mesenteric fat. LYMPH NODES: No pathologically enlarged lymph nodes are present. VASCULAR: Unremarkable. PELVIC VISCERA: The prostate gland is not enlarged. OSSEOUS STRUCTURES: No aggressive osseous lesions are noted. Incidental note is made of slight anterior wedging deformity of the T11 vertebral body. IMPRESSION: 1. Focal area of airspace opacification in the lateral aspect of the right lower lobe, concerning for an area of consolidation/infiltrate. 2. Increasing density in the posterior aspect of the right lower lobe extending to the right lung base is suggestive of dependent atelectasis while a central density in the left infrahilar region likely represents compressive atelectasis from the left-sided pleural effusion. 3. No residual free intraperitoneal gas is identified at this time. 4. Free intraperitoneal fluid is not significantly changed in amount compared to the prior study of 04/05/2017. [address], one drain appears to have been removed since the previous study. 5. Mildly dilated small bowel loops are overall stable compared to the previous study of 2018. 6. Circumferential bowel wall thickening of the distal sigmoid colon stable compared to 04/05/2017. Possible inflammatory process. No new findings.
[2017-04-08 16:00] VITALS: BP 168/72
--- NOTE | 2017-04-08 16:26 | INTERVENTIONAL RADIOLOGY RPT ---
EXAMINATION: PICC line repositioning CLINICAL HISTORY: 61-year-old male with recently placed PICC line. The tip of the PICC line terminates in the left subclavian vein. Repositioning recommended. INTERVENTIONAL RADIOLOGIST: Kendell Lee M.D. ANESTHESIA: None required for today's procedure. FLUOROSCOPY TIME: 0.9 minutes DOSE AREA PRODUCT: 3.9 Gy-cm2 (kent-centimeter squared) PROCEDURE IN DETAIL: Informed consent was obtained from the patient prior to the procedure. During this process, the procedure and potential alternatives were explained along with the intended outcome and benefits. The risks of the procedure including the possibility of an unsuccessful procedure, as well as the risk of not doing the procedure were discussed. The patient was given the opportunity to ask questions regarding the procedure and appeared competent to make decisions. A signed consent form which documents this discussion was placed in the medical record. Following informed consent the patient was placed supine on the fluoroscopic table. A time out procedure was performed. The right upper extremity and existing PICC line were prepped and draped in usual sterile fashion. Initial fluoroscopic image demonstrated right upper extremity PICC line malpositioned with the tip terminating within the left subclavian vein. A wire was advanced through the existing PICC line. The existing PICC line was slightly retracted and directed down the SVC. Unfortunately, the existing PICC line was too long and terminated within the deep right atrium. For this reason, the old PICC line was removed over the wire. The new double-lumen PICC line was cut to length (39 cm) and advanced over the wire. The tip of the new PICC line now terminates within the distal SVC. Fluoroscopic imaging confirmed the position of the catheter. The PICC line was secured into position. A sterile dressing was placed over the site. Both lumens were flushed with Hep-Lock. The patient tolerated the procedure well and was discharged from the department in good condition with instructions. COMPLICATIONS: None. IMPRESSION: Successful fluoroscopically guided right upper extremity PICC line reposition/exchange. PICC ready to use at this time.
[2017-04-08 17:00] VITALS: BP 150/80
--- NOTE | 2017-04-08 17:38 | Event Note ---
Event Note Event Note: Reviewed the CT scan results of chest, abdomen w/ Dr. Bauer. CT chest reading reported focal area of opacification in the right lower lobe, which was suspicious for PNA; but upon reviewing the images with the radiologist , it wasnt clear if there was a consolidative process ( as per Dr. Bauers discussiion with the radiologist). Atlelectesis was not completely ruled out. He has been having a lot of abdominal pain, which might be limiting his breathing resulting in atelectesis. He also has some pleural effusion, and unsure if its the cause of his elevated white count. He continued to have elevated white count, and he was already tx'ed w/ ceftriaxone and flagyl recently for covering the usual intra-abdominal organisms with no improvement of white count. CT scan abdomen(04/08) revelaed fluid in the left and right lateral conal fascial regions, which is likely extending into the dependent portions of pelvis. It is likely that he has an infection in these pockets, and would benefit from analysis of this fluid after drained fluroscopically especially culture, cell count etc. For now, would broaden the abx coverage to meropenem as a monotherapy which would be ideal in his case, as per Dr Bauer.
[2017-04-09 06:00] VITALS: BP 150/88
[2017-04-09 07:46] LABS: ABSOLUTE BASOPHIL COUNT 0 /CUMM (0.0-0.2); ABSOLUTE EOSINOPHIL COUNT 0 /CUMM (0.0-0.7); ABSOLUTE GRANULOCYTE CT 23.9 /CUMM (1.4-6.5); ABSOLUTE MONOCYTE COUNT 1.5 /CUMM (0.10-0.60); BASOPHIL % 0.1 % (0.0-2.0); EOSINOPHIL % 0 % (0-5); GRANULOCYTE % 90.6 % (42.2-75.2); HEMATOCRIT 40.4 % (42-52); MEAN CORPUSCULAR HGB 28.6 PG (27.0-31.0); MEAN CORPUSCULAR HGB CONC 32.5 G/DL (33.0-37.0); MEAN CORPUSCULAR VOLUME 87.9 FL (80.0-94.0); MEAN PLATELET VOLUME 8.8 FL (7.4-10.4); PLATELET COUNT 391 /CUMM (130-400); RBC DISTRIBUTION WIDTH 13.7 % (11.5-14.5); RED BLOOD CELL CT 4.59 /CUMM (4.70-6.10); WHITE BLOOD CELL COUNT 26.3 /CUMM (4.8-10.8)
--- NOTE | 2017-04-09 08:42 | PN- General Surgery ---
See Addendum Subjective Subjective: Patient tolerating clears without any nausea or vomiting, states he cannot eat this morning bc he is going for a paracentesis today. Reports passing flatus and have a green colored BM this morning. He reports diffuse pain, mostly in the right upper quadrant. He reports wheezing, denies fever, chills or night sweats. He states he has not ambulated out of bed that much. Objective Vital Signs and I&Os Vital Signs Date Time Temp Pulse Resp B/P B/P Pulse O2 O2 Flow FiO2 Mean Ox Delivery Rate 04/09 0837 94 Room Air Room Air 04/09 0600 99.1 77 20 150/88 93 04/09 0000 Room Air 04/08 2325 80 158/78 04/08 2300 98.0 78 20 93 04/08 1724 Room Air 04/08 1700 150/80 04/08 1600 98.3 72 29 168/72 94 Room Air 04/08 1540 94 Room Air 04/08 1220 99.7 68 22 166/86 96 Room Air 04/08 0938 82 160/82 04/08 0930 82 160/82 Intake & Output 04/09 1600 04/09 0800 04/09 0000 04/08 1600 04/08 0800 04/08 0000 Intake Total 832.8 664.8 1819.6 847.0 1167.0 Output Total 2350 700 813 074 3323 Balance -1517.2 -35.2 1099.6 32.0 -33.0 Intake, IV 350 100 Intake, Lipid 132.8 74.8 149.6 148.0 145.0 Intake, Oral 240 620 240 Intake, 700 350 700 699 682 TPN/PPN Number 1 1 2 2 1 Bowel Movements Output, 20 15 Drainage Output, Urine 2350 700 961 154 1847 Patient 268 lb Weight Weight Bed scale Measurement Method Physical Exam: Gen - resting comfortably awake an alert in NAD Cardiac - S1S2 noted, RRR Lungs - Poor inspiratory effort with diminshed breath sounds throughout, no wheezing appreciated Abd - soft, obese with small well healing midline incision closed with charissa and 2 LENNY drains with serous drainage, 07/28 in last shift. He is dull to percussion and diffusely tender to palpation, greater in the RUQ Ext - PICC in R arm, no edema or calf tenderness B/L Current Medications: Current Medications Sig/Nirmal Start time Last Medication Dose Route Stop Time Status Admin Acetaminophen 1,000 MG Q6P PRN 04/02 0730 04/07 N/A 1 UNIT IV 1411 Albuterol Sulfate 3 ML Q4P PRN 04/06 1330 AC 04/08 INH 2037 Benztropine Mesylate 0.5 MG BID 04/08 2200 AC 04/08 PO 2323 Bupropion HCl 150 MG BID 04/08 2200 AC 04/08 PO 2323 Buspirone HCl 30 MG BID 04/08 2200 AC 04/08 PO 2325 Fat Emulsion 500 ML Q24H 04/08 1900 AC 04/08 Intravenous IV 04/09 1853 Fat Emulsion 500 ML Q24H 04/07 1900 MA 04/07 Intravenous IV 04/08 1852019 Furosemide 40 MG ONCE ONE 04/08 2030 MA 04/08 IV 04/08 203 2049 Glycerin 2 SPRAY Q2P PRN 04/04 2315 04/05 PO 0825 Heparin Sodium 0 .STK-MED ONE 04/08 1322 DC (Porcine) IV Heparin Sodium 5,000 UNIT Q8 03/28 1400 04/08 (Porcine) SC 2325 Hydrochlorothiazide 25 MG DAILY 04/07 1000 04/08 PO 0937 Hydromorphone HCl 0.4 MG ONCE ONE 04/08 2100 MA 04/08 IV 04/08 2101 2114 Hydromorphone HCl 0.4 MG Q3P PRN 04/08 1815 04/09 IV 0545 Hydromorphone HCl 0.4 MG ONCE ONE 04/08 1545 DC 04/08 IV 04/08 1546 1551 Hydromorphone HCl 0.6 MG Q4P PRN 04/03 1730 MA 04/08 IV 1224 Levothyroxine Sodium 0.05 MG DAILY 04/08 1015 CAN PO Levothyroxine Sodium 0.05 MG DAILY AC 04/08 0700 AC 04/09 PO 0545 Lidocaine 0 .STK-MED ONE 04/08 1322 DC .ROUTE Lisinopril 30 MG DAILY 04/07 1000 AC 04/08 PO 0938 Magnesium Sulfate 1 GM ONCE ONE 04/08 0730 DC 04/08 Dextrose/Water 100 ML IV 04/08 1129 0827 Meropenem 1 GM IQ8 04/08 1700 AC 04/08 IV 2323 Methylprednisolone 40 MG ONCE ONE 04/08 2115 DC 04/08 IV 04/08 2116 2118 Metoprolol Tartrate 100 MG BID 04/07 1145 AC 04/08 PO 2325 Nystatin 1 AGUEDA BID PRN 04/07 1100 AC 04/07 TOP 1300 Olanzapine 15 MG QPM 04/08 2200 AC 04/08 PO 2323 Olanzapine 15 MG QPM 04/08 2200 CAN PO Ondansetron HCl 4 MG Q6-PRN PRN 03/30 0800 AC 04/02 IV 0710 Oxcarbazepine 150 MG BID 04/08 2200 CAN PO Oxcarbazepine 150 MG BID 04/08 1015 CAN PO Oxcarbazepine 150 MG BID 04/08 1000 AC 04/08 PO 2324 Pantoprazole Sodium 40 MG BID 04/03 1000 AC 04/08 IV 2323 Phenol 2 SPRAY Q2P PRN 04/04 0800 AC 04/04 EXT 0818 Potassium Chloride 40 MEQ ONCE ONE 04/08 1015 DC 04/08 PO 04/08 1016 1559 Potassium Chloride 40 MEQ ONCE ONE 04/08 1000 DC 04/08 PO 04/08 1001 1559 Prochlorperazine 10 MG Q6-PRN PRN 03/29 1945 AC 04/01 IV 2256 Total Parenteral 1 UNIT Q24H 04/08 1900 AC 04/08 Nutrition IV 04/09 185 195 Total Parenteral 1 UNIT Q24H 04/07 1900 DC 04/07 Nutrition IV 04/08 185 2020 Results Last 48 Hours of Labs: Laboratory Tests 04/09 04/08 0634 0430 Chemistry Sodium (137 - 145 mmol/L) 138 137 Potassium (3.5 - 5.1 mmol/L) 4.4 3.3 L Chloride (98 - 107 mmol/L) 95 L 95 L Carbon Dioxide (22 - 30 mmol/L) 29 28 Anion Gap (5 - 16) 14 14 BUN (9 - 20 mg/dL) 20 15 Creatinine (0.7 - 1.2 mg/dL) 0.5 L 0.5 L Estimated GFR (>60 ml/min) > 60 > 60 BUN/Creatinine Ratio (7 - 25 %) 40.0 H 30.0 H Calcium (8.4 - 10.2 mg/dL) 8.1 L Phosphorus (2.5 - 4.5 mg/dL) 3.8 Magnesium (1.6 - 2.3 mg/dL) 1.8 1.5 L Prealbumin (17.6 - 36.0 mg/dL) 13.4 L Hematology CBC w Diff MAN DIFF ORDERED MAN DIFF ORDERED WBC (4.8 - 10.8 /CUMM) 26.3 H 33.1 *H RBC (4.70 - 6.10 /CUMM) 4.59 L 4.69 L Hgb (14.0 - 18.0 G/DL) 13.1 L 13.7 L Hct (42 - 52 %) 40.4 L 41.3 L MCV (80.0 - 94.0 FL) 87.9 88.0 MCH (27.0 - 31.0 PG) 28.6 29.3 MCHC (33.0 - 37.0 G/DL) 32.5 L RDW (11.5 - 14.5 %) 13.7 13.7 Plt Count (130 - 400 /CUMM) 391 347 MPV (7.4 - 10.4 FL) 8.8 8.4 Gran % (42.2 - 75.2 %) 90.6 H 86.9 H Lymphocytes % (20.5 - 51.1 %) 3.6 L 3.3 L Monocytes % (1.7 - 9.3 %) 5.7 9.2 Eosinophils % (0 - 5 %) 0 0.6 Basophils % (0.0 - 2.0 %) 0.1 0 Absolute Granulocytes (1.4 - 6.5 /CUMM) 23.9 H 28.7 H Segmented Neutrophils (42.2 - 75.2 %) 82 H 76 H Band Neutrophils (0.0 - 5.0 %) 5 3 Absolute Lymphocytes (1.2 - 3.4 /CUMM) 1.0 L 1.1 L Lymphocytes (20.5 - 51.1 %) 6 L 11 L Monocytes (1.7 - 9.3 %) 7 8 Absolute Monocytes (0.10 - 0.60 /CUMM) 1.5 H 3.1 H Eosinophils (0 - 5.0 %) 2 Absolute Eosinophils (0.0 - 0.7 /CUMM) 0 0.2 Absolute Basophils (0.0 - 0.2 /CUMM) 0 0 Platelet Estimate (ADEQUATE) VERIFIED BY SMEAR ADEQUATE Normocytic RBCs VERIFIED VERIFIED Normochromic RBCs VERIFIED VERIFIED PUBS MCHC (33.0 - 37.0 G/DL) 33.3 04/07 04/07 1425 0901 Chemistry Sodium (137 - 145 mmol/L) 136 L Potassium (3.5 - 5.1 mmol/L) 3.4 L Chloride (98 - 107 mmol/L) 97 L Carbon Dioxide (22 - 30 mmol/L) 26 Anion Gap (5 - 16) 12 BUN (9 - 20 mg/dL) 12 Creatinine (0.7 - 1.2 mg/dL) 0.5 L Estimated GFR (>60 ml/min) > 60 BUN/Creatinine Ratio (7 - 25 %) 24.0 Troponin I (<0.11 ng/ml) 0.02 Assessment/Plan Assessment/Plan This is a 61 year-old male who is POD#6 s/p lap repair of perf gastroduodenal ulcer w/ omental patch with JPx3, one of which was removed and POD#12 s/p lap appy for perforated appendicitis, on tpn via PICC for prolonged npo status / malnutrition. CT scan revealed fluid collection, undergoing diagnostic/ therapeutic paracentsis today, leuckocytosis improving. Tolerating clears. npo for paracentesis Advance to fulls postprocedure Cont pain regimen Redose tpn Cont meropenem per ID Keep JPs to bulb suction ? D/c garza today Cont TRC, nebs, IS Encourage oob, PT for deconditioning Likely will require STR Appreciate ID recommendations D/w Core Measures Venous Thromboembolism VTE Risk Factors Surgery No Mechanical VTE Prophylaxis d/t N/A MechProphylax Ordered No VTE Pharm Prophylaxis d/t NA PharmProphylax ordered
--- NOTE | 2017-04-09 11:12 | PN- Infect Dx ---
Subjective Subjective: Afebrile. He still notes abdominal discomfort and continues to have loose stools, with 5 reported yesterday. He did tolerate clear liquids. He does not report shortness of breath Objective Last 24 Hrs of Vital Signs/I&O Vital Signs Date Time Temp Pulse Resp B/P B/P Pulse O2 O2 Flow FiO2 Mean Ox Delivery Rate 04/09 0837 94 Room Air Room Air 04/09 0600 99.1 77 20 150/88 93 04/09 0000 Room Air 04/08 2325 80 158/78 04/08 2300 98.0 78 20 93 04/08 1724 Room Air 04/08 1700 150/80 04/08 1600 98.3 72 29 168/72 94 Room Air 04/08 1540 94 Room Air 04/08 1220 99.7 68 22 166/86 96 Room Air Intake & Output 04/09 1600 04/09 0800 04/09 0000 Intake Total 832.8 664.8 Output Total 2350 700 Balance -1517.2 -35.2 Intake, Lipid 132.8 74.8 Intake, Oral 240 Intake, 700 350 TPN/PPN Number 1 1 Bowel Movements Output, Urine 2350 700 Physical Exam Other Physical Findings: He appears more comfortable in no acute distress Lungs decreased breath sounds at the left base Heart regular rhythm with no murmur Abdomen is obese, soft, mildly tender on palpation diffusely, with no guarding or rebound, positive bowel sounds; 2 LENNY drains remain in place Extremities no cyanosis, clubbing or edema; PICC in place in the right upper extremity Aleman catheter remains in place Results Last 24 Hours of Lab Results: Laboratory Tests 04/09 0634 Chemistry Sodium (137 - 145 mmol/L) 138 Potassium (3.5 - 5.1 mmol/L) 4.4 Chloride (98 - 107 mmol/L) 95 L Carbon Dioxide (22 - 30 mmol/L) 29 Anion Gap (5 - 16) 14 BUN (9 - 20 mg/dL) 20 Creatinine (0.7 - 1.2 mg/dL) 0.5 L Estimated GFR (>60 ml/min) > 60 BUN/Creatinine Ratio (7 - 25 %) 40.0 H Calcium (8.4 - 10.2 mg/dL) 8.1 L Phosphorus (2.5 - 4.5 mg/dL) 3.8 Magnesium (1.6 - 2.3 mg/dL) 1.8 Total Bilirubin (0.2 - 1.3 mg/dL) 0.3 Direct Bilirubin (< 0.4 mg/dL) 0.3 AST (17 - 59 U/L) 16 L ALT (21 - 72 U/L) 34 Alkaline Phosphatase (< 127 U/L) 151 H Total Protein (6.3 - 8.2 g/dL) 4.9 L Albumin (3.5 - 5.0 g/dL) 2.4 L Prealbumin (17.6 - 36.0 mg/dL) 13.4 L Hematology CBC w Diff MAN DIFF ORDERED WBC (4.8 - 10.8 /CUMM) 26.3 H RBC (4.70 - 6.10 /CUMM) 4.59 L Hgb (14.0 - 18.0 G/DL) 13.1 L Hct (42 - 52 %) 40.4 L MCV (80.0 - 94.0 FL) 87.9 MCH (27.0 - 31.0 PG) 28.6 MCHC (33.0 - 37.0 G/DL) 32.5 L RDW (11.5 - 14.5 %) 13.7 Plt Count (130 - 400 /CUMM) 391 MPV (7.4 - 10.4 FL) 8.8 Gran % (42.2 - 75.2 %) 90.6 H Lymphocytes % (20.5 - 51.1 %) 3.6 L Monocytes % (1.7 - 9.3 %) 5.7 Eosinophils % (0 - 5 %) 0 Basophils % (0.0 - 2.0 %) 0.1 Absolute Granulocytes (1.4 - 6.5 /CUMM) 23.9 H Segmented Neutrophils (42.2 - 75.2 %) 82 H Band Neutrophils (0.0 - 5.0 %) 5 Absolute Lymphocytes (1.2 - 3.4 /CUMM) 1.0 L Lymphocytes (20.5 - 51.1 %) 6 L Monocytes (1.7 - 9.3 %) 7 Absolute Monocytes (0.10 - 0.60 /CUMM) 1.5 H Absolute Eosinophils (0.0 - 0.7 /CUMM) 0 Absolute Basophils (0.0 - 0.2 /CUMM) 0 Platelet Estimate (ADEQUATE) VERIFIED BY SMEAR Normocytic RBCs VERIFIED Normochromic RBCs VERIFIED Last 24 Hours of Fabiano Results: Blood cultures April 07 negative Recent Imaging Studies: CT of the chest, abdomen and pelvis April 08 revealed a focal area of airspace opacification in the lateral aspect of the right lower lobe; increasing density in the posterior aspect of the right lower lobe, suggestive of atelectasis, with a central density in the left infrahilar region representing compressive atelectasis from the left pleural effusion; no residual free intraperitoneal gas ; free intraperitoneal fluid in the paracolic gutters and within the dependent portion of the pelvis Assessment/Plan Impression: Appears stable, with temperatures remaining normal and white blood cell count decreasing on Meropenem, begun yesterday for possible pneumonia, though his CT scan is more suggestive of atelectasis, versus peritonitis, with free peritoneal fluid noted in the paracolic gutters and the dependent portion of the pelvis, of unclear significance, status post aspiration of the fluid from the left paracolic gutter earlier today. He is now 1 week status post return to the OR for a laparoscopic repair of a perforated gastroduodenal ulcer, with bile peritonitis, and 13 days status post surgery for a perforated appendix. Suggestion: 1. Follow-up cell count and culture of the peritoneal fluid obtained earlier today by IR 2. Remove Aleman catheter 3. Continue Meropenem
--- NOTE | 2017-04-09 11:55 | PN- Pulmonary ---
Subjective HPI/Critical Care Issues: Patient seen and examined. He is being transferred out of the ICU and he feels much better. Objective Current Medications: Current Medications Sig/Nirmal Start time Last Medication Dose Route Stop Time Status Admin Acetaminophen 1,000 MG Q6P PRN 04/02 0730 AC 04/07 N/A 1 UNIT IV 1411 Albuterol Sulfate 3 ML Q4P PRN 04/06 1330 AC 04/08 INH 2037 Benztropine Mesylate 0.5 MG BID 04/08 2200 AC 04/09 PO 1124 Bupropion HCl 150 MG BID 04/08 2200 AC 04/09 PO 1125 Buspirone HCl 30 MG BID 04/08 2200 AC 04/09 PO 1123 Fat Emulsion 500 ML Q24H 04/08 1900 AC 04/08 Intravenous IV 04/09 185 1953 Fat Emulsion 500 ML Q24H 04/07 1900 PR 04/07 Intravenous IV 04/08 1852019 Furosemide 40 MG ONCE ONE 04/08 2030 DC 04/08 IV 04/08 203 2049 Glycerin 2 SPRAY Q2P PRN 04/04 2315 04/05 PO 0825 Heparin Sodium 0 .STK-MED ONE 04/08 1322 DC (Porcine) IV Heparin Sodium 5,000 UNIT Q8 03/28 1400 AC 04/08 (Porcine) SC 2325 Hydrochlorothiazide 25 MG DAILY 04/07 1000 04/09 PO 1124 Hydromorphone HCl 0.4 MG ONCE ONE 04/08 2100 DC 04/08 IV 04/08 2101 2114 Hydromorphone HCl 0.4 MG Q3P PRN 04/08 1815 04/09 IV 0959 Hydromorphone HCl 0.4 MG ONCE ONE 04/08 1545 DC 04/08 IV 04/08 1546 1551 Hydromorphone HCl 0.6 MG Q4P PRN 04/03 1730 DC 04/08 IV 1224 Levothyroxine Sodium 0.05 MG DAILY AC 04/08 0700 AC 04/09 PO 0545 Lidocaine 1 ML .STK-MED ONE 04/09 1031 DC ID 04/09 1032 Lidocaine 0 .STK-MED ONE 04/08 1322 DC .ROUTE Lisinopril 30 MG DAILY 04/07 1000 AC 04/09 PO 1125 Meropenem 1 GM IQ8 04/08 1700 AC 04/09 IV 1002 Methylprednisolone 40 MG ONCE ONE 04/08 2114 DC 04/08 IV 04/08 Metoprolol Tartrate 100 MG BID 04/07 1145 AC 04/09 PO 1124 Nystatin 1 AGUEDA BID PRN 04/07 1100 AC 04/07 TOP 1300 Olanzapine 15 MG QPM 04/08 2200 AC 04/08 PO 2323 Ondansetron HCl 4 MG Q6-PRN PRN 03/30 0800 AC 04/02 IV 0710 Oxcarbazepine 150 MG BID 04/08 1000 AC 04/09 PO 1125 Pantoprazole Sodium 40 MG BID 04/03 1000 AC 04/09 IV 1126 Phenol 2 SPRAY Q2P PRN 04/04 0800 AC 04/04 EXT 0818 Prochlorperazine 10 MG Q6-PRN PRN 03/29 1945 AC 04/01 IV 2256 Total Parenteral 1 UNIT Q24H 04/08 1900 AC 04/08 Nutrition IV 04/09 1851952 Total Parenteral 1 UNIT Q24H 04/07 1900 PR 04/07 Nutrition IV 04/08 Vital Signs & I&O Last 24 Hrs of Vitals and I&O: Vital Signs Date Time Temp Pulse Resp B/P B/P Pulse O2 O2 Flow FiO2 Mean Ox Delivery Rate 04/09 1125 77 180/00 04/09 1124 77 180/00 04/09 0837 94 Room Air Room Air 04/09 0600 99.1 77 20 150/88 93 04/09 0000 Room Air 04/08 2325 80 158/78 04/08 2300 98.0 78 20 93 04/08 1724 Room Air 04/08 1700 150/80 04/08 1600 98.3 72 29 168/72 94 Room Air 04/08 1540 94 Room Air 04/08 1220 99.7 68 22 166/86 96 Room Air Intake & Output 04/09 1600 04/09 0800 04/09 0000 Intake Total 832.8 664.8 Output Total 2350 700 Balance -1517.2 -35.2 Intake, Lipid 132.8 74.8 Intake, Oral 240 Intake, 700 350 TPN/PPN Number 1 1 Bowel Movements Output, Urine 2350 700 Exam Other Physical Findings: General Exam: AAOx3, No acute distress, NJ tube in place. Skin: No rashes, HEENT: PERRLA, EOMI Neck: Supple, No JVD No cervical lymphadenopathy CVS: Reg Rate, Normal S1,S2, No MGR Resp: Normal air entry, no ronchi/rales Abdomen: Soft, tenderness +, Normal Bowel Sounds, charissa in place, LENNY drain in place. Extremities: No cyanosis, pedal edema. Results Last 24 Hrs of Lab Results: Laboratory Tests 04/09/17 0634: Anion Gap 14, Estimated GFR > 60, BUN/Creatinine Ratio 40.0 H, Calcium 8.1 L, Phosphorus 3.8, Magnesium 1.8, Total Bilirubin 0.3, Direct Bilirubin 0.3, AST 16 L, ALT 34, Alkaline Phosphatase 151 H, Total Protein 4.9 L, Albumin 2.4 L, Prealbumin 13.4 L, CBC w Diff MAN DIFF ORDERED, RBC 4.59 L, MCV 87.9, MCH 28.6 , MCHC 32.5 L, RDW 13.7, MPV 8.8, Gran % 90.6 H, Lymphocytes % 3.6 L, Monocytes % 5.7, Eosinophils % 0, Basophils % 0.1, Absolute Granulocytes 23.9 H , Segmented Neutrophils 82 H, Band Neutrophils 5, Absolute Lymphocytes 1.0 L, Lymphocytes 6 L, Monocytes 7, Absolute Monocytes 1.5 H, Absolute Eosinophils 0 , Absolute Basophils 0, Platelet Estimate VERIFIED BY SMEAR, Normocytic RBCs VERIFIED, Normochromic RBCs VERIFIED Impression/Plan Impression/Plan Impression/Plan: Impression 61 year old man * s/p lap appy, perforated gastroduodenal ulcer, omental patch * leukocytosis * respiratory failure resolved - extubated * malnutrition Plan -surgical plan - alimentary status per surgery -monitor and replete electrolytes as needed -trc -abx per ID -tpn, nutrition follow up -GI follow-up DVT prophylaxis at all times Downgraded to telemetry, follow-up cardiology will sign off, call with any questions TTS 35 min
--- NOTE | 2017-04-09 11:55 | ULTRASOUND REPORT ---
EXAMINATION: US-GUIDED PARA/PERITONEOCENTESIS CLINICAL INFORMATION: Ascites. TECHNIQUE: Informed consent was obtained from the patient prior to the procedure. During this process, the procedure and potential alternatives were explained, along with the intended outcome and benefits. The risks of the procedure, as wall as the risk of not doing the procedure, were discussed. The patient was given the opportunity to ask questions regarding the procedure and appeared competent to make medical decisions. A signed consent form which documents this discussion was placed in the medical record. A timeout procedure was performed. Ultrasound evaluation of the abdomen for ascites was performed. The left paracolic gutter was targeted where a small amount of fluid was seen at this location on recent CT scan. Hard copy images were stored in our PACS system. A very small amount of ascites is noted in the left paracolic gutter. Using standard interventional and sterile techniques, under direct ultrasound guidance, a 20-gauge spinal needle was introduced into the left lower quadrant using a standard safety needle technique. The needle was placed directly in the center of the abnormality and slightly thick completely clear fluid was withdrawn. Only a few mL were withdrawn which was enough for culture and sensitivity. I suspect that the fluid was somewhat gelatinous as more was not withdrawn. After the specimen was obtained, the needle was removed and hemostasis was obtained. The patient tolerated the procedure well. A sterile dressing was placed. The patient was discharged in good condition. Complications: None. IMPRESSION: Successful ultrasound-guided paracentesis, sampling the small amount of fluid in the left paracolic gutter.
[2017-04-09 15:46] VITALS: BP 126/70
[2017-04-09 22:08] VITALS: BP 134/80
[2017-04-10 06:43] VITALS: BP 140/86
[2017-04-10 07:52] LABS: ABSOLUTE BASOPHIL COUNT 0 /CUMM (0.0-0.2); ABSOLUTE EOSINOPHIL COUNT 0.2 /CUMM (0.0-0.7); ABSOLUTE GRANULOCYTE CT 22.4 /CUMM (1.4-6.5); ABSOLUTE LYMPH COUNT 1.5 /CUMM (1.2-3.4); ABSOLUTE MONOCYTE COUNT 1.1 /CUMM (0.10-0.60); BASOPHIL % 0.2 % (0.0-2.0); EOSINOPHIL % 0.7 % (0-5); GRANULOCYTE % 88.7 % (42.2-75.2); MEAN CORPUSCULAR HGB 29.4 PG (27.0-31.0); MEAN CORPUSCULAR HGB CONC 33.6 G/DL (33.0-37.0); MEAN CORPUSCULAR VOLUME 87.3 FL (80.0-94.0); MEAN PLATELET VOLUME 8.4 FL (7.4-10.4); PLATELET COUNT 397 /CUMM (130-400); RBC DISTRIBUTION WIDTH 13.8 % (11.5-14.5); RED BLOOD CELL CT 4.13 /CUMM (4.70-6.10)
[2017-04-10 09:10] LABS: WHITE BLOOD CELL COUNT 25.2 /CUMM (4.8-10.8)
--- NOTE | 2017-04-10 10:30 | PN- General Surgery ---
Subjective Subjective: No acute overnight events reported. Patient states that he has less nausea, and is tolerating full liquid diet. Has been moving bowels, lbm one day ago. Denies chest pain, shortness of breath and diffiuclty breathing. Still complains of diffuse abdominal pain. Objective Vital Signs and I&Os Vital Signs Date Time Temp Pulse Resp B/P B/P Pulse O2 O2 Flow FiO2 Mean Ox Delivery Rate 04/10 1012 140/86 04/10 0643 98.2 69 22 140/86 97 Room Air 04/10 0000 Room Air 04/09 2208 97.8 73 20 134/80 95 Room Air 04/09 2204 64 126/70 04/09 1546 97.8 64 19 126/70 95 04/09 1125 77 180/00 04/09 1124 77 180/00 Intake & Output 04/10 1600 04/10 0800 04/10 0000 04/09 1600 04/09 0800 04/09 0000 Intake Total 832.8 1132.8 1232.8 832.8 664.8 Output Total 250 051 130 0317 700 Balance 582.8 232.8 702.8 -1517.2 -35.2 Intake, IV 100 Intake, Lipid 132.8 132.8 132.8 132.8 74.8 Intake, Oral 300 300 240 Intake, 700 700 700 700 350 TPN/PPN Number 0 1 1 Bowel Movements Output, 30 Drainage Output, Urine 250 447 618 1596 700 Physical Exam: General: Alert and oreinted x3, no acute distress, presently resting comfortably Cardiac: RRR, s1s2 Pulm: Bilateral breath sounds diminished at bases Abdomen: Obese, soft. +bs. Dressings intact. JOANNE drains x2 holding suction. Serous drainage. Extremities: Moves all extremities, distal sensation intact. Skin warm and well perfused. Bilateral calves soft and non-tender. PICC in RUE. No redness/ erythema at site. Assessment/Plan Assessment/Plan This is a 61 year old male, POD 7 s/p elap with repair of duodenal ulcer with ted patch. -TPN continue for today, will consider weaning once diet advanced beyond fulls, likely within 1-2 days -ABX: Meropenum for now, leukocytosis improving but very slowly, will continue to monitor, will continue to appreciate ID recommendations -Drains: JOANNE x2 in place presently. Serous drainage continues. Anticipate DC right joanne drain first, that is the drain nearest spleen. After which left drain will be dc'd, that is the drain that is nearest the ulcer site. Will confirm drain placements with prior ct scans prior to removal. Likely will begin dc drains within one to two more days. Core Measures Venous Thromboembolism VTE Risk Factors Surgery No Mechanical VTE Prophylaxis d/t N/A MechProphylax Ordered No VTE Pharm Prophylaxis d/t NA PharmProphylax ordered
--- NOTE | 2017-04-10 11:01 | PN- Infect Dx ---
Subjective Subjective: Afebrile. He still reports mild abdominal discomfort but is tolerating full liquids. Objective Last 24 Hrs of Vital Signs/I&O Vital Signs Date Time Temp Pulse Resp B/P B/P Pulse O2 O2 Flow FiO2 Mean Ox Delivery Rate 04/10 1012 140/86 04/10 0643 98.2 69 22 140/86 97 Room Air 04/10 0000 Room Air 04/09 2208 97.8 73 20 134/80 95 Room Air 04/09 2204 64 126/70 04/09 1546 97.8 64 19 126/70 95 04/09 1125 77 180/00 04/09 1124 77 180/00 Intake & Output 04/10 1600 04/10 0800 04/10 0000 Intake Total 832.8 1132.8 Output Total 250 900 Balance 582.8 232.8 Intake, Lipid 132.8 132.8 Intake, Oral 300 Intake, 700 700 TPN/PPN Output, Urine 250 900 Physical Exam Other Physical Findings: He appears more comfortable in no acute distress Lungs decreased breath sounds at both bases Heart regular rhythm with no murmur Abdomen is obese, soft, minimally tender to palpation, with no guarding or rebound, positive bowel sounds; LENNY drains remain in place, with decreased output Extremities no cyanosis, clubbing or edema Results Last 24 Hours of Lab Results: Laboratory Tests 04/10 06 Chemistry Sodium (137 - 145 mmol/L) 138 Potassium (3.5 - 5.1 mmol/L) 4.2 Chloride (98 - 107 mmol/L) 97 L Carbon Dioxide (22 - 30 mmol/L) 30 Anion Gap (5 - 16) 11 BUN (9 - 20 mg/dL) 22 H Creatinine (0.7 - 1.2 mg/dL) 0.5 L Estimated GFR (>60 ml/min) > 60 BUN/Creatinine Ratio (7 - 25 %) 44.0 H Calcium (8.4 - 10.2 mg/dL) 7.8 L Phosphorus (2.5 - 4.5 mg/dL) 4.0 Magnesium (1.6 - 2.3 mg/dL) 1.7 Hematology CBC w Diff NO MAN DIFF REQ WBC (4.8 - 10.8 /CUMM) 25.2 H RBC (4.70 - 6.10 /CUMM) 4.13 L Hgb (14.0 - 18.0 G/DL) 12.1 L Hct (42 - 52 %) 36.0 L MCV (80.0 - 94.0 FL) 87.3 MCH (27.0 - 31.0 PG) 29.4 MCHC (33.0 - 37.0 G/DL) 33.6 RDW (11.5 - 14.5 %) 13.8 Plt Count (130 - 400 /CUMM) 397 MPV (7.4 - 10.4 FL) 8.4 Gran % (42.2 - 75.2 %) 88.7 H Lymphocytes % (20.5 - 51.1 %) 5.9 L Monocytes % (1.7 - 9.3 %) 4.5 Eosinophils % (0 - 5 %) 0.7 Basophils % (0.0 - 2.0 %) 0.2 Absolute Granulocytes (1.4 - 6.5 /CUMM) 22.4 H Absolute Lymphocytes (1.2 - 3.4 /CUMM) 1.5 Absolute Monocytes (0.10 - 0.60 /CUMM) 1.1 H Absolute Eosinophils (0.0 - 0.7 /CUMM) 0.2 Absolute Basophils (0.0 - 0.2 /CUMM) 0 Last 24 Hours of Fabiano Results: Ascitic fluid culture April 09 negative Blood cultures 2 April 07 negative Assessment/Plan Impression: Stable, with temperatures remaining normal but with his white blood cell count still elevated, though decreased from 2 days ago, on empiric treatment with Meropenem Day 2 for possible pneumonia, though his CT scan is more suggestive of atelectasis, versus peritonitis, status post aspiration of free peritoneal fluid in the paracolic gutter yesterday, with the culture so far negative. He is now 8 days status post return to the OR for a laparoscopic repair of a perforated gastroduodenal ulcer, with bile peritonitis, and 2 weeks status post surgery for a perforated appendix. Suggestion: 1. Follow-up ascitic fluid culture 2. Continue Meropenem Lita Blue MD is covering over the weekend
[2017-04-10 14:49] VITALS: BP 138/80
[2017-04-10 21:41] VITALS: BP 118/70
[2017-04-11 06:44] VITALS: BP 110/72
[2017-04-11 08:10] LABS: ABSOLUTE BASOPHIL COUNT 0 /CUMM (0.0-0.2); ABSOLUTE EOSINOPHIL COUNT 0.2 /CUMM (0.0-0.7); ABSOLUTE GRANULOCYTE CT 22.8 /CUMM (1.4-6.5); ABSOLUTE LYMPH COUNT 1.5 /CUMM (1.2-3.4); ABSOLUTE MONOCYTE COUNT 1.5 /CUMM (0.10-0.60); BASOPHIL % 0.1 % (0.0-2.0); EOSINOPHIL % 0.7 % (0-5); GRANULOCYTE % 87.7 % (42.2-75.2); HEMATOCRIT 35.2 % (42-52); MEAN CORPUSCULAR HGB CONC 33.2 G/DL (33.0-37.0); MEAN CORPUSCULAR VOLUME 87.6 FL (80.0-94.0); MEAN PLATELET VOLUME 8.4 FL (7.4-10.4); PLATELET COUNT 401 /CUMM (130-400); RBC DISTRIBUTION WIDTH 13.7 % (11.5-14.5); RED BLOOD CELL CT 4.02 /CUMM (4.70-6.10)
--- NOTE | 2017-04-11 09:59 | PN- General Surgery ---
Subjective Subjective: Patient continues to complain of abdominal pain, but otherwise no major changes. He is tolerating full liquids, without nausea, but states that he does not have a desire to advance his diet yet. He admits to loose stools. He continues to cough, but denies shortness of breath. Objective Vital Signs and I&Os Vital Signs Date Time Temp Pulse Resp B/P B/P Pulse O2 O2 Flow FiO2 Mean Ox Delivery Rate 04/11 0902 68 28 148/76 04/11 0901 68 28 148/76 04/11 0644 98.1 68 20 110/72 97 Room Air 04/10 2141 98.8 70 20 118/70 94 04/10 2137 80 140/90 04/10 1600 98 Room Air 04/10 1449 97.7 65 20 138/80 95 Room Air 04/10 1307 96 Room Air Room Air 04/10 1116 Room Air 2.0L 04/10 1012 140/86 Intake & Output 04/11 1600 04/11 0800 04/11 0000 04/10 1600 04/10 0800 04/10 0000 Intake Total 932.8 536.4 1083 832.8 1132.8 Output Total 605 1050 416 250 900 Balance 327.8 -513.6 667 582.8 232.8 Intake, IV 832.8 843 Intake, Lipid 66.4 132.8 132.8 Intake, Oral 100 120 240 300 Intake, 350 700 700 TPN/PPN Output, Chest 16 Tube Drainage Output, 5 Drainage Output, Urine 600 1050 400 250 900 Physical Exam: Gen.: Patient is awake and alert. No acute distress. Cardiac: Regular Pulmonary: Right lung is clear to auscultation. There were some crackles noted at the base, which improved after cough. Left breast sounds are decreased at the bases with occasional wheezes noted. Abdomen: Soft and nondistended. The 2 LENNY drains are in place with minimal serous output. Midline trocar incision contained charissa, which are intact. The lower abdominal incision is also intact. No significant tenderness is noted. Normal bowel sounds were heard. Assessment/Plan Assessment/Plan Patient is a 61-year-old male who is status post left scopic appendectomy 15 days ago for perforated appendix. He subsequently underwent diagnostic laparoscopy 8 days ago and was found to have a perforated gastroduodenal ulcer which was ted patched. Postoperative course has been complicated by leukocytosis and a questionable pneumonia versus atelectasis. Plan: -Continue full liquid diet for now. Patient does not seem ready to advance. We will continue TPN until diet was further advanced. -Will leave both LENNY drains in place until at least Thursday. The plan is for the right drain to come out first. The left drain, which is close to the defect, will remain in place the longest. -Protonix IV twice a day. We'll discuss with attending when he would like to switch to oral route. -Monitor electrolytes and replete in TPN as needed. -Continue meropenem as per ID for suspected pneumonia. White blood cell count has been relatively the same for the past 3 days. Continue to monitor white count and temps. -Encourage mobility and incentive spirometer, which was not found to be at the bedside. We will obtain a new one for him. -Encourage by mouth Dilaudid for pain and only use IV as needed for breakthrough. -Home meds have been resumed. -We'll discuss with attending Core Measures Venous Thromboembolism VTE Risk Factors Surgery No Mechanical VTE Prophylaxis d/t N/A MechProphylax Ordered No VTE Pharm Prophylaxis d/t NA PharmProphylax ordered
--- NOTE | 2017-04-11 11:15 | PN- Infect Dx ---
Subjective Subjective: No fever. Abd discomfort. Appears very fatigued. Review of Systems Comments: 12 points reviewed as noted, otherwise negative. Objective Last 24 Hrs of Vital Signs/I&O Vital Signs Date Time Temp Pulse Resp B/P B/P Pulse O2 O2 Flow FiO2 Mean Ox Delivery Rate 04/11 0902 68 28 148/76 04/11 0901 68 28 148/76 04/11 0644 98.1 68 20 110/72 97 Room Air 04/10 2141 98.8 70 20 118/70 94 04/10 2137 80 140/90 04/10 1600 98 Room Air 04/10 1449 97.7 65 20 138/80 95 Room Air 04/10 1307 96 Room Air Room Air 04/10 1116 Room Air 2.0L Intake & Output 04/11 1600 04/11 0800 04/11 0000 Intake Total 932.8 536.4 Output Total 605 1050 Balance 327.8 -513.6 Intake, IV 832.8 Intake, Lipid 66.4 Intake, Oral 100 120 Intake, 350 TPN/PPN Output, 5 Drainage Output, Urine 600 1050 Physical Exam Other Physical Findings: Elevated BMI, fatigued HEENT: AT/NC Neck No JVD Lungs decreased breath sounds at both bases Heart regular rhythm with no murmur Abdomen is obese, soft, minimally tender to palpation, with no guarding or rebound, positive bowel sounds; LENNY drains remain in place, Extremities no cyanosis, clubbing Results Last 24 Hours of Lab Results: Laboratory Tests 04/11 0610 Chemistry Sodium (137 - 145 mmol/L) 133 L Potassium (3.5 - 5.1 mmol/L) 4.3 Chloride (98 - 107 mmol/L) 92 L Carbon Dioxide (22 - 30 mmol/L) 29 Anion Gap (5 - 16) 13 BUN (9 - 20 mg/dL) 16 Creatinine (0.7 - 1.2 mg/dL) 0.5 L Estimated GFR (>60 ml/min) > 60 BUN/Creatinine Ratio (7 - 25 %) 32.0 H Calcium (8.4 - 10.2 mg/dL) 7.8 L Phosphorus (2.5 - 4.5 mg/dL) 4.1 Magnesium (1.6 - 2.3 mg/dL) 1.7 Hematology CBC w Diff NO MAN DIFF REQ WBC (4.8 - 10.8 /CUMM) 26.0 H RBC (4.70 - 6.10 /CUMM) 4.02 L Hgb (14.0 - 18.0 G/DL) 11.7 L Hct (42 - 52 %) 35.2 L MCV (80.0 - 94.0 FL) 87.6 MCH (27.0 - 31.0 PG) 29.0 MCHC (33.0 - 37.0 G/DL) 33.2 RDW (11.5 - 14.5 %) 13.7 Plt Count (130 - 400 /CUMM) 401 H MPV (7.4 - 10.4 FL) 8.4 Gran % (42.2 - 75.2 %) 87.7 H Lymphocytes % (20.5 - 51.1 %) 5.6 L Monocytes % (1.7 - 9.3 %) 5.9 Eosinophils % (0 - 5 %) 0.7 Basophils % (0.0 - 2.0 %) 0.1 Absolute Granulocytes (1.4 - 6.5 /CUMM) 22.8 H Absolute Lymphocytes (1.2 - 3.4 /CUMM) 1.5 Absolute Monocytes (0.10 - 0.60 /CUMM) 1.5 H Absolute Eosinophils (0.0 - 0.7 /CUMM) 0.2 Absolute Basophils (0.0 - 0.2 /CUMM) 0 Last 24 Hours of Fabiano Results: SPEC #: [id number] SUSANA: 04/09/17 STATUS: RES RECD: 04/09/[address]: Tabitha PLAZA,Claire SOURCE: BODY FLUID ENTR: 04/09/17-[address]: Tommie Sow DO SPDESC: ASCITES FL Valentino Chun MD ORDERED: BODY FLD CULTUR COMMENT: PERITONEAL FLUID FEW DROPS IN TUBING ATTACHED TO SYRINGE Procedure Result > GRAM STAIN Final 04/10/17-1514 WHITE BLOOD CELLS NONE OTHER RARE BUDDING YEAST IN OVERNIGHT THIO BROTH > BODY FLUID CULTURE Preliminary 04/11/17-1042 GROWTH IN THIO BROTH OF: PRESUMPTIVE JOSEPHINE ALBICANS REPORTED TO NUR. HOFF AT 1040 04/11/17 LAB.SVCY Recent Imaging Studies: CT A/P IMPRESSION: 1. Focal area of airspace opacification in the lateral aspect of the right lower lobe, concerning for an area of consolidation/infiltrate. 2. Increasing density in the posterior aspect of the right lower lobe extending to the right lung base is suggestive of dependent atelectasis while a central density in the left infrahilar region likely represents compressive atelectasis from the left-sided pleural effusion. 3. No residual free intraperitoneal gas is identified at this time. 4. Free intraperitoneal fluid is not significantly changed in amount compared to the prior study of 04/05/2017. [address], one drain appears to have been removed since the previous study. 5. Mildly dilated small bowel loops are overall stable compared to the previous study of 2017. 6. Circumferential bowel wall thickening of the distal sigmoid colon stable compared to 04/05/2017. Possible inflammatory process. No new findings. DICTATED BY: Mandy Eric MD DATE/TIME DICTATED:04/08/171516 CREW DISPATCHER:JUAN DATE/TIME TRANSCRIBED:04/08/171516 Assessment/Plan Impression: 61-year-old man, status post TBI, hypothyroidism and seizures admitted on March 27 with sepsis. Stable, with temperatures remaining normal but with his white blood cell count still elevated, though decreased from 2 days ago, on empiric treatment with Meropenem Day 3 for possible pneumonia, though his CT scan is more suggestive of atelectasis, versus peritonitis, status post aspiration of free peritoneal fluid in the paracolic gutter on 04/09, with the culture positive for Josephine albicans. He is now 9 days status post return to the OR for a laparoscopic repair of a perforated gastroduodenal ulcer, with bile peritonitis, and 2 weeks status post surgery for a perforated appendix. Of note stool C. diff negative 04/05. Suggestion: 1. Fluconazole 800 mg po x1 today; followed by 400 mg po daily (obtain EKG at baseline; please call if QT interval prolonged >500 msec). 2. Continue Meropenem. 3. Monitor CBC, BMP, albumin level and LFT's. 4. F/u sx recom.
[2017-04-11 14:16] VITALS: BP 122/78
[2017-04-11 22:34] VITALS: BP 138/78
[2017-04-12 07:03] VITALS: BP 122/72
--- NOTE | 2017-04-12 07:56 | PN- General Surgery ---
Subjective Subjective: Resting without complaints. Received iv dilaudid around midnight. Reportedly tolerating fulls, but with poor appetite. Objective Vital Signs and I&Os Vital Signs Date Time Temp Pulse Resp B/P B/P Pulse O2 O2 Flow FiO2 Mean Ox Delivery Rate 04/12 0703 98.7 68 20 122/72 95 Room Air 04/11 2234 98.2 74 20 138/78 95 Room Air 04/11 2142 138/78 04/11 2050 93 Room Air 04/11 1942 Room Air Room Air 04/11 1416 98.2 69 20 122/78 95 Room Air 04/11 0902 68 28 148/76 04/11 0901 68 28 148/76 Intake & Output 04/12 0800 04/12 0000 04/11 1600 04/11 0800 04/11 0000 04/10 1600 Intake Total 538.2 300 932.8 536.4 1083 Output Total 800 2277 827 0915 416 Balance -261.8 -900 327.8 -513.6 667 Intake, IV 130 832.8 843 Intake, Lipid 33.2 66.4 Intake, Oral 200 300 100 120 240 Intake, 175 350 TPN/PPN Output, Chest 16 Tube Drainage Output, 5 Drainage Output, Urine 800 5817 287 5148 400 Physical Exam: General - currently resting but arousable & oriented. comfortable. Cardiac - s1s2 reg Lungs - decreased breath sounds with scattered wheezes, left base. Abdomen - soft and nondistended. 2 LENNY drains are in place with minimal serous output. midline incision approximated with charissa. Extremities - warm bilaterally. no c/c/e. calves soft and nontender b/l. Current Medications: Current Medications Sig/Nirmal Start time Last Medication Dose Route Stop Time Status Admin Acetaminophen 1,000 MG Q6P PRN 04/02 0730 04/12 N/A 1 UNIT IV 0543 Albuterol Sulfate 3 ML Q4P PRN 04/06 1330 AC 04/11 INH 2045 Benztropine Mesylate 0.5 MG BID 04/08 2199 AC 04/11 PO 214 Bupropion HCl 150 MG BID 04/08 2200 AC 04/11 PO 213 Buspirone HCl 30 MG BID 04/10 1000 AC 04/11 PO 214 Fat Emulsion 400 ML Q24H 04/11 1900 04/11 Intravenous IV 04/12 Fat Emulsion 500 ML Q24H 04/10 1999 DC 04/10 Intravenous IV 04/11 Glycerin 2 SPRAY Q2P PRN 04/04 2315 AC 04/05 PO 0825 Heparin Sodium 5,000 UNIT Q8 03/28 1400 AC 04/12 (Porcine) SC 0544 Hydrochlorothiazide 25 MG DAILY 04/07 1000 AC 04/11 PO 0903 Hydromorphone HCl 2 MG Q4P PRN 04/09 1900 AC 04/11 PO 0631 Hydromorphone HCl 4 MG Q4P PRN 04/09 1900 AC 04/11 PO 2024 Hydromorphone HCl 0.6 MG Q3P PRN 04/09 1215 AC 04/12 IV 0034 Levothyroxine Sodium 0.05 MG DAILY AC 04/08 0700 AC 04/12 PO 0544 Lisinopril 30 MG DAILY 04/07 1000 AC 04/11 PO 0902 Meropenem 1 GM IQ8 04/08 1700 AC 04/12 IV 0019 Metoprolol Tartrate 100 MG BID 04/07 1145 AC 04/11 PO 2142 Nystatin 1 AGUEDA BID PRN 04/07 1100 DC 04/07 TOP 1300 Olanzapine 15 MG QPM 04/08 2200 AC 04/11 PO 2139 Ondansetron HCl 4 MG .STK-MED ONE 04/11 1446 DC IM 04/11 1447 Ondansetron HCl 4 MG Q6-PRN PRN 03/30 0800 AC 04/12 IV 0559 Oxcarbazepine 150 MG BID 04/08 1000 AC 04/11 PO 2139 Pantoprazole Sodium 40 MG BID 04/03 1000 AC 04/11 IV 2143 Phenol 2 SPRAY Q2P PRN 04/04 0800 AC 04/04 EXT 0818 Prochlorperazine 10 MG Q6-PRN PRN 03/29 1945 AC 04/01 IV 2256 Total Parenteral 1 UNIT Q24H 04/11 1900 AC 04/11 Nutrition IV 04/12 Total Parenteral 1 UNIT Q24H 04/10 1999 DC 04/10 Nutrition IV 04/11 Results Last 48 Hours of Labs: Laboratory Tests 04/12 04/11 04/11 0507 1300 0610 Chemistry Sodium (137 - 145 mmol/L) Cancelled 133 L Potassium (3.5 - 5.1 mmol/L) Cancelled 4.3 Chloride (98 - 107 mmol/L) Cancelled 92 L Carbon Dioxide (22 - 30 mmol/L) Cancelled 29 Anion Gap (5 - 16) Cancelled 13 BUN (9 - 20 mg/dL) Cancelled 16 Creatinine (0.7 - 1.2 mg/dL) Cancelled 0.5 L Estimated GFR (>60 ml/min) > 60 BUN/Creatinine Ratio (7 - 25 %) Cancelled 32.0 H Calcium (8.4 - 10.2 mg/dL) 7.9 L 7.8 L Phosphorus (2.5 - 4.5 mg/dL) 3.8 4.1 Magnesium (1.6 - 2.3 mg/dL) 1.9 1.7 Albumin (3.5 - 5.0 g/dL) 2.4 L Hematology CBC w Diff Pending NO MAN DIFF REQ WBC (4.8 - 10.8 /CUMM) Pending 26.0 H RBC (4.70 - 6.10 /CUMM) Pending 4.02 L Hgb (14.0 - 18.0 G/DL) Pending 11.7 L Hct (42 - 52 %) Pending 35.2 L MCV (80.0 - 94.0 FL) Pending 87.6 MCH (27.0 - 31.0 PG) Pending 29.0 MCHC (33.0 - 37.0 G/DL) Pending 33.2 RDW (11.5 - 14.5 %) Pending 13.7 Plt Count (130 - 400 /CUMM) Pending 401 H MPV (7.4 - 10.4 FL) Pending 8.4 Gran % (42.2 - 75.2 %) 87.7 H Lymphocytes % (20.5 - 51.1 %) 5.6 L Monocytes % (1.7 - 9.3 %) 5.9 Eosinophils % (0 - 5 %) 0.7 Basophils % (0.0 - 2.0 %) 0.1 Absolute Granulocytes (1.4 - 6.5 /CUMM) 22.8 H Absolute Lymphocytes (1.2 - 3.4 /CUMM) 1.5 Absolute Monocytes (0.10 - 0.60 /CUMM) 1.5 H Absolute Eosinophils (0.0 - 0.7 /CUMM) 0.2 Absolute Basophils (0.0 - 0.2 /CUMM) 0 Assessment/Plan Assessment/Plan This 61-year-old male is POD#16 s/p laparoscopic appendectomy for perforated appendicitis, and POD#9 s/p diagnostic laparoscopy and ted patch repair for perforated gastroduodenal ulcer, ongoing TPN for prolonged npo status / malnutrition, suspected pna on meropenem tolerating fulls. poor appetite reportedly. continue tpn until diet is further advanced. continue to monitor both LENNY drains until tomorrow. The plan is for the right drain to come out first. The left drain, which is close to the defect, will remain in place the longest. continue protonix - gi ppx f/u labs continue meropenem as per ID for suspected pneumonia. stable leukocytosis x 3 days encourage mobility and incentive spirometer pain medication as ordered home meds have been resumed. will d/w Core Measures Venous Thromboembolism VTE Risk Factors Surgery No Mechanical VTE Prophylaxis d/t N/A MechProphylax Ordered No VTE Pharm Prophylaxis d/t NA PharmProphylax ordered
[2017-04-12 08:00] LABS: ABSOLUTE BASOPHIL COUNT 0 /CUMM (0.0-0.2); ABSOLUTE EOSINOPHIL COUNT 0.3 /CUMM (0.0-0.7); ABSOLUTE GRANULOCYTE CT 21.2 /CUMM (1.4-6.5); ABSOLUTE LYMPH COUNT 1.5 /CUMM (1.2-3.4); ABSOLUTE MONOCYTE COUNT 1.6 /CUMM (0.10-0.60); BASOPHIL % 0.2 % (0.0-2.0); EOSINOPHIL % 1.1 % (0-5); GRANULOCYTE % 86.2 % (42.2-75.2); HEMATOCRIT 33.8 % (42-52); MEAN CORPUSCULAR HGB 29.8 PG (27.0-31.0); MEAN CORPUSCULAR HGB CONC 33.9 G/DL (33.0-37.0); MEAN CORPUSCULAR VOLUME 87.8 FL (80.0-94.0); MEAN PLATELET VOLUME 8.7 FL (7.4-10.4); PLATELET COUNT 421 /CUMM (130-400); RBC DISTRIBUTION WIDTH 13.7 % (11.5-14.5); RED BLOOD CELL CT 3.84 /CUMM (4.70-6.10); WHITE BLOOD CELL COUNT 24.6 /CUMM (4.8-10.8)
--- NOTE | 2017-04-12 11:10 | PN- Infect Dx ---
Subjective Subjective: No fever. Poor appetite. Review of Systems Comments: 12 points reviewed as noted, otherwise neg. Objective Last 24 Hrs of Vital Signs/I&O Vital Signs Date Time Temp Pulse Resp B/P B/P Pulse O2 O2 Flow FiO2 Mean Ox Delivery Rate 04/12 0703 98.7 68 20 122/72 95 Room Air 04/11 2234 98.2 74 20 138/78 95 Room Air 04/11 2142 138/78 04/11 2050 93 Room Air 04/11 1942 Room Air Room Air 04/11 1416 98.2 69 20 122/78 95 Room Air Intake & Output 04/12 1600 04/12 0800 04/12 0000 Intake Total 1042.8 538.2 Output Total 425 700 800 Balance -425 342.8 -261.8 Intake, IV 110 130 Intake, Lipid 132.8 33.2 Intake, Oral 100 200 Intake, 700 175 TPN/PPN Number 1 Bowel Movements Output, Urine 425 700 800 Physical Exam Other Physical Findings: Elevated BMI, fatigued HEENT: AT/NC Neck No JVD Lungs decreased breath sounds at both bases Heart regular rhythm with no murmur Abdomen is obese, soft, minimally tender to palpation, with no guarding or rebound, positive bowel sounds; LENNY drains remain in place, Extremities no cyanosis, clubbing Results Last 24 Hours of Lab Results: Laboratory Tests 04/12 04/11 0507 1300 Chemistry Sodium Cancelled Potassium Cancelled Chloride Cancelled Carbon Dioxide Cancelled Anion Gap Cancelled BUN Cancelled Creatinine Cancelled BUN/Creatinine Ratio Cancelled Calcium (8.4 - 10.2 mg/dL) 7.9 L Phosphorus (2.5 - 4.5 mg/dL) 3.8 Magnesium (1.6 - 2.3 mg/dL) 1.9 Albumin (3.5 - 5.0 g/dL) 2.4 L Hematology CBC w Diff NO MAN DIFF REQ WBC (4.8 - 10.8 /CUMM) 24.6 H RBC (4.70 - 6.10 /CUMM) 3.84 L Hgb (14.0 - 18.0 G/DL) 11.4 L Hct (42 - 52 %) 33.8 L MCV (80.0 - 94.0 FL) 87.8 MCH (27.0 - 31.0 PG) 29.8 MCHC (33.0 - 37.0 G/DL) 33.9 RDW (11.5 - 14.5 %) 13.7 Plt Count (130 - 400 /CUMM) 421 H MPV (7.4 - 10.4 FL) 8.7 Gran % (42.2 - 75.2 %) 86.2 H Lymphocytes % (20.5 - 51.1 %) 6.0 L Monocytes % (1.7 - 9.3 %) 6.5 Eosinophils % (0 - 5 %) 1.1 Basophils % (0.0 - 2.0 %) 0.2 Absolute Granulocytes (1.4 - 6.5 /CUMM) 21.2 H Absolute Lymphocytes (1.2 - 3.4 /CUMM) 1.5 Absolute Monocytes (0.10 - 0.60 /CUMM) 1.6 H Absolute Eosinophils (0.0 - 0.7 /CUMM) 0.3 Absolute Basophils (0.0 - 0.2 /CUMM) 0 Last 24 Hours of Fabiano Results: SPEC #: [id number] SUSANA: 04/09/17 STATUS: COMP RECD: 04/09/[address]: Tabitha PLAZA,Claire SOURCE: BODY FLUID ENTR: 04/09/[address]: Tommie Sow DO SPDESC: ASCITES FL Valentino Chun MD ORDERED: BODY FLD CULTUR COMMENT: PERITONEAL FLUID FEW DROPS IN TUBING ATTACHED TO SYRINGE Procedure Result > GRAM STAIN Final 04/10/17-1514 WHITE BLOOD CELLS NONE OTHER RARE BUDDING YEAST IN OVERNIGHT THIO BROTH > BODY FLUID CULTURE Final 04/12/17 GROWTH IN THIO BROTH OF: PRESUMPTIVE JOSEPHINE ALBICANS REPORTED TO NUR. HOFF AT 1040 04/11/17 LAB.SVCY Recent Imaging Studies: SERVICE DATE: 04/09/17 EXAM TYPE: US - US-GUIDANCE EXAMINATION: US-GUIDED PARA/PERITONEOCENTESIS CLINICAL INFORMATION: Ascites. TECHNIQUE: Informed consent was obtained from the patient prior to the procedure. During this process, the procedure and potential alternatives were explained, along with the intended outcome and benefits. The risks of the procedure, as wall as the risk of not doing the procedure, were discussed. The patient was given the opportunity to ask questions regarding the procedure and appeared competent to make medical decisions. A signed consent form which documents this discussion was placed in the medical record. A timeout procedure was performed. Ultrasound evaluation of the abdomen for ascites was performed. The left paracolic gutter was targeted where a small amount of fluid was seen at this location on recent CT scan. Hard copy images were stored in our PACS system. A very small amount of ascites is noted in the left paracolic gutter. Using standard interventional and sterile techniques, under direct ultrasound guidance, a 20-gauge spinal needle was introduced into the left lower quadrant using a standard safety needle technique. The needle was placed directly in the center of the abnormality and slightly thick completely clear fluid was withdrawn. Only a few mL were withdrawn which was enough for culture and sensitivity. I suspect that the fluid was somewhat gelatinous as more was not withdrawn. After the specimen was obtained, the needle was removed and hemostasis was obtained. The patient tolerated the procedure well. A sterile dressing was placed. The patient was discharged in good condition. Complications: None. IMPRESSION: Successful ultrasound-guided paracentesis, sampling the small amount of fluid in the left paracolic gutter. DICTATED BY: Jayme Crawley MD DATE/TIME DICTATED:04/09/171103 TRUCK LOADER:JUAN DATE/TIME TRANSCRIBED:04/09/171103 CONFIDENTIAL, DO NOT COPY WITHOUT APPROPRIATE AUTHORIZATION. <Electronically signed in Other Vendor System> SIGNED BY: Jayme Crawley MD 04/09/17 4472 Assessment/Plan Impression: 61-year-old man, status post TBI, hypothyroidism and seizures admitted on March 27 with sepsis. Stable, with temperatures remaining normal but with his white blood cell count still elevated, though decreased from 2 days ago, on empiric treatment with Meropenem Day 4 for possible pneumonia, though his CT scan is more suggestive of atelectasis. Eval secondary fungal peritonitis, status post aspiration of free peritoneal fluid in the paracolic gutter on 04/09, with the culture positive for Josephine albicans. He is now 10 days status post return to the OR for a laparoscopic repair of a perforated gastroduodenal ulcer, with bile peritonitis, and over 2 weeks status post surgery for a perforated appendix. Suggestion: 1. See previous recom regarding starting Fluconazole loading dose 800 mg po x1; followed by 400 mg po daily (obtain EKG at baseline; please call if QT interval prolonged >500 msec). 2. Continue Meropenem. 3. Monitor CBC, BMP, albumin level and LFT's. 4. F/u sx recom.
[2017-04-12 14:14] VITALS: BP 132/70
[2017-04-12 21:45] VITALS: BP 132/84
[2017-04-13 06:25] VITALS: BP 114/48
--- NOTE | 2017-04-13 08:16 | PN- General Surgery ---
See Addendum Subjective Subjective: "i've been better". still with some abd pain, controlled w iv dilaudid only. po dilaudid causes nausea, agrees to try something different po for pain. tolerating fulls, also on tpn. +flatus, +bm. no vomiting. no nausea at this time. some oob to chair yesterday, minimal ambulating. denies cp/sob. Objective Vital Signs and I&Os Vital Signs Date Time Temp Pulse Resp B/P B/P Pulse O2 O2 Flow FiO2 Mean Ox Delivery Rate 04/13 0625 98.8 64 22 114/48 94 Room Air 04/13 0000 Room Air Room Air 04/12 2156 122/62 04/12 2145 98.3 77 28 132/84 93 04/12 1925 94 Room Air 04/12 1414 98.2 64 20 132/70 98 Room Air 04/12 1245 94 Room Air 04/12 1114 68 122/72 04/12 1000 68 122/72 Intake & Output 04/13 1600 04/13 0800 04/13 0000 04/12 1600 04/12 0800 04/12 0000 Intake Total 1143.6 1807.6 200 1042.8 538.2 Output Total 770 687 6715 700 800 Balance 263.6 1307.6 -1400 342.8 -261.8 Intake, IV 110 150 110 130 Intake, Lipid 133.6 232.6 132.8 33.2 Intake, Oral 200 200 200 100 200 Intake, 700 1225 700 175 TPN/PPN Number 1 Bowel Movements Output, 30 Drainage Output, Urine 055 652 7404 700 800 Patient 247 lb Weight Weight Chair scale Measurement Method Physical Exam: gen- nad card- s1s2 rrr pulm- decreased bs throughout, poor inspiratory effort abd- soft, distended, dressings cdi, staple line cdi, JPx2 with minimal serous drainage, ttp most in rlq, +bs ext- calves soft, some edema JP1: 15night, 5 evening JP2: 15night, 0 evening Current Medications: Current Medications Sig/Nirmal Start time Last Medication Dose Route Stop Time Status Admin Acetaminophen 1,000 MG Q6P PRN 04/02 0730 AC 04/12 N/A 1 UNIT IV 2336 Albuterol Sulfate 3 ML Q4P PRN 04/06 1330 AC 04/12 INH 1925 Benztropine Mesylate 0.5 MG BID 04/08 2200 AC 04/12 PO 2152 Bupropion HCl 150 MG BID 04/08 2200 AC 04/12 PO 2152 Buspirone HCl 30 MG BID 04/10 1000 AC 04/12 PO 2152 Fat Emulsion 400 ML 1900 04/12 1900 AC 04/12 Intravenous IV 04/13 1859 2014 Fat Emulsion 400 ML Q24H 04/11 1900 DC 04/11 Intravenous IV 04/12 1852006 Glycerin 2 SPRAY Q2P PRN 04/04 2315 AC 04/05 PO 0825 Heparin Sodium 5,000 UNIT Q8 03/28 1400 AC 04/13 (Porcine) SC 0548 Hydrochlorothiazide 25 MG DAILY 04/07 1000 AC 04/12 PO 1000 Hydromorphone HCl 2 MG Q4P PRN 04/09 1900 DC 04/11 PO 0631 Hydromorphone HCl 4 MG Q4P PRN 04/09 1900 DC 04/13 PO 0549 Hydromorphone HCl 0.6 MG Q3P PRN 04/09 1215 AC 04/12 IV 1243 Levothyroxine Sodium 0.05 MG DAILY AC 04/08 0700 AC 04/13 PO 0548 Lisinopril 30 MG DAILY 04/07 1000 AC 04/12 PO 1000 Meropenem 1 GM IQ8 04/08 1700 AC 04/12 IV 2319 Metoprolol Tartrate 100 MG BID 04/07 1145 AC 04/12 PO 2156 Olanzapine 15 MG QPM 04/08 2200 AC 04/12 PO 2152 Ondansetron HCl 4 MG Q6-PRN PRN 03/30 0800 DC 04/12 IV 0559 Oxcarbazepine 150 MG BID 04/08 1000 AC 04/12 PO 2152 Oxycodone HCl 5 MG Q4 HRS NEEDED PRN 04/13 0815 AC PO Oxycodone HCl 10 MG Q4 HRS NEEDED PRN 04/13 0815 AC PO Pantoprazole Sodium 40 MG BID 04/03 1000 AC 04/12 IV 2153 Phenol 2 SPRAY Q2P PRN 04/04 0800 AC 04/04 EXT 0818 Prochlorperazine 10 MG Q6-PRN PRN 03/29 1945 AC 04/12 IV 2124 Total Parenteral 1 UNIT 1900 04/12 1900 AC 04/12 Nutrition IV 04/13 Total Parenteral 1 UNIT Q24H 04/11 1900 DC 04/11 Nutrition IV 04/12 Results Last 48 Hours of Labs: Laboratory Tests 04/13 04/12 04/11 0505 0507 1300 Chemistry Sodium (137 - 145 mmol/L) 136 L Cancelled Potassium (3.5 - 5.1 mmol/L) 4.4 Cancelled Chloride (98 - 107 mmol/L) 95 L Cancelled Carbon Dioxide (22 - 30 mmol/L) 31 H Cancelled Anion Gap (5 - 16) 11 Cancelled BUN (9 - 20 mg/dL) 14 Cancelled Creatinine (0.7 - 1.2 mg/dL) 0.5 L Cancelled Estimated GFR (>60 ml/min) > 60 BUN/Creatinine Ratio (7 - 25 %) 28.0 H Cancelled Calcium (8.4 - 10.2 mg/dL) 7.9 L Phosphorus (2.5 - 4.5 mg/dL) 3.8 3.8 Magnesium (1.6 - 2.3 mg/dL) 1.7 1.9 Albumin (3.5 - 5.0 g/dL) 2.4 L Hematology CBC w Diff Pending NO MAN DIFF REQ WBC (4.8 - 10.8 /CUMM) Pending 24.6 H RBC (4.70 - 6.10 /CUMM) Pending 3.84 L Hgb (14.0 - 18.0 G/DL) Pending 11.4 L Hct (42 - 52 %) Pending 33.8 L MCV (80.0 - 94.0 FL) Pending 87.8 MCH (27.0 - 31.0 PG) Pending 29.8 MCHC (33.0 - 37.0 G/DL) Pending 33.9 RDW (11.5 - 14.5 %) Pending 13.7 Plt Count (130 - 400 /CUMM) Pending 421 H MPV (7.4 - 10.4 FL) Pending 8.7 Gran % (42.2 - 75.2 %) 86.2 H Lymphocytes % (20.5 - 51.1 %) 6.0 L Monocytes % (1.7 - 9.3 %) 6.5 Eosinophils % (0 - 5 %) 1.1 Basophils % (0.0 - 2.0 %) 0.2 Absolute Granulocytes (1.4 - 6.5 /CUMM) 21.2 H Absolute Lymphocytes (1.2 - 3.4 /CUMM) 1.5 Absolute Monocytes (0.10 - 0.60 /CUMM) 1.6 H Absolute Eosinophils (0.0 - 0.7 /CUMM) 0.3 Absolute Basophils (0.0 - 0.2 /CUMM) 0 04/09: paracentesis fluid cx: abad albicans Assessment/Plan Assessment/Plan A- POD10 sp lap omental repair perforated gastroduo ulcer, POD17 sp lap appy for perf'ed appendicitis, day 4 sp paracentesis growning out abad albicans, on meropenem for hospital aquired pna, with persistent abd pain, though tolerating full liquid diet with TPN for nutritional needs, with continued leukocytosis > 20K though afebrile, otherwise stable. P- -cont full liquids as tolerated. cont TPN. -cbc pending -keep JPx2 to self suction- ?remove soon -meropenem per ID. Will need abad coverage- appreciate ID input re: diflucan and QT prolongation. EKG checked last evening shows borderline QT, zofran dc'ed and will check with cardiology and ID today for best plan of care. - dc po dilaudid, try po oxy prn - continue oob, ist, ambulation, trc - cont ppi bid - cont home psych meds - will dw Dr. Sow Core Measures Venous Thromboembolism VTE Risk Factors Surgery No Mechanical VTE Prophylaxis d/t N/A MechProphylax Ordered No VTE Pharm Prophylaxis d/t NA PharmProphylax ordered
[2017-04-13 08:29] LABS: ABSOLUTE BASOPHIL COUNT 0 /CUMM (0.0-0.2); ABSOLUTE EOSINOPHIL COUNT 0.2 /CUMM (0.0-0.7); ABSOLUTE GRANULOCYTE CT 19.7 /CUMM (1.4-6.5); ABSOLUTE LYMPH COUNT 1.7 /CUMM (1.2-3.4); ABSOLUTE MONOCYTE COUNT 1.6 /CUMM (0.10-0.60); BASOPHIL % 0.2 % (0.0-2.0); EOSINOPHIL % 0.8 % (0-5); GRANULOCYTE % 84.9 % (42.2-75.2); MEAN CORPUSCULAR HGB 29.4 PG (27.0-31.0); MEAN CORPUSCULAR HGB CONC 33.2 G/DL (33.0-37.0); MEAN CORPUSCULAR VOLUME 88.6 FL (80.0-94.0); MEAN PLATELET VOLUME 8.8 FL (7.4-10.4); PLATELET COUNT 424 /CUMM (130-400); RBC DISTRIBUTION WIDTH 13.6 % (11.5-14.5); RED BLOOD CELL CT 3.84 /CUMM (4.70-6.10)
[2017-04-13 09:45] LABS: WHITE BLOOD CELL COUNT 23.2 /CUMM (4.8-10.8)
--- NOTE | 2017-04-13 11:38 | PN- Infect Dx ---
Subjective Subjective: Afebrile. He is tolerating full liquids but did report nausea this morning and continues to complain of mild abdominal discomfort. He has no diarrhea. Objective Last 24 Hrs of Vital Signs/I&O Vital Signs Date Time Temp Pulse Resp B/P B/P Pulse O2 O2 Flow FiO2 Mean Ox Delivery Rate 04/13 1100 95 Room Air 04/13 1025 Room Air 2.0L 04/13 0933 118/60 04/13 0933 118/60 04/13 0625 98.8 64 22 114/48 94 Room Air 04/13 0000 Room Air Room Air 04/12 2156 122/62 04/12 2145 98.3 77 28 132/84 93 04/12 1925 94 Room Air 04/12 1414 98.2 64 20 132/70 98 Room Air 04/12 1245 94 Room Air Intake & Output 04/13 1600 04/13 0800 04/13 0000 Intake Total 1143.6 1807.6 Output Total 880 500 Balance 263.6 1307.6 Intake, IV 110 150 Intake, Lipid 133.6 232.6 Intake, Oral 200 200 Intake, 700 1225 TPN/PPN Output, 30 Drainage Output, Urine 850 500 Physical Exam Other Physical Findings: He appears comfortable in no acute distress Lungs decreased breath sounds at the left base Heart regular rhythm with no murmur Abdomen is soft, tender on palpation diffusely, with no guarding or rebound, positive bowel sounds Extremities no cyanosis, clubbing or edema; PICC in the right upper extremity with no inflammation at the site Results Last 24 Hours of Lab Results: Laboratory Tests 04/13 0505 Chemistry Sodium (137 - 145 mmol/L) 136 L Potassium (3.5 - 5.1 mmol/L) 4.4 Chloride (98 - 107 mmol/L) 95 L Carbon Dioxide (22 - 30 mmol/L) 31 H Anion Gap (5 - 16) 11 BUN (9 - 20 mg/dL) 14 Creatinine (0.7 - 1.2 mg/dL) 0.5 L Estimated GFR (>60 ml/min) > 60 BUN/Creatinine Ratio (7 - 25 %) 28.0 H Phosphorus (2.5 - 4.5 mg/dL) 3.8 Magnesium (1.6 - 2.3 mg/dL) 1.7 Hematology CBC w Diff NO MAN DIFF REQ WBC (4.8 - 10.8 /CUMM) 23.2 H RBC (4.70 - 6.10 /CUMM) 3.84 L Hgb (14.0 - 18.0 G/DL) 11.3 L Hct (42 - 52 %) 34.0 L MCV (80.0 - 94.0 FL) 88.6 MCH (27.0 - 31.0 PG) 29.4 MCHC (33.0 - 37.0 G/DL) 33.2 RDW (11.5 - 14.5 %) 13.6 Plt Count (130 - 400 /CUMM) 424 H MPV (7.4 - 10.4 FL) 8.8 Gran % (42.2 - 75.2 %) 84.9 H Lymphocytes % (20.5 - 51.1 %) 7.3 L Monocytes % (1.7 - 9.3 %) 6.8 Eosinophils % (0 - 5 %) 0.8 Basophils % (0.0 - 2.0 %) 0.2 Absolute Granulocytes (1.4 - 6.5 /CUMM) 19.7 H Absolute Lymphocytes (1.2 - 3.4 /CUMM) 1.7 Absolute Monocytes (0.10 - 0.60 /CUMM) 1.6 H Absolute Eosinophils (0.0 - 0.7 /CUMM) 0.2 Absolute Basophils (0.0 - 0.2 /CUMM) 0 Last 24 Hours of Fabiano Results: Ascitic fluid culture April 09 positive for yeast, presumed Josephine albicans Assessment/Plan Impression: Stable, with temperatures remaining normal but with a persistent leukocytosis despite now 5 days of Meropenem for a possible pneumonia, though his CT scan was more suggestive of atelectasis. The ascitic fluid aspirated from the left paracolic gutter 4 days ago is positive for Josephine and am concerned that he may require further drainage, either of a residual collection in the left paracolic gutter, if present, or of the other fluid collections noted on the recent CT scan. He is now 11 days status post return to the OR for a laparoscopic repair of a perforated gastroduodenal ulcer, with bile peritonitis, and 17 days status post surgery for a perforated appendix. Suggestion: 1. Consider repeat CT of the abdomen and pelvis, with aspiration of any persistent fluid collections 2. Repeat blood cultures 2 3. Discontinue Meropenem 4. Begin Fluconazole 1200 mg po today, followed by 600 mg po every 24 hour
[2017-04-13 14:40] VITALS: BP 120/60
[2017-04-13 23:06] VITALS: BP 118/70
--- NOTE | 2017-04-14 07:11 | PN- Student ---
See Addendum Mitch Narvaez 04/14/17 0702: Subjective Subjective: "I'm doing okay." Pt states he has 6/10 generalized abdominal pain worst in RLQ. Switched from IV dilaudid to PO oxycodone, tolerating well. Tolerating full liquid diet with TPN PRN. Minimal OOB ambulation, starts to feel 'wheezy' and states past neb tx has helped with this. + urination, + flatus, +BM. Denies: MURRELL, vision changes, SOB, chest pain, N/V/D, paresthesias or syncope. Objective Objective: GENERAL: Pt lying supine in bed comfortably. NAD. A+Ox4. Flat affect. RESP: Poor resp effort, CTAB, slightly diminished lung sounds at bases bilaterallly. No wheezing or rhonchi audible. CARDIO: RRR, no MRG, S1/S2 audible. ABD: Soft, [address] over JOANNE drains (min serosanguinous fluid noted)-CDI. Midline and lateral incision/charissa healing well. Tender to palpation in LUQ and RLQ. Loud normoactive BS audible throughout. MUSC: Extremities cool to touch, pulses +2, cap refill <2sec. Pt 5/5 strength and full ROM throughout. LE nontender, nonedematous bilaterally. NEURO: Sensation intact throughout. Results Results: Laboratory Tests 04/14/17 0530: Sodium Pending, Potassium Pending, Chloride Pending, Carbon Dioxide Pending, Anion Gap Pending, BUN Pending, Creatinine Pending, BUN/Creatinine Ratio Pending , Phosphorus Pending, Magnesium Pending, CBC w Diff Pending, WBC Pending, RBC Pending, Hgb Pending, Hct Pending, MCV Pending, MCH Pending, MCHC Pending, RDW Pending, Plt Count Pending, MPV Pending 04/13/17 0505: Anion Gap 11, Estimated GFR > 60, BUN/Creatinine Ratio 28.0 H, Phosphorus 3.8, Magnesium 1.7, CBC w Diff NO MAN DIFF REQ, RBC 3.84 L, MCV 88.6, MCH 29.4, MCHC 33.2, RDW 13.6, MPV 8.8, Gran % 84.9 H, Lymphocytes % 7.3 L, Monocytes % 6.8, Eosinophils % 0.8, Basophils % 0.2, Absolute Granulocytes 19.7 H, Absolute Lymphocytes 1.7, Absolute Monocytes 1.6 H, Absolute Eosinophils 0.2, Absolute Basophils 0 04/12/17 0507: Calcium 7.9 L, Phosphorus 3.8, Magnesium 1.9, Albumin 2.4 L, CBC w Diff NO MAN DIFF REQ, RBC 3.84 L, MCV 87.8, MCH 29.8, MCHC 33.9, RDW 13.7, MPV 8.7, Gran % 86.2 H, Lymphocytes % 6.0 L, Monocytes % 6.5, Eosinophils % 1.1, Basophils % 0.2, Absolute Granulocytes 21.2 H, Absolute Lymphocytes 1.5, Absolute Monocytes 1.6 H, Absolute Eosinophils 0.3, Absolute Basophils 0 04/11/17 1300: Sodium Cancelled, Potassium Cancelled, Chloride Cancelled, Carbon Dioxide Cancelled, Anion Gap Cancelled, BUN Cancelled, Creatinine Cancelled, BUN/ Creatinine Ratio Cancelled Microbiology 04/13 1230 BLOOD: Blood Culture - RECD 04/13 1205 BLOOD: Blood Culture - RECD Assessment/Plan Assessment: Chase is a 61 yo M POD-11 s/p lap omental repair r/t perforated gastroduodenal ulcer and POD-17 s/p lap appy r/t perf appendix. Pt appears to be slowly improving with time. Pt on meropenam for possible PNA on CXR x 10 days. WBC continues to remain elevated although minimally trending down (23.2). Peritoneal fluid + for abad, pt started on IV fluconazole- tolerating well. Pt has no questions or concerns at this time. Plan: Per previous notes- continue meropenam Continue fluconazole Continue PO oxy PRN Continue full liquid diet + TPN for nutritional deficiencies. Encourage OOB amb - Consult resp for neb tx if feeling 'wheezy.' Remove JOANNE drains later today (will d/c with preceptor) EKG this am - monitor QT interval r/t diflucan mx. Nancy Romero 04/14/17 0739: Objective Objective: Assessment by Nancy Romero [employer] VULNER[employer] ANALYST: General: Alert and oriented x3 no acute distress Cards: RRR, s1s2 Pulm: Non-labored respiratory effort, expiratory wheeze bilaterally, diminshed breath sounds at bases Abdomen: Obese, non-distended, tenderness RLQ, LLQ, normoactive bowel sounds in all 4 quadrants, incisions well healing, JOANNE x2 holding suction with serous drainage Extremities: Moves all extremities, distal sensation intact. Skin warm and well perfused. Distal pulses palpable. Bilateral calves soft and non-tender Assessment/Plan Assessment: This is a 61 year old male, POD 11 s/p omental repair for perforated duodenal ulcer, also POD 17 s/p lap appy with perf. Paracentesis done, cultures suggestive of abad. Also with questionable pna. Has had persistent leukocytosis, appears to be down trending. -Continue meropenum and diflucan -F/U EKG, monitor qt interval, if greater than 500 will contact cardiology -TPN has been discontinued, disregard student note suggesting PRN dosing -Diet has already been advanced to regular, puree consistency, disregard student note suggesting continuing full liquid diet. We will continue puree consistency regular diet, patient tolerating well -Respiratory has already been involved with patient care, patient has received nebulizer treatments and will continue to do so -Will continue to follow CBC -Anticipate dc joanne x1 today, will await further instructions from Dr. Sow
[2017-04-14 07:19] VITALS: BP 108/64
[2017-04-14 08:00] LABS: ABSOLUTE BASOPHIL COUNT 0.1 /CUMM (0.0-0.2); ABSOLUTE EOSINOPHIL COUNT 0.1 /CUMM (0.0-0.7); ABSOLUTE GRANULOCYTE CT 17.5 /CUMM (1.4-6.5); ABSOLUTE LYMPH COUNT 1.9 /CUMM (1.2-3.4); ABSOLUTE MONOCYTE COUNT 1.6 /CUMM (0.10-0.60); BASOPHIL % 0.3 % (0.0-2.0); EOSINOPHIL % 0.6 % (0-5); MEAN CORPUSCULAR HGB 29.4 PG (27.0-31.0); MEAN CORPUSCULAR HGB CONC 33.4 G/DL (33.0-37.0); MEAN CORPUSCULAR VOLUME 88.1 FL (80.0-94.0); MEAN PLATELET VOLUME 8.5 FL (7.4-10.4); PLATELET COUNT 455 /CUMM (130-400); RBC DISTRIBUTION WIDTH 13.8 % (11.5-14.5); RED BLOOD CELL CT 3.86 /CUMM (4.70-6.10); WHITE BLOOD CELL COUNT 21.2 /CUMM (4.8-10.8)
[2017-04-14 08:48] LABS: GRANULOCYTE % 82.7 % (42.2-75.2)
[2017-04-14 09:39] VITALS: BP 92/62
--- NOTE | 2017-04-14 12:22 | PN- Infect Dx ---
Subjective Subjective: MAXIMUM TEMPERATURE 100.1. He continues to report abdominal discomfort but is tolerating a full liquid diet. Objective Last 24 Hrs of Vital Signs/I&O Vital Signs Date Time Temp Pulse Resp B/P B/P Pulse O2 O2 Flow FiO2 Mean Ox Delivery Rate 04/14 1106 94 Room Air 04/14 0939 66 92/62 04/14 0937 66 92/61 04/14 0935 66 92/61 04/14 0800 95 Room Air 04/14 0719 98.4 62 18 108/64 95 Room Air 04/14 0000 Room Air 04/13 2306 100.1 67 18 118/70 95 Room Air 04/13 2218 67 118/70 04/13 1705 97 Room Air Room Air 04/13 1440 98.2 67 20 120/60 96 Intake & Output 04/14 1600 04/14 0800 04/14 0000 Intake Total 240 240 Output Total 200 660 280 Balance -200 -420 -40 Intake, Oral 240 240 Output, 10 5 Drainage Output, Urine 200 650 275 Physical Exam Other Physical Findings: He appears comfortable in no acute distress Lungs decreased breath sounds at the left base Heart regular rhythm with no murmur Abdomen is obese, soft, tender on minimal palpation diffusely, with no guarding or rebound, positive bowel sounds; 2 LENNY drains remain in place with minimal output Extremities no cyanosis, clubbing or edema; PICC in the right upper extremity with no inflammation at the site Results Last 24 Hours of Lab Results: Laboratory Tests 04/14 0530 Chemistry Sodium (137 - 145 mmol/L) 137 Potassium (3.5 - 5.1 mmol/L) 5.0 Chloride (98 - 107 mmol/L) 94 L Carbon Dioxide (22 - 30 mmol/L) 30 Anion Gap (5 - 16) 13 BUN (9 - 20 mg/dL) 17 Creatinine (0.7 - 1.2 mg/dL) 0.6 L Estimated GFR (>60 ml/min) > 60 BUN/Creatinine Ratio (7 - 25 %) 28.3 H Phosphorus (2.5 - 4.5 mg/dL) 4.7 H Magnesium (1.6 - 2.3 mg/dL) 1.7 Hematology CBC w Diff NO MAN DIFF REQ WBC (4.8 - 10.8 /CUMM) 21.2 H RBC (4.70 - 6.10 /CUMM) 3.86 L Hgb (14.0 - 18.0 G/DL) 11.3 L Hct (42 - 52 %) 34.0 L MCV (80.0 - 94.0 FL) 88.1 MCH (27.0 - 31.0 PG) 29.4 MCHC (33.0 - 37.0 G/DL) 33.4 RDW (11.5 - 14.5 %) 13.8 Plt Count (130 - 400 /CUMM) 455 H MPV (7.4 - 10.4 FL) 8.5 Gran % (42.2 - 75.2 %) 82.7 H Lymphocytes % (20.5 - 51.1 %) 9.0 L Monocytes % (1.7 - 9.3 %) 7.4 Eosinophils % (0 - 5 %) 0.6 Basophils % (0.0 - 2.0 %) 0.3 Absolute Granulocytes (1.4 - 6.5 /CUMM) 17.5 H Absolute Lymphocytes (1.2 - 3.4 /CUMM) 1.9 Absolute Monocytes (0.10 - 0.60 /CUMM) 1.6 H Absolute Eosinophils (0.0 - 0.7 /CUMM) 0.1 Absolute Basophils (0.0 - 0.2 /CUMM) 0.1 Last 24 Hours of Fabiano Results: Blood cultures April 13 negative Assessment/Plan Impression: Stable, with temperatures remaining normal and with white blood cell count slowly decreasing, though still elevated, now on Fluconazole Day 2 of treatment for Josephine, isolated from the ascitic fluid drained from the left paracolic gutter 5 days ago, now 12 days status post laparoscopic repair of a perforated gastroduodenal ulcer and 18 days status post laparoscopic surgery for a perforated appendix. He remains on Meropenem Day 6 of treatment for a possible pneumonia, but his CT scan was more suggestive of atelectasis and, as suggested yesterday, this can be discontinued. He did have a low-grade fever last night and, if this recurs or if his white blood cell count does not continue to decrease, a repeat CT scan of the abdomen and pelvis will need to be considered. Suggestion: 1. Would repeat a CT of the abdomen and pelvis if he has a recurrent fever or his white blood count remains elevated 2. Discontinue Meropenem 3. Continue Fluconazole 600 mg po every 24 hour
--- NOTE | 2017-04-14 12:46 | Procedure ---
Minor Surgical Procedure Note Date of Procedure: 04/14/17 Procedure Note: RIGHT SIDE LENNY DRAIN PULLED. SCANT AMOUNT OF SEROUS FLUID IN BULB. NO BLEEDING NOTED AFTER DRAIN REMOVED. DRAIN SITE COVERED WITH STERILE DRESSING PT TOLERATED PROCEDURE WELL
[2017-04-14 14:00] VITALS: BP 102/70
[2017-04-14 23:35] VITALS: BP 114/74
--- NOTE | 2017-04-15 06:31 | PN- Student ---
See Addendum Mitch Narvaez 04/15/17 0629: Subjective Subjective: "I feel a little bit better, just tired." Pt continues to have 6/10 generalized abd pain relieved with PO oxy. Still feels 'wheezy' on exp- neb tx helps. R LENNY drain pulled yesterday- pt tolerated procedure well. Admits to minimal OOB amb. Pt tolerating advanced diet well. + urination, + flatus, +BM. Pt denies: MURRELL, vision changes, SOB, chest pain, NVD, paresthesias or syncope. Objective Objective: GEN: A+Ox3, NAD, supine in bed, flat affect. RESP: Poor resp effort, diminished breath sounds @ bilateral bases. No wheezing or rhonchi audible. CARDIO: RRR, no MRG, S1/S2 audible. ABD: Soft, tender in RLQ. Loud normoactive BS audible throughout. [address], CDI. Danny at midline sub-umbilical incision: moist, clear discharge noted from wound. [address]- minimal serous fluid noted. MUSC: 5/5 strength & full ROM. Lower ext nonedematous, nontender. cap refill < 2 sec. Distal pulses intact bilaterally. NEURO: Sensation intact throughout. Results Results: Laboratory Tests 04/14/17 0530: Anion Gap 13, Estimated GFR > 60, BUN/Creatinine Ratio 28.3 H, Phosphorus 4.7 H, Magnesium 1.7, CBC w Diff NO MAN DIFF REQ, RBC 3.86 L, MCV 88.1, MCH 29.4, MCHC 33.4, RDW 13.8, MPV 8.5, Gran % 82.7 H, Lymphocytes % 9.0 L, Monocytes % 7.4, Eosinophils % 0.6, Basophils % 0.3, Absolute Granulocytes 17.5 H, Absolute Lymphocytes 1.9, Absolute Monocytes 1.6 H, Absolute Eosinophils 0.1, Absolute Basophils 0.1 04/13/17 0505: Anion Gap 11, Estimated GFR > 60, BUN/Creatinine Ratio 28.0 H, Phosphorus 3.8, Magnesium 1.7, CBC w Diff NO MAN DIFF REQ, RBC 3.84 L, MCV 88.6, MCH 29.4, MCHC 33.2, RDW 13.6, MPV 8.8, Gran % 84.9 H, Lymphocytes % 7.3 L, Monocytes % 6.8, Eosinophils % 0.8, Basophils % 0.2, Absolute Granulocytes 19.7 H, Absolute Lymphocytes 1.7, Absolute Monocytes 1.6 H, Absolute Eosinophils 0.2, Absolute Basophils 0 Microbiology 04/13 1230 BLOOD: Blood Culture - RES 04/13 1205 BLOOD: Blood Culture - RES Assessment/Plan Assessment: Chase is a 61yo M POD 12 s/p omental repair r/t perf'd duodenal ulcer & POD 18 s /p lap appy r/t perf'd appendix. Patient appears to be improving with time. Paracentesis + for abad, pt on diflucan and tolerating mx well. CXR indicative of possible PNA- pt on meropenum x 11 days but continues to complain of wheezing and occasional dyspnea. Pt WBC continues to trend downward (21.2). PT does not have any questions or concerns at this time. Plan: - Continue Diflucan 600mg PO q24hr - Appreciate ID consult: D/C meropenum today and consider f/u CT scan if pt becomes febrile. - EKG- monitor for QT changes - Continue regular puree diet. - Continue neb tx - Consult Dr. Sow regarding last LENNY drain in place- anticipate to dc today or tomorrow. - Encourage OOB amb. - Continue PO pain mx as ordered. Aaron Redding 04/15/17 1138: Assessment/Plan Plan: Patient reports overall improved abdominal pain, tolerating a diet without nausea. Reports passing flatus and having more formed bowel movements. He denies chest pain, sob, wheezing or trouble breathing. Per nursing, patient had clear drainage from the inferior aspect of his incision. On exam he is afebrile, vss, abdomen is soft with midline incision closed with danny with surrounding erythema and spontanous drainage from inferior aspect, purulent drainage expressed on palpation. Danny removed and cx obtained, fascia appears intact. 30 cc expressed and washed out with 20 cc normal saline and packed with 1/2 in packing and dressed with gauze and tape. Tolerated well. LENNY with minimal serous drainage < 5 cc. Keep LENNY in place likely 1-2 days. Cont abx per ID. D/w Dr. Sow
[2017-04-15 07:35] VITALS: BP 115/75
[2017-04-15 08:06] LABS: ABSOLUTE BASOPHIL COUNT 0 /CUMM (0.0-0.2); ABSOLUTE EOSINOPHIL COUNT 0.1 /CUMM (0.0-0.7); ABSOLUTE GRANULOCYTE CT 11.9 /CUMM (1.4-6.5); ABSOLUTE LYMPH COUNT 1.4 /CUMM (1.2-3.4); ABSOLUTE MONOCYTE COUNT 1.3 /CUMM (0.10-0.60); BASOPHIL % 0.2 % (0.0-2.0); EOSINOPHIL % 0.9 % (0-5); GRANULOCYTE % 80.9 % (42.2-75.2); HEMATOCRIT 33.3 % (42-52); MEAN CORPUSCULAR HGB 29.5 PG (27.0-31.0); MEAN CORPUSCULAR HGB CONC 33.8 G/DL (33.0-37.0); MEAN CORPUSCULAR VOLUME 87.5 FL (80.0-94.0); MEAN PLATELET VOLUME 8.2 FL (7.4-10.4); PLATELET COUNT 454 /CUMM (130-400); RBC DISTRIBUTION WIDTH 14.1 % (11.5-14.5); RED BLOOD CELL CT 3.81 /CUMM (4.70-6.10); WHITE BLOOD CELL COUNT 14.8 /CUMM (4.8-10.8)
--- NOTE | 2017-04-15 12:49 | PN- Infect Dx ---
Subjective Subjective: Afebrile. He offers no new complaints but still reports mild abdominal discomfort. Objective Last 24 Hrs of Vital Signs/I&O Vital Signs Date Time Temp Pulse Resp B/P B/P Pulse O2 O2 Flow FiO2 Mean Ox Delivery Rate 04/15 1040 Room Air 2.0L 04/15 1027 78 122/78 04/15 0735 99.0 65 18 115/75 94 Room Air 04/15 0000 96 Room Air 04/14 2335 98.2 65 18 114/74 96 Room Air 04/14 2151 69 120/80 04/14 1400 68 102/70 04/14 1322 98.2 66 18 96 Room Air Intake & Output 04/15 1600 04/15 0800 04/15 0000 Intake Total 100 1530 Output Total 800 605 Balance -700 925 Intake, IV 0 30 Intake, Oral 100 1500 Number 0 0 Bowel Movements Output, 5 Drainage Output, Urine 800 600 Physical Exam Other Physical Findings: He appears comfortable in no acute distress Lungs decreased breath sounds at the left base Heart regular rhythm with no murmur Abdomen is obese, soft, tender on minimal palpation diffusely, with positive bowel sounds; incision clean, with no erythema, with packing in the inferior aspect status post drainage of a small amount of pus early this morning; 1 LENNY drain remains in place Extremities trace edema both lower extremities; PICC in the right upper extremity with no inflammation at the site Results Last 24 Hours of Lab Results: Laboratory Tests 04/15 0645 Chemistry Sodium (137 - 145 mmol/L) 137 Potassium (3.5 - 5.1 mmol/L) 4.9 Chloride (98 - 107 mmol/L) 95 L Carbon Dioxide (22 - 30 mmol/L) 29 Anion Gap (5 - 16) 13 BUN (9 - 20 mg/dL) 17 Creatinine (0.7 - 1.2 mg/dL) 0.6 L Estimated GFR (>60 ml/min) > 60 BUN/Creatinine Ratio (7 - 25 %) 28.3 H Phosphorus (2.5 - 4.5 mg/dL) 4.4 Magnesium (1.6 - 2.3 mg/dL) 1.7 Hematology CBC w Diff NO MAN DIFF REQ WBC (4.8 - 10.8 /CUMM) 14.8 H RBC (4.70 - 6.10 /CUMM) 3.81 L Hgb (14.0 - 18.0 G/DL) 11.3 L Hct (42 - 52 %) 33.3 L MCV (80.0 - 94.0 FL) 87.5 MCH (27.0 - 31.0 PG) 29.5 MCHC (33.0 - 37.0 G/DL) 33.8 RDW (11.5 - 14.5 %) 14.1 Plt Count (130 - 400 /CUMM) 454 H MPV (7.4 - 10.4 FL) 8.2 Gran % (42.2 - 75.2 %) 80.9 H Lymphocytes % (20.5 - 51.1 %) 9.2 L Monocytes % (1.7 - 9.3 %) 8.8 Eosinophils % (0 - 5 %) 0.9 Basophils % (0.0 - 2.0 %) 0.2 Absolute Granulocytes (1.4 - 6.5 /CUMM) 11.9 H Absolute Lymphocytes (1.2 - 3.4 /CUMM) 1.4 Absolute Monocytes (0.10 - 0.60 /CUMM) 1.3 H Absolute Eosinophils (0.0 - 0.7 /CUMM) 0.1 Absolute Basophils (0.0 - 0.2 /CUMM) 0 Last 24 Hours of Fabiano Results: Blood cultures April 13 negative Superficial culture from the inferior aspect of his incision April 15 pending Assessment/Plan Impression: Stable, with temperatures remaining normal and with white blood cell count significantly decreased today, on Fluconazole Day 3 of treatment for Josephine, isolated from the ascitic fluid drained from the left paracolic gutter 6 days ago, now 13 days status post laparoscopic repair of a perforated gastroduodenal ulcer and 19 days status post laparoscopic appendectomy for a perforated appendix. The significance of the purulent drainage expressed from the inferior aspect of his incision is unclear but can follow-up the culture. Suggestion: 1. Continue Fluconazole
[2017-04-15 14:12] VITALS: BP 104/64
[2017-04-15 22:31] VITALS: BP 102/62
[2017-04-16 06:33] VITALS: BP 143/86
--- NOTE | 2017-04-16 07:03 | PN- Student ---
See Addendum Mitch Narvaez 04/16/17 0652: Subjective Subjective: "I think I'm feeling better." Pt is complaining of increased abd pressure and feeling 'gassy.' Admits to + flatus/belching, + BM and + urination. Continues to complain of 6/10 generalized abd pain, more severe in RLQ. Pt tolerating pureed diet well and states he has been amb OOB. Denies: MURRELL, vision changes, SOB, chest pain, NVD, muscle pain, paresthesia or syncope. Objective Objective: GEN: Lying supine in bed comfortably. NAD. A+Ox3. Continued flat affect. RESP: Good resp effort, CTAB. No wheezing or rhonchi audible. CARDIO: RRR, no MRG, S1/S2 audible, best heard at apex. ABD: Soft, obese, mild tenderness to palpation throughout. Diminished active BS throughout. [address] (gauze/tape)- one on RUQ (CDI), one covering JOANNE drain on LUQ- (CDI) drain contains minimal serous fluid. Vertical subumbilical incision site is minimally erythematous, shows healthy healing tissue + crusting on edges and is slightly tender to palpation. Metcalfe have been removed & pus drained from wound 04/15. MUSC: 5/5 strength, full ROM, cap refill < 2 sec, distal pulses + 2 bilaterally. Compression devices on lower extremities bilaterally. Nontender, nonedematous. NEURO: Sensation intact throughout. Results Results: Laboratory Tests 04/16/17 0614: CBC w Diff Pending, WBC Pending, RBC Pending, Hgb Pending, Hct Pending, MCV Pending, MCH Pending, MCHC Pending, RDW Pending, Plt Count Pending, MPV Pending 04/15/17 0645: Anion Gap 13, Estimated GFR > 60, BUN/Creatinine Ratio 28.3 H, Phosphorus 4.4, Magnesium 1.7, CBC w Diff NO MAN DIFF REQ, RBC 3.81 L, MCV 87.5, MCH 29.5, MCHC 33.8, RDW 14.1, MPV 8.2, Gran % 80.9 H, Lymphocytes % 9.2 L, Monocytes % 8.8, Eosinophils % 0.9, Basophils % 0.2, Absolute Granulocytes 11.9 H, Absolute Lymphocytes 1.4, Absolute Monocytes 1.3 H, Absolute Eosinophils 0.1, Absolute Basophils 0 04/14/17 0530: Anion Gap 13, Estimated GFR > 60, BUN/Creatinine Ratio 28.3 H, Phosphorus 4.7 H, Magnesium 1.7, CBC w Diff NO MAN DIFF REQ, RBC 3.86 L, MCV 88.1, MCH 29.4, MCHC 33.4, RDW 13.8, MPV 8.5, Gran % 82.7 H, Lymphocytes % 9.0 L, Monocytes % 7.4, Eosinophils % 0.6, Basophils % 0.3, Absolute Granulocytes 17.5 H, Absolute Lymphocytes 1.9, Absolute Monocytes 1.6 H, Absolute Eosinophils 0.1, Absolute Basophils 0.1 Microbiology 04/15 929 TRUNK: Culture & Sensitivity - RECD 04/15 929 TRUNK: Gram Stain - RECD 04/13 1230 BLOOD: Blood Culture - RES 04/13 1205 BLOOD: Blood Culture - RES Assessment/Plan Assessment: Chase is a 61yo M POD 13 s/p omental repair r/t perforated duodenal ulcer & POD 19 s/p lap appendectomy r/t perforated appendix. Patient appears to be improving with time. Paracentesis + for abad, pt on diflucan and tolerating well. Previously on meropenem for suspected PNA on CXR- D/C 2 days ago. Pt WBC continues to trend downward (14.8). Subumbilical incision charissa removed and drain expressed 04/15 by surgical PA. Pt states he does not have any pain at site and tolerated procedure well. He continues to have [address] at LUQ with minimal serous output. PT does not have any questions or concerns at this time. Plan: - Continue Diflucan 600mg PO q24hr - Continue diet. - Change packing at incision site. - Continue neb tx PRN. - Discuss with Dr. Sow regarding last JOANNE drain in place- anticipate to dc today or tomorrow. - Encourage OOB amb. - Continue PO pain meds as ordered. - Continue PPI. Juan Carlos Thomas 04/16/17 0734: Resident Review Statement Resident Statement: examined this patient, amended to note Other Findings: agree with above. packing at umbilical wound changed, small amount of purulent dc and marginal erythema. improving. joanne site with marginal erythema. previous drain sites healing well. abd is mildly tender RLQ and minimal diffuse tenderness. hopeful DC in 1-2 days, needs to get OOB more, monitor bowel function since returning to regular diet last evening. cont current plan. pt has 16hr nursing care at home usually due to his psych condition, possible dc home with additional services or dc to snf. fup with case managment assesment.
[2017-04-16 09:29] LABS: ABSOLUTE BASOPHIL COUNT 0 /CUMM (0.0-0.2); ABSOLUTE EOSINOPHIL COUNT 0.1 /CUMM (0.0-0.7); ABSOLUTE LYMPH COUNT 1.4 /CUMM (1.2-3.4); ABSOLUTE MONOCYTE COUNT 1.3 /CUMM (0.10-0.60); BASOPHIL % 0.3 % (0.0-2.0); EOSINOPHIL % 1.2 % (0-5); GRANULOCYTE % 77.4 % (42.2-75.2); HEMATOCRIT 33.6 % (42-52); MEAN CORPUSCULAR HGB 29.4 PG (27.0-31.0); MEAN CORPUSCULAR HGB CONC 33.5 G/DL (33.0-37.0); MEAN CORPUSCULAR VOLUME 87.8 FL (80.0-94.0); MEAN PLATELET VOLUME 8.2 FL (7.4-10.4); PLATELET COUNT 469 /CUMM (130-400); RBC DISTRIBUTION WIDTH 14.4 % (11.5-14.5); RED BLOOD CELL CT 3.83 /CUMM (4.70-6.10); WHITE BLOOD CELL COUNT 12.9 /CUMM (4.8-10.8)
[2017-04-16 13:50] VITALS: BP 100/72
[2017-04-16 22:28] VITALS: BP 118/60
[2017-04-17 05:50] VITALS: BP 104/64
--- NOTE | 2017-04-17 07:18 | PN- Student ---
Mitch Narvaez 04/17/17 0717: Subjective Subjective: "I feel better today, but I still feel really gassy." Patient states he has continued 6/10 generalized abdominal pain which is worse in the RLQ. Pt continues to complain of abdominal bloating/pressure but states the smiethicone has been helping with these symptoms. Pt tolerating regular diet well, + BM, + flatus, + urination. Pt ambulating throughout the unit without difficulty. Denies: H/A, vision changes, SOB, chest pain, NVD, paresthesias or syncope. Objective Objective: GEN: Pt lying in bed supine, NAD, A+Ox3. RESP: Fair resp effort, CTAB. CARDIO: RRR, no MRG, S1/S2 audible throughout, cap refill < 2 sec. ABD: Soft, obese, mild tenderness throughout with palpation. Pt has 3 island dressings (RUQ, LUQ, subumbilical). All dressing are clean and dry. Subumbilical incision visualized: mildy erythematous, healthy healing tissue noted and packing is in place. MUSC: 5/5 strength, full ROM, compression devices on LE bilaterally, nontender, nonedematous. Distal pulses palpable +2 throughout. NEURO: Sensation intact throughout. Results Results: Laboratory Tests 04/16/17 0614: CBC w Diff NO MAN DIFF REQ, RBC 3.83 L, MCV 87.8, MCH 29.4, MCHC 33.5, RDW 14.4 , MPV 8.2, Gran % 77.4 H, Lymphocytes % 10.7 L, Monocytes % 10.4 H, Eosinophils % 1.2, Basophils % 0.3, Absolute Granulocytes 10.0 H, Absolute Lymphocytes 1.4, Absolute Monocytes 1.3 H, Absolute Eosinophils 0.1, Absolute Basophils 0 04/15/17 0645: Anion Gap 13, Estimated GFR > 60, BUN/Creatinine Ratio 28.3 H, Phosphorus 4.4, Magnesium 1.7, CBC w Diff NO MAN DIFF REQ, RBC 3.81 L, MCV 87.5, MCH 29.5, MCHC 33.8, RDW 14.1, MPV 8.2, Gran % 80.9 H, Lymphocytes % 9.2 L, Monocytes % 8.8, Eosinophils % 0.9, Basophils % 0.2, Absolute Granulocytes 11.9 H, Absolute Lymphocytes 1.4, Absolute Monocytes 1.3 H, Absolute Eosinophils 0.1, Absolute Basophils 0 Microbiology 04/15 929 TRUNK: Culture & Sensitivity - RES YEAST 04/15 929 TRUNK: Gram Stain - RES Assessment/Plan Assessment: Chase is a 61yo M POD 15 s/p omental repair r/t perforated duodenal ulcer & POD 21 s/p lap appendectomy r/t perforated appendix. Patient appears to be improving with time. Paracentesis + for abad, pt on diflucan and tolerating well. Pt WBC continues to trend downward (12.9). Pt has periumbilical wound which requires packing and dressing changes. Patient states he does not want to be discharged today because he does not have a ride home and he 'needs more time' to prepare for STR. PT does not have any questions or concerns at this time. Plan: - Continue Diflucan 600mg PO q24hr - Continue regular diet. - Change packing and dressing changes at incision site. - Continue neb tx PRN. - Encourage OOB amb. - Continue PO pain meds as ordered. - Continue PPI. Ines De Leon 04/17/17 0746: Subjective Subjective: sURGERY PA- INES DE LEON Pt c/o lower back ache/pain. thinks its from sitting in bed for most of the day. feels gassy but having flatus and BMs. tolerating diet. Denies fevers, CP, SOB Objective Objective: ABD- obese, +BS, soft, mild tenderness throughout. umbilical insicion packing changed, purulent drainage. minimal surrounding erythema. LUQ incision with minimal serosang drainage, will have RN cover with clean dry dressing after pt showers this morning. other incisions and healing well with no drainage or signs of infection, will leave open to air with instructions to keep clean and dry Assessment/Plan Assessment: Chase is a 61yo M POD 15 s/p Grahm patch d/t perf gastroduodenal ulcer POD 21 s/ p lap appendectomy r/t perforated appendix. Stable at this time ABX- Awaiting Dr. Cook recommendations for duration of diflucan will add lidoderm patch for back pain ok to shower cont daily packing and dressing change of umbilical wound reg diet encourage ambulation and IS COnt PPI DC planning, home vs STR, possibly DC later today or tomorrow
[2017-04-17 07:53] LABS: ABSOLUTE BASOPHIL COUNT 0 /CUMM (0.0-0.2); ABSOLUTE EOSINOPHIL COUNT 0.2 /CUMM (0.0-0.7); ABSOLUTE GRANULOCYTE CT 8.8 /CUMM (1.4-6.5); ABSOLUTE LYMPH COUNT 1.6 /CUMM (1.2-3.4); ABSOLUTE MONOCYTE COUNT 1.3 /CUMM (0.10-0.60); BASOPHIL % 0.3 % (0.0-2.0); EOSINOPHIL % 1.8 % (0-5); GRANULOCYTE % 73.4 % (42.2-75.2); HEMATOCRIT 33.5 % (42-52); MEAN CORPUSCULAR HGB 29.5 PG (27.0-31.0); MEAN CORPUSCULAR HGB CONC 33.5 G/DL (33.0-37.0); MEAN PLATELET VOLUME 8.1 FL (7.4-10.4); PLATELET COUNT 479 /CUMM (130-400); RBC DISTRIBUTION WIDTH 13.9 % (11.5-14.5); RED BLOOD CELL CT 3.81 /CUMM (4.70-6.10)
[2017-04-17] MEDS ORDERED: OXYCODONE HCL5 M1 PO (14:30)
[2017-04-17] MEDS ORDERED: PRILOSEC OTC20 M1 PO (14:30)
[2017-04-17] MEDS ORDERED: DIFLUCAN200 M1 PO (14:33)
[2017-04-17 14:54] VITALS: BP 124/86
--- NOTE | 2017-04-17 15:14 | PN- Infect Dx ---
Subjective Subjective: Afebrile. He still notes mild abdominal discomfort. Objective Last 24 Hrs of Vital Signs/I&O Vital Signs Date Time Temp Pulse Resp B/P B/P Pulse O2 O2 Flow FiO2 Mean Ox Delivery Rate 04/17 1454 98.6 63 22 124/86 /02 0855 124/86 04/17 0855 124/86 04/17 0800 Room Air 04/17 0550 98.6 63 22 104/64 93 Room Air 04/17 0000 92 Room Air 04/16 2228 68 100/70 02 2228 97.6 68 20 118/60 92 Room Air Intake & Output 04/17 1600 04/17 0800 04/17 0000 Intake Total 144 181 8970 Output Total 900 Balance 800 240 110 Intake, IV 0 10 Intake, Oral 710 988 3098 Number 0 0 Bowel Movements Output, Urine 900 Physical Exam Other Physical Findings: He appears comfortable in no acute distress Lungs slight decreased breath sounds at the left base Heart regular rhythm with no murmur Abdomen is obese, soft, tender on minimal palpation diffusely, with no guarding or rebound, positive bowel sounds; incision with packing in the inferior aspect, with no erythema Extremities trace pedal edema both lower extremities; PICC in the right upper extremity with no inflammation at the site Results Last 24 Hours of Lab Results: Laboratory Tests 04/17 0610 Hematology CBC w Diff NO MAN DIFF REQ WBC (4.8 - 10.8 /CUMM) 12.0 H RBC (4.70 - 6.10 /CUMM) 3.81 L Hgb (14.0 - 18.0 G/DL) 11.2 L Hct (42 - 52 %) 33.5 L MCV (80.0 - 94.0 FL) 88.0 MCH (27.0 - 31.0 PG) 29.5 MCHC (33.0 - 37.0 G/DL) 33.5 RDW (11.5 - 14.5 %) 13.9 Plt Count (130 - 400 /CUMM) 479 H MPV (7.4 - 10.4 FL) 8.1 Gran % (42.2 - 75.2 %) 73.4 Lymphocytes % (20.5 - 51.1 %) 13.4 L Monocytes % (1.7 - 9.3 %) 11.1 H Eosinophils % (0 - 5 %) 1.8 Basophils % (0.0 - 2.0 %) 0.3 Absolute Granulocytes (1.4 - 6.5 /CUMM) 8.8 H Absolute Lymphocytes (1.2 - 3.4 /CUMM) 1.6 Absolute Monocytes (0.10 - 0.60 /CUMM) 1.3 H Absolute Eosinophils (0.0 - 0.7 /CUMM) 0.2 Absolute Basophils (0.0 - 0.2 /CUMM) 0 Last 24 Hours of Fabiano Results: Blood cultures April 13 negative Assessment/Plan Impression: Overall improved, with temperatures remaining normal and with white blood cell count continuing to decrease, on Fluconazole Day 5 of treatment for Josephine, isolated from the ascitic fluid drained from the left paracolic gutter 8 days ago, now 15 days status post laparoscopic repair of a perforated gastroduodenal ulcer and 21 days status post laparoscopic appendectomy for a perforated appendix. The culture of the purulent drainage expressed from the inferior aspect of his incision is also growing yeast, with the wound now packed and without surrounding inflammation. Suggestion: 1. Continue Fluconazole to plan on a 2 week course of treatment
[2017-04-17 15:36] VITALS: BP 104/64
== END 2017-04-17 16:47 | DRG 329 ==
LOC: DELPENDDIS → ERH 16:26 → ER-OR 16:48 → ENRESERV 21:09 → 2NA 23:38 → ENRESERV 03-28 01:29 → CANRESERV 03-28 01:29 → CMPBEDREQ 03-28 08:44 → 2NA 03-29 11:28 → 1NO 03-29 11:28 → CRI 03-29 11:28 → 2NB 03-29 11:28 → 2NA 03-29 11:37 → CRI 04-03 00:27 → 1NO 04-08 21:55 → ENPENDDIS 04-10 09:06 → ENTRNSPT 04-13 19:26 → 2NB 04-13 19:37 → CMPTRNSPT 04-13 19:41 → ENPENDDIS 04-17 15:00 → 2NB 04-17 16:47
PROVIDERS: Emergency Medicine; Internal Medicine; Internal Medicine Endocrinology, Diabetes & Metabolism; Internal Medicine Infectious Disease; Nurse Practitioner; Physician Assistant; Physician Assistant Surgical; Student in an Organized Health Care Education/Training Program
PROC: 0DTJ4ZZ Resection of Appendix, Percutaneous Endoscopic Approach (ICD-10-PCS; principal; 2017-03-27)
PROC: 0DU947Z Supplement Duodenum with Autologous Tissue Substitute, Percutaneous Endoscopic Approach (ICD-10-PCS; 2017-04-03)
PROC: 0BH17EZ Insertion of Endotracheal Airway into Trachea, Via Natural or Artificial Opening (ICD-10-PCS; 2017-04-03)
PROC: 5A1935Z Respiratory Ventilation, Less than 24 Consecutive Hours (ICD-10-PCS; 2017-04-03)
PROC: 02HV33Z Insertion of Infusion Device into Superior Vena Cava, Percutaneous Approach (ICD-10-PCS; 2017-04-08)
PROC: 0W9G3ZX Drainage of Peritoneal Cavity, Percutaneous Approach, Diagnostic (ICD-10-PCS; 2017-04-09)
DX: K35.3 Acute appendicitis with localized peritonitis (principal); K27.5 Chronic or unspecified peptic ulcer, site unspecified, with perforation; R65.21 Severe sepsis with septic shock; J96.90 Respiratory failure, unspecified, unspecified whether with hypoxia or hypercapnia; A41.9 Sepsis, unspecified organism; B37.89 Other sites of candidiasis; E46 Unspecified protein-calorie malnutrition; J18.9 Pneumonia, unspecified organism; K56.7 Ileus, unspecified; N17.9 Acute kidney failure, unspecified; E87.2 Acidosis; J98.11 Atelectasis; R18.8 Other ascites; E83.42 Hypomagnesemia; E03.9 Hypothyroidism, unspecified; Z87.820 Personal history of traumatic brain injury; E87.6 Hypokalemia; Y95 Nosocomial condition; F32.9 Major depressive disorder, single episode, unspecified; G40.909 Epilepsy, unspecified, not intractable, without status epilepticus; I10 Essential (primary) hypertension; M19.90 Unspecified osteoarthritis, unspecified site; R74.0 Nonspecific elevation of levels of transaminase and lactic acid dehydrogenase [LDH]; F41.9 Anxiety disorder, unspecified; I95.81 Postprocedural hypotension
CPT/HCPCS: 1NP; 2NASP; 2NBP; 87075; 87493; CCU; 36415; 71045; 71046; 74018; 74021; 74176; 74177; 74240; 81001; 81003; 82436; 87040; 87070; 87071; 87086; 88304; 93005; 93010; 93306; 93970; 96374; 96375; 97110-GO; 97116-GO; 97161-GP; 97530-GO; 99291; C1769; C9254; C9399; J0131; J0360; J0690; J0696; J0780; J1170; J1642; J1644; J1885; J1940; J1953; J2185; J2250; J2405; J2550; J2920; J3010; J3490; J7040; J7042

== ENCOUNTER 2017-05-06 16:31 | Inpatient (IN) | payer OTHER, MEDICARE ==
[~2017-05-06] VITALS: Ht 177.8 cm; Wt 122.1 kg
[~2017-05-06 16:31] MED LIST changes: +BENZTROPINE ME0.5 M1 PO; +BUPROPION HCL150 M4 PO; +BUSPIRONE HCL30 M1 PO; +DIFLUCAN200 M1 PO; +HYDROCHLOROTHIA25 M1 PO; +LEVOTHYROXINE50 MCG PO; +LISINOPRIL30 M1 PO; +METOPROLOL TAR100 M1 PO; +MORPHINE SULFAT60 M4 PO; +NEURONTIN600 M1 PO; +OXCARBAZEPINE150 M1 PO; +OXYCODONE HCL15 M1 PO; +OXYCODONE HCL5 M1 PO; +PRILOSEC OTC20 M1 PO; +VISTARIL50 M1 PO; +ZYPREXA15 M1 PO
--- NOTE | 2017-05-06 16:38 | ED GENERAL ADULT ---
History of Present Illness General Chief Complaint: General Adult Stated Complaint: WEAKNESS, CONFUSION Source: patient, old records, EMS, HEALTH AIDE Exam Limitations: confusion Vital Signs & Intake/Output Vital Signs & Intake/Output Vital Signs Date Time Temp Pulse Resp B/P B/P Pulse O2 O2 Flow FiO2 Mean Ox Delivery Rate 05/06 1639 96 Nasal 2.0L Cannula 05/06 1634 97.1 70 15 119/56 90 Room Air Allergies Coded Allergies: risperidone (UNKNOWN 10/30/15) Reconcile Medications Benztropine Mesylate 0.5 MG TABLET 1 TAB PO BID ANTICHOLINERGIC (Reported) Bupropion HCl (Bupropion HCl Sr) 150 MG TABLET.ER 1 TAB PO BID MOOD (Reported ) Buspirone HCl 30 MG TABLET 1 TAB PO BID PRN ANXIETY (Reported) Gabapentin (Neurontin) 600 MG TABLET 1 TAB PO 4 TIMES/DAY NERVES (Reported) Hydrochlorothiazide 25 MG TABLET 1 TAB PO DAILY HIGH BLOOD PRESSURE (Reported ) Hydroxyzine Pamoate (Vistaril) 50 MG CAPSULE 1 CAP PO TIDPRN ANXIETY ( Reported) Levothyroxine Sodium 50 MCG TABLET 1 TAB PO DAILY THYROID PROBLEMS (Reported) Lidocaine (Lidoderm) 5 % ADH..PATCH 1 PAT TOP DAILY PAIN (Reported) may wear up to 12 hours Lisinopril 30 MG TABLET 1 TAB PO DAILY HIGH BLOOD PRESSURE (Reported) Metoprolol Tartrate 100 MG TABLET 1 TAB PO BID HIGH BLOOD PRESSURE (Reported) Olanzapine (Zyprexa) 15 MG TABLET 1 TAB PO QPM MOOD STABILITY (Reported) Omeprazole 40 MG CAPSULE.DR 1 CAP PO BID GI (Reported) Oxcarbazepine 150 MG TABLET 1 TAB PO BID SEIZURES (Reported) Oxycodone HCl 5 MG TABLET 1-2 TAB PO Q6H PRN PAIN (Reported) Sennosides/Docusate Sodium (Senna S Tablet) 8.6 MG-50 MG TABLET 1 TAB PO QPM CONSTIPATION (Reported) Triage Nurses Notes Reviewed? yes HPI: Patient was recently discharged from the hospital after admission for a ruptured appendicitis and the postop course was complicated by Josephine Infection. He was subsequently discharged home. Last night he was at home and he felt weak so went down to his knees. Patient was then too weak to get up so he spent the night on the floor. His home health aide got to his house at 3:00 this afternoon and he was still on the floor. Patient has a history of a TBI so has confusion associated with that and was unable to provide further history than that. Patient denies any current pain. There is no nausea or vomiting. He denies any chest pain or shortness of breath. Past History Medical History Any Pertinent Medical History? see below for history Neurological: seizure, TBI EENT: NONE Cardiovascular: hypertension Respiratory: NONE Gastrointestinal: NONE Hepatic: NONE Renal: NONE Musculoskeletal: osteoarthritis Psychiatric: depression Endocrine: THYROID Cancer(s): NONE EDGE STAINER MACHINE/Reproductive: NONE History of MRSA: No History of VRE: No History of CDIFF: No Influenza Vaccine: 11/29/15 Surgical History Surgical History: hernia repair-inguinal, left shoulder surgery Psychosocial History Who do you live with Other (see notes) Services at Home Home Health Aide, Nursing What is your primary language Thai Family History Hx Contributory? No Review of Systems Review of Systems Constitutional: Reports: see HPI. Physical Exam Physical Exam General Appearance: well developed/nourished, alert, awake Head: atraumatic, normal appearance Eyes: Bilateral: PERRL, EOMI. Ears, Nose, Throat: normal pharynx, normal ENT inspection, hearing grossly normal Neck: normal inspection, supple, full range of motion Respiratory: normal breath sounds, chest non-tender, no respiratory distress, lungs clear Cardiovascular: regular rate/rhythm, normal peripheral pulses Gastrointestinal: normal bowel sounds, soft, non-tender, no organomegaly Back: normal inspection, normal range of motion Extremities: normal inspection, normal capillary refill, normal range of motion, no edema Neurologic/Psych: no motor/sensory deficits, awake, alert Skin: intact, normal color, warm/dry Lymphatic: no anterior cervical joon Core Measures ACS in differential dx? No CVA/TIA Diagnosis: No Sepsis Present: No Sepsis Focused Exam Completed? No Progress Differential Diagnoses I considered the following diagnoses in my evaluation of the patient: [Head injury, intracranial hemorrhage, cervical fracture, UTI, rhabdo, electrolyte abnormality] Plan of Care: Orders Procedure Date/time Status Regular Diet 05/07 B Active ED Holding Orders 05/06 1839 Active Admit to inpatient 05/06 184 Active Vital Signs 05/06 184 Active Code Status 05/06 184 Active Add-on Test (ER Only) 05/06 1644 Active BLOOD CULTURE 05/06 163 Active URINALYSIS 05/06 1637 Active COMPREHENSIVE METABOLIC PANEL 05/06 1637 Complete CREATINE PHOSPHOKINASE 05/06 1637 Complete CBC WITHOUT DIFFERENTIAL 05/06 1637 Complete EKG 05/06 1637 Active Current Medications Sig/Nirmal Start time Last Medication Dose Stop Time Status Admin Sodium Chloride 1,000 ML BOLUS ONE 05/06 1800 AC 05/06 (Normal Saline 0.9%) 05/06 1859 1805 Laboratory Tests 05/06/17 1651: Anion Gap 13, Estimated GFR 41 L, BUN/Creatinine Ratio 10.6, Glucose 99, Calcium 9.4, Total Bilirubin 0.3, AST 49, ALT 26, Alkaline Phosphatase 100, Creatine Kinase 1022 H, Total Protein 6.8, Albumin 3.4 L, Globulin 3.4, Albumin/Globulin Ratio 1.0 L, CBC w Diff NO MAN DIFF REQ, RBC 3.79 L, MCV 87.4 , MCH 28.9, MCHC 33.0, RDW 14.1, MPV 6.4 L, Gran % 68.2, Lymphocytes % 17.9 L, Monocytes % 12.3 H, Eosinophils % 1.4, Basophils % 0.2, Absolute Granulocytes 6.6 H, Absolute Lymphocytes 1.7, Absolute Monocytes 1.2 H, Absolute Eosinophils 0.1, Absolute Basophils 0 Microbiology 05/06 1743 BLOOD: Blood Culture - RECD 05/06 163 BLOOD: Blood Culture - RECD Diagnostic Imaging: Viewed by Me: Radiology Read. Discussed w/RAD: Radiology Read. Initial ED EKG: SR, NSSTT CHANGES, NO CHANGE FROM PRIOR Prior EKG: unchanged Comments: PATIENT: KALI THRASHER PRESENT AGE: 61 PATIENT ACCOUNT NO: [id number] : 55 LOCATION: [facility] ORDERING PHYSICIAN: Nir Camarena MD SERVICE DATE: 05/06/17 EXAM TYPE: RAD - XRY-PORTABLE CHEST XRAY EXAMINATION: XR PORTABLE CHEST CLINICAL INFORMATION: Shortness of breath. Pneumonia. COMPARISON: CT chest 04/08/2017. TECHNIQUE: Portable frontal view of the chest was obtained. FINDINGS: Lung volumes are low. There is no overt consolidative disease. Small effusions cannot be definitively excluded on basis of this examination. The cardiac silhouette and upper mediastinal contours are normal. No acute osseous finding. There are chronic posttraumatic and degenerative changes of the left shoulder with superior subluxation of the left humeral head with respect to the glenoid fossa and separation of the acromion clavicular joint with erosion of the distal clavicle. IMPRESSION: Low lung volumes. Possible small effusions. No overt consolidative disease. DICTATED BY: Sarath Ruelas MD DATE/TIME DICTATED:05/06/171710 SEWING INSPECTOR:JUAN DATE/TIME TRANSCRIBED:05/06/171710 CONFIDENTIAL, DO NOT COPY WITHOUT APPROPRIATE AUTHORIZATION. <Electronically signed in Other Vendor System> SIGNED BY: Sarath Ruelas MD 05/06 Departure Departure Disposition: STILL A PATIENT Condition: Fair Clinical Impression Primary Impression: Acute renal failure Secondary Impressions: Hyponatremia, Rhabdomyolysis Referrals: Valentino Chun MD (PCP/Family) Departure Forms: Customer Survey General Discharge Information Admission Note Spoke With: Valentino Chun MD Documentation of Exam: Documentation of any treatments & extenuating circumstances including Concerns Regarding Discharge (functional status, medication knowledge or non-compliance, living conditions, etc.) that warrant an admission rather than observation: [IV fluids, renal consultation, PT evaluation] Critical Care Note Critical Care Note Critical Care Time: non-applicable
[2017-05-06 17:06] LABS: ABSOLUTE BASOPHIL COUNT 0 /CUMM (0.0-0.2); ABSOLUTE EOSINOPHIL COUNT 0.1 /CUMM (0.0-0.7); ABSOLUTE GRANULOCYTE CT 6.6 /CUMM (1.4-6.5); ABSOLUTE LYMPH COUNT 1.7 /CUMM (1.2-3.4); ABSOLUTE MONOCYTE COUNT 1.2 /CUMM (0.10-0.60); BASOPHIL % 0.2 % (0.0-2.0); EOSINOPHIL % 1.4 % (0-5); GRANULOCYTE % 68.2 % (42.2-75.2); HEMATOCRIT 33.1 % (42-52); MEAN CORPUSCULAR HGB 28.9 PG (27.0-31.0); MEAN CORPUSCULAR VOLUME 87.4 FL (80.0-94.0); MEAN PLATELET VOLUME 6.4 FL (7.4-10.4); PLATELET COUNT 377 /CUMM (130-400); RBC DISTRIBUTION WIDTH 14.1 % (11.5-14.5); RED BLOOD CELL CT 3.79 /CUMM (4.70-6.10); WHITE BLOOD CELL COUNT 9.7 /CUMM (4.8-10.8)
--- NOTE | 2017-05-06 17:16 | RADIOLOGY REPORT ---
EXAMINATION: XR PORTABLE CHEST CLINICAL INFORMATION: Shortness of breath. Pneumonia. COMPARISON: CT chest 04/08/2017. TECHNIQUE: Portable frontal view of the chest was obtained. FINDINGS: Lung volumes are low. There is no overt consolidative disease. Small effusions cannot be definitively excluded on basis of this examination. The cardiac silhouette and upper mediastinal contours are normal. No acute osseous finding. There are chronic posttraumatic and degenerative changes of the left shoulder with superior subluxation of the left humeral head with respect to the glenoid fossa and separation of the acromion clavicular joint with erosion of the distal clavicle. IMPRESSION: Low lung volumes. Possible small effusions. No overt consolidative disease.
[2017-05-06] MEDS ORDERED: OMEPRAZOLE40 M1 PO (17:53)
[2017-05-06] MEDS ORDERED: SENNA S TABLET1 EACH PO (17:54)
[2017-05-06] MEDS ORDERED: OXYCODONE HCL5 M1 PO (17:55)
[2017-05-06] MEDS ORDERED: LIDODERM1 EACH TOP (17:56)
--- NOTE | 2017-05-06 18:04 | CT SCAN REPORT ---
EXAMINATION: CT BRAIN AND CT CERVICAL SPINE WITHOUT CONTRAST. CLINICAL INFORMATION: Performed of the floor. COMPARISON: CT brain 10/30/2015. TECHNIQUE: 5 mm thin axial and 2.5 mm thin coronal images of brain were obtained without contrast. Subsequently 2.5 mm thin axial and reformatted 2 mm thin coronal and sagittal images of cervical spine were obtained. FINDINGS: BRAIN: There is no acute intra-axial, extra-axial bleed, masses or midline shift. The lateral ventricles are enlarged with mild prominence of cortical sulci suggestive of mild cerebral atrophy. The kent to white matter distinction is maintained. Bone windows reveal no calvarial abnormality. Bilateral paranasal sinuses and mastoid air cells are well aerated. CERVICAL SPINE: There is mild straightening of cervical lordosis. The vertebral heights and alignment appears normal. Mild loss of C4-C5, C5-C6, C6 S7 C7-T1 disc levels is noted. There is moderate ventral spondylosis C3-C4, C4-C5 and C5-C6 disc levels. There is mild left C3-C4 and C6-C7 and C7-T1 and right C4-C5, C5-C6, C6-C7 and C7-T1 facet joint arthropathy. The neural foramina are widely patent bilaterally. The lung apices are clear. IMPRESSION: No acute intracranial process seen. Age-related cerebral atrophy. There is no acute fracture or dislocation cervical spine. There is mild straightening of cervical lordosis likely spasm. There are degenerative facet joint arthropathy as described above.
--- NOTE | 2017-05-06 18:46 | Admission Certification ---
Admission Certification Certification Statement - As attending physician, I certify that at the time of - admission, based on clinical presentation, severity of - symptoms, need for further diagnostic testing and - therapeutic interventions, and risk of adverse outcomes - without in-hospital treatment, in my clinical assessment, - this patient requires an acute hospital stay for a minimum - of two nights or longer. I have also considered psychsocial - factors such as support system, advanced age, financial - issues, cognitive issues, and failed out-patient treatments, - past re-admission history, safety of patient, and lack of - compliance as applicable. Specific rationale supporting this admission is: weakness fall resulting in rhabdomyelisis and STACEY
--- NOTE | 2017-05-06 18:52 | PN- Att Addend ---
Attending Addendum Attending Brief Note 61 year old male recently back home from rehabilitation after complicated admission, was still weak fell on his knees last evening was on the floor all night.his aid found him around 3 PM brought him to the ER found in STACEY and elevated CK suggestive of Rhabdo. will admit monitor labs and hydrate. PT evaluation in AM. Laboratory Tests 05/06/17 1651: Anion Gap 13, Estimated GFR 41 L, BUN/Creatinine Ratio 10.6, Glucose 99, Calcium 9.4, Total Bilirubin 0.3, AST 49, ALT 26, Alkaline Phosphatase 100, Creatine Kinase 1022 H, Total Protein 6.8, Albumin 3.4 L, Globulin 3.4, Albumin/Globulin Ratio 1.0 L, CBC w Diff NO MAN DIFF REQ, RBC 3.79 L, MCV 87.4 , MCH 28.9, MCHC 33.0, RDW 14.1, MPV 6.4 L, Gran % 68.2, Lymphocytes % 17.9 L, Monocytes % 12.3 H, Eosinophils % 1.4, Basophils % 0.2, Absolute Granulocytes 6.6 H, Absolute Lymphocytes 1.7, Absolute Monocytes 1.2 H, Absolute Eosinophils 0.1, Absolute Basophils 0
--- NOTE | 2017-05-06 21:41 | History & Physical ---
See Addendum Jayne Langston MD 05/06/17 9451: General Information and HPI MD Statement: I have seen and personally examined KALI THRASHER and documented this H&P. The patient is a 61 year old M who presented with a patient stated chief complaint of [fall]. Source of Information: patient Exam Limitations: poor historian History of Present Illness: 61 y/o M w/ PMHx of TBI?, HTN, Hypothyroidism, hypothyroidism, siezures, left shoulder surgery, inguinal hernia repair, appendicitis status post appendectomy [postop course complicated by fungal peritonitis and duodenal ulcer], brought to [facility] for history of fall. Patient is a poor historian. Patient fell on the floor last night and slept on the floor the whole night. He was unable to get up and hence decided to lie in the floor. He is not sure whether he passed out. He denies headache, head injury, seizure-like activity, tongue bite, chest pain, palpitation, shortness of breath, headache, vertigo during the same time. He states he has right-sided weakness compared to the left side. Patient tried to crawl in the morning to his room but was unable to get up. His health aide found him on the floor this afternoon and call 911 immediately. Patient said he had vivid dreams during the episode. Patient has been recently admitted in [facility] for ruptured appendicitis and had his appendix removed. Patient was sent to rehabilitation where he spent 2 weeks and was discharged to home 2 weeks ago. Patient denies any weakness, confusion, altered sensation in the past 2 weeks. At baseline he doesn't use cane or walker. He has health aide to help him with this medication. Allergies/Medications Allergies: Coded Allergies: risperidone (UNKNOWN 10/30/15) Home Med list Benztropine Mesylate 0.5 MG TABLET 1 TAB PO BID ANTICHOLINERGIC (Reported) Bupropion HCl (Bupropion HCl Sr) 150 MG TABLET.ER 1 TAB PO BID MOOD (Reported ) Buspirone HCl 30 MG TABLET 1 TAB PO BID PRN ANXIETY (Reported) Gabapentin (Neurontin) 600 MG TABLET 1 TAB PO 4 TIMES/DAY NERVES (Reported) Hydrochlorothiazide 25 MG TABLET 1 TAB PO DAILY HIGH BLOOD PRESSURE (Reported ) Hydroxyzine Pamoate (Vistaril) 50 MG CAPSULE 1 CAP PO TIDPRN ANXIETY ( Reported) Levothyroxine Sodium 50 MCG TABLET 1 TAB PO DAILY THYROID PROBLEMS (Reported) Lisinopril 30 MG TABLET 1 TAB PO DAILY HIGH BLOOD PRESSURE (Reported) Metoprolol Tartrate 100 MG TABLET 1 TAB PO BID HIGH BLOOD PRESSURE (Reported) Olanzapine (Zyprexa) 15 MG TABLET 1 TAB PO QPM MOOD STABILITY (Reported) Omeprazole 40 MG CAPSULE.DR 1 CAP PO BID GI (Reported) Oxcarbazepine 150 MG TABLET 1 TAB PO BID SEIZURES (Reported) Oxycodone HCl 5 MG TABLET 1-2 TAB PO Q6H PRN PAIN (Reported) Sennosides/Docusate Sodium (Senna S Tablet) 8.6 MG-50 MG TABLET 1 TAB PO QPM CONSTIPATION (Reported) Compliance With Home Meds: GOOD Past History Travel History Traveled to [place] past 21 day No Medical History Neurological: seizure, TBI EENT: NONE Cardiovascular: hypertension Respiratory: NONE Gastrointestinal: NONE Hepatic: NONE Renal: NONE Musculoskeletal: osteoarthritis Psychiatric: depression Endocrine: THYROID Cancer(s): NONE PIPE THREADER/Reproductive: NONE History of MRSA: No History of VRE: No History of CDIFF: No Influenza Vaccine: 11/29/15 Surgical History Surgical History: hernia repair-inguinal, left shoulder surgery ECHO Results (as available) Date of last Echo 04/03/17 EF% 55 Past Family/Social History Psychosocial History Where do you live? Home Who Do You Live With? self Services at Home: Home Health Aide, Nursing Primary Language: Maori Smoking Status: Former Smoker ETOH Use: denies use Illicit Drug Use: denies illicit drug use Functional Ability ADLs Independent: dressing, eating, toileting, bathing. Ambulation: independent IADLs Independent: housework, finances, food prep, telephone, transportation. Needs Assist: shopping, medication admin. Review of Systems Review of Systems Constitutional: Reports: weakness. EENTM: Reports: no symptoms. Cardiovascular: Reports: no symptoms. Respiratory: Reports: no symptoms. GI: Reports: no symptoms. Genitourinary: Reports: no symptoms. Musculoskeletal: Reports: no symptoms. Exam & Diagnostic Data Last 24 Hrs of Vital Signs/I&O Vital Signs Date Time Temp Pulse Resp B/P B/P Pulse O2 O2 Flow FiO2 Mean Ox Delivery Rate 05/06 2303 98.9 68 18 126/70 94 02/21 2233 98.3 68 15 114/59 96 Nasal 2.0L Cannula 05/06 2058 98.1 74 119/60 05/06 2031 68 103/59 05/06 2007 60 15 80/42 97 Nasal 2.0L Cannula 05/06 1942 Nasal 2.0L Cannula 05/06 1846 62 15 110/54 93 Nasal 2.0L Cannula 05/06 1639 96 Nasal 2.0L Cannula 05/06 1634 97.1 70 15 119/56 90 Room Air Intake & Output 05/07 0800 05/07 0000 05/06 1600 Intake Total 1000 Output Total Balance 1000 Intake, IV 1000 Patient 269 lb Weight Physical Exam General Appearance Alert, Oriented X3, Cooperative, No Acute Distress Skin No Rashes (left arm bruise) HEENT Atraumatic, PERRLA Neck No JVD, No thryomegaly Cardiovascular Normal S1, Normal S2, No Murmurs Lungs Clear to Auscultation, Normal Air Movement Abdomen Soft, No Tenderness, No Hepatospenomegaly Neurological Normal Speech, Strength at 5/5 X4 Ext, Normal Tone, Sensation Intact, Cranial Nerves 3-12 NL Extremities No Clubbing, No Cyanosis, No Edema Diagnostic Data EKG Results Sinus rhythm with a heart rate of 90. Normal axis, T-wave flattening V4 V5 V6 Assessment/Plan Assessment: 61 y/o M w/ PMHx of TBI?, HTN, Hypothyroidism, siezures, left shoulder surgery, chronic back pain, anxiety, depression inguinal hernia repair, appendicitis status post appendectomy, brought to [facility] for history of fall. Admission WBC 9.7, hemoglobin 10.9, hematocrit 33.1, platelet count 377, sodium 128 potassium 4.3 BU and 18, creatinine 1.7, creatinine kinase 1022, troponin 0.01 Admission vitals Temperature 98.1, pulse rate 60, respiratory rate 15, blood pressure 80/42------ --> 119/60 saturating 97 on 2 L of oxygen. ED treatment Normal saline 2 L bolus given. Chest x-ray Low lung volumes. Possible small effusions. No overt consolidative disease. Cervical spine x-ray No acute intracranial process seen. Age-related cerebral atrophy. There is no acute fracture or dislocation cervical spine. There is mild straightening of cervical lordosis likely spasm. There are degenerative facet joint arthropathy as described above. Head CT No acute intracranial process seen. Age-related cerebral atrophy. Assessment and plan 1. Fall with hypotension 2. PRIYA 3. Hyponatremia 3. Chronic medical condition-hypothyroidism, seizures * Patient's fall can be multifactorial. Patient is recovering from his surgery done a month ago. allthough he doesn't complain of any weakness post surgery. He denies decreased by mouth intake the past week. Patient denies any abnormal gait or balance problems in the past. Though he endorses feeling weak on the right side compared to the left side. At baseline he doesn't use cane or walker. We will consult physical therapy and occupational therapy in a.m to assess his gait and mobility. * Any arrhythmia causing syncopal event needs to be ruled out. We will monitor him in telemetry and do serial troponin and EKG. Patient had a head CT which was negative. * Patient was lying in the floor for almost more than 18 hours leading to rhabdomyolysis with increase in creatinine kinase, BUNs, creatinine. Upon arrival patient had hypotension and was resuscitated with IV fluids. We will follow up with BEP and CK in the morning. * Upon admission patient had hyponatremia with a urine sodium 52 and serum osmolality of 272. His hypotonic hypovolemic hyponatremia can be secondary due to dehydration. We will correct sodium no more than of 6-8 mEq in 24 hours. * Patient has anemia with a hemoglobin of 10.9 and hematocrit 33.1. MCV is 87.4 with a RDW 14.1. He denies hematuria,Naye. We will start him on iron supplements. * Patient is on 2 L of oxygen. At baseline patient doesn't use any oxygen. We will slowly taper him off oxygen. * We will continue all his home medication. * Code-full code * Diet-nothing by mouth pending swallow eval. * DVT prophylaxis-heparin As Ranked By This Provider Problem List: 1. Hyponatremia 2. Rhabdomyolysis 3. Acute renal failure 4. Fall Core Measures/Misc (11/30) Acute Coronary Syndrome ACS Diagnosis: No Congestive Heart Failure Congestive Heart Failure Diagnosis No Cerebrovascular Accident CVA/TIA Diagnosis: No VTE (View Protocol) VTE Risk Factors Age>40 No Mechanical VTE Prophylaxis d/t Other No VTE Pharm Prophylaxis d/t Other Sepsis (View protocol) Sepsis Present: No Claire Lu 05/06/17 2157: Resident Review Statement Resident Statement: examined this patient, discussed with internal corrosion specialist, agreed with internal corrosion specialist, discussed with family, reviewed EMR data (avail), discussed with nursing , discussed with case mgmt, reviewed images, amended to note Other Findings: 61-year-old male with a past medical history of HTN, hypothyroidism, TBI w/ h/o seizures, HTN, OA, depression who was recently admitted to [facility] in March 2016 for acute appendicitis with post op course c/b duodenal ulcer s/p ted patch placement, and fungal peritonitis presents to the ER with complaints of generalized weakness status post fall and questionable syncope. Apparently patient was discharged to rehab back in March and subsequently discharged home a week ago. He states that he woke up last night to grab a bag of chips when he fell down, stating that his legs gave away. He is a poor historian and states that he doesnt remember whetehr he passed out or not, however deneis hitting his head. States that it was not until 5:00am today that he decided to get himself off the floor. He was unable to do o and so crawled to the bedroom. Patient lives by himself and has a health aide visiting him a couple of times a week. He states the healthy arrived around 3 PM and saw him lying in his bedroom. He denies any chest pain, palpitations, diaphoresis, nausea, prior to the event occurring. He denies any urinary or fecal incontinence. He denies vomiting, fevers, chills, abdominal pain, dysuria. Vitals on admission blood pressure 119/56, respiratory rate of 15, pulse 70, afebrile saturating 90 after which he was plaecd on 2.0 liters and his sats were up to 97%. Physical exam he is alert, oriented to place and person. HEENT revealed PERRLA, dry mucous membranes no bruise noted on his head. Examination of the neck did not reveal an elevated JVD or cirrhotic lymphadenopathy. Cardiovascular exam pertinent for normal S1, S2, no murmurs rubs or gallops appreciated. Respiratory exam pertinent for decreased breath sounds bilaterally. Abdominal exam was benign with abdomen soft, nontender, nondistended normal bowel sounds in all 4 quadrants. Examination of the lower extremities did not reveal any edema. Strength was 5 out of 5 in all 5 extremities. Her exam was grossly unremarkable. Labs pertinent for a white blood cell count of 9700, H&H of 10.9/33.1, MCV of 87.4 with a platelet count 377,000. Chemistries reveal hyponatremia with a sodium of 128, potassium of 4.3, bicarbonate of 28, anion gap of 13, BUN 18 with a creatinine of 1.7. LFTs unremarkable with AST/LTS stool 49/26, alkaline phosphatase of 100, total bili of 0.3 with first set were negative was an 0.01. History of creatinine kinase was 1022. UA was not received. Chest x-ray showed low lung volumes, possible small effusions, no overt consolidative disease. CT brain and cervical spine without contrast showing no acute intracranial process, age-related cerebral atrophy, no acute fracture or dislocation of cervical spine. There is mild straightening of cervical lordosis likely spasm. Echo 04/02: LV chamber size, with mild concentric LVH. There is normal systolic function. Estimated LVEF is 55%. There are no focal wall motion abnormalities. EKG revealed normal sinus rhythm with a heart rate 66, normal axis, nonspecific ST-T changes in V5 to V6 In the ER he received a normal saline bolus of thousand mls 2 and was started on NS since 150 and was per hour. Assessment and plan Admit patient to telemetry given episode of questionable syncope and some nonspecific ST-T changes on his EKG. #Syncopal episode Most likely secondary to dehydration in the setting of generalized weakness Follow-up repeat troponin and EKG at 10 PM Meanwhile follow-up orthostats and hydrated with IV fluids at 75mls per hour Echocardiogram was done recently showed an EF of 55% no aortic stenosis seen For now will hold off of repeating an echocardiogram Monitor on telemetry to rule out for any arrhythmias. #Hyponatremia Most likely secondary to dehydration Follow-up serum osmolarity, urine lites and urine osmolarity Hydrate with fluids and repeat BEP at midnight to follow-up serum sodium. Will not overcorrect sodium 6-8 mEq in 24 hours. #AK I In the setting off rhabdo give an elevated CK Hydrate with IV fluids at 150 most per hour Follow-up BEP at midnight and in a.m. Consider urology consult and renal ultrasound if kidney function doesn't improve. Meanwhile monitor strict I's and O's #History of seizures Continue on Trileptal 150 mg twice a day #History of TBI Continue on BuSpar 30 mg twice a day by mouth, bupropion 0.150 mg twice a day by mouth #Mood disorder Continue on Zyprexa 50 mg at bedtime, Neurontin 600 mg every 6 by mouth #Hypothyroidism Continue levothyroxine 0.05 mg daily #GERD Continue on Prilosec 40 mg by mouth daily DVT prophylaxis Heparin 5000 international units 3 times a day subcutaneous Diet Nothing by mouth for now pending swallow eval next line CODE STATUS Full code
[2017-05-06 23:03] VITALS: BP 126/70
[2017-05-07 06:00] VITALS: BP 104/58
--- NOTE | 2017-05-07 07:36 | PN- Housestaff ---
Subjective Follow-up For: Fall with hypotension PRIYA Hyponatremia Tele-Events Since Last Visit: Sinus bradycardia with bundle branch block Heart rate 57-69. Subjective: Patient complaining of shoulder pain, states he takes oxycodone and MS Contin at home and is requesting for same. Also complaining of slight discharge from his laparoscopic site incision. Denies any pain around the incision area or fever/ chills. Review of Systems Constitutional: Reports: no symptoms. EENTM: Reports: no symptoms. Cardiovascular: Reports: no symptoms. Respiratory: Reports: no symptoms. Gastrointestinal: Reports: no symptoms. Genitourinary: Reports: no symptoms. Musculoskeletal: Reports: joint pain. Skin: Reports: no symptoms. Neurological/Psychological: Reports: no symptoms. Hematologic/Endocrine: Reports: no symptoms. Immunologic/Allergic: Reports: no symptoms. Objective Last 24 Hrs of Vital Signs/I&O Vital Signs Date Time Temp Pulse Resp B/P B/P Pulse O2 O2 Flow FiO2 Mean Ox Delivery Rate 05/07 1433 99.0 69 20 138/60 94 Room Air 05/07 0801 65 104/58 05/07 0800 Nasal 2.0L Cannula 05/07 0600 98.3 65 18 104/58 95 05/06 2356 Nasal 2.0L Cannula 05/06 2303 98.9 68 18 126/70 94 05/06 2233 98.3 68 15 114/59 96 Nasal 2.0L Cannula 05/069 98.1 74 119/60 05/06 2032 68 103/59 05/06 2008 60 15 80/42 97 Nasal 2.0L Cannula 05/06 1943 Nasal 2.0L Cannula 05/06 1847 62 15 110/54 93 Nasal 2.0L Cannula Intake & Output 05/07 1600 05/07 0800 05/07 0000 Intake Total 1550 1000 Output Total Balance 1550 1000 Intake, IV 1050 1000 Intake, Oral 500 Number 1 Bowel Movements Patient 269 lb Weight Weight Bed scale Measurement Method Physical Exam General Appearance: Alert, Oriented X3, Cooperative, No Acute Distress Skin: No Rashes, No Breakdown Cardiovascular: Regular Rate, Normal S1, Normal S2 Lungs: Normal Air Movement Abdomen: Normal Bowel Sounds, Soft, No Tenderness, MULTIPLE LAPAROSCOPIC HEALING INCISIONS NOTED COVERED WITH BANDAGE Extremities: No Clubbing, No Cyanosis Current Medications: Current Medications Sig/Nirmal Start time Last Medication Dose Route Stop Time Status Admin Benztropine Mesylate 0.5 MG BID 05/07 1000 AC 05/07 PO 0801 Bupropion HCl 150 MG BID 05/06 2224 AC 05/07 PO 0803 Buspirone HCl 30 MG BID 05/06 2224 AC 05/07 PO 0039 Gabapentin 600 MG Q6 05/06 2359 AC 05/07 PO 1643 Heparin Sodium 0 .STK-MED ONE 05/06 2206 DC (Porcine) .ROUTE Heparin Sodium 5,000 UNIT Q8 05/06 220 AC 05/07 (Porcine) SC 1303 Hydroxyzine HCl 50 MG TID PRN 05/06 2230 AC PO Levothyroxine Sodium 0.05 MG DAILY AC 05/07 0700 AC 05/07 PO 0608 Lidocaine 1 PAT DAILY 05/07 1000 AC EXT Metoprolol Tartrate 100 MG BID 05/07 1000 AC 05/07 PO 0801 Morphine Sulfate 15 MG BID 05/07 1537 AC 05/07 PO 1650 Olanzapine 15 MG QPM 05/07 2200 AC PO Omeprazole 40 MG DAILY AC 05/07 0700 AC 05/07 PO 0608 Oxcarbazepine 150 MG BID 05/06 222 AC 05/07 PO 0039 Oxycodone HCl 10 MG Q6 PRN 05/07 1545 AC PO Oxycodone HCl 5 MG ONCE ONE 05/07 1130 DC 05/07 PO 05/07 1131 1129 Oxycodone HCl See Dose Q6H PRN 05/06 2230 DC Insts (1) PO Patient Medication 1 ED ONE ONE 05/07 1200 DC 05/07 Teaching ED 05/07 1201 1305 Senna/Docusate Sodium 1 TAB QPM 05/07 2200 AC PO Sodium Chloride 1,000 ML Q6H 05/06 2130 DC 05/07 IV 05/07 1529 1458 Sodium Chloride 1,000 ML BOLUS ONE 05/06 2014 DC 05/06 IV 05/06 Sodium Chloride 1,000 ML BOLUS ONE 05/06 1800 DC 05/06 IV 05/06 1859 1805 Dose Instructions: (1)Oxycodone HCl: 1-2 TAB Last 24 Hrs of Lab/Fabiano Results Last 24 Hrs of Labs/Mics: Laboratory Tests 05/07/17 0614: Anion Gap 9, Estimated GFR 56 L, BUN/Creatinine Ratio 12.3, Creatine Kinase 654 H, CBC w Diff NO MAN DIFF REQ, RBC 2.98 L, MCV 87.9, MCH 29.8, MCHC 33.9, RDW 13.6, MPV 7.0 L, Gran % 51.4, Lymphocytes % 30.0, Monocytes % 15.2 H, Eosinophils % 2.7, Basophils % 0.7, Absolute Granulocytes 3.3, Absolute Lymphocytes 1.9, Absolute Monocytes 1.0 H, Absolute Eosinophils 0.2, Absolute Basophils 0 05/07/17 0430: Anion Gap 10, Estimated GFR 44 L, BUN/Creatinine Ratio 9.4 05/06/177: Troponin I < 0.01 05/06/172199: Urine Color YEL, Urine Clarity CLEAR, Urine pH 7.0, Ur Specific [place] 1.010, Urine Protein NEG, Urine Ketones NEG, Urine Nitrite NEG, Urine Bilirubin NEG, Urine Urobilinogen 0.2, Ur Leukocyte Esterase NEG, Ur Microscopic EXAM NOT REQUIRED, Urine Hemoglobin NEG, Urine Glucose NEG 05/06/172199: Urine Osmolality 303, Ur Random Creatinine 90.5, U Random Total Protein 21 H, Ur Random Sodium 52, Ur Random Potassium 33.4, Fraction Sodium Excret 0.8 Microbiology 05/06 1743 BLOOD: Blood Culture - RES Assessment/Plan Assessment: 61 y/o M w/ PMHx of TBI?, HTN, Hypothyroidism, siezures, left shoulder surgery, chronic back pain, anxiety, depression inguinal hernia repair, appendicitis status post appendectomy, brought to [facility] ER for history of fall. Problem list 1. Fall with hypotension 2. PRIYA 3. Hyponatremia 3. 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 - CKP improving - Sodium level 130 today, continue to monitor - Continue iron supplements and continue to monitor H&H. - PRIYA resolving; creatinine level of 1.3 today - Physical therapy evaluation; recommends home physical therapy. - Patient was taken off the supplemental oxygen today. Saturating in the 90s on room air. - Continue home medications. - Patient was started on a regular diet after passing a swallow well. - Patient was evaluated by surgery for laparoscopic site infection. Recommends dry dressings. DVT prophylaxis; subcutaneous heparin heparin Patient is full code Problem List: 1. Rhabdomyolysis 2. Hyponatremia 3. 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
[2017-05-07 08:37] LABS: ABSOLUTE BASOPHIL COUNT 0 /CUMM (0.0-0.2); ABSOLUTE EOSINOPHIL COUNT 0.2 /CUMM (0.0-0.7); ABSOLUTE GRANULOCYTE CT 3.3 /CUMM (1.4-6.5); ABSOLUTE LYMPH COUNT 1.9 /CUMM (1.2-3.4); BASOPHIL % 0.7 % (0.0-2.0); EOSINOPHIL % 2.7 % (0-5); GRANULOCYTE % 51.4 % (42.2-75.2); MEAN CORPUSCULAR HGB 29.8 PG (27.0-31.0); MEAN CORPUSCULAR HGB CONC 33.9 G/DL (33.0-37.0); MEAN CORPUSCULAR VOLUME 87.9 FL (80.0-94.0); PLATELET COUNT 288 /CUMM (130-400); RBC DISTRIBUTION WIDTH 13.6 % (11.5-14.5); RED BLOOD CELL CT 2.98 /CUMM (4.70-6.10); WHITE BLOOD CELL COUNT 6.5 /CUMM (4.8-10.8)
[2017-05-07 09:01] LABS: HEMATOCRIT 26.2 % (42-52)
--- NOTE | 2017-05-07 13:01 | PN- Att Addend ---
Attending Addendum Attending Brief Note Patient looking and feeling better him a patient on telemetry with no apparent arrhythmias by questioning the patient seemed to fall was mechanical and not syncopal Vital signs are stable no fever. No major changes on physical except the patient looks a little stronger it was seen already by physical therapy. His labs are slowly improving. We'll continue observation continue gentle hydration and monitor the labs 24 TOTALS 05/07 0000 05/06 0000 Intake Total 1000 Output Total Balance 1000 Intake, IV 1000 Patient 269 lb Weight Weight Bed scale Measurement Method Current Medications Sig/Nirmal Start time Last Medication Dose Route Stop Time Status Admin Benztropine Mesylate 0.5 MG BID 05/07 1000 AC 05/07 PO 0801 Bupropion HCl 150 MG BID 05/06 2224 AC 05/07 PO 0803 Buspirone HCl 30 MG BID 05/06 222 AC 05/07 PO 0039 Gabapentin 600 MG Q6 05/06 2359 AC 05/07 PO 1128 Heparin Sodium 0 .STK-MED ONE 05/06 2206 DC (Porcine) .ROUTE Heparin Sodium 5,000 UNIT Q8 05/06 220 AC 05/07 (Porcine) SC 0608 Hydroxyzine HCl 50 MG TID PRN 05/06 2230 AC PO Levothyroxine Sodium 0.05 MG DAILY AC 05/07 0700 AC 05/07 PO 0608 Lidocaine 1 PAT DAILY 05/07 1000 AC EXT Metoprolol Tartrate 100 MG BID 05/07 1000 AC 05/07 PO 0801 Olanzapine 15 MG QPM 05/07 2200 AC PO Omeprazole 40 MG DAILY AC 05/07 0700 AC 05/07 PO 0608 Oxcarbazepine 150 MG BID 05/06 2227 AC 05/07 PO 0039 Oxycodone HCl 5 MG ONCE ONE 05/07 1130 DC 05/07 PO 05/07 1131 1129 Oxycodone HCl See Dose Q6H PRN 05/06 223 DC Insts (1) PO Patient Medication 1 ED ONE ONE 05/07 1200 DC Teaching ED 05/07 1201 Senna/Docusate Sodium 1 TAB QPM 05/07 2200 AC PO Sodium Chloride 1,000 ML Q6H 05/06 2130 AC 05/07 IV 05/07 1529 0541 Sodium Chloride 1,000 ML BOLUS ONE 05/06 2014 DC 05/06 IV 05/06 Sodium Chloride 1,000 ML BOLUS ONE 05/06 1800 DC 05/06 IV 05/06 0501 0810 Dose Instructions: (1)Oxycodone HCl: 1-2 TAB Laboratory Tests 05/07/17 0614: Anion Gap 9, Estimated GFR 56 L, BUN/Creatinine Ratio 12.3, Creatine Kinase 654 H, CBC w Diff NO MAN DIFF REQ, RBC 2.98 L, MCV 87.9, MCH 29.8, MCHC 33.9, RDW 13.6, MPV 7.0 L, Gran % 51.4, Lymphocytes % 30.0, Monocytes % 15.2 H, Eosinophils % 2.7, Basophils % 0.7, Absolute Granulocytes 3.3, Absolute Lymphocytes 1.9, Absolute Monocytes 1.0 H, Absolute Eosinophils 0.2, Absolute Basophils 0 05/07/17 0430: Anion Gap 10, Estimated GFR 44 L, BUN/Creatinine Ratio 9.4 05/06/17 2217: Troponin I < 0.01 05/06/17 2200: Urine Color YEL, Urine Clarity CLEAR, Urine pH 7.0, Ur Specific [place] 1.010, Urine Protein NEG, Urine Ketones NEG, Urine Nitrite NEG, Urine Bilirubin NEG, Urine Urobilinogen 0.2, Ur Leukocyte Esterase NEG, Ur Microscopic EXAM NOT REQUIRED, Urine Hemoglobin NEG, Urine Glucose NEG 05/06/17 2200: Urine Osmolality 303, Ur Random Creatinine 90.5, U Random Total Protein 21 H, Ur Random Sodium 52, Ur Random Potassium 33.4, Fraction Sodium Excret 0.8 05/06/17 1651: Anion Gap 13, Estimated GFR 41 L, BUN/Creatinine Ratio 10.6, Glucose 99, Serum Osmolality 272 L, Calcium 9.4, Iron 47 L, TIBC 284, Ferritin 247.0, Total Bilirubin 0.3, AST 49, ALT 26, Alkaline Phosphatase 100, Creatine Kinase 1022 H , Troponin I < 0.01, Total Protein 6.8, Albumin 3.4 L, Globulin 3.4, Albumin/ Globulin Ratio 1.0 L, TSH 1.940, Free T4 2.02, CBC w Diff NO MAN DIFF REQ, RBC 3.79 L, MCV 87.4, MCH 28.9, MCHC 33.0, RDW 14.1, MPV 6.4 L, Gran % 68.2, Lymphocytes % 17.9 L, Monocytes % 12.3 H, Eosinophils % 1.4, Basophils % 0.2, Absolute Granulocytes 6.6 H, Absolute Lymphocytes 1.7, Absolute Monocytes 1.2 H, Absolute Eosinophils 0.1, Absolute Basophils 0 Microbiology Date/Time Procedure - Status Source Growth 05/06 174 Blood Culture - RES BLOOD 05/06 1637 Blood Culture - RES BLOOD Vital Signs Date Time Temp Pulse Resp B/P B/P Pulse O2 O2 Flow FiO2 Mean Ox Delivery Rate 05/07 0801 65 104/58 05/07 0800 Nasal 2.0L Cannula 05/07 0600 98.3 65 18 104/58 95 05/06 2356 Nasal 2.0L Cannula 05/06 2303 98.9 68 18 126/70 94 05/06 2233 98.3 68 15 114/59 96 Nasal 2.0L Cannula 05/06 2058 98.1 74 119/60 05/06 2032 68 103/59 05/06 2007 60 15 80/42 97 Nasal 2.0L Cannula 05/06 1943 Nasal 2.0L Cannula 05/06 1847 62 15 110/54 93 Nasal 2.0L Cannula 05/06 1639 96 Nasal 2.0L Cannula 05/06 1634 97.1 70 15 119/56 90 Room Air
[2017-05-07 14:33] VITALS: BP 138/60
--- NOTE | 2017-05-07 15:13 | Cons- General Surgery ---
Juan Carlos Thomas 05/07/17 1455: General Information and HPI Consulting Request Date of Consult: 05/07/17 Requested By: Valentino Chun MD Reason for Consult: post op wound opening Source of Information: patient, old records Exam Limitations: no limitations History of Present Illness: 61-year-old male who is 5 weeks status post perforated appendicitis with laparoscopic appendectomy, complicated by a postoperative ileus as well as perforated duodenal ulcer requiring a second surgery to repair the ulcer with a Niko patch and then subsequently having persistent leukocytosis and was found to have fungal peritonitis. He eventually improved after a prolonged hospital stay and was discharged home. Prior to his discharge, his lower abdominal wound had mild dehiscence which was drained at the bedside and packing was placed. He states he's been getting wound care by a visiting nurse at home and it has been getting better. He has no pain in the area, minimal drainage, and has been getting packed at home as well. He was readmitted to the hospital for rhabdomyolysis after falling last night due to unknown reasons with elevated CK and acute kidney injury. Surgery was consulted for evaluation of his postoperative wound complication. Since his discharge, he has been doing well without any abdominal complaints, no pain, no fever, no nv. He has return of normal bowel function and appetite. Allergies/Medications Allergies: Coded Allergies: risperidone (UNKNOWN 10/30/15) Past History Medical History Blood Transfusion Hx: Yes Neurological: seizure, TBI EENT: NONE Cardiovascular: hypertension Respiratory: NONE Gastrointestinal: NONE Hepatic: NONE Renal: NONE Musculoskeletal: osteoarthritis Psychiatric: depression Endocrine: THYROID Blood Disorders: NONE Cancer(s): NONE SMT TECHNICIAN/Reproductive: NONE Surgical History Pertinent Surgical History: hernia repair-inguinal, left shoulder surgery, perforated duodenal ulcer with niko patch perforated appendicitis with appendectomy Psychosocial History Where Do You Live? Home Who Do You Live With? self Services at Home: Home Health Aide, Nursing Primary Language: Grenadian Smoking Status: Former Smoker ETOH Use: denies use Illicit Drug Use: denies illicit drug use Functional Ability ADLs Independent: dressing, eating, toileting, bathing. Ambulation: independent IADLs Independent: housework, finances, food prep, telephone, transportation. Needs Assist: shopping, medication admin. Review of Systems Review of Systems: Review of systems: See HPI, all other systems negative. Constitutional: No chills fever or weight loss HEENT: No visual changes no sore throat no congestion Cardiovascular: No chest pain ,palpitation , orthopnea or ankle swelling Skin: No jaundice no rashes Respiratory: No dyspnea cough sputum or hemoptysis GI: No nausea no vomiting : No dysuria no hematuria Musclulo skeletal: No back pain no neck pain, Neurologic: No numbness no confusion Psych: No stress anxiety or depression,. Heme/endocrine: No bruising no bleeding no polyuria or polydipsia Immunology: No splenectomy or history of AIDSReview of systems: Exam & Diagnostic Data Vital Signs and I&O Vital Signs Date Time Temp Pulse Resp B/P B/P Pulse O2 O2 Flow FiO2 Mean Ox Delivery Rate 05/07 1433 99.0 69 20 138/60 94 Room Air 05/07 0801 65 104/58 05/07 0800 Nasal 2.0L Cannula 05/07 0600 98.3 65 18 104/58 95 05/06 2356 Nasal 2.0L Cannula 05/06 2303 98.9 68 18 126/70 94 05/06 2233 98.3 68 15 114/59 96 Nasal 2.0L Cannula 05/06 2059 98.1 74 119/60 05/06 2032 68 103/59 05/06 2008 60 15 80/42 97 Nasal 2.0L Cannula 05/06 1943 Nasal 2.0L Cannula 05/06 1847 62 15 110/54 93 Nasal 2.0L Cannula 05/06 1639 96 Nasal 2.0L Cannula 05/06 1634 97.1 70 15 119/56 90 Room Air Intake & Output 05/07 1600 05/07 0800 05/07 0000 05/06 1600 05/06 0800 05/06 0000 Intake Total 1550 1000 Output Total Balance 1550 1000 Intake, IV 1050 1000 Intake, Oral 500 Number 1 Bowel Movements Patient 269 lb Weight Weight Bed scale Measurement Method Physical Exam: Well-developed well-nourished no apparent distress. HEENT: Atraumatic, extraocular motion intact Neck: Supple, no lymphadenopathy Respiratory: No respiratory distress Abdomen: Obese, normal bowel sounds, nontender. The incision site just superior to the umbilicus has a 1 cm superficial opening without any erythema, there is minimal induration and scant amount of serous drainage on Band-Aid. The wound is nontender. Probed in the wound with a Q-tip reveals a depth of about half a centimeter without deep tracking Neuro: Alert and oriented x3 Psych: Mood affect normal, normal memory normal judgment. Skin: Warm and dry, no rash on exposed skin Last 24 Hours of Labs: Laboratory Tests 05/07 05/07 05/06 0614 [id number] Chemistry Sodium (137 - 145 mmol/L) 130 L 132 L Potassium (3.5 - 5.1 mmol/L) 3.7 3.8 Chloride (98 - 107 mmol/L) 95 L 94 L Carbon Dioxide (22 - 30 mmol/L) 26 28 Anion Gap (5 - 16) 9 10 BUN (9 - 20 mg/dL) 16 15 Creatinine (0.7 - 1.2 mg/dL) 1.3 H 1.6 H Estimated GFR (>60 ml/min) 56 L 44 L BUN/Creatinine Ratio (7 - 25 %) 12.3 9.4 Creatine Kinase (55 - 170 U/L) 654 H Troponin I (<0.11 ng/ml) < 0.01 Hematology CBC w Diff NO MAN DIFF REQ WBC (4.8 - 10.8 /CUMM) 6.5 RBC (4.70 - 6.10 /CUMM) 2.98 L Hgb (14.0 - 18.0 G/DL) 8.9 L Hct (42 - 52 %) 26.2 L MCV (80.0 - 94.0 FL) 87.9 MCH (27.0 - 31.0 PG) 29.8 MCHC (33.0 - 37.0 G/DL) 33.9 RDW (11.5 - 14.5 %) 13.6 Plt Count (130 - 400 /CUMM) 288 MPV (7.4 - 10.4 FL) 7.0 L Gran % (42.2 - 75.2 %) 51.4 Lymphocytes % (20.5 - 51.1 %) 30.0 Monocytes % (1.7 - 9.3 %) 15.2 H Eosinophils % (0 - 5 %) 2.7 Basophils % (0.0 - 2.0 %) 0.7 Absolute Granulocytes (1.4 - 6.5 /CUMM) 3.3 Absolute Lymphocytes (1.2 - 3.4 /CUMM) 1.9 Absolute Monocytes (0.10 - 0.60 /CUMM) 1.0 H Absolute Eosinophils (0.0 - 0.7 /CUMM) 0.2 Absolute Basophils (0.0 - 0.2 /CUMM) 0 05/06 05/06 2200 2200 Urines Urine Color (YEL,AMB,STR) YEL Urine Clarity (CLEAR) CLEAR Urine pH (5.0 - 8.0) 7.0 Ur Specific [place] (1.001 - 1.035) 1.010 Urine Protein (NEG,<30 MG/DL) NEG Urine Ketones (NEG) NEG Urine Nitrite (NEG) NEG Urine Bilirubin (NEG) NEG Urine Urobilinogen (0.1 - 1.0 EU/dl) 0.2 Ur Leukocyte Esterase (NEG) NEG Ur Microscopic EXAM NOT REQUIRED Urine Hemoglobin (NEG) NEG Urine Osmolality (300 - 1000 MOSM/KG) 303 Ur Random Creatinine (mg/dL) 90.5 U Random Total Protein (0 - 12 mg/dL) 21 H Ur Random Sodium (30 - 90 mmol/L) 52 Ur Random Potassium (mmol/L) 33.4 Fraction Sodium Excret (<1% %) 0.8 Urine Glucose (N MG/DL) NEG 05/06 1651 Chemistry Sodium (137 - 145 mmol/L) 128 L Potassium (3.5 - 5.1 mmol/L) 4.3 Chloride (98 - 107 mmol/L) 88 L Carbon Dioxide (22 - 30 mmol/L) 28 Anion Gap (5 - 16) 13 BUN (9 - 20 mg/dL) 18 Creatinine (0.7 - 1.2 mg/dL) 1.7 H Estimated GFR (>60 ml/min) 41 L BUN/Creatinine Ratio (7 - 25 %) 10.6 Glucose (65 - 99 mg/dL) 99 Serum Osmolality (285 - 295 MOSM/KG) 272 L Calcium (8.4 - 10.2 mg/dL) 9.4 Iron (49 - 181 ug/dL) 47 L TIBC (261 - 462 ug/dL) 284 Ferritin (17.9 - 464 ng/mL) 247.0 Total Bilirubin (0.2 - 1.3 mg/dL) 0.3 AST (17 - 59 U/L) 49 ALT (21 - 72 U/L) 26 Alkaline Phosphatase (< 127 U/L) 100 Creatine Kinase (55 - 170 U/L) 1022 H Troponin I (<0.11 ng/ml) < 0.01 Total Protein (6.3 - 8.2 g/dL) 6.8 Albumin (3.5 - 5.0 g/dL) 3.4 L Globulin (1.9 - 4.2 gm/dL) 3.4 Albumin/Globulin Ratio (1.1 - 2.2 %) 1.0 L TSH (0.270 - 4.200 uIU/mL) 1.940 Free T4 (0.78 - 2.44 ng/dL) 2.02 Hematology CBC w Diff NO MAN DIFF REQ WBC (4.8 - 10.8 /CUMM) 9.7 RBC (4.70 - 6.10 /CUMM) 3.79 L Hgb (14.0 - 18.0 G/DL) 10.9 L Hct (42 - 52 %) 33.1 L MCV (80.0 - 94.0 FL) 87.4 MCH (27.0 - 31.0 PG) 28.9 MCHC (33.0 - 37.0 G/DL) 33.0 RDW (11.5 - 14.5 %) 14.1 Plt Count (130 - 400 /CUMM) 377 MPV (7.4 - 10.4 FL) 6.4 L Gran % (42.2 - 75.2 %) 68.2 Lymphocytes % (20.5 - 51.1 %) 17.9 L Monocytes % (1.7 - 9.3 %) 12.3 H Eosinophils % (0 - 5 %) 1.4 Basophils % (0.0 - 2.0 %) 0.2 Absolute Granulocytes (1.4 - 6.5 /CUMM) 6.6 H Absolute Lymphocytes (1.2 - 3.4 /CUMM) 1.7 Absolute Monocytes (0.10 - 0.60 /CUMM) 1.2 H Absolute Eosinophils (0.0 - 0.7 /CUMM) 0.1 Absolute Basophils (0.0 - 0.2 /CUMM) 0 Assessment/Plan Assessment/Plan 61-year-old male approximately 5 weeks status post, complicated hospital course related to perforated appendicitis, perforated duodenal ulcer with free air and fungal peritonitis as well as an inferior abdominal wound dehiscence that is slowly closing. There is no surgical intervention required at this time, he needs dry dressing changes. I would not pack at this time, it is slowly healing and likely will not require any further intervention. He can continue with his outpatient wound care. Monitor for any signs of infection such as redness, pain , worsening swelling or drainage from the wound and please notify us with any concerns. He does not require surgical follow-up. Dw Dr Sow. Problem List: 1. Abdominal wound dehiscence Consult Acknowledgment - Thank you for your consult request. Juanjose Tommie SHAVER 05/13/17 7519: General Information and HPI Allergies/Medications Home Med List: Benztropine Mesylate 0.5 MG TABLET 1 TAB PO BID ANTICHOLINERGIC (Reported) Bupropion HCl (Bupropion HCl Sr) 150 MG TABLET.ER 1 TAB PO BID MOOD (Reported ) Buspirone HCl 30 MG TABLET 1 TAB PO BID PRN ANXIETY (Reported) Gabapentin (Neurontin) 600 MG TABLET 1 TAB PO 4 TIMES/DAY NERVES (Reported) Hydrochlorothiazide 25 MG TABLET 1 TAB PO DAILY HIGH BLOOD PRESSURE (Reported ) Hydroxyzine Pamoate (Vistaril) 50 MG CAPSULE 1 CAP PO TIDPRN ANXIETY ( Reported) Levothyroxine Sodium 50 MCG TABLET 1 TAB PO DAILY THYROID PROBLEMS (Reported) Lisinopril 30 MG TABLET 1 TAB PO DAILY HIGH BLOOD PRESSURE (Reported) Metoprolol Tartrate 100 MG TABLET 1 TAB PO BID HIGH BLOOD PRESSURE (Reported) Morphine Sulfate (Ms Contin) 30 MG TABLET.ER 1 TAB PO BIDP PRN PAIN (Reported ) Olanzapine (Zyprexa) 15 MG TABLET 1 TAB PO QPM MOOD STABILITY (Reported) Omeprazole 40 MG CAPSULE. 1 CAP PO BID GI (Reported) Oxcarbazepine 150 MG TABLET 1 TAB PO BID SEIZURES (Reported) Oxycodone HCl 5 MG TABLET 1-2 TAB PO Q6H PRN PAIN (Reported) Sennosides/Docusate Sodium (Senna S Tablet) 8.6 MG-50 MG TABLET 1 TAB PO QPM CONSTIPATION (Reported) Assessment/Plan Consult Acknowledgment - Thank you for your consult request. Attending MD Review Statement Attending Statement Attending MD Statement: discuss w/resident/PA/BODY MECHANIC APPRENTICE, agreed w/resident/PA/BODY MECHANIC APPRENTICE, reviewed EMR data (avail)
[2017-05-07 22:00] VITALS: BP 110/84
[2017-05-08 06:30] VITALS: BP 112/68
--- NOTE | 2017-05-08 07:16 | PN- Housestaff ---
Subjective Follow-up For: Fall with hypotension PRIYA Hyponatremia Tele-Events Since Last Visit: Sinus bradycardia Heart rate 55-67. No overnight events noted Subjective: Patient resting comfortably in bed, denies any active complaints. Review of Systems Constitutional: Reports: no symptoms. EENTM: Reports: no symptoms. Cardiovascular: Reports: no symptoms. Respiratory: Reports: no symptoms. Gastrointestinal: Reports: no symptoms. Genitourinary: Reports: no symptoms. Musculoskeletal: Reports: no symptoms. Skin: Reports: no symptoms. Neurological/Psychological: Reports: no symptoms. Hematologic/Endocrine: Reports: no symptoms. Immunologic/Allergic: Reports: no symptoms. Objective Last 24 Hrs of Vital Signs/I&O Vital Signs Date Time Temp Pulse Resp B/P B/P Pulse O2 O2 Flow FiO2 Mean Ox Delivery Rate 05/08 1451 98.9 62 20 120/76 93 Room Air 05/08 0756 64 110/84 05/08 0630 98.0 68 20 112/68 92 05/07 2200 97.2 64 22 110/84 95 05/07 2148 68 122/64 Intake & Output 05/08 1600 05/08 0800 05/08 0000 Intake Total 600 400 480 Output Total Balance 600 400 480 Intake, Oral 600 400 480 Physical Exam General Appearance: Alert, Oriented X3, Cooperative, No Acute Distress Skin: No Rashes, No Breakdown Cardiovascular: Regular Rate, Normal S1, Normal S2 Lungs: Clear to Auscultation, Normal Air Movement Abdomen: Normal Bowel Sounds, Soft, No Tenderness Extremities: No Clubbing, No Cyanosis, No Edema, Normal Pulses Current Medications: Current Medications Sig/Nirmal Start time Last Medication Dose Route Stop Time Status Admin Benztropine Mesylate 0.5 MG BID 05/07 1000 AC 05/08 PO 0756 Bupropion HCl 150 MG BID 05/06 2223 AC 05/08 PO 0756 Buspirone HCl 30 MG BID 05/06 2224 AC 05/08 PO 0756 Gabapentin 600 MG Q6 05/06 2359 AC 05/08 PO 1142 Heparin Sodium 5,000 UNIT Q8 05/060 AC 05/08 (Porcine) SC 1254 Hydroxyzine HCl 50 MG TID PRN 05/06 2230 AC PO Levothyroxine Sodium 0.05 MG DAILY AC 05/07 0700 AC 05/08 PO 0609 Lidocaine 1 PAT DAILY 05/07 1000 AC EXT Metoprolol Tartrate 100 MG BID 05/07 1000 AC 05/08 PO 0756 Morphine Sulfate 15 MG BID 05/07 1537 AC 05/08 PO 0758 Olanzapine 15 MG QPM 05/07 2200 AC 05/08 PO 0004 Omeprazole 40 MG DAILY AC 05/07 0700 AC 05/08 PO 0609 Oxcarbazepine 150 MG BID 05/06 2227 AC 05/08 PO 0756 Oxycodone HCl 10 MG Q6 PRN 05/07 1545 AC 05/08 PO 0611 Patient Medication 1 ED ONE ONE 05/08 1430 DC 05/08 Teaching ED 05/08 1431 1452 Senna/Docusate Sodium 1 TAB QPM 05/07 2199 AC 05/07 PO 2148 Last 24 Hrs of Lab/Fabiano Results Last 24 Hrs of Labs/Mics: Laboratory Tests 05/08/17 0638: Anion Gap 9, Estimated GFR > 60, BUN/Creatinine Ratio 11.3, Creatine Kinase 298 H, CBC w Diff NO MAN DIFF REQ, RBC 3.27 L, MCV 88.1, MCH 29.9, MCHC 33.9, RDW 14.7 H, MPV 6.9 L, Gran % 51.8, Lymphocytes % 33.2, Monocytes % 12.3 H, Eosinophils % 2.2, Basophils % 0.5, Absolute Granulocytes 2.8, Absolute Lymphocytes 1.8, Absolute Monocytes 0.7 H, Absolute Eosinophils 0.1, Absolute Basophils 0 Assessment/Plan Assessment: 61 y/o M w/ PMHx of TBI?, HTN, Hypothyroidism, siezures, left shoulder surgery, chronic back pain, anxiety, depression inguinal hernia repair, appendicitis status post appendectomy, brought to [facility] for history of fall. Problem list 1. Fall with hypotension 2. PRIYA 3. Hyponatremia 3. History of hypothyroidism, seizures, anxiety, depression, chronic back pain, laparoscopic appendectomy complicated with duodenum ulcer perforation requiring ICU admission - No arrhythmias noted on the cardiac cath lab technologist. - CKP improving - Sodium level 132 today, continue to monitor - Continue iron supplements and continue to monitor H&H. - PRIYA resolved. - Continue oxycodone 10 mg every 6 and MS Contin 15 mg twice a day for shoulder pain. - Continue home medications. - Patient was supposed to be discharged today but according to the conservative, which is patient's ex-, he needs a 24-hour care because of his previous history of TBI. Most likely be discharged tomorrow after 24-hour care is arranged. DVT prophylaxis; subcutaneous heparin heparin Patient is full code Problem List: 1. Rhabdomyolysis 2. Hyponatremia 3. Fall 4. Acute renal failure Pain Ratin Pain Location: Left shoulder Pain Goal: Remain pain free Pain Plan: Pain pathway Tomorrow's Labs & Rationales: None
[2017-05-08 08:16] LABS: ABSOLUTE BASOPHIL COUNT 0 /CUMM (0.0-0.2); ABSOLUTE EOSINOPHIL COUNT 0.1 /CUMM (0.0-0.7); ABSOLUTE GRANULOCYTE CT 2.8 /CUMM (1.4-6.5); ABSOLUTE LYMPH COUNT 1.8 /CUMM (1.2-3.4); ABSOLUTE MONOCYTE COUNT 0.7 /CUMM (0.10-0.60); BASOPHIL % 0.5 % (0.0-2.0); EOSINOPHIL % 2.2 % (0-5); GRANULOCYTE % 51.8 % (42.2-75.2); HEMATOCRIT 28.8 % (42-52); MEAN CORPUSCULAR HGB 29.9 PG (27.0-31.0); MEAN CORPUSCULAR HGB CONC 33.9 G/DL (33.0-37.0); MEAN CORPUSCULAR VOLUME 88.1 FL (80.0-94.0); MEAN PLATELET VOLUME 6.9 FL (7.4-10.4); PLATELET COUNT 242 /CUMM (130-400); RBC DISTRIBUTION WIDTH 14.7 % (11.5-14.5); RED BLOOD CELL CT 3.27 /CUMM (4.70-6.10); WHITE BLOOD CELL COUNT 5.4 /CUMM (4.8-10.8)
--- NOTE | 2017-05-08 10:45 | PN- Att Addend ---
Attending Addendum Attending Brief Note Looking and feeling much better Vital signs are stable no fever, no new changes on physical examination unit renal function back to normal acute renal insufficiency resolved. Will check his CK if it continues trending down will start disposition plans I'll let the patient go home and arrange for a [facility] alert. Continue home care follow-up at the office. Intake & Output 05/08 1600 05/08 0400 05/07 1600 05/07 0400 05/06 1600 05/06 0400 Intake Total 904 981 8196 1000 Output Total Balance 232 477 8621 1000 Intake, IV 1050 1000 Intake, Oral 400 400 580 Number 1 Bowel Movements Patient 269 lb Weight Weight Bed scale Measurement Method Laboratory Tests 05/08/17 0638: Anion Gap 9, Estimated GFR > 60, BUN/Creatinine Ratio 11.3, CBC w Diff NO MAN DIFF REQ, RBC 3.27 L, MCV 88.1, MCH 29.9, MCHC 33.9, RDW 14.7 H, MPV 6.9 L, Gran % 51.8, Lymphocytes % 33.2, Monocytes % 12.3 H, Eosinophils % 2.2, Basophils % 0.5, Absolute Granulocytes 2.8, Absolute Lymphocytes 1.8, Absolute Monocytes 0.7 H, Absolute Eosinophils 0.1, Absolute Basophils 0 05/07/17 0614: Anion Gap 9, Estimated GFR 56 L, BUN/Creatinine Ratio 12.3, Creatine Kinase 654 H, CBC w Diff NO MAN DIFF REQ, RBC 2.98 L, MCV 87.9, MCH 29.8, MCHC 33.9, RDW 13.6, MPV 7.0 L, Gran % 51.4, Lymphocytes % 30.0, Monocytes % 15.2 H, Eosinophils % 2.7, Basophils % 0.7, Absolute Granulocytes 3.3, Absolute Lymphocytes 1.9, Absolute Monocytes 1.0 H, Absolute Eosinophils 0.2, Absolute Basophils 0 05/07/17 0430: Anion Gap 10, Estimated GFR 44 L, BUN/Creatinine Ratio 9.4 05/06/17 2234: Methadone Screen Cancelled, Barbiturate Screen Cancelled, Ur Phencyclidine Scrn Cancelled, Amphetamines Screen Cancelled, U Benzodiazepines Scrn Cancelled, Urine Cocaine Screen Cancelled, Urine Cannabis Screen Cancelled 05/06/17 2217: Troponin I < 0.01 05/06/172199: Urine Color YEL, Urine Clarity CLEAR, Urine pH 7.0, Ur Specific [place] 1.010, Urine Protein NEG, Urine Ketones NEG, Urine Nitrite NEG, Urine Bilirubin NEG, Urine Urobilinogen 0.2, Ur Leukocyte Esterase NEG, Ur Microscopic EXAM NOT REQUIRED, Urine Hemoglobin NEG, Urine Glucose NEG 05/06/172199: Urine Osmolality 303, Ur Random Creatinine 90.5, U Random Total Protein 21 H, Ur Random Sodium 52, Ur Random Potassium 33.4, Fraction Sodium Excret 0.8 05/06/171650: Anion Gap 13, Estimated GFR 41 L, BUN/Creatinine Ratio 10.6, Glucose 99, Serum Osmolality 272 L, Calcium 9.4, Iron 47 L, TIBC 284, Ferritin 247.0, Total Bilirubin 0.3, AST 49, ALT 26, Alkaline Phosphatase 100, Creatine Kinase 1022 H , Troponin I < 0.01, Total Protein 6.8, Albumin 3.4 L, Globulin 3.4, Albumin/ Globulin Ratio 1.0 L, TSH 1.940, Free T4 2.02, CBC w Diff NO MAN DIFF REQ, RBC 3.79 L, MCV 87.4, MCH 28.9, MCHC 33.0, RDW 14.1, MPV 6.4 L, Gran % 68.2, Lymphocytes % 17.9 L, Monocytes % 12.3 H, Eosinophils % 1.4, Basophils % 0.2, Absolute Granulocytes 6.6 H, Absolute Lymphocytes 1.7, Absolute Monocytes 1.2 H, Absolute Eosinophils 0.1, Absolute Basophils 0 Microbiology 05/06 1743 BLOOD: Blood Culture - RES 05/06 1637 BLOOD: Blood Culture - RES Vital Signs Date Time Temp Pulse Resp B/P B/P Pulse O2 O2 Flow FiO2 Mean Ox Delivery Rate 05/08 0756 64 110/84 05/08 0630 98.0 68 20 112/68 92 05/07 2200 97.2 64 22 110/84 95 05/07 2148 68 122/64 05/07 1433 99.0 69 20 138/60 94 Room Air
[2017-05-08] MEDS ORDERED: MS CONTIN30 M1 PO (11:50)
--- NOTE | 2017-05-08 11:52 | Patient Discharge Instructions ---
Discharge Instructions General Discharge Information You were seen/treated for: Fall with hypotension Acute kidney Injury Hyponatremia Special Instructions: Please follow up with your PCP within a week after discharge. Diet Continue normal diet: Yes Activity Full Activity/No Limits: Yes Acute Coronary Syndrome Inclusion Criteria At DC or during hospital stay patient has or had the following: ACS DIAGNOSIS No Discharge Core Measures Meds if any: Prescribed or Continued at Discharge Meds if any: NOT Prescribed or Continued at Discharge Congestive Heart Failure Inclusion Criteria At DC or during hospital stay patient has or had the following: CHF DIAGNOSIS No Discharge Core Measures Meds if any: Prescribed or Continued at Discharge Meds if any: NOT Prescribed or Continued at Discharge Cerebrovascular accident Inclusion Criteria At DC or during hospital stay patient has or had the following: CVA/TIA Diagnosis No Discharge Core Measures Meds if any: Prescribed or Continued at Discharge Meds if any: NOT Prescribed or Continued at Discharge Venous thromboembolism Inclusion Criteria VTE Diagnosis No VTE Type NONE VTE Confirmed by (Test) NONE Discharge Core Measures - Per Current guidelines, there needs to be overlap - treatment for the first 5 days of Warfarin therapy. - If discharged on Warfarin prior to 5 days of - overlap therapy, the patient will need to be - assessed for post discharge needs including - *Post discharge parental anticoagulation - *Warfarin and/or parental anticoagulation education - *Follow up date to check INR post discharge At least 5 days overlap therapy as Inpatient No Meds if any: Prescribed or Continued at Discharge Note: Overlap Therapy is Warfarin and Anticoagulant Meds if any: NOT Prescribed or Continued at Discharge
[2017-05-08 14:51] VITALS: BP 120/76
[2017-05-08 21:58] VITALS: BP 138/70
[2017-05-09 06:49] VITALS: BP 150/96
--- NOTE | 2017-05-09 08:16 | PN- Housestaff ---
Lolita PLAZA,[facility] 05/09/17 0816: Subjective Follow-up For: Fall with hypotension PRIYA Hyponatremia Tele-Events Since Last Visit: Off telemetry monitoring Subjective: Patient resting comfortably in bed, no active complaints. Wanted to know why he was put on the lab associate, which was explained to the patient. Review of Systems Constitutional: Reports: no symptoms. EENTM: Reports: no symptoms. Cardiovascular: Reports: no symptoms. Respiratory: Reports: no symptoms. Gastrointestinal: Reports: no symptoms. Genitourinary: Reports: no symptoms. Musculoskeletal: Reports: no symptoms. Skin: Reports: no symptoms. Neurological/Psychological: Reports: no symptoms. Hematologic/Endocrine: Reports: no symptoms. Immunologic/Allergic: Reports: no symptoms. Objective Last 24 Hrs of Vital Signs/I&O Vital Signs Date Time Temp Pulse Resp B/P B/P Pulse O2 O2 Flow FiO2 Mean Ox Delivery Rate 05/09 1416 98.2 69 20 150/88 96 Room Air 05/09 1016 138/88 05/09 0649 98.7 59 20 150/96 96 Room Air 05/08 2158 98.4 68 18 138/70 97 05/08 2134 68 138/70 Intake & Output 05/09 1600 05/09 0800 05/09 0000 Intake Total 120 120 Output Total Balance 120 120 Intake, Oral 120 120 Physical Exam General Appearance: Alert, Oriented X3, Cooperative, No Acute Distress Skin: No Rashes, No Breakdown Cardiovascular: Regular Rate, Normal S1, Normal S2 Lungs: Clear to Auscultation Abdomen: Normal Bowel Sounds, Soft, No Tenderness Extremities: No Clubbing, No Cyanosis, No Edema Current Medications: Current Medications Sig/Nirmal Start time Last Medication Dose Route Stop Time Status Admin Benztropine Mesylate 0.5 MG BID 05/07 1000 AC 05/09 PO 1014 Bupropion HCl 150 MG BID 05/06 2224 AC 05/09 PO 1014 Buspirone HCl 30 MG BID 05/06 2224 AC 05/09 PO 1014 Gabapentin 600 MG Q6 05/06 2359 AC 05/09 PO 1232 Heparin Sodium 5,000 UNIT Q8 05/06 2200 AC 05/09 (Porcine) SC 1412 Hydroxyzine HCl 50 MG TID PRN 05/06 2230 AC PO Levothyroxine Sodium 0.05 MG DAILY AC 02/24 0700 AC 05/09 PO 0652 Levothyroxine Sodium 0.05 MG DAILY AC 05/07 0700 DC 05/08 PO 0609 Lidocaine 1 PAT DAILY 05/07 1000 AC EXT Metoprolol Tartrate 100 MG BID 05/07 1000 AC 05/09 PO 1016 Morphine Sulfate 15 MG BID 05/07 1537 AC 05/09 PO 1020 Olanzapine 15 MG QPM 05/07 2200 AC 05/08 PO 2133 Omeprazole 40 MG DAILY AC 05/07 0700 AC 05/09 PO 0618 Oxcarbazepine 150 MG BID 05/06 2227 AC 05/09 PO 1017 Oxycodone HCl 10 MG Q6 PRN 05/07 1545 AC 05/09 PO 1522 Senna/Docusate Sodium 1 TAB QPM 05/07 220 AC 05/08 PO 2134 Assessment/Plan Assessment: 61 y/o M w/ PMHx of TBI?, HTN, Hypothyroidism, siezures, left shoulder surgery, chronic back pain, anxiety, depression inguinal hernia repair, appendicitis status post appendectomy, brought to [place] [facility] for history of fall. Problem list 1. Fall with hypotension 2. PRIYA 3. Hyponatremia 3. History of hypothyroidism, seizures, anxiety, depression, chronic back pain, laparoscopic appendectomy complicated with duodenum ulcer perforation requiring ICU admission - Continue oxycodone 10 mg every 6 and MS Contin 15 mg twice a day for shoulder pain. - Continue home medications. - Patient medically stable to be discharged, awaiting 24-hour home care to be arranged. DVT prophylaxis; subcutaneous heparin heparin Patient is full code Problem List: 1. Fall 2. Hyponatremia 3. Rhabdomyolysis 4. Acute renal failure Pain Ratin Pain Location: None Pain Goal: Remain pain free Pain Plan: Pain Pathway Tomorrow's Labs & Rationales: None
[2017-05-09 14:16] VITALS: BP 150/88
--- NOTE | 2017-05-09 17:04 | PN- Att Addend ---
Attending Addendum Attending Brief Note Patient back to baseline. Comfortable in bed. Vital signs are stable no fever and no new changes on physical. Patient was not discharged yesterday because he has a conservator and needs 24-hour care at home and arrangements for this were started and as soon as available will discharge. Intake & Output 05/09 1600 05/09 0400 05/08 1600 05/08 0400 05/07 1600 05/07 0400 Intake Total 089 937 8242 400 1630 1000 Output Total Balance 219 770 2179 400 1630 1000 Intake, IV 1050 1000 Intake, Oral 132 430 7199 400 580 Number 1 Bowel Movements Patient 269 lb Weight Weight Bed scale Measurement Method Current Medications Sig/Nirmal Start time Last Medication Dose Route Stop Time Status Admin Benztropine Mesylate 0.5 MG BID 05/07 1000 AC 05/09 PO 1014 Bupropion HCl 150 MG BID 05/06 222 AC 05/09 PO 1014 Buspirone HCl 30 MG BID 05/06 2224 AC 05/09 PO 1014 Gabapentin 600 MG Q6 05/06 2359 AC 05/09 PO 1232 Heparin Sodium 5,000 UNIT Q8 05/06 220 AC 05/09 (Porcine) SC 1412 Hydroxyzine HCl 50 MG TID PRN 05/06 2230 AC PO Levothyroxine Sodium 0.05 MG DAILY AC 05/09 0700 AC 05/09 PO 0652 Levothyroxine Sodium 0.05 MG DAILY AC 05/07 0700 DC 05/08 PO 0609 Lidocaine 1 PAT DAILY 05/07 1000 AC EXT Metoprolol Tartrate 100 MG BID 05/07 1000 AC 05/09 PO 1016 Morphine Sulfate 15 MG BID 05/07 1537 AC 05/09 PO 1020 Olanzapine 15 MG QPM 05/07 2200 AC 05/08 PO 2133 Omeprazole 40 MG DAILY AC 05/07 0700 AC 05/09 PO 0618 Oxcarbazepine 150 MG BID 05/06 2227 AC 05/09 PO 1017 Oxycodone HCl 10 MG Q6 PRN 05/07 1545 AC 05/09 PO 1522 Senna/Docusate Sodium 1 TAB QPM 05/07 220 AC 05/08 PO 2134 Laboratory Tests 05/08/17 0638: Anion Gap 9, Estimated GFR > 60, BUN/Creatinine Ratio 11.3, Creatine Kinase 298 H, CBC w Diff NO MAN DIFF REQ, RBC 3.27 L, MCV 88.1, MCH 29.9, MCHC 33.9, RDW 14.7 H, MPV 6.9 L, Gran % 51.8, Lymphocytes % 33.2, Monocytes % 12.3 H, Eosinophils % 2.2, Basophils % 0.5, Absolute Granulocytes 2.8, Absolute Lymphocytes 1.8, Absolute Monocytes 0.7 H, Absolute Eosinophils 0.1, Absolute Basophils 0 05/07/17 0614: Anion Gap 9, Estimated GFR 56 L, BUN/Creatinine Ratio 12.3, Creatine Kinase 654 H, CBC w Diff NO MAN DIFF REQ, RBC 2.98 L, MCV 87.9, MCH 29.8, MCHC 33.9, RDW 13.6, MPV 7.0 L, Gran % 51.4, Lymphocytes % 30.0, Monocytes % 15.2 H, Eosinophils % 2.7, Basophils % 0.7, Absolute Granulocytes 3.3, Absolute Lymphocytes 1.9, Absolute Monocytes 1.0 H, Absolute Eosinophils 0.2, Absolute Basophils 0 05/07/17 0430: Anion Gap 10, Estimated GFR 44 L, BUN/Creatinine Ratio 9.4 05/06/17 2234: Methadone Screen Cancelled, Barbiturate Screen Cancelled, Ur Phencyclidine Scrn Cancelled, Amphetamines Screen Cancelled, U Benzodiazepines Scrn Cancelled, Urine Cocaine Screen Cancelled, Urine Cannabis Screen Cancelled 05/06/17 2217: Troponin I < 0.01 05/06/170: Urine Color YEL, Urine Clarity CLEAR, Urine pH 7.0, Ur Specific [place] 1.010, Urine Protein NEG, Urine Ketones NEG, Urine Nitrite NEG, Urine Bilirubin NEG, Urine Urobilinogen 0.2, Ur Leukocyte Esterase NEG, Ur Microscopic EXAM NOT REQUIRED, Urine Hemoglobin NEG, Urine Glucose NEG 05/06/170: Urine Osmolality 303, Ur Random Creatinine 90.5, U Random Total Protein 21 H, Ur Random Sodium 52, Ur Random Potassium 33.4, Fraction Sodium Excret 0.8 Microbiology 05/06 174 BLOOD: Blood Culture - RES Vital Signs Date Time Temp Pulse Resp B/P B/P Pulse O2 O2 Flow FiO2 Mean Ox Delivery Rate 05/09 1416 98.2 69 20 150/88 96 Room Air 05/09 1016 138/88 05/09 0649 98.7 59 20 150/96 96 Room Air 05/08 2157 98.4 68 18 138/70 97 05/08 2133 68 138/70
[2017-05-09 21:47] VITALS: BP 148/80
[2017-05-10 06:43] VITALS: BP 130/92
--- NOTE | 2017-05-10 09:23 | PN- Housestaff ---
Subjective Follow-up For: Fall with hypotension PRIYA Hyponatremia Tele-Events Since Last Visit: Off telemetry Subjective: Patient was seen and examined today. Patient states that he has bilateral hand swelling which he notes has improved. Patient denies any chest pain, palpitations, shortness of breath, nausea/vomiting, diarrhea/constipation, dysuria/hematuria. Review of Systems Constitutional: Reports: see HPI. Objective Last 24 Hrs of Vital Signs/I&O Vital Signs Date Time Temp Pulse Resp B/P B/P Pulse O2 O2 Flow FiO2 Mean Ox Delivery Rate 05/10 2110 76 122/76 05/10 2109 97.8 67 20 132/76 94 05/10 1447 98.2 65 14 130/90 97 Room Air 05/10 1041 68 14 126/90 05/10 0643 98.1 61 12 130/92 95 Room Air Intake & Output 05/10 1600 05/10 0800 05/10 0000 Intake Total 500 350 450 Output Total 300 300 Balance 500 50 150 Intake, Oral 500 350 450 Number 1 Bowel Movements Output, Urine 300 300 Physical Exam General Appearance: Alert, Cooperative, No Acute Distress HEENT: Atraumatic, Mucous Membr. moist/pink Cardiovascular: Regular Rate, Normal S1, Normal S2 Lungs: Clear to Auscultation, Normal Air Movement Neurological: Normal Speech Extremities: No Clubbing, No Cyanosis, No Edema, Normal Pulses, No Tenderness/ Swelling Current Medications: Current Medications Sig/Nirmal Start time Last Medication Dose Route Stop Time Status Admin Benztropine Mesylate 0.5 MG BID 05/07 1000 AC 05/10 PO 2107 Bupropion HCl 150 MG BID 05/06 2223 AC 05/10 PO 2107 Buspirone HCl 30 MG BID 05/06 2223 AC 05/10 PO 210 Gabapentin 600 MG Q6 05/06 2359 AC 05/10 PO 1755 Heparin Sodium 5,000 UNIT Q8 05/06 2199 AC 05/10 (Porcine) SC 2107 Hydroxyzine HCl 50 MG TID PRN 05/06 223 AC PO Levothyroxine Sodium 0.05 MG DAILY AC 05/09 0700 AC 05/10 PO 0602 Lidocaine 1 PAT DAILY 05/07 1000 AC EXT Metoprolol Tartrate 100 MG BID 05/07 1000 AC 05/10 PO 211 Morphine Sulfate 15 MG BID 05/07 1537 AC 05/10 PO 210 Olanzapine 15 MG QPM 05/07 2199 AC 05/10 PO 2107 Omeprazole 40 MG DAILY AC 05/07 0700 AC 05/10 PO 0602 Oxcarbazepine 150 MG BID 05/06 2226 AC 05/10 PO 2108 Oxycodone HCl 10 MG Q6 PRN 05/07 1545 AC 05/10 PO 1758 Senna/Docusate Sodium 1 TAB QPM 05/07 2199 AC 05/10 PO 2107 Assessment/Plan Assessment: 61 y/o M w/ PMHx of TBI?, HTN, Hypothyroidism, siezures, left shoulder surgery, chronic back pain, anxiety, depression inguinal hernia repair, appendicitis status post appendectomy, brought to [place] ER for history of fall. Problem list 1. Fall with hypotension 2. PRIYA 3. Hyponatremia 3. History of hypothyroidism, seizures, anxiety, depression, chronic back pain, laparoscopic appendectomy complicated with duodenum ulcer perforation requiring ICU admission - Continue oxycodone 10 mg every 6 and MS Contin 15 mg twice a day for shoulder pain. - Continue home medications. - Patient medically stable to be discharged, awaiting 24-hour home care to be arranged. Likely discharge home tomorrow. DVT prophylaxis; subcutaneous heparin heparin Patient is full code Problem List: 1. Fall 2. Hyponatremia 3. Acute renal failure 4. Rhabdomyolysis Pain Ratin Pain Location: n/a Pain Goal: Remain pain free Pain Plan: n/a Tomorrow's Labs & Rationales: bep - hyponatremia
[2017-05-10 14:47] VITALS: BP 130/90
--- NOTE | 2017-05-10 15:57 | PN- Att Addend ---
Attending Addendum Attending Brief Note No new issues the patient is alert and oriented 3, his strength seems back to baseline Vital signs are stable, no fever. No changes on physical. Tomorrow will start disposition plans and make sure he has 24 hour help at home as the patients conservator's recommendations. Intake & Output 05/10 1600 05/10 0400 05/09 1600 05/09 0400 05/08 1600 05/08 0400 Intake Total 850 450 378 560 0820 480 Output Total 300 300 Balance 550 150 246 023 8197 480 Intake, Oral 850 450 721 981 5387 480 Number 1 Bowel Movements Output, Urine 300 300 Current Medications Sig/Nirmal Start time Last Medication Dose Route Stop Time Status Admin Benztropine Mesylate 0.5 MG BID 05/07 1000 AC 05/10 PO 1040 Bupropion HCl 150 MG BID 05/06 2223 AC 05/10 PO 1039 Buspirone HCl 30 MG BID 05/06 2223 AC 05/10 PO 1040 Gabapentin 600 MG Q6 05/06 2359 AC 05/10 PO 1222 Heparin Sodium 5,000 UNIT Q8 05/06 2199 AC 05/10 (Porcine) SC 1436 Hydroxyzine HCl 50 MG TID PRN 05/06 2229 AC PO Levothyroxine Sodium 0.05 MG DAILY AC 05/09 07 AC 05/10 PO 0602 Lidocaine 1 PAT DAILY 05/07 1000 AC EXT Metoprolol Tartrate 100 MG BID 05/07 1000 AC 05/10 PO 1041 Morphine Sulfate 15 MG BID 05/07 1537 AC 05/10 PO 1042 Olanzapine 15 MG QPM 05/07 220 AC 05/09 PO 2122 Omeprazole 40 MG DAILY AC 05/07 0700 AC 05/10 PO 0602 Oxcarbazepine 150 MG BID 05/06 2226 AC 05/10 PO 1042 Oxycodone HCl 5 MG ONCE ONE 05/09 1900 DC 05/09 PO 05/09 190 1852 Oxycodone HCl 10 MG Q6 PRN 05/07 1545 AC 05/10 PO 1039 Senna/Docusate Sodium 1 TAB QPM 05/07 2199 AC 05/09 PO 2121 Laboratory Tests 05/08/17 0638: Anion Gap 9, Estimated GFR > 60, BUN/Creatinine Ratio 11.3, Creatine Kinase 298 H, CBC w Diff NO MAN DIFF REQ, RBC 3.27 L, MCV 88.1, MCH 29.9, MCHC 33.9, RDW 14.7 H, MPV 6.9 L, Gran % 51.8, Lymphocytes % 33.2, Monocytes % 12.3 H, Eosinophils % 2.2, Basophils % 0.5, Absolute Granulocytes 2.8, Absolute Lymphocytes 1.8, Absolute Monocytes 0.7 H, Absolute Eosinophils 0.1, Absolute Basophils 0 Vital Signs Date Time Temp Pulse Resp B/P B/P Pulse O2 O2 Flow FiO2 Mean Ox Delivery Rate 05/10 1447 98.2 65 14 130/90 97 Room Air 05/10 1041 68 14 126/90 05/10 0643 98.1 61 12 130/92 95 Room Air 05/09 2147 98.8 68 21 148/80 96 05/092 68 148/80
[2017-05-10 21:10] VITALS: BP 132/76
[2017-05-11 06:54] VITALS: BP 126/86
--- NOTE | 2017-05-11 07:14 | PN- Housestaff ---
Subjective Follow-up For: Fall with hypotension PRIYA Rhabdomyolysis Tele-Events Since Last Visit: Off Telemetry monitoring Subjective: Patient resting comfortably in bed, denies any complaints. Review of Systems Constitutional: Reports: no symptoms. EENTM: Reports: no symptoms. Cardiovascular: Reports: no symptoms. Respiratory: Reports: no symptoms. Gastrointestinal: Reports: no symptoms. Genitourinary: Reports: no symptoms. Musculoskeletal: Reports: no symptoms. Skin: Reports: no symptoms. Neurological/Psychological: Reports: no symptoms. Hematologic/Endocrine: Reports: no symptoms. Immunologic/Allergic: Reports: no symptoms. Objective Last 24 Hrs of Vital Signs/I&O Vital Signs Date Time Temp Pulse Resp B/P B/P Pulse O2 O2 Flow FiO2 Mean Ox Delivery Rate 05/11 1049 Room Air 2.0L 05/11 0745 60 126/86 05/11 0654 98.4 60 12 12686 97 Room Air 05/10 2111 76 122/76 05/10 2110 97.8 67 20 132/76 94 05/10 1447 98.2 65 14 130/90 97 Room Air Intake & Output 05/11 1600 05/11 0800 05/11 0000 Intake Total 110 350 Output Total Balance 110 350 Intake, IV 10 Intake, Oral 100 350 Number 0 Bowel Movements Physical Exam General Appearance: Alert, Oriented X3, Cooperative Skin: No Rashes, No Breakdown Cardiovascular: Regular Rate, Normal S1, Normal S2 Lungs: Clear to Auscultation, Normal Air Movement Abdomen: Normal Bowel Sounds, Soft, No Tenderness Extremities: No Clubbing, No Cyanosis, No Edema, Normal Pulses Current Medications: Current Medications Sig/Nirmal Start time Last Medication Dose Route Stop Time Status Admin Benztropine Mesylate 0.5 MG BID 05/07 1000 AC 05/11 PO 0745 Bupropion HCl 150 MG BID 05/064 AC 05/11 PO 0745 Buspirone HCl 30 MG BID 05/06 2224 AC 05/11 PO 0744 Gabapentin 600 MG Q6 05/06 2359 AC 05/11 PO 1147 Heparin Sodium 5,000 UNIT Q8 05/06 2200 05/11 (Porcine) SC 1347 Hydroxyzine HCl 50 MG TID PRN 05/06 2230 AC PO Levothyroxine Sodium 0.05 MG DAILY AC 05/09 0700 05/11 PO 0605 Lidocaine 1 PAT DAILY 05/07 1000 AC EXT Metoprolol Tartrate 100 MG BID 05/07 1000 AC 05/11 PO 0745 Morphine Sulfate 15 MG BID 05/07 1537 AC 05/11 PO 0744 Olanzapine 15 MG QPM 05/07 2200 AC 05/10 PO 2108 Omeprazole 40 MG DAILY AC 05/07 0700 AC 05/11 PO 0605 Oxcarbazepine 150 MG BID 05/06 2227 AC 05/11 PO 0745 Oxycodone HCl 10 MG Q6 PRN 05/07 1545 AC 05/11 PO 1359 Senna/Docusate Sodium 1 TAB QPM 05/07 220 AC 05/10 PO 2108 Last 24 Hrs of Lab/Fabiano Results Last 24 Hrs of Labs/Mics: Laboratory Tests 05/11/17 0711: Anion Gap 9, Estimated GFR > 60, BUN/Creatinine Ratio 10.0 Assessment/Plan Assessment: 61 y/o M w/ PMHx of TBI?, HTN, Hypothyroidism, siezures, left shoulder surgery, chronic back pain, anxiety, depression inguinal hernia repair, appendicitis status post appendectomy, brought to [place] ER for history of fall. Problem list 1. Fall with hypotension 2. PRIYA 3. Hyponatremia 3. History of hypothyroidism, seizures, anxiety, depression, chronic back pain, laparoscopic appendectomy complicated with duodenum ulcer perforation requiring ICU admission - Continue oxycodone 10 mg every 6 and MS Contin 15 mg twice a day for shoulder pain. - Continue home medications. - Patient medically stable to be discharged, awaiting 24-hour home care to be arranged. DVT prophylaxis; subcutaneous heparin heparin Patient is full code Problem List: 1. Fall 2. Rhabdomyolysis 3. Hyponatremia Pain Ratin Pain Location: None Pain Goal: Remain pain free Pain Plan: None Tomorrow's Labs & Rationales: None
--- NOTE | 2017-05-11 10:44 | PN- Att Addend ---
Attending Addendum Attending Brief Note Patient Up, taking a shower. Vital signs are stable no fever no new changes on physical. If he has 24-hour home health, then he will be able to be discharged today. See the CMR and orders to follow as an outpatient in my office Intake & Output 05/11 1600 05/11 0400 05/10 1600 05/10 0400 05/09 1600 05/09 0400 Intake Total 110 350 850 450 600 120 Output Total 300 300 Balance 110 350 550 150 600 120 Intake, IV 10 Intake, Oral 100 350 850 450 600 120 Number 0 1 Bowel Movements Output, Urine 300 300 Current Medications Sig/Nirmal Start time Last Medication Dose Route Stop Time Status Admin Benztropine Mesylate 0.5 MG BID 05/07 1000 AC 05/11 PO 0745 Bupropion HCl 150 MG BID 05/06 2223 AC 05/11 PO 0745 Buspirone HCl 30 MG BID 05/06 2223 AC 05/11 PO 0744 Gabapentin 600 MG Q6 05/06 2359 AC 05/11 PO 0605 Heparin Sodium 5,000 UNIT Q8 05/06 2199 AC 05/11 (Porcine) SC 0606 Hydroxyzine HCl 50 MG TID PRN 05/06 223 AC PO Levothyroxine Sodium 0.05 MG DAILY AC 05/09 07 AC 05/11 PO 0605 Lidocaine 1 PAT DAILY 05/07 1000 AC EXT Metoprolol Tartrate 100 MG BID 05/07 1000 AC 05/11 PO 0745 Morphine Sulfate 15 MG BID 05/07 1537 AC 05/11 PO 0744 Olanzapine 15 MG QPM 05/07 2199 AC 05/10 PO 2108 Omeprazole 40 MG DAILY AC 05/07 0700 AC 05/11 PO 0605 Oxcarbazepine 150 MG BID 05/06 2226 AC 05/11 PO 0745 Oxycodone HCl 10 MG Q6 PRN 05/07 1545 AC 05/11 PO 0618 Senna/Docusate Sodium 1 TAB QPM 05/07 2199 AC 05/10 PO 210 Laboratory Tests 05/11/17 0711: Anion Gap 9, Estimated GFR > 60, BUN/Creatinine Ratio 10.0 Vital Signs Date Time Temp Pulse Resp B/P B/P Pulse O2 O2 Flow FiO2 Mean Ox Delivery Rate 05/11 0745 60 126/86 05/11 0654 98.4 60 12 126/86 97 Room Air 05/10 2110 76 122/76 05/10 2109 97.8 67 20 132/76 94 05/10 1447 98.2 65 14 130/90 97 Room Air
[2017-05-11 14:14] VITALS: BP 142/80
--- NOTE | 2017-05-11 15:35 | Discharge Summary ---
Visit Information Visit Dates Admission Date: 05/06/17 Discharge Date: 05/11/17 Hospital Course Course Attending Physician: Valentino Chun MD Primary Care Physician: Lay PLAZA,Valentino Hospital Course: The patient is a 61-year-old man with a past medical history of traumatic brain injury, HTN, hypothyroidism, hypothyroidism, seizures, left shoulder surgery, inguinal hernia repair, and recent appendicitis status post appendectomy on 03/27 and postoperative course complicated by fungal peritonitis and a duodenal ulcer. After that admission he was discharged to short-term rehabilitation on 04/17/2017 and subsequently was discharged from short-term rehabilitation at home 2 weeks prior to presentation. He presented to [facility] for history of mechanical fall with inability to get up for over 8 hours after being found by home health aide on the morning of presentation. Patient is a poor historian at baseline but reported that he fell on the floor the night prior to presentation and slept on the floor the whole night because he was unable to get up due to weakness. He denied headache, head injury, seizure-like activity, tongue bite, chest pain, palpitation, shortness of breath, headache, vertigo during the same time. He stated he has right-sided weakness compared to the left side. His health aide found him on the floor on the afternoon of presentation and called 911 immediately. He was brought to the [facility] for evaluation. At baseline he doesn't use a cane or walker. He has health aide to help him with this medication. His conservator is his ex- Li Ramos. He had 16 hour home care at home but he is usually left home alone at night. [facility] showed temperature 98.1 F, pulse rate 60/min, respiratory rate 15/min, blood pressure 80/42 mmhg and oxygen saturation of 97% on 2 L of oxygen. His blood pressure improved to 119/60 mm hg. Physical exam revealed a middle-aged man alert, oriented to place and person. HEENT revealed PERRLA, dry mucous membranes. Examination of the neck did not reveal an elevated JVD or cervical lymphadenopathy. Cardiovascular exam pertinent for normal S1, S2, no murmurs rubs or gallops appreciated. Respiratory exam pertinent for decreased breath sounds bilaterally. Abdominal exam was benign with abdomen soft, nontender, nondistended normal bowel sounds in all 4 quadrants. Examination of the lower extremities did not reveal any edema. Strength was 5 out of 5 in all 5 extremities. Labs pertinent for a white blood cell count of 9700, hemoglobin and hematocrit of of 10.9/33.1%, MCV of 87.4 with a platelet count 377,000. Chemistries revealed hyponatremia with a sodium of 128, potassium of 4.3, bicarbonate of 28, anion gap of 13, BUN 18 with a creatinine of 1.7 (elevated). LFTs unremarkable with AST/LTS stool 49/26, alkaline phosphatase of 100, total bili of 0.3. His troponin was negative at less than 0.01. His creatinine kinase was elevated at 1022 units per liter. UA was not received. EKG revealed normal sinus rhythm with a heart rate 66, normal axis, nonspecific ST-T changes in V5 to V6 Chest x-ray showed low lung volumes, possible small effusions, no overt consolidative disease. CT brain and cervical spine without contrast showing no acute intracranial process, age-related cerebral atrophy, no acute fracture or dislocation of cervical spine. There is mild straightening of cervical lordosis likely spasm. He was admitted for dehydration with acute kidney injury and rhabdomyolysis. He was rehydrated with IV normal saline and his creatinine improved to normal of 0.7 mg per DL. His serial EKGs and troponins showed no indication of an acute coronary event. In addition his elevated creatinine kinase trended downward and was 298 units per liter prior to discharge. In addition his sodium increased to 131 mmol per liter prior to discharge. His opiate medications were reduced to you oxycodone 10 mg every 6 hours when necessary and by mouth MS Contin 15 mg twice a day to prevent overmedication while he was on admission. Arrangements were made for the patient to get a [employer] alert bracelet on discharge so that he could easily get help if he fell again. He was subsequently discharged to short-term rehabilitation while arrangements were being made to ensure he has 24 -hour care in his home. Allergies: Coded Allergies: risperidone (UNKNOWN 10/30/15) Disposition Summary Disposition Principal Diagnosis: 1. Fall with hypotension 2. PRIYA 3. Hyponatremia Additional Diagnosis: 4. History of hypothyroidism 5. History of seizures 6. Chronic back pain Discharge Disposition: SNF Discharge Instructions General Discharge Information Code Status: Full Code Patient's Diet: Low-fat diet Patient's Activity: Self limited activity Follow-Up Instructions/Appts: 1. Please follow up with your PCP within a week after discharge. Medications at Discharge Discharge Medications: Continue taking these medications: Bupropion HCl (Bupropion HCl Sr) 150 MG TABLET.ER 1 Tablet ORAL TWICE DAILY Comments: Last Taken: 05/11/17 Time: 0745 Buspirone HCl (Buspirone HCl) 30 MG TABLET 1 Tablet ORAL TWICE DAILY as needed for ANXIETY Comments: Last Taken: 05/11/17 Time: 0745 Benztropine Mesylate (Benztropine Mesylate) 0.5 MG TABLET 1 Tablet ORAL TWICE DAILY Comments: Last Taken: 05/11/17 Time: 0745 Hydrochlorothiazide (Hydrochlorothiazide) 25 MG TABLET 1 Tablet ORAL DAILY Comments: NOT GIVEN IN HOSPITAL Hydroxyzine Pamoate (Vistaril) 50 MG CAPSULE 1 Capsule ORAL THREE TIMES A DAY NEEDED Comments: NOT GIVEN Levothyroxine Sodium (Levothyroxine Sodium) 50 MCG TABLET 1 Tablet ORAL DAILY Comments: Last Taken: 05/11/17 Time: 0605 Lisinopril (Lisinopril) 30 MG TABLET 1 Tablet ORAL DAILY Comments: NOT GIVEN IN HOSPITAL Metoprolol Tartrate (Metoprolol Tartrate) 100 MG TABLET 1 Tablet ORAL TWICE DAILY Comments: Last Taken: 05/11/17 Time: 0745 Gabapentin (Neurontin) 600 MG TABLET 1 Tablet ORAL 4 TIMES A DAY Comments: Last Taken:05/11/17 Time: 1147 AM Oxcarbazepine (Oxcarbazepine) 150 MG TABLET 1 Tablet ORAL TWICE DAILY Comments: Last Taken: 05/11/17 Time: 0745 Olanzapine (Zyprexa) 15 MG TABLET 1 Tablet ORAL Every night Comments: Last Taken: 05/10/17 Time: 9 PM Omeprazole (Omeprazole) 40 MG CAPSULE.DR 1 Capsule ORAL TWICE DAILY Comments: Last Taken: 05/11/17 Time: 0605 Sennosides/Docusate Sodium (Senna S Tablet) 8.6 MG-50 MG TABLET 1 Tablet ORAL Every night Comments: Last Taken: 05/10/17 Time: 9PM Oxycodone HCl (Oxycodone HCl) 5 MG TABLET 1-2 Tablet ORAL Q6H as needed for PAIN Comments: Last Taken: 05/11/17 Time: 2PM Morphine Sulfate (Ms Contin) 30 MG TABLET.ER 1 Tablet ORAL 2 x Daily as needed as needed for PAIN Comments: Last Taken:05/11/17 Time:1378 Copies To: Lay PLAZA,Valentino
[2017-05-11 16:48] VITALS: BP 142/80
== END 2017-05-11 17:13 | DRG 683 ==
LOC: DELPENDDIS → ERH 16:31 → ERHI 18:40 → 1NO 18:40 → CANRESERV 19:21 → ENRESERV 19:21 → ENTRNSPT 19:58 → EDTRNSPTSTS 20:02 → EDTRNSPT 20:02 → EDBEDREQ 21:52 → ENRESERV 22:04 → CMPTRNSPT 22:32 → 1NO 22:46 → ENPENDDIS 05-08 13:56 → 1NO 05-10 08:21
PROVIDERS: Emergency Medicine; Internal Medicine; Internal Medicine Infectious Disease
DX: N17.9 Acute kidney failure, unspecified (principal); E87.1 Hypo-osmolality and hyponatremia; R56.9 Unspecified convulsions; I95.9 Hypotension, unspecified; T79.6XXA Traumatic ischemia of muscle, initial encounter; E03.9 Hypothyroidism, unspecified; I10 Essential (primary) hypertension; T81.31XD Disruption of external operation (surgical) wound, not elsewhere classified, subsequent encounter; Y83.8 Other surgical procedures as the cause of abnormal reaction of the patient, or of later complication, without mention of misadventure at the time of the procedure; F32.9 Major depressive disorder, single episode, unspecified; G89.29 Other chronic pain; W19.XXXA Unspecified fall, initial encounter; M54.9 Dorsalgia, unspecified; Z87.820 Personal history of traumatic brain injury; F39 Unspecified mood [affective] disorder; K21.9 Gastro-esophageal reflux disease without esophagitis; Z87.891 Personal history of nicotine dependence
CPT/HCPCS: 1NP; 84133; 84300; 36415; 36592; 71045; 80307; 81003; 82436; 82570; 87040; 93005; 93010; 97110-GO; 97116-GO; 97161-GP; J1644; J3490

== ENCOUNTER 2017-08-11 07:34 | Emergency (ER) | payer OTHER ==
[~2017-08-11] VITALS: Ht 185.4 cm; Wt 108.9 kg
[~2017-08-11 07:34] MED LIST changes: +LIDODERM1 EACH TOP; +MS CONTIN30 M1 PO; +OMEPRAZOLE40 M1 PO; +SENNA S TABLET1 EACH PO
--- NOTE | 2017-08-11 08:20 | ED HEAD/FACIAL INJ COMPLAINT ---
History of Present Illness General Chief Complaint: Laceration Procedure Stated Complaint: LAC TO HEAD, +HEAD STRIKE, - THINNERS Source: patient Exam Limitations: no limitations Vital Signs & Intake/Output Vital Signs & Intake/Output Vital Signs Date Time Temp Pulse Resp B/P B/P Pulse O2 O2 Flow FiO2 Mean Ox Delivery Rate 08/11 1000 97.4 82 20 140/79 96 08/11 0901 97.6 57 18 122/66 97 Room Air 08/11 0738 96.0 58 20 123/79 Room Air Allergies Coded Allergies: risperidone (UNKNOWN 10/30/15) Reconcile Medications Benztropine Mesylate 0.5 MG TABLET 1 TAB PO BID ANTICHOLINERGIC (Reported) Bupropion HCl (Bupropion HCl Sr) 150 MG TABLET.ER 1 TAB PO BID MOOD (Reported ) Buspirone HCl 30 MG TABLET 1 TAB PO BID PRN ANXIETY (Reported) Cephalexin (Keflex) 500 MG CAPSULE 1 CAP PO TID soft tissue fb Gabapentin (Neurontin) 600 MG TABLET 1 TAB PO 4 TIMES/DAY NERVES (Reported) Hydrochlorothiazide 25 MG TABLET 1 TAB PO DAILY HIGH BLOOD PRESSURE (Reported ) Hydroxyzine Pamoate (Vistaril) 50 MG CAPSULE 1 CAP PO TIDPRN ANXIETY ( Reported) Levothyroxine Sodium 50 MCG TABLET 1 TAB PO DAILY THYROID PROBLEMS (Reported) Lisinopril 30 MG TABLET 1 TAB PO DAILY HIGH BLOOD PRESSURE (Reported) Metoprolol Tartrate 100 MG TABLET 1 TAB PO BID HIGH BLOOD PRESSURE (Reported) Morphine Sulfate (Ms Contin) 30 MG TABLET.ER 1 TAB PO BIDP PRN PAIN (Reported ) Olanzapine (Zyprexa) 15 MG TABLET 1 TAB PO QPM MOOD STABILITY (Reported) Omeprazole 40 MG CAPSULE.DR 1 CAP PO BID GI (Reported) Oxcarbazepine 150 MG TABLET 1 TAB PO BID SEIZURES (Reported) Oxycodone HCl 5 MG TABLET 1-2 TAB PO Q6H PRN PAIN (Reported) Sennosides/Docusate Sodium (Senna S Tablet) 8.6 MG-50 MG TABLET 1 TAB PO QPM CONSTIPATION (Reported) Triage Note: PT TO ED C/O LAC TO RIGHT FOREHEAD S/P SLIP AND FALL ON TILE FLOOR IN BATHROOM. DENIES LOC. PT IS ON LOW DOSE ASA. LARGE LAC NOTED, BLEEDING CONTROLLED. PT ALSO C/O NECK PAIN. LAST TETANUS MAY 2017. Triage Nurses Notes Reviewed? yes Onset: Abrupt Severity: moderate, severe Location: frontal, parietal Method of Injury: laceration Loss of Consciousness: no loss of consciousness HPI: 61-year-old male comes into the emergency room for further evaluation of trauma to the right forehead/side of his head. Patient reports he slipped in the bathroom and fell and hit his head. He has some associated neck pain. Denies any anticoagulants. Denies any vomiting. Denies any vision loss or dizziness. He comes in for further evaluation. Tetanus shot up-to-date. (Eliezer Andrea) Past History Travel History Traveled to [place] past 21 day No Medical History Any Pertinent Medical History? 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 No (Eliezer Andrea) Review of Systems Review of Systems Constitutional: Reports: no symptoms. EENTM: Reports: no symptoms. Respiratory: Reports: no symptoms. Cardiovascular: Reports: no symptoms. GI: Reports: no symptoms. Genitourinary: Reports: no symptoms. Musculoskeletal: Reports: no symptoms. Skin: Reports: see HPI. Neurological/Psychological: Reports: see HPI. Hematologic/Endocrine: Reports: no symptoms. Immunologic/Allergic: Reports: no symptoms. All Other Systems: Reviewed and Negative (Eliezer Andrea) Physical Exam Physical Exam General Appearance: well developed/nourished, mild distress Head: lacerations, 6 cm laceration right side of head Eyes: Bilateral: normal appearance, PERRL, EOMI. Ears, Nose, Throat: normal pharynx, normal ENT inspection, hearing grossly normal Neck: normal inspection Respiratory: normal breath sounds, no respiratory distress Cardiovascular: regular rate/rhythm Back: normal inspection Extremities: normal inspection, normal range of motion, no edema Psychiatric: awake, alert, oriented x 3 Cranial Nerves: normal hearing, normal speech, PERRL Coordination/Gait: normal gait Motor/Sensory: no motor/sensory deficits Skin: intact, normal color, warm/dry (Erik ZULETA,Eliezer) Progress Differential Diagnosis: c-spine injury, facial fracture, globe injury, ICH, orbit fracture, skull fracture Plan of Care: Orders Procedure Date/time Status CT HEAD WO IV CONTRAST 08/[address] CERV SPINE WO IV CONTRAST 08/11 805 Active Diagnostic Imaging: Viewed by Me: CT Scan. Discussed w/RAD: CT Scan. Radiology Impression: PATIENT: KALI THRASHER PRESENT AGE: 61 PATIENT ACCOUNT NO: [id number] : 55 LOCATION: [facility] ORDERING PHYSICIAN: Eliezer ZULETA SERVICE DATE: 08/11/17 EXAM TYPE: CAT - CT CERV SPINE WO IV CONTRAST; CT HEAD WO IV CONTRAST EXAMINATION: CT HEAD WITHOUT CONTRAST CT CERVICAL SPINE WITHOUT CONTRAST CLINICAL INFORMATION: Fall, head trauma, laceration. COMPARISON: 06/07/2017. TECHNIQUE: Contiguous axial imaging was performed from the skull base to vertex without intravenous administration of contrast. In addition, helical noncontrast CT imaging was acquired through the cervical spine and source images were reviewed along with axial reconstructions and sagittal and coronal MPRs. DLP: 1008 mGy-cm FINDINGS: HEAD: There is no hemorrhage, edema, mass effect, hydrocephalus, extra-axial collection, shift of the normally midline structures, or evolving territorial infarct. There is mild generalized prominence of the ventricles, sulci, and extra-axial CSF spaces and mild periventricular hypoattenuation compatible with chronic microangiopathy. Mild asymmetry of the lateral ventricles, slightly larger on the left than the right, is stable and likely on a congenital/develop mental basis. No acute osseous abnormality. There is a soft tissue defect along the right frontal scalp superimposed on a stable area of scarring. There is a punctate radiodensity in the soft tissues of the scalp adjacent to the defect, suspicious for a radio opaque foreign body. The visualized orbits are unremarkable. The imaged paranasal sinuses, mastoid air cells and middle ear cavities are clear. There appears to be some packing material in the right nasal cavity. CERVICAL SPINE: There is no evidence of fracture or traumatic subluxation. Vertebral body height is maintained. Sagittal alignment is maintained. The atlantoaxial and atlantooccipital articulations are maintained. There is stable spondylosis with multilevel prominent anterior osteophyte formation, intervertebral disc height loss, endplate spurring and sclerosis, the latter most notable at C5-C6. This results in mild multilevel bony canal stenosis most notable at C5-C6. There is mild to moderate bilateral foraminal stenosis at this level. Mild foraminal stenosis is also evident on the right at C4-C5 and bilaterally at C3-C4. There is no abnormal density visualized within the cervical canal to suggest hematoma. No evidence of prevertebral soft tissue swelling or fluid. The imaged pharyngeal and laryngeal contours are unremarkable. There is a tonsillith in the left palatine tonsil. There is a 3 mm air-filled internal laryngocele without evidence of abnormality at the level of the laryngeal ventricle. No discrete thyroid lesions are visualized. No cervical adenopathy is noted. The lung apices are clear without evidence of pneumothorax. IMPRESSION: 1. No acute intracranial pathology. There is a laceration involving the right frontal scalp with a punctate radiodensity in the adjacent subcutaneous tissues, suggestive of a retained foreign body. 2. No CT evidence of acute cervical spine fracture or traumatic subluxation. Stable spondylosis most notable at C5-C6. DICTATED BY: Yanci Valdez MD DATE/TIME DICTATED:08/11/17949 CROZER:JUAN DATE/TIME TRANSCRIBED:08/11/17949 CONFIDENTIAL, DO NOT COPY WITHOUT APPROPRIATE AUTHORIZATION. <Electronically signed in Other Vendor System> SIGNED BY: Yanci Valdez MD 08/11/17 1003 (Eliezer Andrea) Departure Departure Disposition: HOME OR SELF CARE Condition: Stable Clinical Impression Primary Impression: Head injury Secondary Impressions: Scalp laceration, Soft tissues foreign body Referrals: David PLAZA,Jorge Chun MD,Valentino (PCP/Family) Additional Instructions: Return in 7-10 days for staple removal. Return if any severe headache vomiting or any other concern. Tylenol as needed for pain. There is a potential soft tissue foreign body. If you get any redness swelling discharge or chills return to emergency immediately. Follow-up with plastic surgeon. Please go over all results of today's visit with your primary care doctor. Contact your primary care doctor to let them know you were here in the emergency room. There may be nonspecific findings which may not be related to your visit today here in the emergency room but may require further evaluation and chronic monitoring by your primary care doctor. If you had a laceration today the chance of foreign body always remains. You should follow-up with your primary care doctor for recheck in 3-5 days for a wound check. If you had an x-ray done there is a chance that a fracture could have been missed on initial read and you should follow-up with your primary care doctor for repeat x-rays if symptoms persist. If your blood pressure was elevated here in the emergency room please have rechecked by vijay primary care doctor within the next 48. If you were prescribed a narcotic here in the emergency room or any type of controlled substances you're not allowed to drive while taking this medication or operate any type of heavy machinery. Narcotics can make you feel lightheaded dizziness nausea and can cause constipation. You may need to cherry picker operator a stool softener. Thank you for choosing [facility] emergency room. Please return to the emergency room immediately if you have any other concerns worsening of symptoms. Departure Forms: Customer Survey General Discharge Information Prescriptions: Current Visit Scripts Cephalexin (Keflex) 1 CAP PO TID #21 CAP Comments 08/11/2017 11:57:14 AM Follow-up with primary care doctor. Return if any concerns worsening symptoms. Return in 10 days for staple removal. Discussed the possibility of a small residual foreign body seen on the CT scan. Referral to plastic surgery. Take antibiotics as prescribed. Watch for signs of infection. No foreign body was appreciated and exam or seen upon irrigating. (Eliezer Andrea) PA/[facility]ON Co-Sign Statement Statement: ED Attending supervision documentation- [] I saw and evaluated the patient. I have also reviewed all the pertinent lab results and diagnostic results. I agree with the findings and the plan of care as documented in the PA's/STUCC[facility] MASON's documentation. [X] I have reviewed the ED Record and agree with the PA's/[facility]CC[facility] MASON's documentation. [] Additions or exceptions (if any) to the PAs/[facility]UCC[facility] MASON's note and plan are summarized below: [] (Nicol PLAZA,Nir Moran) Procedures Laceration/Wound Repair Progress: 6 cm laceration to right scalp, irrigated with Betadine and peroxide and saline, so almost 1% lidocaine with epinephrine, 5 mL injected, 9 charissa placed, bacitracin, sterile technique, patient tolerated procedure well, (Erik ZULETA,Eliezer)
[2017-08-11 10:00] VITALS: BP 140/79
--- NOTE | 2017-08-11 10:03 | CT SCAN REPORT ---
EXAMINATION: CT HEAD WITHOUT CONTRAST CT CERVICAL SPINE WITHOUT CONTRAST CLINICAL INFORMATION: Fall, head trauma, laceration. COMPARISON: 06/07/2017. TECHNIQUE: Contiguous axial imaging was performed from the skull base to vertex without intravenous administration of contrast. In addition, helical noncontrast CT imaging was acquired through the cervical spine and source images were reviewed along with axial reconstructions and sagittal and coronal MPRs. DLP: 1008 mGy-cm FINDINGS: HEAD: There is no hemorrhage, edema, mass effect, hydrocephalus, extra-axial collection, shift of the normally midline structures, or evolving territorial infarct. There is mild generalized prominence of the ventricles, sulci, and extra-axial CSF spaces and mild periventricular hypoattenuation compatible with chronic microangiopathy. Mild asymmetry of the lateral ventricles, slightly larger on the left than the right, is stable and likely on a congenital/develop mental basis. No acute osseous abnormality. There is a soft tissue defect along the right frontal scalp superimposed on a stable area of scarring. There is a punctate radiodensity in the soft tissues of the scalp adjacent to the defect, suspicious for a radio opaque foreign body. The visualized orbits are unremarkable. The imaged paranasal sinuses, mastoid air cells and middle ear cavities are clear. There appears to be some packing material in the right nasal cavity. CERVICAL SPINE: There is no evidence of fracture or traumatic subluxation. Vertebral body height is maintained. Sagittal alignment is maintained. The atlantoaxial and atlantooccipital articulations are maintained. There is stable spondylosis with multilevel prominent anterior osteophyte formation, intervertebral disc height loss, endplate spurring and sclerosis, the latter most notable at C5-C6. This results in mild multilevel bony canal stenosis most notable at C5-C6. There is mild to moderate bilateral foraminal stenosis at this level. Mild foraminal stenosis is also evident on the right at C4-C5 and bilaterally at C3-C4. There is no abnormal density visualized within the cervical canal to suggest hematoma. No evidence of prevertebral soft tissue swelling or fluid. The imaged pharyngeal and laryngeal contours are unremarkable. There is a tonsillith in the left palatine tonsil. There is a 3 mm air-filled internal laryngocele without evidence of abnormality at the level of the laryngeal ventricle. No discrete thyroid lesions are visualized. No cervical adenopathy is noted. The lung apices are clear without evidence of pneumothorax. IMPRESSION: 1. No acute intracranial pathology. There is a laceration involving the right frontal scalp with a punctate radiodensity in the adjacent subcutaneous tissues, suggestive of a retained foreign body. 2. No CT evidence of acute cervical spine fracture or traumatic subluxation. Stable spondylosis most notable at C5-C6.
[2017-08-11] MEDS ORDERED: KEFLEX500 M1 PO (10:09)
== END 2017-08-11 10:22 ==
LOC: ERH 07:34
DX: S09.90XA Unspecified injury of head, initial encounter (principal); S01.02XA Laceration with foreign body of scalp, initial encounter; M54.2 Cervicalgia; W01.0XXA Fall on same level from slipping, tripping and stumbling without subsequent striking against object, initial encounter; Y92.89 Other specified places as the place of occurrence of the external cause